=== PATIENT | male | born 1960 | race Caucasian/White ===

== ENCOUNTER 2017-11-28 15:13 | Outpatient (CLI) | payer MEDICARE, SELFPAY ==
--- NOTE | 2017-11-28 15:15 | DI.RAD_ITS ---
SYMPTOMS/DIAGNOSIS: LUMBAR RADICULOPATHY, M54.16, S/P L2-S1 PSIF AND L4 LAMI, RT FOOT AND LEG PAIN LUMBAR SPINE: AP and lateral views. Pedicle screws and rods are seen from L 2 through S 1. The orthopedic hardware appears in good position. There is an intervertebral body cage at the L 4 - 5 disc level. There is straightening of the normal lumbar lordosis. There also appears to be a mild right convex curvature of the lumbar spine. No definite acute fractures or subluxations are seen. Moderate degenerative changes are present throughout the lumbar spine. The patient appears to have had a prior L 4 laminectomy. IMPRESSION: 1. Post surgical changes in the lumbar spine as described. 2. Mild to moderate degenerative changes in the lumbar spine.
== END 2017-11-28 15:33 ==
PROVIDERS: PCP Family Medicine; Visit Provider Nurse Practitioner
DX: M54.16 Radiculopathy, lumbar region (principal); M79.671 Pain in right foot; M79.661 Pain in right lower leg
CPT/HCPCS: 72100

== ENCOUNTER 2018-05-18 14:51 | Outpatient (REF) | payer MEDICARE, SELFPAY ==
--- NOTE | 2018-05-18 10:25 | SKI_PTH ---
PATIENT: Darrell Sweeney LOC: [facility] U#:[id number] AGE/SX: 58/M ROOM: RE05/18/[address]: Ivonne Diop : 1960 BED: DIS: 05/18/2018 SPEC #: [id number] RECD: 05/19/18 11:32 STATUS: ARTEMIO JANE #: [id number] JANELLE: 05/18/18 10:[address]: Ivonne Diop DEPT: Surgical Specimen RECD BY: Shefali Limon Tissues: 1 - SKIN BIOPSY(SHAVE/PUNCH) Procedures: SKIN LEVEL 4 Comments: [id number]
== END 2018-05-18 15:11 ==
LOC: NCHCN 14:51
PROVIDERS: PCP Family Medicine; Visit Provider Family Medicine
DX: C44.729 Squamous cell carcinoma of skin of left lower limb, including hip (principal)
CPT/HCPCS: 88305

== ENCOUNTER 2018-06-12 10:48 | Outpatient (CLI) | payer MEDICARE, SELFPAY ==
[2018-06-12 13:24] LABS: ESR 12 MM/HR (1-20)
[2018-06-15 10:47] LABS: Rheumatoid Factor <8 IU/mL (<12.5)
[2018-06-15 14:21] LABS: ANA Interpretation Positive (NEGAT); ANA Titer Pattern 1:320 Speckled
[2018-06-16 10:45] LABS: dsDNA Ab, IgG <12.3 IU/mL (<30)
== END 2018-06-12 11:08 ==
PROVIDERS: PCP Family Medicine; Visit Provider Family Medicine
DX: D89.89 Other specified disorders involving the immune mechanism, not elsewhere classified (principal)
CPT/HCPCS: 36415; 85652; 84443; 86038; 86225; 86431

== ENCOUNTER 2018-06-18 07:04 | Outpatient (CLI) | payer MEDICARE, SELFPAY ==
--- NOTE | 2018-06-18 14:29 | DI.CT_ITS ---
SYMPTOMS/DIAGNOSIS: SHORTNESS OF BREATH, R06.02, H/O CIGARETTE SMOKER, Z87.[address]: The study was carried out with intravenous injection of 70 cc of Omnipaque 350. There are emphysematous changes in the lungs. Small regions of bilateral lower lobe atelectasis are seen. There is no evidence of a mass or infiltrate. There is no evidence of a pleural effusion. There is no evidence of hilar or mediastinal adenopathy. The heart is not enlarged. There is no pericardial effusion. There is no evidence of an aortic aneurysm. SUMMARY: Findings consistent with COPD. No mass or infiltrate is demonstrated.
[2018-06-18] MEDS: Omnipaque 350 MG/ML 100 ML BTL IJ (14:53)
== END 2018-06-18 07:24 ==
PROVIDERS: PCP Family Medicine; Visit Provider Family Medicine
DX: R06.02 Shortness of breath (principal); Z87.891 Personal history of nicotine dependence; J44.9 Chronic obstructive pulmonary disease, unspecified; J98.11 Atelectasis
CPT/HCPCS: 71260; J3490

== ENCOUNTER 2018-07-01 00:55 | Outpatient (CLI) | payer MEDICARE, SELFPAY ==
[2018-07-01 09:40] LABS: CREATININE 0.81 mg/dL (0.70-1.30)
--- NOTE | 2018-07-01 10:33 | DI.RAD_ITS ---
SYMPTOM/DIAGNOSIS: THORACIC BACK PAIN, M54.6 THORACIC SPINE: AP and lateral views. Comparison chest xray is 04/02/17. There is normal alignment of the thoracic spine. The paraspinal lines appear intact. There are mild degenerative changes present throughout the thoracic spine. No acute fractures or subluxations are seen. The inferior images show findings of spinal fixation surgery. This was not present on examination from 04/02/17. IMPRESSION: Mild degenerative changes in the thoracic spine. No acute abnormality.
--- NOTE | 2018-07-08 15:18 | DI.MRI_ITS ---
SYMPTOM/DIAGNOSIS: CERVICAL STENOSIS OF SPINAL CORD, M45.02, S/P LUMBAR SPINAL FUSION, Z98.1, LOW BACK PAIN LUMBOSACRAL SPINE MRI: MRI examination of the lumbosacral spine was performed according to the usual protocol with additional pre and post contrast axial and sagittal T 1 fat sat imaging. There is posterior spinal fusion with fixation screws extending into the vertebral bodies from L 2 through S 1. There is significant artifact from this apparatus. The conus medullaris appears grossly intact. Spinal canal appears well maintained throughout with mild bony deformity present at the L 4-5 level, the bony deformity appears essentially unchanged in comparison with previous lumbar spine CT of 04/02/17 and these vertebral bodies now appear fused by MR criteria. No gross disc herniation identified. Neural foramina poorly visualized. No enhancing lesion is seen. CONCLUSION: Stable appearance of lumbar fusion as described above. No gross evidence of neural impingement on this limited study. CERVICAL SPINE MRI: MRI examination of the cervical spine was performed according to the usual protocol. The examination is significantly limited by motion artifact. No significant bony signal abnormality is seen. Loss of normal cervical lordosis noted. There is prominence of the disc osteophyte complex at multiple levels from C 3-4 through C 6-7. The bony spinal canal appears fairly well maintained throughout this region. No gross disc herniation identified at C 3-4 or C 4-5. There may be a small to moderate sized superimposed right paracentral disc herniation at C 5-6, also mild right superimposed disc herniation paracentral at C 6-7 may be present. Neural foraminal poorly visualized. Spinal cord is of normal diameter and shows normal signal throughout. CONCLUSION: Very limited study. Multi level prominence of the disc osteophyte complex as described above with possible superimposed mild right paracentral disc herniations at C 5-6 and C 6-7. No cord abnormality is seen.
[2018-07-08] MEDS: Gadoterate meglumine 20 ML VIAL IVP (15:42)
[2018-07-08] MEDS: Normal Saline Flush 10 ML SYR IVP (15:43)
== END 2018-07-01 01:15 ==
PROVIDERS: Neurological Surgery; PCP Family Medicine; Visit Provider Nurse Practitioner
DX: M54.6 Pain in thoracic spine (principal); M47.814 Spondylosis without myelopathy or radiculopathy, thoracic region; Z98.1 Arthrodesis status; Z13.89 Encounter for screening for other disorder
CPT/HCPCS: 72072; 82565

== ENCOUNTER 2018-07-07 00:57 | Outpatient (CLI) | payer MEDICARE, SELFPAY ==
--- NOTE | 2018-07-07 09:31 | DI.RAD_ITS ---
SYMPTOMS/DIAGNOSIS: SWALLOWING PROBLEM, R13.10, DYSPHAGIA MODIFIED BARIUM SWALLOW: The exam was performed in conjunction with Speech Pathology. Multiple consistencies of barium, as well as cracker and apple coated with barium and barium tablet, were administered. There is normal oral transit. No aspiration was seen during the exam. There is no significant pooling in the vallecula or pyriform sinuses. The barium tablet passed into the stomach without delay. Degenerative changes are seen at C5-6 and C6-7. IMPRESSION: Modified barium swallow is within normal limits.
[2018-07-07] MEDS: Barium Sulfate 700 MG TAB PO (09:34)
[2018-07-07] MEDS: Barium Sulfate 60% W/V 355 ML BTL PO (09:34)
== END 2018-07-07 01:17 ==
PROVIDERS: PCP Family Medicine; Visit Provider Family Medicine
DX: R13.10 Dysphagia, unspecified (principal)
CPT/HCPCS: 74220; J3490

== ENCOUNTER 2018-07-07 02:14 | Outpatient (CLI) | payer MEDICARE, SELFPAY | END 2018-07-07 02:34 | PROVIDERS: PCP Family Medicine | DX: R13.12 Dysphagia, oropharyngeal phase (principal); R13.14 Dysphagia, pharyngoesophageal phase | CPT/HCPCS: 92611 ==

== ENCOUNTER 2018-07-08 00:19 | Outpatient (CLI) | payer MEDICARE, SELFPAY | END 2018-07-08 00:39 | PROVIDERS: PCP Family Medicine; Visit Provider Neurological Surgery | DX: M54.5 Low back pain (principal); M48.02 Spinal stenosis, cervical region; M50.222 Other cervical disc displacement at C5-C6 level; M50.223 Other cervical disc displacement at C6-C7 level; M54.2 Cervicalgia | CPT/HCPCS: 72158; 72141 ==

== ENCOUNTER 2018-11-09 18:54 | Emergency (ER) | payer MEDICARE, SELFPAY ==
[2018-11-09 19:49] VITALS: BP 147/85; PULSE 56; RESP 16; TEMP 36.5; O2SAT 99
--- NOTE | 2018-11-09 20:04 | W.ED.GENAD ---
Discharge Plan Disposition Patient Disposition: HOME Discharge Details Chief Complaint: Trauma Clinical Impression: Left ankle sprain, Ingrown nail of great toe of left foot Primary Care Provider: Ivonne Diop ED Provider: Mateo Rebollar Home Meds and New Rx's Prescriptions: New cephalexin [Keflex] 500 mg capsule 500 mg PO QID Qty: 28 RF: 0 Continued olanzapine [Zyprexa] 10 MG tablet 10 mg PO TID RF: 0 lamotrigine 300 MG tablet extended release 24hr 300 mg PO DAILY RF: 0 Narcan 4 MG spray,non-aerosol 4 mg NS ONCE MDD 1 Qty: 1 RF: 0 lisinopril 20 MG tablet 40 mg PO DAILY RF: 0 mirtazapine 45 MG tablet 45 mg PO HS RF: 0 acetaminophen 500 MG tablet 1,000 mg PO QID PRN PRNRF: 0 tamsulosin [Flomax] 0.4 MG capsule 0.8 mg PO DAILY RF: 0 cyanocobalamin (vitamin B-12) [Vitamin B-12] 1,000 MCG tablet 1,000 mcg PO DAILY RF: 0 turmeric root extract 500 MG capsule 500 mg PO DAILY RF: 0 cyclobenzaprine 10 MG tablet 10 mg PO BID PRN PRNRF: 0 Flovent Diskus 50 MCG blister with device 50 mcg Inhalation DAILY RF: 0 polyethylene glycol 3350 17 GM powder in packet 17 gm PO DAILY RF: 0 sennosides-docusate sodium [Senna with Docusate Sodium] 1 EACH tablet 2 ea PO BID RF: 0 chlorthalidone 50 MG tablet 50 mg PO DAILY RF: 0 morphine [MS Contin] 60 MG tablet extended release 60 mg PO BID RF: 0 morphine [MS Contin] 60 MG tablet extended release 120 mg PO HS RF: 0 morphine 30 MG tablet 30 mg PO Q4H PRN PRNRF: 0 lidocaine [Lidoderm] 1 PATCH adhesive patch,medicated 1 ea Topical DAILY RF: 0 gabapentin 300 MG capsule 300 mg PO TID RF: 0 diltiazem HCl 120 MG capsule,extended release 24hr 120 mg PO DAILY RF: 0 Vicks DayQuil Cough 5 MG/5 ML syrup 30 mg PO Q6H PRN PRNRF: 0 Spiriva with HandiHaler 18 MCG capsule, w/inhalation device 18 mcg Inhalation DAILY RF: 0 omega-3 fatty acids-fish oil 1 EACH capsule 1 ea PO DAILY RF: 0 levomefolate calcium [L-Methylfolate] 15 MG tablet 15 mg PO DAILY RF: 0 venlafaxine 75 MG capsule,extended release 24hr 150 mg PO HS RF: 0 Discharge Instructions Instructions: Ankle Sprain (ED) Additional Instructions: Please use walking boot and crutches for the next 1 to 2 weeks. If pain persists, you will need additional diagnostic imaging. Please follow-up with your primary care physician. Call for an appointment. Please follow-up with podiatry regarding her ingrown toenail. Call for an appointment. Take full course antibiotics as prescribed. Return to the ER for any worsening or new concerning symptoms. Referrals: Ivonne Diop [Primary Care Provider] - Diaz Shelton DPM [[facility] STAFF PHYSICIAN] - Discharge Data Discharge Date/Time-TO BE ENTERED AT DEPARTURE: 11/09/18 22:00 Medical Decision Making 58-year-old male here 1 day after fall from 3 foot ladder with complaint of left ankle and foot pain. Patient has tenderness of his left anterior lateral ankle and proximal foot. Considered fracture. X-ray of the ankle reviewed and interpreted by radiology: No evidence for acute bony injury. Soft tissue swelling. If clinical systems persist recommend follow-up film in 7 to 10 days. X-ray of the foot reviewed and interpreted by radiology: No acute bony findings. If clinical symptoms persist recommend follow-up film in 7 to 10 days. Suspect ankle sprain. Will provide walking boot and crutches. Patient also with left great toe ingrown nail with associated mild cellulitis. Plan to treat with Keflex and have him follow-up with podiatry. HPI General Mode of arrival: ambulatory. Date/Time Provider Initiated Documentation: 11/09/18 19:49. Limitations to Documentation: no limitations. Information obtained by: patient. HPI Narrative: 58-year-old male here 1 day after fall from 3 foot ladder with complaint of left ankle and foot pain. Patient notes pain is moderate and worse with ambulation. No associated numbness. No other injury. He also notes ingrown left great toenail and concern for infection over the past few days. Denies fever. Related Data Home Medications Medication Instructions Recorded Confirmed lisinopril 40 mg PO DAILY 05/20/12 11/09/18 mirtazapine 45 mg PO HS 05/20/12 11/09/18 acetaminophen 1,000 mg PO QID PRN PRN 01/05/16 04/02/17 tamsulosin [Flomax] 0.8 mg PO DAILY 01/05/16 11/09/18 cyanocobalamin (vitamin B-12) 1,000 mcg PO DAILY 02/06/16 11/09/18 [Vitamin B-12] turmeric root extract 500 mg PO DAILY 02/06/16 11/09/18 olanzapine [Zyprexa] 10 mg PO TID 06/26/16 11/09/18 Narcan 4 mg NS ONCE #1 spray MDD 1 07/23/16 11/09/18 lamotrigine 300 mg PO DAILY 07/23/16 11/09/18 Flovent Diskus 50 mcg INHALATION DAILY 04/02/17 11/09/18 Spiriva with HandiHaler 18 mcg INHALATION DAILY 04/02/17 11/09/18 Vicks DayQuil Cough 30 mg PO Q6H PRN PRN 04/02/17 04/02/17 chlorthalidone 50 mg PO DAILY 04/02/17 04/02/17 cyclobenzaprine 10 mg PO BID PRN PRN 04/02/17 11/09/18 diltiazem HCl 120 mg PO DAILY 04/02/17 11/09/18 gabapentin 300 mg PO TID 04/02/17 11/09/18 levomefolate calcium 15 mg PO DAILY 04/02/17 11/09/18 [L-Methylfolate] lidocaine [Lidoderm] 1 ea TOPICAL DAILY 04/02/17 11/09/18 morphine 30 mg PO Q4H PRN PRN 04/02/17 11/09/18 morphine [MS Contin] 60 mg PO BID 04/02/17 11/09/18 morphine [MS Contin] 120 mg PO HS 04/02/17 11/09/18 omega-3 fatty acids-fish oil 1 ea PO DAILY 04/02/17 11/09/18 polyethylene glycol 3350 17 gm PO DAILY 04/02/17 11/09/18 sennosides-docusate sodium [Senna 2 ea PO BID 04/02/17 11/09/18 with Docusate Sodium] venlafaxine 150 mg PO HS 04/02/17 11/09/18 cephalexin [Keflex] 500 mg PO QID #28 cap 11/09/18 Previous Rx's Medication Instructions Recorded cephalexin [Keflex] 500 mg PO QID #28 cap 11/09/18 Allergies Allergy/AdvReac Type Severity Reaction Status Date / Time varenicline [From Chantix] AdvReac Intermediate Psychosis Unverified 04/02/17 11:21 ziprasidone mesylate AdvReac Intermediate Memory Unverified 04/02/17 11:21 [From Geodon] deficit duloxetine HCl AdvReac Unknown Unverified 04/02/17 11:21 [From Cymbalta] topiramate [From Topamax] AdvReac Unknown Unverified 04/02/17 11:21 hay fever AdvReac Mild rhinitis Uncoded 04/02/17 11:21 General Stated Complaint: Trauma GARRETT: 3 Review of Systems Constitutional Constitutional: Denies fever(s) Musculoskeletal Musculoskeletal: Reports system reviewed and no additional complaints, except as docu [facility] Medical History Chronic back pain Depression with anxiety Fibromyalgia Hyperlipidemia Hypertension Lactose intolerance Marijuana use Obesity ANGIE (obstructive sleep apnea) Psychogenic polydipsia PTSD (post-traumatic stress disorder) Restless legs Urinary retention Surgical History bunionectomy Colonoscopy - MAC Replacement of total knee joint right Rotator Cuff Repair right Social History Smoking/Tobacco Use Status: Current every day Drug use: Daily Do you feel safe in your relationship?: Yes Exam Const General: cooperative and no acute distress Cardio Rate: regular rate Rhythm: regular rhythm Skin Nails: other (Left great toe ingrown with some localized erythema and swelling) Extrem General: no edema Left lower extremity: lower leg Details: no tenderness (Proximal lower leg), ankle Details: tenderness Location: of the lateral malleolus and swelling Details: diffusely; no warmth and no crepitus and foot Details: no tenderness Other: Distal motor and sensation intact Course Vital Signs Vital signs: Vital Signs Temperature 36.5 C 11/09/18 19:49 Pulse 56 L 11/09/18 19:49 Respiratory Rate 16 11/09/18 19:49 Blood Pressure 147/85 H 11/09/18 19:49 Pulse Oximetry 99 11/09/18 19:49 Temperature 36.5 C 11/09/18 19:49 Temperature Source Temporal Artery Scan 11/09/18 19:49 Pulse 56 L 11/09/18 19:49 Respiratory Rate 16 11/09/18 19:49 Blood Pressure 147/85 H 11/09/18 19:49 Blood Pressure Position Sitting 11/09/18 19:49 Pulse Oximetry 99 11/09/18 19:49 Oxygen Delivery Method Room Air 11/09/18 19:49 Oxygen Flow Rate 0 11/09/18 19:49 Pain Level 8 11/09/18 19:49
[2018-11-09] MEDS: Cephalexin 500 MG CAP PO (20:16)
--- NOTE | 2018-11-09 20:25 | DI.RAD_ITS ---
EXAM: XR FOOT LT COMPLETE CLINICAL HISTORY: FELL, PAIN TECHNIQUE: Three views were obtained. COMPARISON: XR ANKLE LT COMPLETE from 11/09/2018 FINDINGS: There are degenerative changes of the tibiotalar and subtalar articulations. There are also degenera tive changes of the medial midfoot joints. No evidence of acute fracture. IMPRESSION:
--- NOTE | 2018-11-09 20:25 | DI.RAD_ITS ---
EXAM: XR ANKLE LT COMPLETE CLINICAL HISTORY: FELL, PAIN TECHNIQUE: Three views were obtained. COMPARISON: RIGHT ANKLE COMPLETE from 07/21/2009 XR FOOT LT COMPLETE from 11/09/2018 FINDINGS: Mild degenerative changes of the joints of the ankle noted. No evidence of acute fracture IMPRESSION:
--- NOTE | 2018-11-09 20:31 | DI.VRAD_ITS ---
EXAM: XR Left Ankle EXAM DATE/TIME: 11/09/2018 8:04 PM CLINICAL HISTORY: 58 years old, male; Injury or trauma; Fall; Initial encounter; Blunt trauma; Ankle and foot; Left; Injury date: 11/09/18; Injury details: Fell off step ladder TECHNIQUE: Imaging protocol: XR Left ankle. Views: 3 or more views. COMPARISON: No relevant prior studies available. FINDINGS: Bones/joints: Degenerative changes of the talotibial joint. No evidence for acute bony injury. Soft tissues: Soft tissue swelling circumferentially involving the left ankle. IMPRESSION: No evidence for acute bony injury. Soft tissue swelling. If clinical symptoms persist recommend followup film in 7-10 days. Dictated and Authenticated by: Noelle Portillo MD. Ordering:TREMAINE Galindo MD
--- NOTE | 2018-11-09 20:32 | DI.VRAD_ITS ---
EXAM: XR Left Foot Complete EXAM DATE/TIME: 11/09/2018 8:04 PM CLINICAL HISTORY: 58 years old, male; Injury or trauma; Fall; Initial encounter; Blunt trauma; Ankle and foot; Left; Injury date: ; Injury details: Fell off step ladder TECHNIQUE: Imaging protocol: XR Left foot. Views: 3 or more views. COMPARISON: No relevant prior studies available. FINDINGS: Bones/joints: Degenerative changes of the talotibial joint. Degenerative changes of the tarsal bones. No evidence for acute bony injury. Soft tissues: Soft tissue swelling involving the ankle. IMPRESSION: No acute bony findings. If clinical symptoms persist recommend followup film in 7-10 days. Dictated and Authenticated by: Noelle Portillo MD. Ordering:TREMAINE Galindo MD
== END 2018-11-09 22:00 | disposition home or self-care (01) ==
PROVIDERS: Emergency Provider Student in an Organized Health Care Education/Training Program; PCP Family Medicine
DX: S93.402A Sprain of unspecified ligament of left ankle, initial encounter (principal); L60.0 Ingrowing nail; L03.032 Cellulitis of left toe; W11.XXXA Fall on and from ladder, initial encounter; I10 Essential (primary) hypertension
CPT/HCPCS: 29515; 99284; 73610; 73630; L4361

== ENCOUNTER 2018-11-23 10:25 | Outpatient (REF) | payer MEDICARE, SELFPAY ==
[2018-11-23 21:09] LABS: HCT 37.9 % (40.0-50.0); HGB 12.6 g/dL (13.5-17.5); Mean Corp. HGB Concentration 33.2 g/dL (32.0-36.0); Mean Corpuscular Volume 90.2 fL (80-95); Mean Platelet Volume 8.8 fL (8.0-11.0); Platelet Count 278 x1000/uL (130-400); RBC Distribution Width 15.9 % (11.8-14.1); White Blood Cell Count 9.63 k/cumm (4.4-10.8)
[2018-11-23 21:21] LABS: ALT 57 U/L (16-63); AST 31 U/L (15-37); Albumin 3.1 g/dL (3.4-5.0); Alkaline Phosphatase 114 U/L (46-116); Anion Gap 5.2 mmol/L (3-11); BUN 8 mg/dL (7-18); Bilirubin, Total 0.6 mg/dL (0.2-1.0); CO2 29.8 mmol/L (21.0-32.0); CREATININE 0.91 mg/dL (0.70-1.30); Calcium 8.4 mg/dL (8.5-10.1); Chloride 100 mmol/L (98-107); Glucose 93 mg/dL (70-100); Potassium 4.8 mmol/L (3.5-5.1); Sodium 135 mmol/L (136-145); Total Protein 5.7 g/dL (6.4-8.2)
[2018-11-24 08:48] LABS: NT-proBNP 2283 pg/mL
== END 2018-11-23 10:45 ==
LOC: NCHCN 10:25
PROVIDERS: PCP Family Medicine; Visit Provider Internal Medicine
DX: R06.02 Shortness of breath (principal); J44.9 Chronic obstructive pulmonary disease, unspecified
CPT/HCPCS: 80053; 85027; 83880

== ENCOUNTER 2018-11-27 03:44 | Outpatient (CLI) | payer MEDICARE, SELFPAY ==
--- NOTE | 2018-11-27 09:30 | PFT_ITS ---
PULMONARY FUNCTION TEST REPORT DATE OF SERVICE: November 27, 2018 REQUESTING PROVIDER: Dr. Mark Rivas Spirometry shows mild obstructive airways disease with no significant bronchodilator response. Lung volumes show no evidence of restriction. Diffusion capacity normal. Airways resistance normal. IMPRESSION: Mild obstructive airways disease with no significant bronchodilator response. This is associated with mild hyper-inflation. Clinical correlation recommended. When this study was compared to previous one from 05/15/2016, the patient has a total of 840 cc's decline in FVC. FEV1 has declined by 580 cc's. ESAU/prieto D/
[2018-11-27] MEDS: Inhaler, Assist Device 1 EACH MC (15:58)
[2018-11-27] MEDS: Albuterol HFA 18 GM 200 PUFF INH IH (15:58)
== END 2018-11-27 04:04 ==
PROVIDERS: PCP Family Medicine; Visit Provider Internal Medicine
DX: J44.9 Chronic obstructive pulmonary disease, unspecified (principal); R06.09 Other forms of dyspnea; Z87.891 Personal history of nicotine dependence
CPT/HCPCS: 94060; 94150; 94726; 94729

== ENCOUNTER 2018-12-28 10:59 | Emergency (ER) | payer MEDICARE, SELFPAY ==
[2018-12-28] VITALS (49 sets, daily range): BP systolic 90–164; BP diastolic 65–137; PULSE 70–117; RESP 15–28; TEMP 36.7; O2SAT 91–98
--- NOTE | 2018-12-28 11:03 | ED.GENADUL_ITS ---
Discharge Plan Discharge Details Primary Care Provider: Ivonne Diop ED Provider: Mili Rebollar Home Meds and New Rx's Prescriptions: No Action olanzapine [Zyprexa] 10 MG tablet 10 mg PO TID RF: 0 lamotrigine 300 MG tablet extended release 24hr 300 mg PO DAILY RF: 0 Narcan 4 MG spray,non-aerosol 4 mg NS ONCE MDD 1 Qty: 1 RF: 0 lisinopril 20 MG tablet 40 mg PO DAILY RF: 0 mirtazapine 45 MG tablet 45 mg PO HS RF: 0 acetaminophen 500 MG tablet 1,000 mg PO QID PRN PRNRF: 0 tamsulosin [Flomax] 0.4 MG capsule 0.8 mg PO DAILY RF: 0 cephalexin [Keflex] 500 mg capsule 500 mg PO QID Qty: 28 RF: 0 cyanocobalamin (vitamin B-12) [Vitamin B-12] 1,000 MCG tablet 1,000 mcg PO DAILY RF: 0 turmeric root extract 500 MG capsule 500 mg PO DAILY RF: 0 cyclobenzaprine 10 MG tablet 10 mg PO BID PRN PRNRF: 0 Flovent Diskus 50 MCG blister with device 50 mcg Inhalation DAILY RF: 0 polyethylene glycol 3350 17 GM powder in packet 17 gm PO DAILY RF: 0 sennosides-docusate sodium [Senna with Docusate Sodium] 1 EACH tablet 2 ea PO BID RF: 0 chlorthalidone 50 MG tablet 50 mg PO DAILY RF: 0 morphine [MS Contin] 60 MG tablet extended release 60 mg PO BID RF: 0 morphine [MS Contin] 60 MG tablet extended release 120 mg PO HS RF: 0 morphine 30 MG tablet 30 mg PO Q4H PRN PRNRF: 0 lidocaine [Lidoderm] 1 PATCH adhesive patch,medicated 1 ea Topical DAILY RF: 0 gabapentin 300 MG capsule 300 mg PO TID RF: 0 diltiazem HCl 120 MG capsule,extended release 24hr 120 mg PO DAILY RF: 0 Vicks DayQuil Cough 5 MG/5 ML syrup 30 mg PO Q6H PRN PRNRF: 0 Spiriva with HandiHaler 18 MCG capsule, w/inhalation device 18 mcg Inhalation DAILY RF: 0 omega-3 fatty acids-fish oil 1 EACH capsule 1 ea PO DAILY RF: 0 levomefolate calcium [L-Methylfolate] 15 MG tablet 15 mg PO DAILY RF: 0 venlafaxine 75 MG capsule,extended release 24hr 150 mg PO HS RF: 0 HPI General Date/Time Provider Initiated Documentation: 12/28/18 11:03 . Related Data Home Medications Medication Instructions Recorded Confirmed lisinopril 40 mg PO DAILY 05/20/12 11/09/18 mirtazapine 45 mg PO HS 05/20/12 11/09/18 acetaminophen 1,000 mg PO QID PRN PRN 01/05/16 04/02/17 tamsulosin [Flomax] 0.8 mg PO DAILY 01/05/16 11/09/18 cyanocobalamin (vitamin B-12) 1,000 mcg PO DAILY 02/06/16 11/09/18 [Vitamin B-12] turmeric root extract 500 mg PO DAILY 02/06/16 11/09/18 olanzapine [Zyprexa] 10 mg PO TID 06/26/16 11/09/18 Narcan 4 mg NS ONCE #1 spray MDD 1 07/23/16 11/09/18 lamotrigine 300 mg PO DAILY 07/23/16 11/09/18 Flovent Diskus 50 mcg INHALATION DAILY 04/02/17 11/09/18 Spiriva with HandiHaler 18 mcg INHALATION DAILY 04/02/17 11/09/18 Vicks DayQuil Cough 30 mg PO Q6H PRN PRN 04/02/17 04/02/17 chlorthalidone 50 mg PO DAILY 04/02/17 04/02/17 cyclobenzaprine 10 mg PO BID PRN PRN 04/02/17 11/09/18 diltiazem HCl 120 mg PO DAILY 04/02/17 11/09/18 gabapentin 300 mg PO TID 04/02/17 11/09/18 levomefolate calcium 15 mg PO DAILY 04/02/17 11/09/18 [L-Methylfolate] lidocaine [Lidoderm] 1 ea TOPICAL DAILY 04/02/17 11/09/18 morphine 30 mg PO Q4H PRN PRN 04/02/17 11/09/18 morphine [MS Contin] 60 mg PO BID 04/02/17 11/09/18 morphine [MS Contin] 120 mg PO HS 04/02/17 11/09/18 omega-3 fatty acids-fish oil 1 ea PO DAILY 04/02/17 11/09/18 polyethylene glycol 3350 17 gm PO DAILY 04/02/17 11/09/18 sennosides-docusate sodium [Senna 2 ea PO BID 04/02/17 11/09/18 with Docusate Sodium] venlafaxine 150 mg PO HS 04/02/17 11/09/18 cephalexin [Keflex] 500 mg PO QID #28 cap 11/09/18 Previous Rx's Medication Instructions Recorded cephalexin [Keflex] 500 mg PO QID #28 cap 11/09/18 Allergies Allergy/AdvReac Type Severity Reaction Status Date / Time varenicline [From Chantix] AdvReac Intermediate Psychosis Unverified 04/02/17 11:21 ziprasidone mesylate AdvReac Intermediate Memory Unverified 04/02/17 11:21 [From Geodon] deficit duloxetine HCl AdvReac Unknown Unverified 04/02/17 11:21 [From Cymbalta] topiramate [From Topamax] AdvReac Unknown Unverified 04/02/17 11:21 hay fever AdvReac Mild rhinitis Uncoded 04/02/17 11:21 General GARRETT: 3 PFSH Social History Smoking/Tobacco Use Status: Current every day Drug use: Daily Do you feel safe in your relationship?: Yes
--- NOTE | 2018-12-28 11:14 | W.ED.GENAD ---
Discharge Plan Discharge Details Chief Complaint: Nausea/Vomit/Diar Primary Care Provider: Ivonne Diop ED Provider: Mateo Rebollar Home Meds and New Rx's Prescriptions: No Action Narcan 4 MG spray,non-aerosol 4 mg NS ONCE MDD 1 Qty: 1 RF: 0 lisinopril 20 MG tablet 40 mg PO DAILY RF: 0 mirtazapine 45 MG tablet 45 mg PO HS RF: 0 acetaminophen 500 MG tablet 1,000 mg PO TID RF: 0 tamsulosin [Flomax] 0.4 MG capsule 0.8 mg PO DAILY RF: 0 cephalexin [Keflex] 500 mg capsule 500 mg PO QID Qty: 28 RF: 0 triamcinolone acetonide 0.5 % Cream 1 applic TOPICAL BID RF: 0 methadone 10 mg Tablet 30 mg PO BID RF: 0 methadone 10 mg Tablet 20 mg PO DAILY RF: 0 lidocaine HCl 2 % Jelly 1 applic INTRA-URETHRAL 4-6XD PRNRF: 0 hydroxyzine HCl 25 mg Tablet 25 mg PO TID PRNRF: 0 albuterol sulfate [Ventolin HFA] 90 mcg/actuation Hfa Aerosol Inhaler 2 puff INHALATION 6XD PRNRF: 0 propranolol 20 mg Tablet 20 mg PO BID RF: 0 fluticasone propionate 50 mcg/actuation [place],Suspension 2 spray INTRANASAL DAILY RF: 0 lamotrigine [Lamictal] 100 mg Tablet 300 mg PO DAILY RF: 0 oxycodone 20 mg Tablet 20 mg PO Q8H PRNRF: 0 venlafaxine 75 mg Tablet Extended Release 24hr 75 mg PO DAILY RF: 0 cholecalciferol (vitamin D3) 5,000 unit Tablet 5,000 unit PO DAILY RF: 0 Anoro Ellipta 62.5-25 mcg/actuation Blister With Device 1 inh INHALATION DAILY RF: 0 Multi-Day Plus Minerals 18 mg iron-400 mcg-25 mcg Tablet 1 tab PO DAILY RF: 0 cannabidiol (CBD) extract 100 mg/mL Solution 2 - 3 PO DAILY PRNRF: 0 cyanocobalamin (vitamin B-12) [Vitamin B-12] 1,000 MCG tablet 1,000 mcg PO DAILY RF: 0 cyclobenzaprine 10 MG tablet 10 mg PO TID PRNRF: 0 polyethylene glycol 3350 17 GM powder in packet 17 gm PO DAILY RF: 0 sennosides-docusate sodium [Senna with Docusate Sodium] 1 EACH tablet 2 ea PO DAILY RF: 0 chlorthalidone 50 MG tablet 50 mg PO DAILY RF: 0 gabapentin 300 MG capsule 300 mg PO QID RF: 0 venlafaxine 75 MG capsule,extended release 24hr 225 mg PO QAM RF: 0 Discharge Data Discharge Date/Time-TO BE ENTERED AT DEPARTURE: 12/28/18 17:50 Medical Decision Making <NOLAN Prasad - Last Filed: 12/30/18 23:57> Patient is a 58-year-old male presenting today with chief complaint of dark stools x2 yesterday. Endorses nausea and vomiting x1 this morning. Is not currently endorsing nausea. No abdominal pain. Headache. States that he has been generally weak but states is been going on for months and is not in any acute change in this. Denies any fevers or chills. No cough. Denies shortness of breath. No chest tightness or chest pain. On exam, patient is resting comfortably. Vital signs are significant for mild hypoxia with an oxygen of 93%, patient has been like this historically. Lungs are clear. Normal Cardiac exam. No lower extremity edema. Rectal exam is normal, heme-negative stool. Abdomen is benign with no tenderness on exam. plan for labs to evaluate for any anemia or electrolyte abnormality in the acute setting of GI illness. Consulted with pathologist. Sodium is 101, potassium 2.7, chloride 65. However, this does not correlate clinically. Will redraw and retest signs my suspicion is his lab error. Patient is clear mentally. He is receiving IV fluids. Went to discuss this with the patient is requesting discharge. He is very anxious. Offered anxiety lytic options and he is requesting anxiety medications. Patient's repeat potassium is critical at 104. We will contact critical care at [facility]. His potassium was low at 3.0. Chloride 67. Magnesium 1.6. Creatinine is have 0.87. On recent discharge note from [facility], patient's sodium was 131. Still awaiting rest of the laboratory results. Reevaluated the patient, he is now starting to have some mentation changes. He is oriented to person but not to place or time. He is moving his hands that is reaching for something that is not there. Patient is to receive 100 mL hypertonic saline over 10 minutes. I did speak with hospitalist as well regarding dosing and reviewed up-to-date. is now giving more of a history. She reports in fact the patient has been reporting a headache for the past week even though initially denied this to me. She also states that he has been more confused over recent days but is not able to define as well for pain. Sounds like he is not answering her questions completely and can ramble. She reports that his weakness, although has been present for several months, has been increasing greatly over recent days and the patient has been stumbling frequently. No seizures. 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 is unclear if he is been having issues with this recently. She reports that he drinks a large amount of soda daily. Reports he had a poor appetite in recent days. Consulted with critical care in [facility]. They accept the patient in transfer but bed is not available at this time. Patient is received 100 mL of hypertonic saline at this time and is improving. They recommended maintaining the patient on 30 mL of 3% hypertonic saline per hour with repeat BMP every 2. Patient continues to have improved mental status, tolerating the hypertonic well. Patient does need to straight cath himself for urination but he reports that this is typical. He reports that he is getting anxious again and is requesting anxiolytic. Also reporting that he has significant pain. Patient is on methadone twice daily as well as oxycodone every 8 as needed. He reports that he only took his morning dose of methadone. We will give his typical dosing of oxycodone to help with his. At the end of my shift, care transtioned to Dr. Rebollar. Hypertonic still running as advised by critical care. <Mateo Rebollar MD - Last Filed: 01/03/19 15:21> Care signed out by NOLAN Hester with plan to await transfer bed availability. Please see her documentation regarding initial ED presentation and course. Screening ECG was reviewed and interpreted by me: Sinus rhythm 86 bpm, normal axis, right bundle branch block is present, nondiagnostic. Repeat sodium is improving slowly and now 107. 17:30 --bed available and patient stable at this point for transfer. HPI <NOLAN Prasad - Last Filed: 12/30/18 23:57> General Mode of arrival: ambulatory. Date/Time Provider Initiated Documentation: 12/28/18 11:03. Limitations to Documentation: no limitations. Information obtained by: patient and family. HPI Narrative: Patient is a 58-year-old male with history of chronic back pain, depression, anxiety, fibromyalgia, hyperlipidemia, hypertension, ANGIE, psychogenic polydipsia, urinary retention obtained today, brought in by his with chief complaint of 2 bottles yesterday. Patient reports that yesterday he had 2 episodes of dark stool was concern for possible bleeding. Since he had a normal bowel movement today. Reports that these stools yesterday may have been slightly softer than typical but not watery diarrhea like. Denies bleeding elsewhere. No bleeding gums, hematuria. States this morning he was nauseated and vomited x1. Is not currently endorsing nausea. Denies any abdominal pain. Patient was seen by his primary care this morning. Patient was admitted recently at [facility] and was discharged on 12/19/2018. Related Data Home Medications Medication Instructions Recorded Confirmed lisinopril 40 mg PO DAILY 05/20/12 12/28/18 mirtazapine 45 mg PO HS 05/20/12 12/28/18 acetaminophen 1,000 mg PO TID 01/05/16 12/28/18 tamsulosin [Flomax] 0.8 mg PO DAILY 01/05/16 12/28/18 cyanocobalamin (vitamin B-12) 1,000 mcg PO DAILY 02/06/16 12/28/18 [Vitamin B-12] Narcan 4 mg NS ONCE #1 spray MDD 1 07/23/16 12/28/18 chlorthalidone 50 mg PO DAILY 04/02/17 12/28/18 cyclobenzaprine 10 mg PO TID PRN 04/02/17 12/28/18 gabapentin 300 mg PO QID 04/02/17 12/28/18 polyethylene glycol 3350 17 gm PO DAILY 04/02/17 12/28/18 sennosides-docusate sodium [Senna 2 ea PO DAILY 04/02/17 12/28/18 with Docusate Sodium] venlafaxine 225 mg PO QAM 04/02/17 12/28/18 cephalexin [Keflex] 500 mg PO QID #28 cap 11/09/18 albuterol sulfate [Ventolin HFA] 2 puff INHALATION 6XD PRN 12/28/18 12/28/18 cannabidiol (CBD) extract 2 - 3 PO DAILY PRN 12/28/18 cholecalciferol (vitamin D3) 5,000 unit PO DAILY 12/28/18 12/28/18 fluticasone propionate 2 spray INTRANASAL DAILY 12/28/18 12/28/18 hydroxyzine HCl 25 mg PO TID PRN 12/28/18 12/28/18 lamotrigine [Lamictal] 300 mg PO DAILY 12/28/18 12/28/18 lidocaine HCl 1 applic INTRA-URETHRAL 4-6XD PRN 12/28/18 12/28/18 methadone 20 mg PO DAILY 12/28/18 12/28/18 methadone 30 mg PO BID 12/28/18 12/28/18 [id number] K 1 tab PO DAILY 12/28/18 12/28/18 [Multi-Day Plus Minerals] oxycodone 20 mg PO Q8H PRN 12/28/18 12/28/18 propranolol 20 mg PO BID 12/28/18 12/28/18 triamcinolone acetonide 1 applic TOPICAL BID 12/28/18 12/28/18 umeclidinium-vilanterol [Anoro 1 inh INHALATION DAILY 12/28/18 12/28/18 Ellipta] venlafaxine 75 mg PO DAILY 12/28/18 12/28/18 Previous Rx's Medication Instructions Recorded cephalexin [Keflex] 500 mg PO QID #28 cap 11/09/18 Allergies Allergy/AdvReac Type Severity Reaction Status Date / Time varenicline [From Chantix] AdvReac Intermediate Psychosis Unverified 12/28/18 11:13 ziprasidone mesylate AdvReac Intermediate Memory Unverified 12/28/18 11:13 [From Geodon] deficit duloxetine HCl AdvReac Unknown Unverified 12/28/18 11:13 [From Cymbalta] topiramate [From Topamax] AdvReac Unknown Unverified 12/28/18 11:13 hay fever AdvReac Mild rhinitis Uncoded 12/28/18 11:13 General Stated Complaint: Nausea/Vomit/Diar GARRETT: 3 Review of Systems <NOLAN Prasad - Last Filed: 12/30/18 23:57> Constitutional Constitutional: Reports as per HPI, Denies chills, Reports fatigue, Denies fever(s), Denies headache(s), Denies lethargy and Denies poor appetite Eyes Eyes: Denies change in vision ENT Ears, Nose, Mouth, and Throat: Denies dizziness and Denies headache(s) Cardiovascular Cardiovascular: Reports as per HPI, Denies dyspnea and Denies dyspnea on exertion Respiratory Respiratory: Reports as per HPI, Denies chest congestion, Denies cough, Denies pain on inspiration, Denies pain with cough, Denies dyspnea, Denies dyspnea on exertion and Denies wheezing Gastrointestinal Gastrointestinal: Reports as per HPI, Denies abdominal pain, Reports melena (x 2 yesterday, normal BM today), Denies coffee ground emesis, Denies cramping, Denies diarrhea, Reports nausea, Reports vomiting (x 1 this morning) and Denies hematemesis Genitourinary Genitourinary: Denies system reviewed and no additional complaints, except as docu (denies change in urinary habits) Musculoskeletal Musculoskeletal: Reports as per HPI and Denies back pain Integumentary/Breasts Skin/Breast: Reports as per HPI and Denies rash Neurologic Neurologic: Reports as per HPI, Denies dizziness and Denies headache(s) Endocrine Endocrine: Reports fatigue Allergic/Immunologic Allergic/Immunologic: Denies wheezing PFSH <NOLAN Prasad - Last Filed: 12/30/18 23:57> Medical History Chronic back pain Depression with anxiety Fibromyalgia Hyperlipidemia Hypertension Lactose intolerance Marijuana use Obesity ANGIE (obstructive sleep apnea) Psychogenic polydipsia PTSD (post-traumatic stress disorder) Restless legs Urinary retention Surgical History bunionectomy Colonoscopy - MAC Replacement of total knee joint right Rotator Cuff Repair right Social History Smoking/Tobacco Use Status: Current every day Alcohol Intake: never Drug use: Daily Substance use type: marijuana Do you feel safe at home: Yes Do you feel safe in your relationship?: Yes Exam <NOLAN Prasad - Last Filed: 12/30/18 23:57> Const General: cooperative, healthy appearing, comfortable, no acute distress and well developed Nutritional Appearance: average body habitus and well nourished Orientation: alert, awake and oriented x3 HENMT Head: normal to inspection Ears: hearing grossly normal bilaterally Mouth: moist mucous membranes Chest Chest: normal inspection of the chest, normal palpation of entire chest wall and no crepitus Resp Effort & Inspection: normal respiratory effort, able to speak in complete sentences and no respiratory distress Auscultation: clear to auscultation bilaterally, no rales, no rhonchi and no wheezes Cardio Rate: regular rate Rhythm: regular rhythm Heart Sounds: S1 normal and S2 normal GI Inspection: normal to inspection, no edema and non-distended Palpation: soft, no hepatosplenomegaly, not firm, no guarding, not rigid and nontender Auscultation: normal bowel sounds Back/Spine/Pelvis Back: no CVA tenderness Thoracic/Lumbar Spine: thoracic and lumbar spine normal to inspection Skin General skin exam: no rashes or lesions noted Trauma: no lacerations or abrasions Neuro General: alert, awake and oriented x3 Cognition: normal cognition Speech: speech normal Gait: normal gait Extrem General: normal to inspection, normal capillary refill, no pedal edema, no calf tenderness and normal gait Psych Appearance: grossly normal and well kempt Mental Status: mental status grossly normal Speech and Movement: speech and movement normal Course <NOLAN Prasad - Last Filed: 12/30/18 23:57> Vital Signs Vital signs: Vital Signs Temperature 36.7 C 12/28/18 11:08 Pulse 70 12/28/18 11:08 Respiratory Rate 18 12/28/18 11:08 Blood Pressure 133/95 H 12/28/18 11:08 Pulse Oximetry 93 L 12/28/18 11:08 Temperature 36.7 C 12/28/18 11:08 Temperature Source Temporal Artery Scan 12/28/18 11:08 Pulse 70 12/28/18 11:08 Respiratory Rate 18 12/28/18 11:08 Respiratory Effort Non-Labored 12/28/18 11:09 Blood Pressure 133/95 H 12/28/18 11:08 Blood Pressure Position Sitting 12/28/18 11:08 Pulse Oximetry 93 L 12/28/18 11:08 Oxygen Delivery Method Room Air 12/28/18 11:08 Oxygen Flow Rate 0 12/28/18 11:08 Pain Level 0 12/28/18 11:08
[2018-12-28] MEDS: Normal Saline Flush 10 ML SYR IVP (12:06)
[2018-12-28] MEDS: Normal Saline 1,000 ML 1000 ML IV (12:06)
[2018-12-28] MEDS: Acetaminophen 325 MG TAB 650 MG PO (12:08)
[2018-12-28 12:56] LABS: Bilirubin Negative (Negative); Clarity Clear (Clear); Glucose Negative (Negative); Ketones Negative (Negative); Leukocyte Esterase Negative (Negative); Nitrite Negative (Negative); Specific Gravity 1.015 (1.005-1.025); Urobilinogen 0.2 EU/dL (Up TO 0.2)
[2018-12-28 12:57] LABS: Blood Trace-intact (Negative); Epithelial Cells Rare HPF (Negative); WBC 0-2 HPF (0-5)
[2018-12-28 12:58] LABS: Bacteria Negative HPF (Negative); C & S Indicated? No; Casts Negative LPF (Negative); Crystals Negative HPF (Negative); Mucus Negative (Negative); Other Cells Negative (Negative)
[2018-12-28] MEDS: LORazepam 2 MG/ML VIAL 1 MG IVP (13:16)
[2018-12-28 13:24] LABS: INR 1.1 (0.9-1.1); PTT Activated 26.1 sec (21.0-31.4); Prothrombin Time 10.9 sec (9.3-11.0)
[2018-12-28 13:30] LABS: ALT 28 U/L (16-63); AST 36 U/L (15-37); Albumin 3.5 g/dL (3.4-5.0); Alkaline Phosphatase 90 U/L (46-116); Anion Gap 6.8 mmol/L (3-11); BUN 14 mg/dL (7-18); Bilirubin, Total 1.5 mg/dL (0.2-1.0); CO2 30.2 mmol/L (21.0-32.0); CREATININE 0.87 mg/dL (0.70-1.30); Calcium 8.2 mg/dL (8.5-10.1); Chloride 67 mmol/L (98-107); Glucose 95 mg/dL (70-100); Magnesium 1.6 mg/dL (1.8-2.4); Total Protein 6.6 g/dL (6.4-8.2)
[2018-12-28 13:33] LABS: Sodium 104 mmol/L (136-145); Troponin I < 0.05 ng/mL (0.00-0.06)
[2018-12-28] MEDS: Lidocaine 2% Jelly 11 ML SYR (14:07)
[2018-12-28 14:09] LABS: Abs Immature Grans 0.22 k/cumm (0.0-0.09); Absolute Basophil Count 0.02 k/cumm (0.0-0.2); Absolute Eosinophil Count 0.11 k/cumm (0.0-0.7); Absolute Lymphocyte Count 1.49 k/cumm (1.2-3.4); Absolute Monocyte Count 1.37 k/cumm (0.11-0.7); Absolute Neutrophil Count 12.51 k/cumm (1.2-6.7); Basophils % 0.1; Eosinophils % 0.7; HCT 40.9 % (40.0-50.0); HGB 15.8 g/dL (13.5-17.5); Immature Grans % 1.4; Lymphocytes % 9.5; Mean Corp. HGB Concentration 38.6 g/dL (32.0-36.0); Mean Corpuscular Volume 77.8 fL (80-95); Mean Platelet Volume 7.6 fL (8.0-11.0); Monocytes % 8.7; Neutrophils % 79.6; RBC 5.26 m/cumm (4.50-6.00); White Blood Cell Count 15.72 k/cumm (4.4-10.8)
[2018-12-28 14:16] LABS: Diff Comment RBC Morph Reviewed; Platelet Count 308 x1000/uL (130-400)
[2018-12-28 14:18] LABS: RBC Morphology Normal
[2018-12-28 14:24] LABS: Anion Gap 8.5 mmol/L (3-11); BUN 14 mg/dL (7-18); CO2 28.5 mmol/L (21.0-32.0); CREATININE 0.83 mg/dL (0.70-1.30); Calcium 8.1 mg/dL (8.5-10.1); Chloride 69 mmol/L (98-107); Glucose 90 mg/dL (70-100)
[2018-12-28 14:30] LABS: Potassium 2.9 mmol/L (3.5-5.1); Sodium 106 mmol/L (136-145)
[2018-12-28] MEDS: Potassium Chloride 20 MEQ TABCR (14:42)
[2018-12-28] MEDS: SODIUM CHLORIDE 3% 500 ML 30 ML IV (14:48)
[2018-12-28] MEDS: oxyCODONE 10 MG TAB 20 MG PO (15:11)
[2018-12-28] MEDS: Lidocaine 2% Jelly 6 ML SYR (15:12)
[2018-12-28 15:46] LABS: Anion Gap 8.9 mmol/L (3-11); BUN 14 mg/dL (7-18); CO2 28.1 mmol/L (21.0-32.0); CREATININE 0.83 mg/dL (0.70-1.30); Calcium 8.5 mg/dL (8.5-10.1); Chloride 70 mmol/L (98-107); Glucose 97 mg/dL (70-100)
[2018-12-28 15:58] LABS: Sodium 107 mmol/L (136-145)
[2018-12-28 15:59] LABS: Potassium 2.8 mmol/L (3.5-5.1)
[2018-12-28 22:38] LABS: Osmolality, Urine 199 mos/kg (150-1150)
[2018-12-28 23:54] LABS: Osmolality Serum 210 mos/kg (275-295)
== END 2018-12-28 17:50 ==
PROVIDERS: Physician Assistant; Emergency Provider Student in an Organized Health Care Education/Training Program; PCP Family Medicine
DX: K92.1 Melena (principal); R11.2 Nausea with vomiting, unspecified; R53.83 Other fatigue; R51 Headache; F41.8 Other specified anxiety disorders; I10 Essential (primary) hypertension
CPT/HCPCS: 36415; 80048; 80053; 83935; 87449; 93005; 96361; 96365; 96366; 96376; 99285; 81003; 81015; 83735; 83930; 84484; 85025; 85610; 85730; 93010; 99284; J2060

== ENCOUNTER 2019-01-04 17:46 | Outpatient (REF) | payer MEDICARE, SELFPAY ==
[2019-01-04 15:07] LABS: Sodium 129 mmol/L (136-145)
== END 2019-01-04 18:06 ==
LOC: LBN 17:46
PROVIDERS: PCP Family Medicine; Visit Provider Family Medicine
DX: E87.1 Hypo-osmolality and hyponatremia (principal)
CPT/HCPCS: 84295

== ENCOUNTER 2019-01-27 14:22 | Outpatient (CLI) | payer MEDICARE, SELFPAY ==
[2019-01-27 16:08] LABS: Anion Gap 5.8 mmol/L (3-11); BUN 30 mg/dL (7-18); CO2 28.2 mmol/L (21.0-32.0); CREATININE 1.62 mg/dL (0.70-1.30); Calcium 8.5 mg/dL (8.5-10.1); Chloride 96 mmol/L (98-107); Estimated GFR 43.83 (mL/min/1.73m2); Glucose 80 mg/dL (74-106); Potassium 4.7 mmol/L (3.5-5.1); Sodium 130 mmol/L (136-145)
== END 2019-01-27 14:42 ==
PROVIDERS: PCP Family Medicine; Visit Provider Family Medicine
DX: E87.1 Hypo-osmolality and hyponatremia (principal)
CPT/HCPCS: 36415; 80048

== ENCOUNTER 2019-03-18 13:58 | Outpatient (REF) | payer MEDICARE, SELFPAY ==
[2019-03-18 15:01] LABS: Anion Gap 6.3 mmol/L (3-11); BUN 23 mg/dL (7-18); CO2 29.7 mmol/L (21.0-32.0); CREATININE 1.03 mg/dL (0.70-1.30); Calcium 9.4 mg/dL (8.5-10.1); Chloride 96 mmol/L (98-107); Glucose 84 mg/dL (74-106); Potassium 5.2 mmol/L (3.5-5.1); Sodium 132 mmol/L (136-145)
== END 2019-03-18 14:18 ==
LOC: NCHCN 13:58
PROVIDERS: PCP Family Medicine; Visit Provider Family Medicine
DX: E87.1 Hypo-osmolality and hyponatremia (principal); E46 Unspecified protein-calorie malnutrition
CPT/HCPCS: 80048

== ENCOUNTER 2019-04-02 11:59 | Emergency (ER) | payer MEDICARE, SELFPAY ==
[2019-04-02] VITALS (36 sets, daily range): BP systolic 80–129; BP diastolic 54–76; PULSE 50–61; RESP 10–26; O2SAT 87–100
--- NOTE | 2019-04-02 12:11 | ED.GENADUL_ITS ---
Discharge Plan Disposition Patient Disposition: HOME Condition: Improving Discharge Details Chief Complaint: AMS/LOC Clinical Impression: Accidental overdose Primary Care Provider: Ivonne Diop ED Provider: Yesy Gonzalez Home Meds and New Rx's Prescriptions: No Action Narcan 4 MG spray,non-aerosol 4 mg NS ONCE MDD 1 Qty: 1 RF: 0 lisinopril 20 MG tablet 40 mg PO DAILY RF: 0 mirtazapine 45 MG tablet 45 mg PO HS RF: 0 acetaminophen 500 MG tablet 1,000 mg PO TID RF: 0 tamsulosin [Flomax] 0.4 MG capsule 0.8 mg PO DAILY RF: 0 cephalexin [Keflex] 500 mg capsule 500 mg PO QID Qty: 28 RF: 0 triamcinolone acetonide 0.5 % Cream 1 applic TOPICAL BID RF: 0 methadone 10 mg Tablet 30 mg PO BID RF: 0 methadone 10 mg Tablet 10 mg PO QID RF: 0 lidocaine HCl 2 % Jelly 1 applic INTRA-URETHRAL 4-6XD PRNRF: 0 hydroxyzine HCl 25 mg Tablet 50 mg PO TID PRNRF: 0 albuterol sulfate [Ventolin HFA] 90 mcg/actuation Hfa Aerosol Inhaler 2 puff INHALATION 6XD PRNRF: 0 propranolol 20 mg Tablet 20 mg PO BID RF: 0 fluticasone propionate 50 mcg/actuation [place],Suspension 2 spray INTRANASAL DAILY RF: 0 lamotrigine [Lamictal] 100 mg Tablet 300 mg PO DAILY RF: 0 oxycodone 20 mg Tablet 10 mg PO TID RF: 0 venlafaxine 75 mg Tablet Extended Release 24hr 75 mg PO DAILY RF: 0 cholecalciferol (vitamin D3) 5,000 unit Tablet 5,000 unit PO DAILY RF: 0 Anoro Ellipta 62.5-25 mcg/actuation Blister With Device 1 inh INHALATION DAILY RF: 0 Multi-Day Plus Minerals 18 mg iron-400 mcg-25 mcg Tablet 1 tab PO DAILY RF: 0 cannabidiol 100 mg/mL Solution 2 - 3 PO DAILY PRNRF: 0 cyanocobalamin (vitamin B-12) [Vitamin B-12] 1,000 MCG tablet 1,000 mcg PO DAILY RF: 0 cyclobenzaprine 10 MG tablet 10 mg PO TID PRNRF: 0 polyethylene glycol 3350 17 GM powder in packet 17 gm PO DAILY RF: 0 sennosides-docusate sodium [Senna with Docusate Sodium] 1 EACH tablet 2 ea PO DAILY RF: 0 chlorthalidone 50 MG tablet 50 mg PO DAILY RF: 0 gabapentin 300 MG capsule 300 mg PO QID RF: 0 venlafaxine 75 MG capsule,extended release 24hr 225 mg PO QAM RF: 0 clonidine HCl 0.1 mg Tablet 0.1 mg PO DAILY RF: 0 sodium chloride 1 gram Tablet 1,000 mg PO QD-QID RF: 0 olanzapine 10 mg Tablet 20 mg PO QHS RF: 0 amlodipine 5 mg Tablet 5 mg PO DAILY RF: 0 Spiriva with HandiHaler 18 mcg Capsule, W/Inhalation Device 1 cap INHALATION DAILY RF: 0 levomefolate calcium [L-Methylfolate] 15 mg Tablet 15 mg PO DAILY RF: 0 Anoro Ellipta 62.5-25 mcg/actuation Blister With Device 1 inh INHALATION DAILY RF: 0 Discharge Instructions Instructions: Opioid Overdose (ED) Additional Instructions: Follow up with primary care provider in 3-5 days. Return to ED sooner if any worsening or concerns. Take Narcan as directed if increased sedation occurs again. You may want to talk to your primary care doctor about the amount of opioids you are taking. Do not hesitate to return to the ED if any continued vomiting, worsening of any way or concerns. Referrals: Ivonne Diop [Primary Care Provider] - Discharge Data Discharge Date/Time-TO BE ENTERED AT DEPARTURE: 04/02/19 14:33 Medical Decision Making 1222: Patient placed on 2 L nasal cannula O2 due to apneic spells where his sats dropped down to 87%. O2 saturation on room air goes from 95% down to high 80s. EKG obtained and reviewed by Dr. 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 1 L normal saline bolus ordered. I spoke with patient's Jessica who reports that he has a history of hyponatremia and takes salt tablets daily and he has a salt tablet due at noon. She reports that he is acting like he has hyponatremia. He did vomit this morning some dark red emesis. He also takes methadone 3 tablets every 3-4 hours per the . She denies him having any fever or diarrhea. Patient does wake up and complain of neck and back pain does have a history of chronic back pain. WBC count is 14.6 sodium is 131 potassium is 5.3. 1253: 0.4 mg Narcan given IV, patient is somewhat more aroused and looking around and talking. Patient is on second liter of normal saline bolus. Head CT and CT abdomen pelvis ordered due to hematic emesis and altered mental status, Tylenol and salicylate level ordered urine drug screen pending. 80 mg Protonix ordered. 1308: Patient is much more alert at this time after point for Narcan. He is calling his requesting to be discharged home. He is alert and oriented, CT head and CT abdomen counseled at this time. Patient states that he was eating some chocolate before he vomited and his probably thought it was blood. He denies having any abdominal pain. He states I am like this all the time discussed opioid safety with patient and my concerns for possible overdose, he verbalizes understanding. Taking oral fluids without difficulty. EXAM: XR PORTABLE CHEST AP CLINICAL HISTORY: Altered mental status TECHNIQUE: COMPARISON: CHEST 2 VIEWS PA,LAT from 04/02/2017 FINDINGS: Portable AP chest at 1230 hours. There is a poor inspiration. Cardiac size grossly within normal limits. Some crowding of pulmonary vessels noted but no gross infiltrate seen. No gross pleural effusion on this semi upright film. IMPRESSION: No evidence of acute process. Ordered By: Yesy Gonzalez CC: [id number]: Spoke with patient's Jessica, she reports that they do have Narcan at home. She is on her way to get the patient. Patient is much more awake and alert at this time. He appears tearful and is alert and oriented and has the mental capacity to make appropriate decisions. 1426: Patient's here to pick patient up, he has remained awake and alert and hemodynamically stable throughout the rest of his stay. HPI General Mode of arrival: EMS . Date/Time Provider Initiated Documentation: 04/02/19 12:06 . Limitations to Documentation: altered mental status . Information obtained by: family and EMS . HPI Narrative: 58-year-old male presents to the ER via EMS for possible GI bleed. Per EMS he vomited some dark red emesis this morning. He does have a history of hyponatremia and takes methadone. He is on salt tablets he does have a salt tablet due at noon. Unknown fever no diarrhea per . No known trauma. Upon arrival patient is altered mental status, appears very sleepy, has slurred speech and falls asleep frequently. He is also hypotensive at 83/50, heart rate 58. Related Data Home Medications Medication Instructions Recorded Confirmed lisinopril 40 mg PO DAILY 05/20/12 04/02/19 mirtazapine 45 mg PO HS 05/20/12 04/02/19 acetaminophen 1,000 mg PO TID 01/05/16 04/02/19 tamsulosin [Flomax] 0.8 mg PO DAILY 01/05/16 04/02/19 cyanocobalamin (vitamin B-12) 1,000 mcg PO DAILY 02/06/16 04/02/19 [Vitamin B-12] Narcan 4 mg NS ONCE #1 spray MDD 1 07/23/16 04/02/19 chlorthalidone 50 mg PO DAILY 04/02/17 12/28/18 cyclobenzaprine 10 mg PO TID PRN 04/02/17 04/02/19 gabapentin 300 mg PO QID 04/02/17 04/02/19 polyethylene glycol 3350 17 gm PO DAILY 04/02/17 04/02/19 sennosides-docusate sodium [Senna 2 ea PO DAILY 04/02/17 12/28/18 with Docusate Sodium] venlafaxine 225 mg PO QAM 04/02/17 12/28/18 cephalexin [Keflex] 500 mg PO QID #28 cap 11/09/18 04/02/19 albuterol sulfate [Ventolin HFA] 2 puff INHALATION 6XD PRN 12/28/18 12/28/18 cannabidiol 2 - 3 PO DAILY PRN 12/28/18 cholecalciferol (vitamin D3) 5,000 unit PO DAILY 12/28/18 04/02/19 fluticasone propionate 2 spray INTRANASAL DAILY 12/28/18 04/02/19 hydroxyzine HCl 50 mg PO TID PRN 12/28/18 04/02/19 lamotrigine [Lamictal] 300 mg PO DAILY 12/28/18 04/02/19 lidocaine HCl 1 applic INTRA-URETHRAL 4-6XD PRN 12/28/18 12/28/18 methadone 10 mg PO QID 12/28/18 04/02/19 methadone 30 mg PO BID 12/28/18 12/28/18 [id number]-FA-vit K 1 tab PO DAILY 12/28/18 04/02/19 [Multi-Day Plus Minerals] oxycodone 10 mg PO TID 12/28/18 04/02/19 propranolol 20 mg PO BID 12/28/18 12/28/18 triamcinolone acetonide 1 applic TOPICAL BID 12/28/18 04/02/19 umeclidinium-vilanterol [Anoro 1 inh INHALATION DAILY 12/28/18 12/28/18 Ellipta] venlafaxine 75 mg PO DAILY 12/28/18 04/02/19 amlodipine 5 mg PO DAILY 04/02/19 04/02/19 clonidine HCl 0.1 mg PO DAILY 04/02/19 04/02/19 levomefolate calcium 15 mg PO DAILY 04/02/19 04/02/19 [L-Methylfolate] olanzapine 20 mg PO QHS 04/02/19 04/02/19 sodium chloride 1,000 mg PO QD-QID 04/02/19 04/02/19 tiotropium bromide [Spiriva with 1 cap INHALATION DAILY 04/02/19 04/02/19 HandiHaler] umeclidinium-vilanterol [Anoro 1 inh INHALATION DAILY 04/02/19 04/02/19 Ellipta] Previous Rx's Medication Instructions Recorded cephalexin [Keflex] 500 mg PO QID #28 cap 11/09/18 Allergies Allergy/AdvReac Type Severity Reaction Status Date / Time varenicline [From Chantix] AdvReac Intermediate Psychosis Unverified 12/28/18 11:13 ziprasidone mesylate AdvReac Intermediate Memory Unverified 12/28/18 11:13 [From Geodon] deficit duloxetine HCl AdvReac Unknown Unverified 12/28/18 11:13 [From Cymbalta] topiramate [From Topamax] AdvReac Unknown Unverified 12/28/18 11:13 hay fever AdvReac Mild rhinitis Uncoded 12/28/18 11:13 General Stated Complaint: AMS/LOC GARRETT: 2 Review of Systems Unobtainable due to mental status (Patient is very somnolent upon arrival limited review of systems) Constitutional Constitutional: Reports daytime sleepiness and Reports snoring Respiratory Respiratory: Reports snoring [facility] Medical History Chronic back pain Depression with anxiety Fibromyalgia Hyperlipidemia Hypertension Lactose intolerance Marijuana use Obesity ANGIE (obstructive sleep apnea) Psychogenic polydipsia PTSD (post-traumatic stress disorder) Restless legs Urinary retention Surgical History bunionectomy Colonoscopy - MAC Replacement of total knee joint right Rotator Cuff Repair right Social History Smoking/Tobacco Use Status: Current every day Tobacco Type: cigarettes Alcohol Intake: never Drug use: Daily Substance use type: marijuana Do you feel safe at home: Yes Do you feel safe in your relationship?: Yes Exam Narrative Exam Narrative: Altered mental status, somnolent, slurred speech, pupils are 2 mm, round ,equal sluggish bilaterally. He is periodically apneic, falls asleep easily during conversation, upon initial presentation he is hypotensive. Positive nystagmus. Appears intoxicated. Const General: intoxicated appearing ([place] sedated) Nutritional Appearance: average body habitus Orientation: oriented x3 and other (Somnolent) Limitations: altered mental status [facility] Head: normal to inspection, no palpable skull fracture, normocephalic and atraumatic Resp Effort & Inspection: abnormal respiratory pattern apneic pattern (Periodically falls asleep.) Auscultation: diminished lung sounds bilaterally Cardio Rate: bradycardic Heart Sounds: S1 normal and S2 normal GI Inspection: normal to inspection Palpation: soft and no guarding Auscultation: hypoactive bowel sounds Neuro General: confused and other Speech: abnormal speech garbled and slurred Pupils: Pinpoint: bilateral Course Vital Signs Vital signs: Vital Signs Pulse 58 L 04/02/19 11:59 Respiratory Rate 14 04/02/19 11:59 Blood Pressure 83/54 L 04/02/19 11:59 Pulse Oximetry 96 04/02/19 11:59 Pulse 58 L 04/02/19 11:59 Respiratory Rate 14 04/02/19 11:59 Blood Pressure 83/54 L 04/02/19 11:59 Blood Pressure Position Sitting 04/02/19 11:59 Pulse Oximetry 96 04/02/19 11:59 Oxygen Delivery Method Room Air 04/02/19 11:59 Oxygen Flow Rate 0 04/02/19 11:59
[2019-04-02 12:20] LABS: Abs Immature Grans 0.03 k/cumm (0.0-0.09); Absolute Basophil Count 0.03 k/cumm (0.0-0.2); Absolute Eosinophil Count 0.04 k/cumm (0.0-0.7); Absolute Lymphocyte Count 1.42 k/cumm (1.2-3.4); Basophils % 0.2; Eosinophils % 0.3; HCT 33.8 % (40.0-50.0); HGB 11.4 g/dL (13.5-17.5); Immature Grans % 0.2 %; Lymphocytes % 9.7; Mean Corp. HGB Concentration 33.7 g/dL (32.0-36.0); Mean Corpuscular Hemoglobin 30.3 pg (27.0-33.0); Mean Corpuscular Volume 89.9 fL (80-95); Mean Platelet Volume 7.3 fL (8.0-11.0); Monocytes % 6.1; Neutrophils % 83.5; Platelet Count 338 x1000/uL (130-400); RBC 3.76 m/cumm (4.50-6.00); RBC Distribution Width 15.6 % (11.8-14.1); White Blood Cell Count 14.69 k/cumm (4.4-10.8)
--- NOTE | 2019-04-02 12:21 | NUR.NOTE ---
12:21 patient becomes agitated when asked questions, swearing at staff. Rat Farmer informed patient that swearing will not be tolerated. Needs constant stimulation due to sleepiness and apnea.
[2019-04-02] MEDS: Normal Saline 1,000 ML 1000 ML IV ×3 (12:25→12:48)
[2019-04-02 12:26] LABS: Absolute Neutrophil Count 12.27 k/cumm (1.2-6.7)
--- NOTE | 2019-04-02 12:26 | DI.RAD_ITS ---
EXAM: XR PORTABLE CHEST AP CLINICAL HISTORY: Altered mental status TECHNIQUE: COMPARISON: CHEST 2 VIEWS PA,LAT from 04/02/2017 FINDINGS: Portable AP chest at 1230 hours. There is a poor inspiration. Cardiac size grossly within normal li mits. Some crowding of pulmonary vessels noted but no gross infiltrate seen. No gross pleural effus ion on this semi upright film. IMPRESSION: No evidence of acute process.
[2019-04-02 12:34] LABS: ALT 16 U/L (16-63); AST 14 U/L (15-37); Albumin 3.4 g/dL (3.4-5.0); Alkaline Phosphatase 71 U/L (46-116); Anion Gap 8.3 mmol/L (3-11); BUN 20 mg/dL (7-18); Bilirubin, Direct 0.16 mg/dL (0.00-0.20); Bilirubin, Total 0.5 mg/dL (0.2-1.0); CO2 24.7 mmol/L (21.0-32.0); CREATININE 1.27 mg/dL (0.70-1.30); Calcium 8.5 mg/dL (8.5-10.1); Chloride 98 mmol/L (98-107); Estimated GFR 58.05 (mL/min/1.73m2); Glucose 101 mg/dL (74-106); Magnesium 1.5 mg/dL (1.8-2.4); Potassium 5.3 mmol/L (3.5-5.1); Sodium 131 mmol/L (136-145); Total Protein 6.3 g/dL (6.4-8.2); Troponin I < 0.05 ng/Ml (<0.06)
[2019-04-02] MEDS: Pantoprazole 40 MG VIAL 80 MG IVP (12:41)
[2019-04-02] MEDS: Normal Saline Flush 10 ML SYR IVP (12:42)
[2019-04-02] MEDS: Naloxone 0.4 MG/ML VIAL IVP (12:49)
[2019-04-02 13:07] LABS: ETHANOL BLOOD < 3.0 mg/dL (<3)
[2019-04-02 13:22] LABS: Acetaminophen < 2 ug/mL (10-30)
== END 2019-04-02 14:33 | disposition home or self-care (01) ==
PROVIDERS: Emergency Provider Registered Nurse Emergency; PCP Family Medicine
DX: T40.3X1A Poisoning by methadone, accidental (unintentional), initial encounter (principal); I95.2 Hypotension due to drugs; T40.3X5A Adverse effect of methadone, initial encounter; R09.02 Hypoxemia; F11.920 Opioid use, unspecified with intoxication, uncomplicated; I10 Essential (primary) hypertension
CPT/HCPCS: 36415; 80053; 80076; 80307; 96361; 96374; 96375; 99284; 71045; 80320; 80329; 83735; 84484; 85025; J2310

== ENCOUNTER 2019-04-22 09:52 | Inpatient (IN) | payer MEDICARE, SELFPAY ==
[2019-04-22] VITALS (125 sets, daily range): BP systolic 57–151; BP diastolic 38–101; PULSE 73–153; RESP 11–41; TEMP 35.7–37.1; O2SAT 66–100
--- NOTE | 2019-04-22 09:53 | ED.GENADUL_ITS ---
Discharge Plan Discharge Details Primary Care Provider: Ivonne Diop ED Provider: Abraham Waters Home Meds and New Rx's Prescriptions: No Action Narcan 4 MG spray,non-aerosol 4 mg NS ONCE MDD 1 Qty: 1 RF: 0 lisinopril 20 MG tablet 40 mg PO DAILY RF: 0 mirtazapine 45 MG tablet 45 mg PO HS RF: 0 acetaminophen 500 MG tablet 1,000 mg PO TID RF: 0 tamsulosin [Flomax] 0.4 MG capsule 0.8 mg PO DAILY RF: 0 cephalexin [Keflex] 500 mg capsule 500 mg PO QID Qty: 28 RF: 0 triamcinolone acetonide 0.5 % Cream 1 applic TOPICAL BID RF: 0 methadone 10 mg Tablet 30 mg PO BID RF: 0 methadone 10 mg Tablet 10 mg PO QID RF: 0 lidocaine HCl 2 % Jelly 1 applic INTRA-URETHRAL 4-6XD PRNRF: 0 hydroxyzine HCl 25 mg Tablet 50 mg PO TID PRNRF: 0 albuterol sulfate [Ventolin HFA] 90 mcg/actuation Hfa Aerosol Inhaler 2 puff INHALATION 6XD PRNRF: 0 propranolol 20 mg Tablet 20 mg PO BID RF: 0 fluticasone propionate 50 mcg/actuation [place],Suspension 2 spray INTRANASAL DAILY RF: 0 lamotrigine [Lamictal] 100 mg Tablet 300 mg PO DAILY RF: 0 oxycodone 20 mg Tablet 10 mg PO TID RF: 0 venlafaxine 75 mg Tablet Extended Release 24hr 75 mg PO DAILY RF: 0 cholecalciferol (vitamin D3) 5,000 unit Tablet 5,000 unit PO DAILY RF: 0 Anoro Ellipta 62.5-25 mcg/actuation Blister With Device 1 inh INHALATION DAILY RF: 0 Multi-Day Plus Minerals 18 mg iron-400 mcg-25 mcg Tablet 1 tab PO DAILY RF: 0 cannabidiol 100 mg/mL Solution 2 - 3 PO DAILY PRNRF: 0 cyanocobalamin (vitamin B-12) [Vitamin B-12] 1,000 MCG tablet 1,000 mcg PO DAILY RF: 0 cyclobenzaprine 10 MG tablet 10 mg PO TID PRNRF: 0 polyethylene glycol 3350 17 GM powder in packet 17 gm PO DAILY RF: 0 sennosides-docusate sodium [Senna with Docusate Sodium] 1 EACH tablet 2 ea PO DAILY RF: 0 chlorthalidone 50 MG tablet 50 mg PO DAILY RF: 0 gabapentin 300 MG capsule 300 mg PO QID RF: 0 venlafaxine 75 MG capsule,extended release 24hr 225 mg PO QAM RF: 0 clonidine HCl 0.1 mg Tablet 0.1 mg PO DAILY RF: 0 sodium chloride 1 gram Tablet 1,000 mg PO QD-QID RF: 0 olanzapine 10 mg Tablet 20 mg PO QHS RF: 0 amlodipine 5 mg Tablet 5 mg PO DAILY RF: 0 Spiriva with HandiHaler 18 mcg Capsule, W/Inhalation Device 1 cap INHALATION DAILY RF: 0 levomefolate calcium [L-Methylfolate] 15 mg Tablet 15 mg PO DAILY RF: 0 Anoro Ellipta 62.5-25 mcg/actuation Blister With Device 1 inh INHALATION DAILY RF: 0 HPI General Mode of arrival: ambulatory . Date/Time Provider Initiated Documentation: 04/22/19 09:53 . Limitations to Documentation: no limitations . Information obtained by: patient . Related Data Home Medications Medication Instructions Recorded Confirmed lisinopril 40 mg PO DAILY 05/20/12 04/02/19 mirtazapine 45 mg PO HS 05/20/12 04/02/19 acetaminophen 1,000 mg PO TID 01/05/16 04/02/19 tamsulosin [Flomax] 0.8 mg PO DAILY 01/05/16 04/02/19 cyanocobalamin (vitamin B-12) 1,000 mcg PO DAILY 02/06/16 04/02/19 [Vitamin B-12] Narcan 4 mg NS ONCE #1 spray MDD 1 07/23/16 04/02/19 chlorthalidone 50 mg PO DAILY 04/02/17 12/28/18 cyclobenzaprine 10 mg PO TID PRN 04/02/17 04/02/19 gabapentin 300 mg PO QID 04/02/17 04/02/19 polyethylene glycol 3350 17 gm PO DAILY 04/02/17 04/02/19 sennosides-docusate sodium [Senna 2 ea PO DAILY 04/02/17 12/28/18 with Docusate Sodium] venlafaxine 225 mg PO QAM 04/02/17 12/28/18 cephalexin [Keflex] 500 mg PO QID #28 cap 11/09/18 04/02/19 albuterol sulfate [Ventolin HFA] 2 puff INHALATION 6XD PRN 12/28/18 12/28/18 cannabidiol 2 - 3 PO DAILY PRN 12/28/18 cholecalciferol (vitamin D3) 5,000 unit PO DAILY 12/28/18 04/02/19 fluticasone propionate 2 spray INTRANASAL DAILY 12/28/18 04/02/19 hydroxyzine HCl 50 mg PO TID PRN 12/28/18 04/02/19 lamotrigine [Lamictal] 300 mg PO DAILY 12/28/18 04/02/19 lidocaine HCl 1 applic INTRA-URETHRAL 4-6XD PRN 12/28/18 12/28/18 methadone 10 mg PO QID 12/28/18 04/02/19 methadone 30 mg PO BID 12/28/18 12/28/18 [id number]-[id number]-FA-vit K 1 tab PO DAILY 12/28/18 04/02/19 [Multi-Day Plus Minerals] oxycodone 10 mg PO TID 12/28/18 04/02/19 propranolol 20 mg PO BID 12/28/18 12/28/18 triamcinolone acetonide 1 applic TOPICAL BID 12/28/18 04/02/19 umeclidinium-vilanterol [Anoro 1 inh INHALATION DAILY 12/28/18 12/28/18 Ellipta] venlafaxine 75 mg PO DAILY 12/28/18 04/02/19 amlodipine 5 mg PO DAILY 04/02/19 04/02/19 clonidine HCl 0.1 mg PO DAILY 04/02/19 04/02/19 levomefolate calcium 15 mg PO DAILY 04/02/19 04/02/19 [L-Methylfolate] olanzapine 20 mg PO QHS 04/02/19 04/02/19 sodium chloride 1,000 mg PO QD-QID 04/02/19 04/02/19 tiotropium bromide [Spiriva with 1 cap INHALATION DAILY 04/02/19 04/02/19 HandiHaler] umeclidinium-vilanterol [Anoro 1 inh INHALATION DAILY 04/02/19 04/02/19 Ellipta] Previous Rx's Medication Instructions Recorded cephalexin [Keflex] 500 mg PO QID #28 cap 11/09/18 Allergies Allergy/AdvReac Type Severity Reaction Status Date / Time varenicline [From Chantix] AdvReac Intermediate Psychosis Unverified 12/28/18 11:13 ziprasidone mesylate AdvReac Intermediate Memory Unverified 12/28/18 11:13 [From Geodon] deficit duloxetine HCl AdvReac Unknown Unverified 12/28/18 11:13 [From Cymbalta] topiramate [From Topamax] AdvReac Unknown Unverified 12/28/18 11:13 hay fever AdvReac Mild rhinitis Uncoded 12/28/18 11:13 General GARRETT: 2 PFSH Social History Smoking/Tobacco Use Status: Current every day Tobacco Type: cigarettes Alcohol Intake: never Drug use: Daily Substance use type: marijuana Do you feel safe at home: Yes Do you feel safe in your relationship?: Yes
[2019-04-22] MEDS: Normal Saline 1,000 ML 1000 ML IV ×3 (10:10→11:35)
[2019-04-22] MEDS: Naloxone 0.4 MG/ML VIAL (10:18)
[2019-04-22] MEDS: Ondansetron 4 MG/2 ML VIAL (10:26)
[2019-04-22 10:44] LABS: Abs Immature Grans 0.12 k/cumm (0.0-0.09); Basophils % 0.4; Eosinophils % 1.1; HCT 41.9 % (40.0-50.0); HGB 14.9 g/dL (13.5-17.5); Immature Grans % 0.7 %; Lymphocytes % 13.1; Mean Corp. HGB Concentration 35.6 g/dL (32.0-36.0); Mean Corpuscular Volume 84.3 fL (80-95); Mean Platelet Volume 7.6 fL (8.0-11.0); Monocytes % 6.3; Neutrophils % 78.4; Platelet Count 569 x1000/uL (130-400); RBC 4.97 m/cumm (4.50-6.00); RBC Distribution Width 13.8 % (11.8-14.1); White Blood Cell Count 16.91 k/cumm (4.4-10.8)
[2019-04-22 10:45] LABS: Absolute Basophil Count 0.07 k/cumm (0.0-0.2); Absolute Eosinophil Count 0.19 k/cumm (0.0-0.7); Absolute Lymphocyte Count 2.22 k/cumm (1.2-3.4); Absolute Monocyte Count 1.07 k/cumm (0.11-0.7); Absolute Neutrophil Count 13.26 k/cumm (1.2-6.7)
--- NOTE | 2019-04-22 10:46 | ED.GENADUL_ITS ---
Discharge Plan Disposition Patient Disposition: [facility] INPATIENT Condition: Stable Discharge Details Chief Complaint: Dizzy/Sync Clinical Impression: Syncope, Hypotension, Hyponatremia, Dehydration Admit Date/Time: 04/22/19 13:37 Admit Provider: Abraham Miller Attending Provider: Abraham Miller Primary Care Provider: Ivonne Diop ED Provider: Lizzette Lao Discharge Data Discharge Date/Time-TO BE ENTERED AT DEPARTURE: 04/22/19 16:16 Medical Decision Making 1005 -- 58-year-old male with a history of chronic neck and back pain with history of lumbar spine surgery as well as a recent cervical fusion 2 weeks ago at [facility], anxiety, depression, fibromyalgia, PTSD, restless legs and daily methadone and oxycodone use presents with syncope x2 this morning. states that patient has not been eating and drinking much. Patient states he was attempting a bowel movement on the toilet when he felt dizzy and passed out twice. Patient mainly complaining now of neck and back pain. states that he has had some tremors in his hands since morning but does not appear consistent with seizure activity. BP on arrival 58/39. 2 peripheral IVs placed and BP improved with fluids. 100/80. Patient is moving all his extremities at baseline. He appears drowsy but is arousable and able to answer questions. He takes 30 mg of methadone 3 times a day and 5 mg of oxycodone 3 times a day but he has been running low in his methadone and has been taking 10 mg 3 times a day. He had an appointment with his primary care doctor today for refill of his methadone. He took 10 mg of methadone this morning. A small 0.4 mg dose of Narcan given due to drowsiness. Patient was here 2 weeks ago for accidental narcotic overdose. He appears slightly more awake after Narcan but is frequently yawning. He also complains of lower abdominal pain for the past few days. He has a normal heart rate, oxygen saturation and lungs are clear. Suspect most likely orthostatic hypotension/vasovagal syncope in setting of dehydration and multiple sedating medications. We will continue IV fluids, check screening labs, CT chest and abdomen and pelvis. 1230 --labs reviewed. White blood cell count 16. Hemoglobin 14. Sodium 122. Potassium 3.1. Lactate 2.2. Urinalysis negative. BP improving. There were a few dips down into the 80s, but this appeared with position change. BP 102/62. 1255 --CTs reviewed and unremarkable. Case discussed with hospitalist who accepts patient for admission. History and presentation not consistent with meningitis. Cervical site does not appear acutely infected. Right knee wound with healing granulation tissue no evidence of cellulitis. Suspect presentation most likely consistent with dehydration and vasovagal syncope. Will obtain a repeat lactate and procalcitonin. Repeat lactate 1.7. Procalcitonin normal at 1.7. Will hold on antibiotics. Medical Records Medical records reviewed: Yes I reviewed the patient's medical records. Imaging Data Radiologic Study: Radiologist's impression: CT HEAD WO CLINICAL HISTORY: syncope, tremors in hands, r/o acute process. TECHNIQUE: Imaging Protocol: Axial computed tomography images with coronal and sagittal reformatted images were created and reviewed COMPARISON: No exams were available for comparison FINDINGS: Ventricles and Extra axial spaces: Normal in size and morphology for the patient's age. Hemorrhage: None. Cerebral parenchyma: Normal. Midline shift: None. Brainstem/Cerebellum: Normal. Calvarium: Normal. Visualized Paranasal sinuses/Mastoids: Mild mucosal thickening of the right maxillary and ethmoid sinuses. IMPRESSION: Normal CT of the head. CT CHEST PE CTA CLINICAL HISTORY: hypotension, s/p surgery, r/o PE TECHNIQUE: Post IV contrast according to pulmonary embolism protocol. Axial CT angiography was performed with multi-slice acquisition and multi-planar and/or 3D reconstructions. COMPARISON: CT ABDOMEN PELVIS CTA from 04/22/2019 FINDINGS: There are no pulmonary emboli or evidence of aortic dissection. There is respiratory motion. The lungs show dependent changes. Underlying changes of centrilobular emphysema are noted in the upper lobes. No pleural or pericardial effusions or focal areas of consolidation are seen. No adenopathy is present. The heart size appears normal. There is some calcification at the aortic valve. There is mild dilatation of the ascending aorta at 3.7 cm. Degenerative changes are noted in the thoracic spine. IMPRESSION: No evidence of pulmonary emboli or other acute abnormality. CT ABDOMEN PELVIS CTA CLINICAL HISTORY: lower abd pain, r/o ischemia, sbo, colitis TECHNIQUE: Post IV contrast during the arterial phase. Axial CT angiography was performed with multi-slice acquisition and multi-planar and/or 3D reconstructions. COMPARISON: ABD PELVIS WITH CONTRAST from 09/14/2016 XR PORTABLE CHEST AP from 04/02/2019 FINDINGS: The aorta and branch vessels are well opacified with IV contrast. There is some atherosclerotic change along the abdominal aorta. There is no evidence of aneurysm or dissection or significant vascular luminal narrowing. The celiac, SMA, bilateral renal arteries and ANDREWS are patent. There are calcifications in the proximal iliac arteries but no significant narrowing. The femoral arteries are unremarkable. The exam is somewhat limited by streak artifact from the spinal hardware as well as patient body habitus. The liver, gallbladder, spleen, adrenals, pancreas and kidneys are unremarkable. A Gonzalez catheter is noted in the urinary bladder which is mainly decompressed. There is increased stool seen in the descending and rectosigmoid. The appendix appears normal. There is no bowel dilatation, free air or free fluid. IMPRESSION: Atherosclerotic changes without evidence of aneurysm, dissection or significant vascular luminal narrowing. No evidence of obstruction or colitis. Lab Data Lab results reviewed: Yes I reviewed the patient's lab results. Labs: Laboratory Tests Range/Units 04/22/19 04/22/19 04/22/19 10:10 10:10 10:10 WBC (4.4-10.8) k/cumm 16.91 H RBC (4.50-6.00) m/cumm 4.97 Hgb (13.5-17.5) g/dL 14.9 Hct (40.0-50.0) % 41.9 MCV (80-95) fL 84.3 MCH (27.0-33.0) pg 30.0 MCHC (32.0-36.0) g/dL 35.6 RDW (11.8-14.1) % 13.8 Plt Count (130-400) x1000/uL 569 H D MPV (8.0-11.0) fL 7.6 L Immature Gran % % 0.7 Neutrophils % 78.4 Lymphocytes % 13.1 Monocytes % 6.3 Eosinophils % 1.1 Basophils % 0.4 Absolute Neutrophils (1.2-6.7) k/cumm 13.26 H Absolute Lymphocytes (1.2-3.4) k/cumm 2.22 Absolute Monocytes (0.11-0.7) k/cumm 1.07 H Absolute Eosinophils (0.0-0.7) k/cumm 0.19 Absolute Basophils (0.0-0.2) k/cumm 0.07 PT (9.3-11.0) sec INR (0.9-1.1) APTT (21.0-31.4) sec Sodium (136-145) mmol/L 122 L* Potassium (3.5-5.1) mmol/L 3.1 L Chloride (98-107) mmol/L 84 L Carbon Dioxide (21.0-32.0) mmol/L 25.3 Anion Gap (3-11) mmol/L 12.7 H BUN (7-18) mg/dL 12 Creatinine (0.70-1.30) mg/dL 1.38 H Estimated GFR/1.73 m2 (mL/min/1.73m2) 52.74 Glucose (74-106) mg/dL 178 H Lactate (0.6-1.4) mmol/L 2.2 H* Calcium (8.5-10.1) mg/dL 9.3 Magnesium (1.8-2.4) mg/dL 1.8 Total Bilirubin (0.2-1.0) mg/dL 0.4 AST (15-37) U/L 19 ALT (16-63) U/L 19 Alkaline Phosphatase (46-116) U/L 142 H Troponin I (<0.06) ng/Ml < 0.05 NT-Pro-B Natriuret Pep (<300) pg/mL 388 H Total Protein (6.4-8.2) g/dL 7.3 Albumin (3.4-5.0) g/dL 3.7 Lipase (73-393) U/L Procalcitonin ng/mL Urine Color (Yellow) Urine Clarity (Clear) Urine pH (5-8) Ur Specific [place] (1.005-1.025) Urine Protein (Negative) mg/dL Urine Ketones (Negative) mg/dL Urine Blood (Negative) Urine Nitrite (Negative) Urine Bilirubin (Negative) Urine Urobilinogen (Up TO 0.2) EU/dL Ur Leukocyte Esterase (Negative) Urine Glucose (Negative) mg/dL Range/Units 04/22/19 04/22/19 04/22/19 10:10 10:10 10:55 WBC (4.4-10.8) k/cumm RBC (4.50-6.00) m/cumm Hgb (13.5-17.5) g/dL Hct (40.0-50.0) % MCV (80-95) fL MCH (27.0-33.0) pg MCHC (32.0-36.0) g/dL RDW (11.8-14.1) % Plt Count (130-400) x1000/uL MPV (8.0-11.0) fL Immature Gran % % Neutrophils % Lymphocytes % Monocytes % Eosinophils % Basophils % Absolute Neutrophils (1.2-6.7) k/cumm Absolute Lymphocytes (1.2-3.4) k/cumm Absolute Monocytes (0.11-0.7) k/cumm Absolute Eosinophils (0.0-0.7) k/cumm Absolute Basophils (0.0-0.2) k/cumm PT (9.3-11.0) sec 10.8 INR (0.9-1.1) 1.1 APTT (21.0-31.4) sec 24.3 Sodium (136-145) mmol/L Potassium (3.5-5.1) mmol/L Chloride (98-107) mmol/L Carbon Dioxide (21.0-32.0) mmol/L Anion Gap (3-11) mmol/L BUN (7-18) mg/dL Creatinine (0.70-1.30) mg/dL Estimated GFR/1.73 m2 (mL/min/1.73m2) Glucose (74-106) mg/dL Lactate (0.6-1.4) mmol/L Calcium (8.5-10.1) mg/dL Magnesium (1.8-2.4) mg/dL Total Bilirubin (0.2-1.0) mg/dL AST (15-37) U/L ALT (16-63) U/L Alkaline Phosphatase (46-116) U/L Troponin I (<0.06) ng/Ml NT-Pro-B Natriuret Pep (<300) pg/mL Total Protein (6.4-8.2) g/dL Albumin (3.4-5.0) g/dL Lipase (73-393) U/L 90 Procalcitonin ng/mL Urine Color (Yellow) Yellow Urine Clarity (Clear) Clear Urine pH (5-8) 7.0 Ur Specific [place] (1.005-1.025) 1.010 Urine Protein (Negative) mg/dL Negative Urine Ketones (Negative) mg/dL Negative Urine Blood (Negative) Negative Urine Nitrite (Negative) Negative Urine Bilirubin (Negative) Negative Urine Urobilinogen (Up TO 0.2) EU/dL 0.2 Ur Leukocyte Esterase (Negative) Negative Urine Glucose (Negative) mg/dL Negative Range/Units 04/22/19 04/22/19 04/22/19 13:00 13:00 13:00 WBC (4.4-10.8) k/cumm RBC (4.50-6.00) m/cumm Hgb (13.5-17.5) g/dL Hct (40.0-50.0) % MCV (80-95) fL MCH (27.0-33.0) pg MCHC (32.0-36.0) g/dL RDW (11.8-14.1) % Plt Count (130-400) x1000/uL MPV (8.0-11.0) fL Immature Gran % % Neutrophils % Lymphocytes % Monocytes % Eosinophils % Basophils % Absolute Neutrophils (1.2-6.7) k/cumm Absolute Lymphocytes (1.2-3.4) k/cumm Absolute Monocytes (0.11-0.7) k/cumm Absolute Eosinophils (0.0-0.7) k/cumm Absolute Basophils (0.0-0.2) k/cumm PT (9.3-11.0) sec INR (0.9-1.1) APTT (21.0-31.4) sec Sodium (136-145) mmol/L 123 L* Potassium (3.5-5.1) mmol/L Chloride (98-107) mmol/L Carbon Dioxide (21.0-32.0) mmol/L Anion Gap (3-11) mmol/L BUN (7-18) mg/dL Creatinine (0.70-1.30) mg/dL Estimated GFR/1.73 m2 (mL/min/1.73m2) Glucose (74-106) mg/dL Lactate (0.6-1.4) mmol/L 1.7 H Calcium (8.5-10.1) mg/dL Magnesium (1.8-2.4) mg/dL Total Bilirubin (0.2-1.0) mg/dL AST (15-37) U/L ALT (16-63) U/L Alkaline Phosphatase (46-116) U/L Troponin I (<0.06) ng/Ml NT-Pro-B Natriuret Pep (<300) pg/mL Total Protein (6.4-8.2) g/dL Albumin (3.4-5.0) g/dL Lipase (73-393) U/L Procalcitonin ng/mL 0.1 Urine Color (Yellow) Urine Clarity (Clear) Urine pH (5-8) Ur Specific [place] (1.005-1.025) Urine Protein (Negative) mg/dL Urine Ketones (Negative) mg/dL Urine Blood (Negative) Urine Nitrite (Negative) Urine Bilirubin (Negative) Urine Urobilinogen (Up TO 0.2) EU/dL Ur Leukocyte Esterase (Negative) Urine Glucose (Negative) mg/dL ECG Data Attestation: I personally reviewed and interpreted this ECG (s) as follows: Interpretation: Rate of 80, sinus, incomplete right bundle branch block, no acute ST elevation or depression. [place] 202 QTC 441. QRS 124. No significant change from previous EKG. HPI General Mode of arrival: ambulatory . Date/Time Provider Initiated Documentation: 04/22/19 09:53 . Limitations to Documentation: no limitations . Information obtained by: patient . History of Present Illness 58 year old M presents to the emergency department with the chief complaint of syncope x 2 on toilet today; lower abd pain x 2 days, decreased appetite, Patient started experiencing this day(s) (2) and it has been intermittent. Patient notes loss of appetite, malaise, nausea/vomiting (x1 today), syncope and weakness; denies confusion, chest pain, cough, diaphoresis, fever/chills, headaches, rash, seizure and shortness of breath. Patient did receive the following treatments prior to arrival, none Related Data Home Medications Medication Instructions Recorded Confirmed lisinopril 40 mg PO DAILY 05/20/12 04/22/19 mirtazapine 45 mg PO HS 05/20/12 04/22/19 acetaminophen 1,000 mg PO TID 01/05/16 04/22/19 tamsulosin [Flomax] 0.8 mg PO DAILY 01/05/16 04/22/19 cyanocobalamin (vitamin B-12) 1,000 mcg PO DAILY 02/06/16 04/22/19 [Vitamin B-12] Narcan 4 mg NS ONCE #1 spray MDD 1 07/23/16 04/22/19 cyclobenzaprine 10 mg PO TID PRN 04/02/17 04/22/19 gabapentin 300 mg PO QID 04/02/17 04/22/19 sennosides-docusate sodium [Senna 2 ea PO DAILY 04/02/17 04/22/19 with Docusate Sodium] albuterol sulfate [Ventolin HFA] 2 puff INHALATION 6XD PRN 12/28/18 04/22/19 cannabidiol 2 - 3 PO DAILY PRN 12/28/18 cholecalciferol (vitamin D3) 5,000 unit PO DAILY 12/28/18 04/22/19 fluticasone propionate 2 spray INTRANASAL DAILY 12/28/18 04/22/19 hydroxyzine HCl 25 mg PO TID PRN 12/28/18 04/22/19 lamotrigine [Lamictal] 300 mg PO DAILY 12/28/18 04/22/19 lidocaine HCl 1 applic INTRA-URETHRAL 4-6XD PRN 12/28/18 04/22/19 methadone 30 mg PO TID 12/28/18 04/22/19 nqqrmnsyyfcp-bxi-[id number]-FA-vit K 1 tab PO DAILY 12/28/18 04/22/19 [Multi-Day Plus Minerals] oxycodone 10 mg PO TID 12/28/18 04/22/19 triamcinolone acetonide 1 applic TOPICAL BID 12/28/18 04/22/19 umeclidinium-vilanterol [Anoro 1 inh INHALATION DAILY 12/28/18 04/22/19 Ellipta] venlafaxine 75 mg PO TID 12/28/18 04/22/19 amlodipine 5 mg PO DAILY 04/02/19 04/22/19 levomefolate calcium 15 mg PO DAILY 04/02/19 04/22/19 [L-Methylfolate] sodium chloride 1,000 mg PO QD-QID 04/02/19 04/22/19 tiotropium bromide [Spiriva with 1 cap INHALATION DAILY 04/02/19 04/22/19 HandiHaler] umeclidinium-vilanterol [Anoro 1 inh INHALATION DAILY 04/02/19 04/22/19 Ellipta] cephalexin 500 mg PO TID 04/22/19 04/22/19 olanzapine 20 mg PO QHS 04/22/19 04/22/19 Allergies Allergy/AdvReac Type Severity Reaction Status Date / Time varenicline [From Chantix] AdvReac Intermediate Psychosis Unverified 04/22/19 11:10 ziprasidone mesylate AdvReac Intermediate Memory Unverified 04/22/19 11:10 [From Geodon] deficit duloxetine HCl AdvReac Unknown Unverified 04/22/19 11:10 [From Cymbalta] topiramate [From Topamax] AdvReac Unknown Unverified 04/22/19 11:10 hay fever AdvReac Mild rhinitis Uncoded 04/22/19 11:10 General Stated Complaint: Dizzy/Sync GARRETT: 2 Review of Systems All systems reviewed & are unremarkable except as noted in HPI and below Constitutional Constitutional: Reports as per HPI, Denies chills, Denies fever(s) and Reports weakness Eyes Eyes: Denies blurry vision ENT Ears, Nose, Mouth, and Throat: Denies dizziness, Denies sore throat and Denies throat swelling Cardiovascular Cardiovascular: Denies chest pain, Reports syncope and Denies dyspnea Respiratory Respiratory: Denies cough and Denies dyspnea Gastrointestinal Gastrointestinal: Reports abdominal pain, Denies diarrhea and Denies vomiting Genitourinary Genitourinary: Denies hematuria and Denies dysuria Musculoskeletal Musculoskeletal: Denies back pain and Denies numbness Integumentary/Breasts Skin/Breast: Denies lesions and Denies rash Neurologic Neurologic: Denies dizziness, Reports syncope, Denies focal weakness, Denies numbness and Reports weakness Allergic/Immunologic Allergic/Immunologic: Denies throat swelling [facility] Medical History (Updated 04/22/19 @ 19:45 by Abraham Miller) Chronic back pain COPD (chronic obstructive pulmonary disease) (Chronic) Depression with anxiety Fibromyalgia History of septic arthritis (Acute ~02/19/17) s/p incision and drainage right wrist Dr. Mccann Hyperlipidemia Hypertension Lactose intolerance Lumbar discitis (Acute) Marijuana use Obesity ANGIE (obstructive sleep apnea) Psychogenic polydipsia PTSD (post-traumatic stress disorder) Raynauds syndrome (Acute) Restless legs Urinary retention Surgical History (Updated 04/22/19 @ 19:36 by Abraham Miller) bunionectomy Colonoscopy - MAC History of arthroplasty of right knee (Acute) History of fusion of cervical spine (Acute 04/05/19) C5-C7 cervical discectomy and fusion, Dr. Mark Spence; [facility] [place] History of removal of joint prosthesis of right knee due to infection (Acute) 12/08/2016, Dr. Oakes @ [facility] [place]; s/p spacer exchange R. knee 02/18/2017 Dr. Ramírez; History of revision of total replacement of right knee joint (Acute 06/11/17) s/p revision/replant R. TKA, on 06/11/[address] Ramírez Rotator Cuff Repair right S/P lumbar fusion (Acute) Social History Smoking/Tobacco Use Status: Current every day Tobacco Type: cigarettes Smoking packs per day: 1 Smoking cigarettes per day: 20.0 Alcohol Intake: never Drug use: Daily Substance use type: marijuana Do you feel safe at home: Yes Do you feel safe in your relationship?: Yes Course Vital Signs Vital signs: Vital Signs Temperature 96.3 F L 04/22/19 09:58 Pulse 78 04/22/19 09:58 Respiratory Rate 21 04/22/19 09:58 Blood Pressure 58/39 L 04/22/19 09:58 Pulse Oximetry 97 04/22/19 09:58 Temperature 96.3 F L 04/22/19 09:58 Temperature Source Temporal Artery Scan 04/22/19 09:58 Pulse 73 04/22/19 10:40 Pulse 87 04/22/19 10:40 Respiratory Rate 21 04/22/19 10:40 Blood Pressure 100/80 04/22/19 10:40 Blood Pressure Mean 86 04/22/19 10:40 Blood Pressure Position Supine 04/22/19 09:58 Pulse Oximetry 97 04/22/19 10:40 Oxygen Delivery Method Room Air 04/22/19 09:58 Oxygen Flow Rate 0 04/22/19 09:58 Pain Level 5 04/22/19 09:58 Lab/Test Results Lab/Test Results: Laboratory Tests Range/Units 04/22/19 10:10 WBC (4.4-10.8) k/cumm 16.91 H RBC (4.50-6.00) m/cumm 4.97 Hgb (13.5-17.5) g/dL 14.9 Hct (40.0-50.0) % 41.9 MCV (80-95) fL 84.3 MCH (27.0-33.0) pg 30.0 MCHC (32.0-36.0) g/dL 35.6 RDW (11.8-14.1) % 13.8 Plt Count (130-400) x1000/uL 569 H D MPV (8.0-11.0) fL 7.6 L Immature Gran % % 0.7 Neutrophils % 78.4 Lymphocytes % 13.1 Monocytes % 6.3 Eosinophils % 1.1 Basophils % 0.4 Absolute Neutrophils (1.2-6.7) k/cumm 13.26 H Absolute Lymphocytes (1.2-3.4) k/cumm 2.22 Absolute Monocytes (0.11-0.7) k/cumm 1.07 H Absolute Eosinophils (0.0-0.7) k/cumm 0.19 Absolute Basophils (0.0-0.2) k/cumm 0.07
[2019-04-22 10:50] LABS: Lactate 2.2 mmol/L (0.6-1.4)
[2019-04-22] MEDS: Lidocaine 2% Jelly 6 ML SYR (10:50)
[2019-04-22 10:58] LABS: INR 1.1 (0.9-1.1); PTT Activated 24.3 sec (21.0-31.4); Prothrombin Time 10.8 sec (9.3-11.0)
--- NOTE | 2019-04-22 11:00 | DI.CT_ITS ---
EXAM: CT HEAD WO CLINICAL HISTORY: syncope, tremors in hands, r/o acute process. TECHNIQUE: Imaging Protocol: Axial computed tomography images with coronal and sagittal reformatted images were created and reviewed COMPARISON: No exams were available for comparison FINDINGS: Ventricles and Extra axial spaces: Normal in size and morphology for the patient's age. Hemorrhage: None. Cerebral parenchyma: Normal. Midline shift: None. Brainstem/Cerebellum: Normal. Calvarium: Normal. Visualized Paranasal sinuses/Mastoids: Mild mucosal thickening of the right maxillary and ethmoid sin uses. IMPRESSION: Normal CT of the head. RADIATION DOSE DELIVERED: DATA REPOSITORY: All CT scans at this facility are submitted to the National Radiology Data Registry (NRDR) Dose Index Registry (DIR) with the [employer] (ACR). RADIATION OPTIMIZATION: All CT scans at this facility use at least one of these dose optimization te chniques: automated exposure control; mA and/or kV adjustment per patient size (includes targeted exa ms where dose is matched to clinical indication); or iterative reconstruction.
[2019-04-22 11:02] LABS: Lipase 90 U/L (73-393)
[2019-04-22 11:03] LABS: Bilirubin Negative (Negative); Blood Negative (Negative); Clarity Clear (Clear); Glucose Negative (Negative); Ketones Negative (Negative); Leukocyte Esterase Negative (Negative); Nitrite Negative (Negative); Urobilinogen 0.2 EU/dL (Up TO 0.2)
[2019-04-22 11:11] LABS: ALT 19 U/L (16-63); AST 19 U/L (15-37); Albumin 3.7 g/dL (3.4-5.0); Alkaline Phosphatase 142 U/L (46-116); Anion Gap 12.7 mmol/L (3-11); BUN 12 mg/dL (7-18); Bilirubin, Total 0.4 mg/dL (0.2-1.0); CO2 25.3 mmol/L (21.0-32.0); CREATININE 1.38 mg/dL (0.70-1.30); Calcium 9.3 mg/dL (8.5-10.1); Chloride 84 mmol/L (98-107); Estimated GFR 52.74 (mL/min/1.73m2); Glucose 178 mg/dL (74-106); Magnesium 1.8 mg/dL (1.8-2.4); NT-proBNP 388 pg/mL (<300); Potassium 3.1 mmol/L (3.5-5.1); Total Protein 7.3 g/dL (6.4-8.2)
[2019-04-22] MEDS: Normal Saline 1,000 ML 150 ML IV ×2 (11:17→18:42)
[2019-04-22 11:18] LABS: Sodium 122 mmol/L (136-145); Troponin I < 0.05 ng/Ml (<0.06)
--- NOTE | 2019-04-22 12:15 | DI.CT_ITS ---
EXAM: CT CHEST PE CTA CLINICAL HISTORY: hypotension, s/p surgery, r/o PE TECHNIQUE: Post IV contrast according to pulmonary embolism protocol. Axial CT angiography was performed with multi-slice acquisition and multi-planar and/or 3D reconstruc tions. COMPARISON: CT ABDOMEN PELVIS CTA from 04/22/2019 FINDINGS: There are no pulmonary emboli or evidence of aortic dissection. There is respiratory motion. The l ungs show dependent changes. Underlying changes of centrilobular emphysema are noted in the upper lo bes. No pleural or pericardial effusions or focal areas of consolidation are seen. No adenopathy is present. The heart size appears normal. There is some calcification at the aortic valve. There is mild dilatation of the ascending aorta at 3.7 cm. Degenerative changes are noted in the thoracic s pine. IMPRESSION: No evidence of pulmonary emboli or other acute abnormality.
--- NOTE | 2019-04-22 12:15 | DI.CT_ITS ---
EXAM: CT ABDOMEN PELVIS CTA CLINICAL HISTORY: lower abd pain, r/o ischemia, sbo, colitis TECHNIQUE: Post IV contrast during the arterial phase. Axial CT angiography was performed with multi-slice acquisition and multi-planar and/or 3D reconstruc tions. COMPARISON: ABD PELVIS WITH CONTRAST from 09/14/2016 XR PORTABLE CHEST AP from 04/02/2019 FINDINGS: The aorta and branch vessels are well opacified with IV contrast. There is some atherosclerotic cheung e along the abdominal aorta. There is no evidence of aneurysm or dissection or significant vascular l uminal narrowing. The celiac, SMA, bilateral renal arteries and ANDREWS are patent. There are calcificat ions in the proximal iliac arteries but no significant narrowing. The femoral arteries are unremarkab le. The exam is somewhat limited by streak artifact from the spinal hardware as well as patient body habitus. The liver, gallbladder, spleen, adrenals, pancreas and kidneys are unremarkable. A Gonzalez cat heter is noted in the urinary bladder which is mainly decompressed. There is increased stool seen in the descending and rectosigmoid. The appendix appears normal. There is no bowel dilatation, free air or free fluid. IMPRESSION: Atherosclerotic changes without evidence of aneurysm, dissection or significant vascular luminal liyah rowing. No evidence of obstruction or colitis.
[2019-04-22] MEDS: Omnipaque 350 MG/ML 100 ML BTL IJ ×2 (12:43→12:44)
[2019-04-22 13:06] LABS: Lactate 1.7 mmol/L (0.6-1.4)
[2019-04-22 13:34] LABS: Sodium 123 mmol/L (136-145)
[2019-04-22 14:01] LABS: Procalcitonin 0.1 ng/mL
[2019-04-22] MEDS: Methadone 10 MG TAB 30 MG PO ×2 (14:17→19:36)
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
[2019-04-22] MEDS: Potassium Chloride 20 MEQ TABCR 40 MEQ PO (19:34)
[2019-04-22] MEDS: oxyCODONE 10 MG TAB PO (19:35)
[2019-04-22] MEDS: Acetaminophen 500 MG TAB 1000 MG PO (19:35)
[2019-04-22] MEDS: Gabapentin 300 MG CAP PO (19:37)
[2019-04-22] MEDS: POTASSIUM CHLORIDE/0.9% NACL 1,000 ML 150 MEQ IV (20:09)
[2019-04-22] MEDS: Pantoprazole 40 MG VIAL IVP (20:10)
[2019-04-22] MEDS: Normal Saline Flush 10 ML SYR IVP (20:11)
[2019-04-22] MEDS: Enoxaparin 40 MG/0.4 ML SYR SC (20:11)
[2019-04-22 20:29] LABS: C-Reactive Protein 2.04 mg/dL (0.0-0.3)
[2019-04-22] MEDS: Silver sulfaDIAZINE 1% 25 GM TUBE TP (20:33)
[2019-04-22 20:57] LABS: ESR 6 mm/hr (1-20)
[2019-04-22] MEDS: VANCOMYCIN 1,500 MG in Normal Saline 250 ML 167 MG IV (21:37)
[2019-04-22] MEDS: Mirtazapine 15 MG TAB 45 MG PO (23:46)
[2019-04-22] MEDS: OLANZapine 10 MG TAB 20 MG PO (23:46)
[2019-04-22] MEDS: Venlafaxine 75 MG TAB PO (23:55)
[2019-04-23] VITALS (95 sets, daily range): BP systolic 111–161; BP diastolic 69–100; PULSE 60–109; RESP 4–32; TEMP 36.3–37.8; O2SAT 86–100
--- NOTE | 2019-04-23 | DI.MRI_ITS ---
EXAM: MR LUMBAR SPINE WO/W CLINICAL HISTORY: hx disciitis, worsening back pain; WBC. TECHNIQUE: Multiplanar multisequence MRI was performed. Pre and post gadolinium suppressed T1 axial and sagittal sequences were performed in addition to the routine sequences. FINDINGS: Hardware is noted at L2 through S1 which causes artifact. The conus medullaris appears normal. The re is no visible enhancement within the vertebral bodies or disc spaces or in the surrounding soft ti ssues. No epidural abscess is visible. IMPRESSION: Limited exam due to spinal hardware. No evidence of discitis or osteomyelitis. DATA REPOSITORY:
--- NOTE | 2019-04-23 | DI.MRI_ITS ---
EXAM: MR THORACIC SPINE WO/W CLINICAL HISTORY: BACK PAIN; WBC; HX DISCITIS. TECHNIQUE: Multiplanar multisequence MRI was performed. Fat-suppressed T1 sagittal and axial sequen sophie were performed pre and post IV gadolinium in addition to the routine sequences. CT CHEST PE CTA from 04/22/2019 FINDINGS: The vertebral bodies are well maintained in height. The marrow signal is normal. The disc signal is normal. There is no abnormal enhancement within the discs or central canal. Cord signal is normal. No disc herniation is seen. There is no abnormal enhancement in the paraspinal soft tissues. IMPRESSION: Negative MRI of the thoracic spine. No evidence of osteomyelitis, discitis or epidural abscess. DATA REPOSITORY:
--- NOTE | 2019-04-23 | DI.MRI_ITS ---
EXAM: MR CERVICAL SPINE WO/W CLINICAL HISTORY: s/p c-spine fusion and new neck pain, WBC. TECHNIQUE: Multiplanar multisequence MRI was performed. Pre and post gadolinium fat-suppressed T1 a xial and sagittal sequences also performed. COMPARISON: HEAD WITHOUT CONTRAST from 04/02/2017 CT CERVICAL SPINE WO from 04/23/2019 CT CERVICAL SPINE WO from 04/23/2019 MR THORACIC SPINE WO/W from 04/23/2019 FINDINGS: Hardware seen at the C5 through C7 levels creates artifact, particularly on the fat-suppressed images . It is difficult to evaluate for contrast enhancement near the hardware. There is some soft tissue thickening anterior to the level of the hardware. Infection in this location cannot be excluded. Ther e is no evidence of discitis or osteomyelitis. There is no narrowing of the airway. The cord signal a ppears normal. There is no evidence of an epidural abscess. IMPRESSION: Limited exam due to presence of hardware in the cervical spine. There is some anterior soft tissue t hickening at this level which could be postsurgical. Infection in this location cannot be excluded. T here is no airway narrowing or visible drainable collection. There is no evidence of osteomyelitis or discitis. DATA REPOSITORY:
[2019-04-23] MEDS: Cyclobenzaprine 10 MG TAB PO ×3 (00:09→16:12)
[2019-04-23] MEDS: Acetaminophen 325 MG TAB PO (03:54)
[2019-04-23] MEDS: POTASSIUM CHLORIDE/0.9% NACL 1,000 ML 150 MEQ IV (03:56)
[2019-04-23] MEDS: oxyCODONE 10 MG TAB PO ×4 (06:53→21:13)
[2019-04-23 06:57] LABS: Abs Immature Grans 0.07 k/cumm (0.0-0.09); Absolute Basophil Count 0.02 k/cumm (0.0-0.2); Absolute Monocyte Count 1.38 k/cumm (0.11-0.7); Absolute Neutrophil Count 19.26 k/cumm (1.2-6.7); Basophils % 0.1; Eosinophils % 0.1; HCT 36.9 % (40.0-50.0); Immature Grans % 0.3 %; Lymphocytes % 4.1; Mean Corp. HGB Concentration 35.2 g/dL (32.0-36.0); Mean Corpuscular Volume 85.2 fL (80-95); Mean Platelet Volume 7.2 fL (8.0-11.0); Monocytes % 6.4; Platelet Count 327 x1000/uL (130-400); RBC 4.33 m/cumm (4.50-6.00); RBC Distribution Width 13.8 % (11.8-14.1); White Blood Cell Count 21.64 k/cumm (4.4-10.8)
[2019-04-23 07:11] LABS: Absolute Eosinophil Count 0.02 k/cumm (0.0-0.7); Absolute Lymphocyte Count 0.89 k/cumm (1.2-3.4)
[2019-04-23 07:21] LABS: Lactate 0.6 mmol/L (0.6-1.4)
[2019-04-23 07:28] LABS: ALT 13 U/L (16-63); AST 13 U/L (15-37); Albumin 2.8 g/dL (3.4-5.0); Alkaline Phosphatase 119 U/L (46-116); Anion Gap 8.6 mmol/L (3-11); BUN 12 mg/dL (7-18); Bilirubin, Total 0.4 mg/dL (0.2-1.0); CO2 23.4 mmol/L (21.0-32.0); CREATININE 0.82 mg/dL (0.70-1.30); Calcium 7.9 mg/dL (8.5-10.1); Chloride 95 mmol/L (98-107); Glucose 132 mg/dL (74-106); Potassium 3.7 mmol/L (3.5-5.1); Sodium 127 mmol/L (136-145); Total Protein 5.9 g/dL (6.4-8.2)
[2019-04-23] MEDS: Acetaminophen 500 MG TAB 1000 MG PO ×2 (08:12→14:45)
[2019-04-23] MEDS: lamoTRIgine 100 MG TAB 300 MG PO (08:13)
[2019-04-23] MEDS: Multivitamin w/Minerals TAB 1 TAB PO (08:14)
[2019-04-23] MEDS: Methadone 10 MG TAB 30 MG PO ×3 (08:14→19:37)
[2019-04-23] MEDS: Sennosides/Docusate Sodium TAB 2 TAB PO (08:15)
[2019-04-23] MEDS: Cholecalciferol (Vitamin D3) 1,000 UNIT TAB 5000 UNITS PO (08:15)
[2019-04-23] MEDS: Gabapentin 300 MG CAP PO ×4 (08:15→19:38)
[2019-04-23] MEDS: Cyanocobalamin 500 MCG TAB 1000 MCG PO (08:16)
[2019-04-23] MEDS: Venlafaxine 75 MG TAB PO ×3 (08:25→19:37)
[2019-04-23] MEDS: Ondansetron 4 MG/2 ML VIAL (08:25)
[2019-04-23] MEDS: Normal Saline Flush 10 ML SYR IVP ×6 (08:26→21:58)
--- NOTE | 2019-04-23 08:32 | PHA.ADMREV ---
Pharmacy Clinical Review - Admission Clinical Review (Last Updated 04/22/19 @ 19:36 by Abraham Miller) Lactic acidosis (Acute) Leukocytosis, unspecified (Acute) Hypotension (Acute) Hyponatremia (Acute) Dehydration (Acute) varenicline [From Chantix] Adverse Reaction (Intermediate, Unverified 04/22/19 11:10) Psychosis ziprasidone mesylate [From Geodon] Adverse Reaction (Intermediate, Unverified 04/22/19 11:10) Memory deficit duloxetine HCl [From Cymbalta] Adverse Reaction (Unknown, Unverified 04/22/19 11:10) topiramate [From Topamax] Adverse Reaction (Unknown, Unverified 04/22/19 11:10) hay fever Adverse Reaction (Mild, Uncoded 04/22/19 11:10) rhinitis Height 5 ft 7 in Weight 89.5 kg - Renal Dosing Renal Dosing: BUN 12 mg/dL (7-18) 04/23/19 06:44 Creatinine 0.82 mg/dL (0.70-1.30) D 04/23/19 06:44 Medications needing adjustments: Intervened - Anticoagulation Anticoagulation: Hgb 13.0 g/dL (13.5-17.5) L 04/23/19 06:44 Hct 36.9 % (40.0-50.0) L 04/23/19 06:44 Plt Count 327 x1000/uL (130-400) D 04/23/19 06:44 INR 1.1 (0.9-1.1) 04/22/19 10:10 Creatinine 0.82 mg/dL (0.70-1.30) D 04/23/19 06:44 - Relevant Labs ESR 6 mm/hr (1-20) 04/22/19 19:55 Sodium 127 mmol/L (136-145) L 04/23/19 06:44 Potassium 3.7 mmol/L (3.5-5.1) 04/23/19 06:44 Chloride 95 mmol/L (98-107) L 04/23/19 06:44 Magnesium 1.8 mg/dL (1.8-2.4) 04/22/19 10:10 C-Reactive Protein 2.04 mg/dL (0.0-0.3) H 04/22/19 18:32 - DM Control DM Control: Glucose 132 mg/dL (74-106) H 04/23/19 06:44 - Heart Failure/NH Heart Failure/NH: Troponin I < 0.05 ng/Ml (<0.06) 04/22/19 10:10 NT-Pro-B Natriuret Pep 388 pg/mL (<300) H 04/22/19 10:10 - BP Control BP Control: Blood Pressure [Left Arm] 143/80 Blood Pressure 156/90 Blood Pressure 161/93
--- NOTE | 2019-04-23 08:47 | RESPIRATORY ---
Patient was asked about his ANGIE and RT was told he doesn't use a machine for it anymore. Patient stated he used to falls asleep with it on and then would rip it off in the night as it freaked him out.
--- NOTE | 2019-04-23 09:15 | PHACLINREV_ITS ---
Pharmacy Clinical Review - Admission Clinical Review (Last Updated 04/22/19 @ 19:36 by Abraham Miller) Lactic acidosis (Acute) Leukocytosis, unspecified (Acute) Hypotension (Acute) Hyponatremia (Acute) Dehydration (Acute) varenicline [From Chantix] Adverse Reaction (Intermediate, Unverified 04/22/19 11:10) Psychosis ziprasidone mesylate [From Geodon] Adverse Reaction (Intermediate, Unverified 04/22/19 11:10) Memory deficit duloxetine HCl [From Cymbalta] Adverse Reaction (Unknown, Unverified 04/22/19 11:10) topiramate [From Topamax] Adverse Reaction (Unknown, Unverified 04/22/19 11:10) hay fever Adverse Reaction (Mild, Uncoded 04/22/19 11:10) rhinitis Height 5 ft 7 in Weight 89.5 kg - Renal Dosing Renal Dosing: BUN 12 mg/dL (7-18) 04/23/19 06:44 Creatinine 0.82 mg/dL (0.70-1.30) D 04/23/19 06:44 Medications needing adjustments: Reviewed (CrCl~ 90mL/min) - Anticoagulation Anticoagulation: Hgb 13.0 g/dL (13.5-17.5) L 04/23/19 06:44 Hct 36.9 % (40.0-50.0) L 04/23/19 06:44 Plt Count 327 x1000/uL (130-400) D 04/23/19 06:44 INR 1.1 (0.9-1.1) 04/22/19 10:10 Creatinine 0.82 mg/dL (0.70-1.30) D 04/23/19 06:44 - Relevant Labs ESR 6 mm/hr (1-20) 04/22/19 19:55 Sodium 127 mmol/L (136-145) L 04/23/19 06:44 Potassium 3.7 mmol/L (3.5-5.1) 04/23/19 06:44 Chloride 95 mmol/L (98-107) L 04/23/19 06:44 Magnesium 1.8 mg/dL (1.8-2.4) 04/22/19 10:10 C-Reactive Protein 2.04 mg/dL (0.0-0.3) H 04/22/19 18:32 - DM Control DM Control: Glucose 132 mg/dL (74-106) H 04/23/19 06:44 - Heart Failure/WA Heart Failure/WA: Troponin I < 0.05 ng/Ml (<0.06) 04/22/19 10:10 NT-Pro-B Natriuret Pep 388 pg/mL (<300) H 04/22/19 10:10 - BP Control BP Control: Blood Pressure [Left Arm] 143/80 Blood Pressure 135/94 Blood Pressure 156/90 Blood Pressure 161/93 Blood Pressure 136/97 Blood Pressure 149/98 Blood Pressure 155/100 Blood Pressure 148/89 Blood Pressure 143/86 Blood Pressure 143/80 Blood Pressure 125/68 Blood Pressure 133/81 Blood Pressure 125/84 Blood Pressure 124/100
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
[2019-04-23] MEDS: Albuterol 2.5 MG/3 ML INH SOLN VIAL UPD (10:16)
[2019-04-23] MEDS: Tamsulosin 0.4 MG CAPCR 0.8 MG PO (10:26)
[2019-04-23] MEDS: Fluticasone NASAL SPRAY 16 GM BTL NS (10:26)
[2019-04-23] MEDS: Lisinopril 20 MG TAB PO (10:26)
[2019-04-23] MEDS: Salt Supplement (BUFFERED) TAB 1 TAB PO ×4 (10:26→19:37)
[2019-04-23] MEDS: Silver sulfaDIAZINE 1% 25 GM TUBE TP ×2 (10:31→20:07)
--- NOTE | 2019-04-23 11:03 | PDOC.CMIN ---
- If Service Date Differs Date of service: 04/23/19 Time of Service: 11:03 Care Management Initial Assess REASON FOR HOSPITALIZATION:: Syncope, hypotension, hyponatremia, dehydration
[2019-04-23] MEDS: Tiotropium Bromide-Respimat 10 PUFF INH IH (11:17)
--- NOTE | 2019-04-23 11:22 | DI.CT_ITS ---
EXAM: CT LUMBAR SPINE WO CLINICAL HISTORY: Low back pain, leukocytosis prior discitis TECHNIQUE: Noncontrast. The field of view includes T10 through the mid sacrum. COMPARISON: LUMBAR SPINE COMPLETE from 12/19/2016 XR thoracolumb junct 2V from 07/01/2018 FINDINGS: There is hardware seen extending from L2 through S1. There are posterior rods and pedicle screws. There has been fusion between the L4 and L5 discs. There is no evidence of compression fracture. La minectomy defects are seen at L4 and L5. No bony erosions are seen. No abnormality is visible in th e spinal canal. There is no evidence of paraspinal hematoma or soft tissue swelling. IMPRESSION: Spinal hardware creates artifact limiting visualization of portions of the spine. No acute abnormali ty is seen.
--- NOTE | 2019-04-23 11:22 | DI.CT_ITS ---
EXAM: CT CERVICAL SPINE WO CLINICAL HISTORY: Neck pain, recent cervical fusion TECHNIQUE: Noncontrast COMPARISON: HEAD WITHOUT CONTRAST from 04/02/2017 CT CERVICAL SPINE WO from 04/23/2019 FINDINGS: Disc spacers are seen at C5-6 and C6-7 which create mild artifact. There is a lucency in the left lamina L2-C2 which does not appear to cause cortical breakthrough. There is no surrounding soft tis teo abnormality. There are mild degenerative disc changes. There are facet degenerative changes whi ch are more prominent on the left side in the upper cervical region. No abnormalities seen within th e central canal. The airway appears intact. There is no prevertebral soft tissue swelling. No area s of bony irregularity are seen. No adenoid or tonsillar enlargement is seen. IMPRESSION: Post surgical changes with disc spacers seen at the C5-6 and C6-7 levels. There is a nonspecific della ency in the left lamina of C2 which does not have the typical appearance osteomyelitis.
[2019-04-23] MEDS: diazePAM 5 MG TAB 10 MG PO (12:29)
--- NOTE | 2019-04-23 12:39 | NUR.NOTE ---
Nursing Note: I was researching the wound consult on this patient, I found that this was cancelled
[2019-04-23] MEDS: Gadoterate meglumine 20 ML VIAL 17 ML IVP (15:34)
--- NOTE | 2019-04-23 15:42 | PDOC.CMIN ---
- If Service Date Differs Date of service: 04/23/19 Time of Service: 15:42 Care Management Initial Assess REASON FOR HOSPITALIZATION:: Syncope, hypotension, hyponatremia, dehydration PAST MEDICAL HISTORY/PAST SURGICAL HISTORY:: Medical History (Updated 04/22/19 @ 19:45 by Abraham Miller). Chronic back pain. COPD (chronic obstructive pulmonary disease) (Chronic). Depression with anxiety. Fibromyalgia. History of septic arthritis (Acute ~02/19/17). s/p incision and drainage right wrist Dr. Mccann. Hyperlipidemia. Hypertension. Lactose intolerance. Lumbar discitis (Acute). Marijuana use. Obesity. ANGIE (obstructive sleep apnea). Psychogenic polydipsia. PTSD (post-traumatic stress disorder). Raynauds syndrome (Acute). Restless legs. Urinary retention. Surgical History (Updated 04/22/19 @ 19:36 by Abraham Miller). bunionectomy. Colonoscopy - MAC. History of arthroplasty of right knee (Acute). History of fusion of cervical spine (Acute 04/05/19). C5-C7 cervical discectomy and fusion, Dr. Mark Spence; [facility]. History of removal of joint prosthesis of right knee due to infection (Acute). 12/08/2016, Dr. Oakes @ [facility]; s/p spacer exchange R. knee 02/18/2017 Dr. Ramírez;. History of revision of total replacement of right knee joint (Acute 06/11/17). s/p revision/replant R. TKA, on 06/11/[address] Ramírez. Rotator Cuff Repair. right. S/P lumbar fusion (Acute) PREVIOUS FUNCTIONAL STATUS/SOCIAL/FAMILY SUPPORTS:: Darrell lives in [place] with his , Jessica. He was originally from [place], but always wanted to live in [place]. After being at a rehab facility in [place] he moved to [place], 31 years ago. He met his current , Jessica here in [place]. 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 Darrell has three siblings, who all live in [place]. His two adult children live in [place] where his ex also lives. Darrell states that his Jessica is the love of his life, and she is very supportive. He is disabled at baseline. CURRENT FUNCTIONAL STATUS:: Darrell was lying in bed when CM met with him. He reported that he was very sick when he came in and he was scared. He has previously spent a long time at [facility], and he is hoping that he recovers quickly this time. He was pleasant and forthcoming about his life. He reported that he has received very good care at [facility] and he is happy to be here because it is close to his home for his to travel. He stated that per MD, he will stay at ICU level of care overnight and will be reevaluated tomorrow. CM will continue to follow. ADVANCE DIRECTIVES:: None on file. Has patient been provided with information about the portal?: No Did the patient sign up for the portal?: No CODE STATUS:: Full Code INSURANCE COVERAGE / FINANCIAL ISSUES:: [facility]/ [facility]/ Fin Assist 75% CURRENT HOME/COMMUNITY SERVICES/EQUIPMENT:: Darrell currently has HH RN, PT, OT, TRAILER CHIEF. He has a ramp to get into his home, canes, a walker and a motorized wheelchair. PRIMARY CARE PHYSICIAN:: Ivonne Diop POTENTIAL DISCHARGE NEEDS:: Evaluations for further needs, follow up appointments PATIENT/FAMILY EDUCATION NEEDS:: Review discharge instructions regarding activity levels and medications, discussion of self care needs including ask me three ANTICIPATED BARRIERS TO DISCHARGE:: None identified at this time. TRANSPORTATION:: Anticipate Darrell will be driven home via private vehicle by family when ready. PLAN:: Anticipate Darrell will return home when medically cleared with a resumption of services, HH RN, PT, OT, TRAILER CHIEF. Further evaluations will be conducted for additional needs. He will transport home via private vehicle by his , when ready. He will follow up with his PCP, as recommended. CM will continue to follow.
--- NOTE | 2019-04-23 17:33 | DI.VRAD_ITS ---
PROCEDURE INFORMATION: Exam: MR Cervical Spine Without and With Contrast Exam date and time: 04/23/2019 3:52 PM Age: 58 years old Clinical indication: Other: S/P cspine fusion and new neck pain, wbc TECHNIQUE: Imaging protocol: Multiplanar magnetic resonance images of the cervical spine without and with intravenous contrast. COMPARISON: No relevant prior studies available. FINDINGS: Status post the anterior fusion at C5-C6 and C6-C7 with a large amount of artifact associated. No abnormal signal to suggest an acute fracture, metastatic disease or diskitis. There is no significant stenosis in the upper or mid cervical spine. At C7-T1 there is the mild central disc protrusion narrowing the subarachnoid space but not obviously compressing the spinal cord. IMPRESSION: 1. Status post anterior fusion C5-C6 and C6-C7. 2. Minimal central stenosis of the spinal canal at C7-T1 Dictated and Authenticated by: Pako Dutton MD. Ordering:[facility] Angela Rosario MD
--- NOTE | 2019-04-23 17:33 | DI.VRAD_ITS ---
PROCEDURE INFORMATION: Exam: MR Thoracic Spine Without and With Contrast Exam date and time: 04/23/2019 3:52 PM Age: 58 years old Clinical indication: Other: Back pain, wbc, HX discitis TECHNIQUE: Imaging protocol: Multiplanar magnetic resonance images of the thoracic spine without and with intravenous contrast. COMPARISON: No relevant prior studies available. FINDINGS: Spinal cord: Thoracic spinal cord shows no abnormality of signal or configuration. Vertebra: No abnormal signal to suggest an acute fracture metastatic disease discitis within the thoracic spine. Disc spaces are fairly well preserved. There is no significant stenosis of the spinal canal or neural foramina within the thoracic spine. IMPRESSION: No clear etiology of the patient's back pain. In particular there is no evidence of discitis within the thoracic spine. Dictated and Authenticated by: Pako Dutton MD. Ordering:ANTWON Rosario MD
--- NOTE | 2019-04-23 17:55 | DI.VRAD_ITS ---
PROCEDURE INFORMATION: Exam: MR Lumbar Spine Without and With Contrast. Exam date and time: 04/23/2019 3:51 PM Age: 58 years old Clinical indication: Other: HX disciitis, worsening back pain, wbc TECHNIQUE: Imaging protocol: Multiplanar magnetic resonance images of the lumbar spine without and with intravenous contrast. COMPARISON: No relevant prior studies available. FINDINGS: There are posterior rods and pedicle screws from L2 to through S1. These are causing a large amount of artifact. Appears to be nearly complete fusion across the disc space between the L4 and L5 vertebral bodies. There is a prominent amount of artifact at this level. The conus medullaris shows no definite abnormality. There is no abnormal signal to suggest an acute fracture, metastatic disease or diskitis. There is no obvious significant stenosis of the spinal canal or neural foramina at any level of the lumbar spine although evaluation is limited by the metallic artifact IMPRESSION: Postsurgical changes as above with no identifiable significant stenosis of the spinal canal or neural foramina and no evidence of acute discitis Dictated and Authenticated by: Pako Dutton MD. Ordering:ANTWON Rosario MD
[2019-04-23] MEDS: Enoxaparin 40 MG/0.4 ML SYR SC (19:37)
[2019-04-23] MEDS: Pantoprazole 40 MG VIAL IVP (19:38)
[2019-04-23] MEDS: MORPHine 2 MG/ML SYR IVP (21:13)
[2019-04-23] MEDS: Mirtazapine 15 MG TAB 45 MG PO (21:57)
[2019-04-23] MEDS: OLANZapine 10 MG TAB 20 MG PO (21:57)
[2019-04-24] MEDS: Cyclobenzaprine 10 MG TAB PO (00:09)
[2019-04-24 03:10] VITALS: BP 151/94; PULSE 99; RESP 22; TEMP 37.1; O2SAT 88
[2019-04-24] MEDS: oxyCODONE 10 MG TAB PO ×2 (03:16→12:14)
--- NOTE | 2019-04-24 05:11 | NUR.NOTE ---
Nursing Note: 2048- pt was transferred to [facility] via wheelchair by Mony Metcalf RN and Betty Castaneda RN. pt brought all belonging in room and medicines were put in pt med cart. VSS.
[2019-04-24] MEDS: Normal Saline Flush 10 ML SYR IVP ×2 (06:28→15:22)
[2019-04-24] MEDS: MORPHine 2 MG/ML SYR IVP ×2 (06:28→15:21)
[2019-04-24 07:02] LABS: Abs Immature Grans 0.16 k/cumm (0.0-0.09); Absolute Monocyte Count 1.14 k/cumm (0.11-0.7); Basophils % 0.1; Eosinophils % 0.2; HCT 34.9 % (40.0-50.0); Immature Grans % 0.7 %; Lymphocytes % 4.6; Mean Corp. HGB Concentration 34.4 g/dL (32.0-36.0); Mean Corpuscular Hemoglobin 29.6 pg (27.0-33.0); Mean Platelet Volume 7.3 fL (8.0-11.0); Monocytes % 5.2; Neutrophils % 89.2; Platelet Count 264 x1000/uL (130-400); RBC 4.06 m/cumm (4.50-6.00); RBC Distribution Width 13.6 % (11.8-14.1); White Blood Cell Count 21.94 k/cumm (4.4-10.8)
[2019-04-24 07:03] LABS: Absolute Basophil Count 0.02 k/cumm (0.0-0.2); Absolute Eosinophil Count 0.04 k/cumm (0.0-0.7); Absolute Lymphocyte Count 1.01 k/cumm (1.2-3.4); Absolute Neutrophil Count 19.57 k/cumm (1.2-6.7)
[2019-04-24 07:18] LABS: Anion Gap 7.7 mmol/L (3-11); BUN 9 mg/dL (7-18); C-Reactive Protein 13.06 mg/dL (0.0-0.3); CO2 27.3 mmol/L (21.0-32.0); Calcium 8.5 mg/dL (8.5-10.1); Chloride 93 mmol/L (98-107); Glucose 126 mg/dL (74-106); Potassium 3.5 mmol/L (3.5-5.1); Sodium 128 mmol/L (136-145)
[2019-04-24 07:55] VITALS: O2SAT 94
[2019-04-24 08:05] VITALS: BP 159/88; PULSE 50; RESP 19; TEMP 36.9; O2SAT 94
[2019-04-24] MEDS: Tiotropium Bromide-Respimat 10 PUFF INH IH (08:15)
[2019-04-24] MEDS: Fluticasone NASAL SPRAY 16 GM BTL NS (08:40)
[2019-04-24] MEDS: lamoTRIgine 100 MG TAB 300 MG PO (08:40)
[2019-04-24] MEDS: Cholecalciferol (Vitamin D3) 1,000 UNIT TAB 5000 UNITS PO (08:41)
[2019-04-24] MEDS: Lisinopril 20 MG TAB PO (08:41)
[2019-04-24] MEDS: Acetaminophen 500 MG TAB 1000 MG PO ×2 (08:41→14:37)
[2019-04-24] MEDS: Tamsulosin 0.4 MG CAPCR 0.8 MG PO (08:42)
[2019-04-24] MEDS: Venlafaxine 75 MG TAB PO ×2 (08:42→14:37)
[2019-04-24] MEDS: Sennosides/Docusate Sodium TAB 2 TAB PO (08:42)
[2019-04-24] MEDS: Multivitamin w/Minerals TAB 1 TAB PO (08:42)
[2019-04-24] MEDS: Salt Supplement (BUFFERED) TAB 1 TAB PO ×3 (08:42→15:21)
[2019-04-24] MEDS: Cyanocobalamin 500 MCG TAB 1000 MCG PO (08:43)
[2019-04-24] MEDS: Methadone 10 MG TAB 30 MG PO ×2 (08:43→14:37)
[2019-04-24] MEDS: Gabapentin 300 MG CAP PO ×3 (08:43→15:21)
[2019-04-24] MEDS: Silver sulfaDIAZINE 1% 25 GM TUBE TP (08:45)
--- NOTE | 2019-04-24 11:58 | PDOC.CMPRO ---
- If Service Date Differs Date of service: 04/24/19 Time of Service: 11:58 Care Management Progress Note S/O: A: Darrell is a 58 year old male admitted to [facility] on 04/22/19 with Syncope, hypotension, hyponatremia, dehydration. P: Anticipate Darrell will return home with a resumption of RN, PT, OT, FOUNDATION ASSISTANT when medically cleared. He will follow up with his PCP, as recommended. His will drive him home via private vehicle, when ready. CM will continue to follow and support discharge planning considerations.
[2019-04-24] MEDS: cefTRIAXone 2 GM/50 ML BAG IVPB (12:13)
[2019-04-24 13:39] LABS: Bilirubin Negative (Negative); Blood Small (Negative); Clarity Clear (Clear); Glucose Negative (Negative); Ketones Negative (Negative); Leukocyte Esterase Negative (Negative); Nitrite Negative (Negative); Specific Gravity 1.015 (1.005-1.025); Urobilinogen 0.2 EU/dL (Up TO 0.2)
[2019-04-24 13:48] LABS: Bacteria Rare HPF (Negative); C & S Indicated? C&S Done As Ordered; Casts Negative LPF (Negative); Crystals Negative HPF (Negative); Epithelial Cells Rare HPF (Negative); Mucus Negative (Negative); WBC 0-2 HPF (0-5)
[2019-04-24 13:49] LABS: *AMPHETAMINES SCREEN URINE Negative (Negative); *BARBITURATES SCREEN URINE Negative (Negative); *BENZODIAZEPINES SCREEN URINE Negative (Negative); Cannabinoids THC POSITIVE (Negative); Cocaine Screen,Urine Negative (Negative); METHADONE URINE SCREEN POSITIVE (Negative); OPIATES URINE SCREEN POSITIVE (Negative)
[2019-04-24 13:50] LABS: Tricyclic Antidepressants Negative (Negative)
[2019-04-24 15:15] VITALS: BP 121/75; PULSE 91; RESP 20; TEMP 36.6; O2SAT 94
--- NOTE | 2019-04-24 16:33 | NUR.NOTE ---
15:20 Pt started to complain of severe lower back pain and pressure to lower abdomen, IV 2mg morphine was given. Dr Smith was informed and while she was assessing the pt, she requested a bladder scan. Same was obtained and read [phone]. suggested to pt that he tries to void or we can straight cath to relieve the pressure. PT became upset and stated he refused to have any form of catheter ,he went to toilet but was unable to pass urine. Pt started shouting and stating he's going home . He states that he has been voiding well, hence that is not causing his lower back pain .Despite Dr Smith educating the pt about his medical condition and the risks involving leaving against medical advise and suggesting that she talked to the surgeons in [facility] to see if he could be transferred. Pt still insisted leaving AMA. Nursing informed pt risks includes getting septic and dying. PT told nursing to take his JOSE CARLOS now and hes going to a different facility that knows what they are doing. Pt JOSE CARLOS was removed, AMA form signed by pt and his and witnessed. His personal medication from the pharmacy was also returned.
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
--- NOTE | 2019-04-24 17:23 | PDOC.CMDIS ---
- If Service Date Differs Date of service: 04/24/19 Time of Service: 17:23 LACE Index Scoring Tool - Questions: Length of Stay (in days): 3 Acuity (Admit via E.D.?): Yes Comorbidities: Chronic Pulmonary Disease E.D. Visits: 4 - Answers: Total Score: 12 Risk of Readmission: High Risk Care Management Discharge Reason for Hospitalization: Syncope, hypotension, hyponatremia, dehydration Discharge Plan: Per MD, Darrell has been retaining urine, and it was recommended that he be transferred to [facility] for further care. Darrell became agitated at the idea of a transfer to [facility], and chose to leave AMA. He stated that he would have his drive him to [facility], and adamantly refused transporting via ambulance. discussed the options with him in an attempt to de escalate Darrell, which was unsuccessful. Darrell and his were advised of the risk, but he still chose to leave AMA. Patient/Family Education Needs: Darrell and his were advised of the risks involved with leaving AMA, but Darrell still chose this course of action. He stated that he would have his drive him to [facility].
== END 2019-04-24 16:26 | disposition left against medical advice (07) | DRG 872 ==
LOC: ER 13:25 → ICU 16:21 → MS 04-23 20:54
PROVIDERS: Internal Medicine; Admitting Provider Internal Medicine; Emergency Provider Physician Assistant; PCP Family Medicine; Visit Provider Internal Medicine
DX: A41.9 Sepsis, unspecified organism (principal); E87.1 Hypo-osmolality and hyponatremia; E86.0 Dehydration; J43.2 Centrilobular emphysema; M79.7 Fibromyalgia; E73.9 Lactose intolerance, unspecified; E66.9 Obesity, unspecified; G47.33 Obstructive sleep apnea (adult) (pediatric); F43.10 Post-traumatic stress disorder, unspecified; I10 Essential (primary) hypertension; E78.5 Hyperlipidemia, unspecified; M54.9 Dorsalgia, unspecified; I73.00 Raynaud's syndrome without gangrene; G25.81 Restless legs syndrome; F41.8 Other specified anxiety disorders; R33.9 Retention of urine, unspecified; F12.90 Cannabis use, unspecified, uncomplicated; R63.1 Polydipsia; Z96.651 Presence of right artificial knee joint; Z98.1 Arthrodesis status; F17.210 Nicotine dependence, cigarettes, uncomplicated; T24.021A Burn of unspecified degree of right knee, initial encounter; X16.XXXA Contact with hot heating appliances, radiators and pipes, initial encounter; M47.816 Spondylosis without myelopathy or radiculopathy, lumbar region; M53.3 Sacrococcygeal disorders, not elsewhere classified
CPT/HCPCS: 36410; 36415; 51702; 71275; 72158; 80048; 80053; 80307; 83690; 84145; 85652; 87040; 93005; 94640; 96361; 96374; 96375; 99223; 99233; 99239; 99285; J1650; 70450; 72125; 72131; 72156; 72157; 74174; 81003; 81015; 83605; 83735; 83880; 84295; 84484; 85025; 85610; 85730; 86140; 87086; 93010; J2270; J2310; J2405; J3490; J7613

== ENCOUNTER 2019-04-29 21:48 | Outpatient (REF) | payer MEDICARE, SELFPAY ==
[2019-04-29 21:06] LABS: Absolute Basophil Count 0.06 k/cumm (0.0-0.2); Absolute Eosinophil Count 0.47 k/cumm (0.0-0.7); Absolute Monocyte Count 0.88 k/cumm (0.11-0.7); Absolute Neutrophil Count 5.38 k/cumm (1.2-6.7); Basophils % 0.7; Eosinophils % 5.1; HCT 33.1 % (40.0-50.0); HGB 11.1 g/dL (13.5-17.5); Immature Grans % 1.1 %; Mean Corp. HGB Concentration 33.5 g/dL (32.0-36.0); Mean Corpuscular Hemoglobin 29.5 pg (27.0-33.0); Mean Platelet Volume 7.5 fL (8.0-11.0); Monocytes % 9.6; Neutrophils % 58.5; Platelet Count 465 x1000/uL (130-400); RBC 3.76 m/cumm (4.50-6.00); White Blood Cell Count 9.19 k/cumm (4.4-10.8)
[2019-04-29 21:15] LABS: ALT 13 U/L (16-63); AST 11 U/L (15-37); Albumin 3.2 g/dL (3.4-5.0); Alkaline Phosphatase 88 U/L (46-116); BUN 14 mg/dL (7-18); Bilirubin, Total 0.3 mg/dL (0.2-1.0); C-Reactive Protein 3.81 mg/dL (0.0-0.3); CREATININE 0.95 mg/dL (0.70-1.30); Calcium 8.4 mg/dL (8.5-10.1); Chloride 93 mmol/L (98-107); Glucose 71 mg/dL (74-106); Lipase 37 U/L (73-393); Magnesium 1.7 mg/dL (1.8-2.4); Potassium 4.4 mmol/L (3.5-5.1); Sodium 128 mmol/L (136-145); Total Protein 6.1 g/dL (6.4-8.2)
[2019-05-03 11:20] LABS: PSA, Screening 0.1 ng/mL (0.0-3.5)
== END 2019-04-29 22:08 ==
LOC: NCHCN 21:48
PROVIDERS: PCP Family Medicine; Visit Provider Internal Medicine
DX: R10.30 Lower abdominal pain, unspecified (principal); E87.1 Hypo-osmolality and hyponatremia; R19.4 Change in bowel habit; D72.829 Elevated white blood cell count, unspecified; F41.8 Other specified anxiety disorders; G89.29 Other chronic pain; M25.519 Pain in unspecified shoulder; Z12.5 Encounter for screening for malignant neoplasm of prostate
CPT/HCPCS: 80053; 83690; 84153; 83735; 85025; 86140

== ENCOUNTER → 2019-05-07 10:51 | Outpatient (BNVA) | payer MEDICARE, SELFPAY | PROVIDERS: PCP Family Medicine; Referring Provider Internal Medicine; Visit Provider Surgery | DX: R19.4 Change in bowel habit (principal); I10 Essential (primary) hypertension; J44.9 Chronic obstructive pulmonary disease, unspecified; F17.210 Nicotine dependence, cigarettes, uncomplicated | CPT/HCPCS: 99213 ==

== ENCOUNTER → 2019-05-19 09:00 | Outpatient (BNVA) | payer MEDICARE, SELFPAY | PROVIDERS: PCP Family Medicine; Referring Provider Internal Medicine; Visit Provider Student in an Organized Health Care Education/Training Program | DX: Z53.29 Procedure and treatment not carried out because of patient's decision for other reasons (principal) ==

== ENCOUNTER 2019-06-09 08:40 | Outpatient (CLI) | payer MEDICARE, SELFPAY ==
--- NOTE | 2019-06-09 | DI.RAD_ITS ---
EXAM: XR CERVICAL SP MAK TRAUMA 2-3V CLINICAL HISTORY: CERVICAL STENOSIS SPINAL CANAL, M48.02, F/U C5-7DISCECTOMY AND FUSION. TECHNIQUE: 2D digital imaging was performed. COMPARISON: MR CERVICAL SPINE WO/W from 04/23/2019 CT CERVICAL SPINE WO from 04/23/2019 FINDINGS: BONES: No fracture or destructive lesion. There are endplate osteophytes at C5-6 and C6-C7. Hypertro phic changes of the facets are seen at multiple levels of the cervical spine. DISKS: There are again seen postsurgical changes of C5-6 and C6-C7 disc fusion. ALIGNMENT: There is stable 2 mm anterolisthesis of C3 on C4. The odontoid and atlantoaxial articulati ons are normal. SOFT TISSUE: Normal. The lung apices are clear. IMPRESSION: 1. Stable postsurgical changes at C5-6 and C6-C7. 2. Stable anterolisthesis of C3 on C4. 3. Stable degenerative changes in the cervical spine. DATA REPOSITORY: RADIATION DOSE DELIVERED:
--- NOTE | 2019-06-09 | DI.RAD_ITS ---
EXAM: XR LUMBAR SPINE AP, LAT CLINICAL HISTORY: LOW BACK PAIN, M54.5MIDLINE. TECHNIQUE: 2D digital imaging was performed. COMPARISON: XR lumbar spine AP, LAT from 11/28/2017 CT LUMBAR SPINE WO from 04/23/2019 MR LUMBAR SPINE WO/W from 04/23/2019 FINDINGS: BONES: No fracture or destructive lesion. There is unchanged disc fusion of the L4 and L5 vertebral b odies. The patient is status post laminectomy and posterior spinal fusion extending from L2 through S1. DISKS: There is disc space narrowing at L2-L3 and disc fusion at L4-L5. Degenerative endplate changes are seen throughout the lumbar spine. ALIGNMENT: There is unchanged straightening of the normal lumbar lordosis. SOFT TISSUE: Normal. IMPRESSION: Stable postsurgical and degenerative changes in the lumbar spine. DATA REPOSITORY: RADIATION DOSE DELIVERED:
== END 2019-06-09 09:00 ==
PROVIDERS: PCP Family Medicine; Visit Provider Nurse Practitioner
DX: M48.02 Spinal stenosis, cervical region (principal); M47.812 Spondylosis without myelopathy or radiculopathy, cervical region; Z98.1 Arthrodesis status; M51.37 Other intervertebral disc degeneration, lumbosacral region; M54.5 Low back pain
CPT/HCPCS: 72040; 72100

== ENCOUNTER 2020-01-17 14:20 | Outpatient (CLI) | payer MEDICARE, SELFPAY ==
[2020-01-17 12:03] LABS: Anion Gap 5.5 mmol/L (3-11); BUN 24 mg/dL (7-18); CO2 31.5 mmol/L (21.0-32.0); CREATININE 1.41 mg/dL (0.70-1.30); Calcium 8.7 mg/dL (8.5-10.1); Chloride 97 mmol/L (98-107); Estimated GFR 51.27 (mL/min/1.73m2); Glucose 78 mg/dL (74-106); Potassium 4.9 mmol/L (3.5-5.1); Sodium 134 mmol/L (136-145)
== END 2020-01-17 14:40 ==
PROVIDERS: PCP Family Medicine; Visit Provider Family Medicine
DX: E87.1 Hypo-osmolality and hyponatremia (principal)
CPT/HCPCS: 36415; 80048

== ENCOUNTER 2020-04-12 15:56 | Outpatient (REF) | payer MEDICARE, SELFPAY ==
[2020-04-12 13:54] LABS: HCT 41.6 % (40.0-50.0); HGB 13.2 g/dL (13.5-17.5); MCH 29.5 pg (27.0-33.0); MCHC 31.7 % (32.0-36.0); MCV 92.9 fL (80-95); MPV 8.4 fL (8.0-11.0); Platelet Count 276 10^3/uL (130-400); RBC 4.48 10^6/uL (4.36-5.78); RDW 16.6 % (11.8-14.1); RDW-SD 56.5 fL; WBC 21.08 10^3/uL (4.4-10.8)
[2020-04-12 14:39] LABS: ALT 33 U/L (16-63); AST 21 U/L (15-37); Albumin 3.4 g/dL (3.4-5.0); Alkaline Phosphatase 87 U/L (46-116); Anion Gap 5.8 mmol/L (3-11); BUN 8 mg/dL (7-18); Bilirubin, Total 0.3 mg/dL (0.2-1.0); CO2 31.2 mmol/L (21.0-32.0); Calcium 8.8 mg/dL (8.5-10.1); Chloride 95 mmol/L (98-107); Glucose 90 mg/dL (74-106); Potassium 4.3 mmol/L (3.5-5.1); Sodium 132 mmol/L (136-145); Total Protein 6.8 g/dL (6.4-8.2)
== END 2020-04-12 15:57 | disposition home or self-care (01) ==
LOC: NCHCN 15:56
PROVIDERS: PCP Family Medicine; Visit Provider Family Medicine
DX: M25.511 Pain in right shoulder (principal); M25.512 Pain in left shoulder
CPT/HCPCS: 80053; 85027

== ENCOUNTER 2020-04-24 04:46 | Emergency (ER) | payer MEDICARE, SELFPAY ==
[2020-04-24] VITALS (104 sets, daily range): BP systolic 65–173; BP diastolic 27–138; PULSE 44–180; RESP 2–33; TEMP 33–36.2; O2SAT 86–100
--- NOTE | 2020-04-24 04:45 | RT.EKG_ITS ---
APPROVED REPORT Exam: Resting ECG Patient Location: E HR:57 bpm ECG Measurements Heart Rate 57 AXIS AK [id number] P [id number] QRSd 154 QRS 64 QT 462 T 35 QTc 451 Conclusion A-flutter/fibrillation w/ complete AV block...A-rate>220, V-rate< 60, AV dissoc Right bundle branch block...QRSd>120, terminal axis(90,270) ST elevation secondary to IVCD...Multiple VCG criteria Physician: Sinus w/ RBBB, no STEMI, unchanged from prior
--- NOTE | 2020-04-24 04:45 | DI.RAD_ITS ---
EXAM: XR PORTABLE CHEST AP CLINICAL HISTORY: sob, hypoxic TECHNIQUE: 2D digital imaging was performed. COMPARISON: CR XR PORTABLE CHEST AP from 04/02/2019 FINDINGS: MEDIASTINUM: Normal. HEART: Normal. PULMONARY VASCULATURE: Normal. LUNGS: Interstitial infiltrates are seen predominantly in the right perihilar region and the lower lorna ng field. No focal consolidating infiltrate is seen. PLEURAL SPACE: No pleural effusion or pneumothorax. BONE:Within normal limits for the patient's age. OTHER FINDINGS:Poor inspiration. IMPRESSION: Bilateral interstitial infiltrates which may represent an interstitial edema or pneumonia. DATA REPOSITORY: RADIATION DOSE DELIVERED:
[2020-04-24] MEDS: Naloxone 0.4 MG/ML VIAL (04:54)
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
--- NOTE | 2020-04-24 05:00 | DI.CT_ITS ---
EXAM: CT CHEST/ABD/PEL WO CLINICAL HISTORY: Hematemesis/hemoptysis, hypoxic, altered TECHNIQUE: Imaging Protocol: Axial computed tomography images with coronal and sagittal reformatted images were created and reviewed CONTRAST MATERIAL: Imaging Protocol: Axial computed tomography images with coronal and sagittal refo rmatted images were created and reviewed. COMPARISON: CT CT ABDOMEN PELVIS CTA from 04/22/[address] CHEST PE CTA from 04/22/2019 FINDINGS: The examination is limited due to patient motion artifact. CHEST: Tracheobronchial tree: Patent where visualized. Mediastinum and Susan: No dominant adenopathy or fluid collection. Small hiatal hernia. Stable mildly enlarged lymph nodes in the mediastinum. Pulmonary parenchyma: Right upper and right lower lobe infiltrates. Question of a left basilar infil trate. The lungs appear hyperlucent suggesting underlying COPD. Examination is significantly limite d due to patient motion. Pleura: No effusion or pneumothorax. Heart: The heart is not dilated. Mild coronary artery calcification. No pericardial effusion. Aorta: Thoracic aorta non-dilated. Mild atherosclerosis. Lymph nodes: Please see the above discussion. Bones:Degenerative changes. Disc surgery at C5-6 and C6-C7. Soft tissues: Unremarkable. ABDOMEN: Liver: Normal density. No measurable mass. Gallbladder and Biliary Tract: No radiodense calculus or dilation. Gallbladder is contracted. Pancreas: Normal density, no abnormal calcifications or inflammatory process. Spleen: Normal. Adrenals: No masses seen. Kidneys: Normal size, contour and axis. No radiodense stones or obstructive uropathy. No masses seen. Abdominal Aorta: Abdominal portion non-dilated. Moderate atherosclerosis. Bowel: No obstruction or bowel wall thickening. No evidence of appendicitis. Small hiatal hernia. Peritoneal Cavity: No ascites, collection or mesenteric inflammatory response. No free air. Lymph Nodes: Stable mildly prominent iliac chain lymph nodes. Bones: Stable spinal surgery from L2 through S1. Soft Tissues: Small bilateral fat containing inguinal hernia. PELVIS: Bladder: Symmetric distention, no gross wall thickening. Reproductive Organs: Unremarkable as visualized. Lymph Nodes: Please see above. Bones: Please see above. IMPRESSION: 1. No acute abdominal or pelvic process. 2. Right-sided pneumonia. Question of left basilar infiltrate. RADIATION DOSE DELIVERED: 2,128.8mGy.cm Total DLP 2,128.8mGy.cm Total DLP DATA REPOSITORY: All CT scans at this facility are submitted to the National Radiology Data Registry (NRDR) Dose Index Registry (DIR) with the [employer] (ACR). RADIATION OPTIMIZATION: All CT scans at this facility use at least one of these dose optimization te chniques: automated exposure control; mA and/or kV adjustment per patient size (includes targeted exa ms where dose is matched to clinical indication); or iterative reconstruction.
--- NOTE | 2020-04-24 05:13 | NUR.NOTE ---
Nursing Note: pt placed on bipap AT THIS TIME BY RT
--- NOTE | 2020-04-24 05:16 | NUR.NOTE ---
Nursing Note: Pt calls and states she woke up to pt gurgling on blood, =states no trauma known. Pt tolerating bipap at this time, noted there to be dried blood from nostrils to chin
--- NOTE | 2020-04-24 05:19 | DI.VRAD_ITS ---
PROCEDURE INFORMATION: Exam: XR Chest Exam date and time: 04/24/2020 4:58 AM Age: 59 years old Clinical indication: Shortness of breath; Patient HX: SOB, hypoxic TECHNIQUE: Imaging protocol: XR of the chest Views: 1 view. COMPARISON: CR XR PORTABLE CHEST AP 04/02/2019 12:33 PM FINDINGS: Mildly limited due to rotation Lungs: Mild interstitial opacities and peribronchial thickening Pleural spaces: No pleural effusion. No pneumothorax. Heart/Mediastinum: Grossly stable. Bones/joints: Grossly stable IMPRESSION: Mild interstitial pneumonitis/edema Dictated and Authenticated by: Nikos Bullock MD. Ordering:JAYLA Nation MD
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
--- NOTE | 2020-04-24 05:25 | NUR.NOTE ---
Nursing Note: 0526-unable to obtain labs from 3 IVs pt currently has. Lab currently working on obtaining these at bedside. 0527 -RT, lab, RN x 2, Dr Ortiz present in room. 0530- 100% fiO2 bipap.Pt able to assist with repositioning self. Pt follows commands give by Dr Ortiz. O2 sat 97. Pt remains on full cardiac monitoring, sinus diana HR 53. -0532- Unable to obtain bloodwork 0533- bipap removed 0534- pt speaking with Dr Ortiz, reports I don't know what happenedwhen asked why dried blood on face. Speech difficult to understand.Pt oriented to person, place. Per Dr Ortiz,hold off on RSI, to go to CT.
[2020-04-24 05:47] LABS: Abs Immature Grans 0.32 10^3/uL (0.0-0.06); Absolute Lymphocyte Count 0.62 10^3/uL (1.2-3.4); HCT 42.8 % (40.0-50.0); HGB 13.5 g/dL (13.5-17.5); MCH 29.7 pg (27.0-33.0); MCHC 31.5 % (32.0-36.0); MCV 94.1 fL (80-95); MPV 8.1 fL (8.0-11.0); Nucleated RBC 0 %; Platelet Count 314 10^3/uL (130-400); RBC 4.55 10^6/uL (4.36-5.78); RDW 17.1 % (11.8-14.1); RDW-SD 58.5 fL
[2020-04-24 05:50] LABS: BE (Venous) -6 mmol/L (-2-3); HCO3 (Venous) 20 mmol/L (23-28); O2 Sat (Venous) 99 %; TCO2 (Venous) 18 mmol/L (24-29); pCO2 (Venous) 41 mmHg (41-51); pH (Venous) 7.31 (7.31-7.41); pO2 (Venous) 138 mmHg
[2020-04-24 05:54] LABS: Lactate 3.7 mmol/L (0.6-1.4)
[2020-04-24 06:07] LABS: Acetaminophen < 2 ug/mL (10-30); Salicylate 2.9 mg/dL (<2.8)
--- NOTE | 2020-04-24 06:09 | NUR.NOTE ---
Nursing Note: Return to ED from CT with RT and this RN . Pt sitting upright , states I feel better, oh yeah a lot. Pt on [address], O2 sats no lower than 89% while laying flat.
[2020-04-24 06:12] LABS: Ammonia 38 umol/L (11-32)
[2020-04-24 06:15] LABS: Bands % 5
[2020-04-24] MEDS: Normal Saline 1,000 ML 1000 ML IV ×2 (06:15→07:50)
[2020-04-24 06:16] LABS: Absolute Basophil Count 0.31 10^3/uL (0.0-0.2); Absolute Eosinophil Count 0.62 10^3/uL (0.0-0.7); Absolute Monocyte Count 0.93 10^3/uL (0.1-0.8); Absolute Neutrophil Count 28.43 10^3/uL (1.2-6.7); Diff Comment Manual Differential; RBC Morphology Normal
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
[2020-04-24] MEDS: Albuterol/Ipratropium 3 ML UPD VIAL UPD ×2 (06:21→11:48)
--- NOTE | 2020-04-24 06:28 | DI.VRAD_ITS ---
PROCEDURE INFORMATION: Exam: CT Chest Without Contrast; Diagnostic Exam date and time: 04/24/2020 6:04 AM Age: 59 years old Clinical indication: Other: Hematemesis/hemoptysis, hypoxic, altered; Prior surgery; Surgery date: 6+ months; Surgery type: Back surgery; Additional info: Unable to give history TECHNIQUE: Imaging protocol: Diagnostic computed tomography of the chest without contrast. Radiation optimization: All CT scans at this facility use at least one of these dose optimization techniques: automated exposure control; mA and/or kV adjustment per patient size (includes targeted exams where dose is matched to clinical indication); or iterative reconstruction. COMPARISON: CT CHEST PE CTA 04/22/2019 12:35 PM FINDINGS: Mildly limited due to motion artifact Lungs: Mild interstitial/reticulonodular opacities on the right and minimally in the left lower lobe. Minimal subsegmental atelectasis Pleural spaces: No pneumothorax. No pleural effusion. Heart: No cardiomegaly. No pericardial effusion. Aorta: . No aortic aneurysm. Lymph nodes: Unremarkable. No enlarged lymph nodes. Bones/joints: Unremarkable. No acute fracture. Soft tissues: Unremarkable. IMPRESSION: Mild right-sided pneumonia/pneumonitis. Aspiration not excluded Minimal opacities in the left lower lobe PROCEDURE INFORMATION: Exam: CT Abdomen And Pelvis Without Contrast Exam date and time: 04/24/2020 6:04 AM Age: 59 years old Clinical indication: Other: Hematemesis/hemoptysis, hypoxic, altered; Prior surgery; Surgery date: 6+ months; Surgery type: Back surgery; Additional info: Unable to give history TECHNIQUE: Imaging protocol: Computed tomography of the abdomen and pelvis without contrast. Radiation optimization: All CT scans at this facility use at least one of these dose optimization techniques: automated exposure control; mA and/or kV adjustment per patient size (includes targeted exams where dose is matched to clinical indication); or iterative reconstruction. COMPARISON: CT CHEST PE CTA 04/22/2019 12:35 PM FINDINGS: Mildly limited due to motion artifact Liver: Unremarkable Gallbladder and bile ducts: No calcified stones. No ductal dilation. Pancreas: No ductal dilation. Spleen: No splenomegaly. Adrenal glands: No mass. Kidneys and ureters: No hydronephrosis. Stomach and bowel: No obstruction. No mucosal thickening. Appendix: No evidence of appendicitis. Intraperitoneal space: Unremarkable. No free air. No significant fluid collection. Vasculature: Unremarkable. No abdominal aortic aneurysm. Lymph nodes: Unremarkable. No enlarged lymph nodes. Urinary bladder: Unremarkable as visualized. Reproductive: Unremarkable as visualized. Bones/joints: Postsurgical changes in the lumbar spine No acute fracture. Soft tissues: Unremarkable. IMPRESSION: No acute findings. No solid organ injury detected Dictated and Authenticated by: Nikos Bullock MD. Ordering:JAYLA Nation MD
[2020-04-24 06:43] LABS: COVID-19 PCR Negative (Negative); Influenza A PCR Negative (Negative); Influenza B PCR Negative (Negative); RSV PCR Negative (Negative)
[2020-04-24 06:48] LABS: ALT 33 U/L (16-63); AST 45 U/L (15-37); Albumin 3.3 g/dL (3.4-5.0); Alkaline Phosphatase 81 U/L (46-116); BUN 54 mg/dL (7-18); Bilirubin, Total 0.4 mg/dL (0.2-1.0); CO2 21.3 mmol/L (21.0-32.0); Calcium 8.9 mg/dL (8.5-10.1); Glucose 164 mg/dL (74-106); TSH (W/Ref FT4) 1.62 uIU/mL (0.36-3.74); Total Protein 6.9 g/dL (6.4-8.2)
[2020-04-24 06:50] LABS: Sodium 127 mmol/L (136-145); Troponin I < 0.05 ng/mL (<0.06)
--- NOTE | 2020-04-24 06:50 | NUR.NOTE ---
Nursing Note: [id number] lab called to assist with obtaining blood cultures. Unable to pull blood from line for other labs. Noelle QUINTANA in with US to attempt 4th IV line. 0708 4th IV line started and 1st set blood cultures obtained.
[2020-04-24 06:51] LABS: Anion Gap 11.7 mmol/L (3-11); Chloride 94 mmol/L (98-107)
[2020-04-24] MEDS: Dextrose 50%-Water 25 GM/50 ML SYR IVP (07:10)
--- NOTE | 2020-04-24 07:14 | NUR.NOTE ---
Nursing Note: Handoff to Noelle QUINTANA given.
[2020-04-24 07:15] LABS: CREATININE 3.5 mg/dL (0.70-1.30); Estimated GFR 17.96 (mL/min/1.73m2); NT-proBNP 1330 pg/mL (<300)
[2020-04-24] MEDS: levoFLOXacin 750 MG/150 ML BAG 100 MG IVPB (07:15)
[2020-04-24 07:26] LABS: ETHANOL BLOOD < 3.0 mg/dL (<3)
[2020-04-24] MEDS: Hydrocortisone SOD SUC. 100 MG VIAL IVP (07:30)
[2020-04-24] MEDS: methylPREDNISolone SUCC 125 MG VIAL 80 MG IVP (07:30)
[2020-04-24 07:42] LABS: INR 1.5 (0.9-1.1); PTT Activated 41.4 sec (21.0-27.5); Prothrombin Time 14.6 sec (9.3-11.0)
[2020-04-24 07:45] LABS: Troponin I < 0.05 ng/mL (<0.06)
[2020-04-24] MEDS: Albuterol 2.5 MG/3 ML INH SOLN VIAL 7.5 MG UPD (07:50)
[2020-04-24] MEDS: PIPERACILLIN/TAZO 3.375 GM in Normal Saline 50 ML IVPB (07:50)
[2020-04-24] MEDS: Etomidate 20 MG/10 ML VIAL 30 MG IVP (08:48)
[2020-04-24] MEDS: Succinylcholine 200 MG/10 ML VIAL 150 MG IVP (08:51)
[2020-04-24] MEDS: Rocuronium 50 MG/5 ML SYR 100 MG IVP (08:55)
[2020-04-24] MEDS: Rocuronium 50 MG/5 ML SYR IVP (08:57)
[2020-04-24] MEDS: Succinylcholine 200 MG/10 ML VIAL 50 MG IVP (08:58)
--- NOTE | 2020-04-24 09:10 | PGE_ITS ---
Date of Service Date of service: 04/24/20 Time of Service: 08:50 Subjective Subjective Interval history since last seen: I was asked to admit Mr Sweeney, a 59 year old male who was taken to the ED today after being found obtunded with evidence of epistaxis and hypoxia to the 50s upon evaluation by EMS. Responded to narcan followed by BiPAP, at which point I was asked to admit him. Shortly after, the patient became uncooperative, not making sound decisions, attempting to leave AMA and taking off respiratory support devices. ED team made decision to intubate. He does have evidence of aspiration pneumonia. Blood was aspirated fro m respiratory tract on intubation (likely from epistaxis rather than pulmonary origin). I was present for a part of intubation. The patient is likely going to be a difficult extubation given underlying aspiration pneumonitis/pneumonia, Likely OHS, COPD, and behavioral issues. It is my strong strong opinion that he would benefit from an admission to a tertiary care facility with a pulm/critical care provider on site. Objective Last Vital Signs Temp 36.2 C L 04/24/20 04:49 Pulse 50 L 04/24/20 08:13 Resp 18 04/24/20 08:13 BP 91/61 L 04/24/20 08:13 Pulse Ox 93 04/24/20 08:13 Laboratory Results - last 24 hr 04/24/20 04/24/20 04/24/20 05:41 05:45 05:45 WBC RBC Hgb Hct MCV MCH MCHC RDW Plt Count MPV Immature Gran % Neutrophils % Band Neutrophils % Lymphocytes % Monocytes % Eosinophils % Basophils % Nucleated RBC % Absolute Neutrophils Absolute Lymphocytes Absolute Monocytes Absolute Eosinophils Absolute Basophils RBC Morphology PT INR APTT VBG pH VBG pCO2 VBG pO2 VBG HCO3 VBG Total CO2 VBG O2 Saturation VBG Base Excess VBG Lactate Sodium 127 L Potassium 6.0 H Chloride 94 L Carbon Dioxide 21.3 Anion Gap 11.7 H BUN 54 H Creatinine 3.5 H Estimated GFR/1.73 m2 17.96 Glucose 164 H Calcium 8.9 Total Bilirubin 0.4 AST 45 H ALT 33 Alkaline Phosphatase 81 Ammonia 38 H Troponin I < 0.05 NT-Pro-B Natriuret Pep 1330 H Total Protein 6.9 Albumin 3.3 L TSH 1.62 Salicylates Acetaminophen Ethyl Alcohol < 3.0 COVID-19 Source Nasopharyx SARS-CoV-2 (PCR) Negative Influenza Type A (PCR) Negative Influenza Type B (PCR) Negative RSV (PCR) Negative 04/24/20 04/24/20 04/24/20 05:45 05:45 05:45 WBC 30.90 H* RBC 4.55 Hgb 13.5 Hct 42.8 MCV 94.1 MCH 29.7 MCHC 31.5 L RDW 17.1 H Plt Count 314 MPV 8.1 Immature Gran % 0.0 Neutrophils % 87.0 Band Neutrophils % 5 Lymphocytes % 2.0 Monocytes % 3.0 Eosinophils % 2.0 Basophils % 1.0 Nucleated RBC % 0 Absolute Neutrophils 28.43 H Absolute Lymphocytes 0.62 L Absolute Monocytes 0.93 H Absolute Eosinophils 0.62 Absolute Basophils 0.31 H RBC Morphology Normal PT INR APTT VBG pH 7.31 VBG pCO2 41 VBG pO2 138 VBG HCO3 20 L VBG Total CO2 18 L VBG O2 Saturation 99 VBG Base Excess -6 L VBG Lactate 3.7 H* Sodium Potassium Chloride Carbon Dioxide Anion Gap BUN Creatinine Estimated GFR/1.73 m2 Glucose Calcium Total Bilirubin AST ALT Alkaline Phosphatase Ammonia Troponin I NT-Pro-B Natriuret Pep Total Protein Albumin TSH Salicylates Acetaminophen Ethyl Alcohol COVID-19 Source SARS-CoV-2 (PCR) Influenza Type A (PCR) Influenza Type B (PCR) RSV (PCR) 04/24/20 04/24/20 04/24/20 05:45 07:10 07:10 WBC RBC Hgb Hct MCV MCH MCHC RDW Plt Count MPV Immature Gran % Neutrophils % Band Neutrophils % Lymphocytes % Monocytes % Eosinophils % Basophils % Nucleated RBC % Absolute Neutrophils Absolute Lymphocytes Absolute Monocytes Absolute Eosinophils Absolute Basophils RBC Morphology PT 14.6 H INR 1.5 H APTT 41.4 H VBG pH VBG pCO2 VBG pO2 VBG HCO3 VBG Total CO2 VBG O2 Saturation VBG Base Excess VBG Lactate Sodium Potassium Chloride Carbon Dioxide Anion Gap BUN Creatinine Estimated GFR/1.73 m2 Glucose Calcium Total Bilirubin AST ALT Alkaline Phosphatase Ammonia Troponin I < 0.05 NT-Pro-B Natriuret Pep Total Protein Albumin TSH Salicylates 2.9 Acetaminophen < 2 Ethyl Alcohol COVID-19 Source SARS-CoV-2 (PCR) Influenza Type A (PCR) Influenza Type B (PCR) RSV (PCR)
--- NOTE | 2020-04-24 09:15 | DI.RAD_ITS ---
EXAM: XR PORTABLE CHEST AP POST LINE CLINICAL HISTORY: s/p intubation, tube placement TECHNIQUE: 2D digital imaging was performed. COMPARISON: CR,XR XR PORTABLE CHEST AP from 04/24/2020 FINDINGS: MEDIASTINUM: Normal. HEART: Normal. PULMONARY VASCULATURE: Normal. LUNGS: Worsened bilateral pulmonary infiltrates. This may represent worsening pneumonia or pulmonary edema. PLEURAL SPACE: No pleural effusion or pneumothorax. BONE:Within normal limits for the patient's age. OTHER FINDINGS:There is poor inspiration. An endotracheal tube has been placed. The tip is in good position 5.6 cm above the ramon. There is an orogastric tube in place. The tip is seen below the h emidiaphragm and in the stomach. IMPRESSION: 1. Worsened bilateral pulmonary infiltrates. This may represent worsening pneumonia or pulmonary uriel ma. Please correlate clinically. 2. The tip of the endotracheal tube is in good position 5.6 cm above the ramon. 3. The tip of the orogastric tube is not seen but is below the hemidiaphragm and in the stomach. DATA REPOSITORY: RADIATION DOSE DELIVERED:
[2020-04-24] MEDS: PROPOFOL 1,000 MG/100 ML BTL 3.474 MG IVPB (09:30)
[2020-04-24 09:34] LABS: Bilirubin Negative (Negative); Blood Trace-intact (Negative); Clarity Clear (Clear); Glucose Negative (Negative); Ketones Negative (Negative); Leukocyte Esterase Negative (Negative); Nitrite Negative (Negative); Urobilinogen 0.2 EU/dL (Up TO 0.2); pH 5.5 (5-8)
[2020-04-24 09:41] LABS: BE -6 mmol/L (-2-3); HCO3 24 mmol/L (22-26); pO2 69 mmHg (80-105); sO2 90 % (95-98); tCO2 23 mmol/L (23-27)
[2020-04-24 09:47] LABS: Site Right Radial; pCO2 74 mmHg (35-45); pH 7.11 (7.35-7.45)
[2020-04-24] MEDS: VANCOMYCIN/WATER (PEG) 2 GM/400 ML BAG IVPB (09:47)
[2020-04-24 09:48] LABS: FIO2 100 %
[2020-04-24 09:54] LABS: Bacteria Few HPF (Negative); Epithelial Cells Rare HPF (Negative); Mucus Trace (Negative); WBC 0-2 HPF (0-5)
[2020-04-24 09:55] LABS: C & S Indicated? C&S Done As Ordered; Casts 0-2 Coarse Granular LPF (Negative)
[2020-04-24 09:58] LABS: *AMPHETAMINES SCREEN URINE Negative (Negative); *BARBITURATES SCREEN URINE Negative (Negative); *BENZODIAZEPINES SCREEN URINE Negative (Negative); Cannabinoids THC POSITIVE (Negative); Cocaine Screen,Urine POSITIVE (Negative); METHADONE URINE SCREEN POSITIVE (Negative); OPIATES URINE SCREEN Negative (Negative)
[2020-04-24 09:59] LABS: Tricyclic Antidepressants Negative (Negative)
[2020-04-24] MEDS: Normal Saline 1,000 ML 150 ML IV (10:03)
[2020-04-24] MEDS: Midazolam 10 MG/10 ML 5 MG IVP (10:15)
[2020-04-24] MEDS: MIDAZOLAM 50 MG in Normal Saline 90 ML 11.5 MG IV (10:25)
[2020-04-24] MEDS: fentaNYL 1,000 MCG in Normal Saline 80 ML 11.5 MCG IV (10:35)
[2020-04-24 13:21] LABS: Crystals Negative HPF (Negative)
--- NOTE | 2020-04-24 14:28 | NUR.NOTE ---
Nursing NoteIV's infiltrated when he became confrontational and wanted to leave-was trying to pull them out.. new 20g to R forearm and 20 gauge into L forearm.
== END 2020-04-24 11:27 | disposition short-term general hospital (02) ==
PROVIDERS: Internal Medicine; Emergency Provider Student in an Organized Health Care Education/Training Program; PCP Family Medicine
DX: A41.9 Sepsis, unspecified organism (principal); N17.8 Other acute kidney failure; J96.00 Acute respiratory failure, unspecified whether with hypoxia or hypercapnia; E87.5 Hyperkalemia; E87.1 Hypo-osmolality and hyponatremia; E27.2 Addisonian crisis; R00.1 Bradycardia, unspecified; R04.0 Epistaxis
CPT/HCPCS: 31500; 36415; 36416; 51702; 71045; 71250; 80048; 80053; 80307; 82805; 82962; 84145; 87040; 87637; 93005; 94640; 96361; 96365; 96366; 96367; 96368; 96375; 96376; 99291; 99292; NC; 36600; 70450; 70486; 72125; 74176; 80320; 80329; 81003; 81015; 82140; 83605; 83880; 84443; 84484; 85025; 85610; 85730; 87086; 93010; J0610; J1720; J1956; J2310; J2543; J2930; J3010; J3490; J7613; J7620

== ENCOUNTER 2020-05-29 21:20 | Outpatient (REF) | payer MEDICARE, SELFPAY ==
[2020-05-31 18:30] LABS: COVID-19 RT-PCR UVMMC Result Negative (Negative)
== END 2020-05-29 21:21 | disposition home or self-care (01) ==
LOC: NCHCN 21:20
PROVIDERS: PCP Family Medicine; Visit Provider Family Medicine
DX: Z20.822 Contact with and (suspected) exposure to COVID-19 (principal); R05 Cough
CPT/HCPCS: U0003

== ENCOUNTER 2020-10-03 04:12 | Outpatient (CLI) | payer MEDICARE, SELFPAY, MEDICAID ==
--- NOTE | 2020-10-03 08:30 | RT.EKG_ITS ---
APPROVED REPORT Exam: Resting ECG Reason for Exam: HIGH RISK MED Patient Location: O HR:64 bpm ECG Measurements Heart Rate 64 AXIS VA 185 P 3 QRSd 144 QRS 65 QT 419 T 36 QTc 434 Conclusion Sinus rhythm...normal P axis, V-rate 60- 99 Right bundle branch block...QRSd>120, terminal axis(90,270)
== END 2020-10-03 04:13 | disposition home or self-care (01) ==
PROVIDERS: PCP Family Medicine; Visit Provider Nurse Practitioner Family
DX: Z79.899 Other long term (current) drug therapy (principal); I45.19 Other right bundle-branch block
CPT/HCPCS: 93005; 93010

== ENCOUNTER 2020-11-28 07:38 | Emergency (ER) | payer MEDICARE, MEDICAID, SELFPAY ==
[2020-11-28] VITALS (12 sets, daily range): BP systolic 113–117; BP diastolic 59–77; PULSE 45–62; RESP 11–21; TEMP 36.5; O2SAT 88–95
--- NOTE | 2020-11-28 08:40 | ED.GENADUL_ITS ---
Discharge Plan Disposition Patient Disposition: AGAINST MEDICAL ADVICE Discharge Details Clinical Impression: Opioid overdose, Bradycardia Primary Care Provider: Ivonne Diop ED Provider: Mateo Rebollar Home Meds and New Rx's Prescriptions: No Action polyethylene glycol 3350(bulk) [Base B,Polyethylene [id number]] Granules MC DAILY PRN RF: 0 cyanocobalamin (vitamin B-12) 1,000 mcg capsule 1,000 mcg PO DAILY RF: 0 multivitamin with minerals Capsule 1 cap PO DAILY RF: 0 cholecalciferol (vitamin D3) 125 mcg (5,000 unit) capsule 125 mcg PO DAILY RF: 0 oxycodone 20 mg tablet 5 mg PO DAILY RF: 0 Narcan 4 MG spray,non-aerosol 4 mg NS ONCE MDD 1 Qty: 1 RF: 0 lisinopril 20 MG tablet 40 mg PO DAILY RF: 0 mirtazapine 45 MG tablet 45 mg PO HS RF: 0 acetaminophen 500 MG tablet 1,000 mg PO TID RF: 0 tamsulosin [Flomax] 0.4 MG capsule 0.8 mg PO DAILY RF: 0 triamcinolone acetonide 0.5 % Cream 1 applic TOPICAL BID RF: 0 methadone 10 mg Tablet 140 mg PO DAILY RF: 0 lidocaine HCl 2 % Jelly 1 applic INTRA-URETHRAL 4-6XD PRNRF: 0 hydroxyzine HCl 25 mg Tablet 50 mg PO BID RF: 0 fluticasone propionate 50 mcg/actuation [place],Suspension 2 spray INTRANASAL DAILY RF: 0 lamotrigine [Lamictal] 100 mg Tablet 300 mg PO DAILY RF: 0 venlafaxine 75 mg Tablet Extended Release 24hr 75 mg PO TID RF: 0 cannabidiol 100 mg/mL Solution 2 - 3 PO DAILY PRNRF: 0 sennosides-docusate sodium [Senna with Docusate Sodium] 1 EACH tablet 2 ea PO DAILY RF: 0 gabapentin 300 MG capsule 300 mg PO TID RF: 0 sodium chloride 1 gram Tablet 1,000 mg PO QD-QID RF: 0 amlodipine 5 mg Tablet 5 mg PO DAILY RF: 0 Spiriva with HandiHaler 18 mcg Capsule, W/Inhalation Device 1 cap INHALATION DAILY RF: 0 levomefolate calcium [L-Methylfolate] 15 mg Tablet 15 mg PO DAILY RF: 0 olanzapine 10 mg Tablet 30 mg PO QHS RF: 0 clonidine HCl 0.1 mg tablet 1 mg PO QID RF: 0 olanzapine 10 mg tablet 10 mg PO DAILY RF: 0 Anoro Ellipta 62.5-25 mcg/actuation blister with device 1 inh INHALATION DAILY RF: 0 Discharge Instructions Instructions: Against Medical Advice (ED) Additional Instructions: You are leaving AGAINST MEDICAL ADVICE. You may have life-threatening or lifestyle modifying disease that would go undiagnosed and untreated. I am strongly recommending that you stay in the emergency department for further work-up and treatment. Please return at any time to be treated as recommended. Please follow-up with your doctor. Be sure to discuss your overdose today. Please discuss your medications with your doctor as soon as possible. It is recommended that you be vaccinated against Covid. Please seek vaccination as soon as possible. Referrals: [facility] [Outside] Ivonne Diop [Primary Care Provider] - Medical Decision Making 50-year-old male arrives with altered mental status having just received methadone at [facility]. Patient received naloxone and now mentating well. I called and spoke with nurse practitioner Omi at [facility] -she did note that he is currently on 140 mg of methadone daily and received this dose this morning. They are considering splitting his dose, he was noted recently to be using his 's Vicodin. He is on multiple psychiatric medications as prescribed by Dr. Casiano. I went to assess the patient and do physical exam. Patient refusing exam. He is refusing further diagnostics or work-up or treatment. Patient requesting to leave AGAINST MEDICAL ADVICE. I had a discussion with the Mr. Sweeney about my diagnostic/treatment plan. Patient declines plan and wishes to leave against medical advise. I reiterated my concerns to the patient and explained the risks of leaving prior to completion of workup and treatment. I specifically emphasized the possibility of life-threatening or lifestyle modifying disease that would not be appropriately treated if they leave. Patient verbalized understanding of my concerns and the potential for life threatening or lifestyle modifying disease. Patient has capacity to make informed decision. He understands that opioids that he is currently on his long-acting and that he may have loss of consciousness again he could . I again explained my concerns and urged the patient to stay for treatment as outlined. Patient continued to refuse. I then discussed potential less ideal alternatives to diagnostic/treatment plan as outlined and patient refused. I recommended that the patient follow-up with primary care physician MATHEUS or return to the Emergency Department at any time for further treatment. HPI General Date/Time Provider Initiated Documentation: 11/28/20 08:01 . Information obtained by: patient . HPI Narrative: 60-year-old male arrives by private vehicle having just been at the methadone clinic with altered mental status. Patient was unresponsive in car and was administered naloxone 2 mg intranasal by nursing. He is now fully responsive. Patient refusing further ED treatment and evaluation. Overdose with severe, persistent until naloxone administered, no other modifiers, history limited secondary to patient refusing to participate in medical screening exam. Related Data Home Medications Medication Instructions Recorded Confirmed lisinopril 40 mg PO DAILY 05/20/12 04/24/20 mirtazapine 45 mg PO HS 05/20/12 04/24/20 acetaminophen 1,000 mg PO TID 01/05/16 04/22/19 tamsulosin [Flomax] 0.8 mg PO DAILY 01/05/16 04/24/20 Narcan 4 mg NS ONCE #1 spray MDD 1 07/23/16 04/22/19 gabapentin 300 mg PO QID 04/02/17 04/24/20 sennosides-docusate sodium [Senna 2 ea PO DAILY 04/02/17 04/22/19 with Docusate Sodium] cannabidiol 2 - 3 PO DAILY PRN 12/28/18 fluticasone propionate 2 spray INTRANASAL DAILY 12/28/18 04/22/19 hydroxyzine HCl 50 mg PO TID PRN 12/28/18 04/24/20 lamotrigine [Lamictal] 300 mg PO DAILY 12/28/18 04/24/20 lidocaine HCl 1 applic INTRA-URETHRAL 4-6XD PRN 12/28/18 04/22/19 methadone 30 mg PO TID 12/28/18 04/24/20 triamcinolone acetonide 1 applic TOPICAL BID 12/28/18 04/22/19 venlafaxine 75 mg PO TID 12/28/18 04/24/20 amlodipine 5 mg PO DAILY 04/02/19 04/22/19 levomefolate calcium 15 mg PO DAILY 04/02/19 04/24/20 [L-Methylfolate] sodium chloride 1,000 mg PO QD-QID 04/02/19 04/24/20 tiotropium bromide [Spiriva with 1 cap INHALATION DAILY 04/02/19 04/22/19 HandiHaler] olanzapine 30 mg PO QHS 04/22/19 04/24/20 polyethylene glycol 3350(bulk) granules MC DAILY PRN gm 05/04/19 cholecalciferol (vitamin D3) 125 125 mcg PO DAILY 05/18/19 05/18/19 mcg (5,000 unit) capsule cyanocobalamin (vitamin B-12) 1,000 mcg PO DAILY 05/18/19 05/18/19 1,000 mcg capsule multivitamin with minerals 1 cap PO DAILY 05/18/19 05/18/19 oxycodone 20 mg tablet 5 mg PO DAILY tab 05/18/19 05/18/19 clonidine HCl 1 mg PO QID 04/24/20 04/24/20 olanzapine 10 mg PO DAILY 04/24/20 04/24/20 umeclidinium-vilanterol [Anoro 1 inh INHALATION DAILY 11/28/20 11/28/20 Ellipta] Allergies Allergy/AdvReac Type Severity Reaction Status Date / Time varenicline [From Chantix] AdvReac Intermediate Psychosis Unverified 11/28/20 07:51 ziprasidone mesylate AdvReac Intermediate Memory Unverified 11/28/20 07:51 [From Geodon] deficit duloxetine HCl AdvReac Unknown Unverified 11/28/20 07:51 [From Cymbalta] topiramate [From Topamax] AdvReac Unknown Unverified 11/28/20 07:51 hay fever AdvReac Mild rhinitis Uncoded 11/28/20 07:51 General Stated Complaint: OD/Poison GARRETT: 2 Review of Systems Narrative: Patient denies pain. ROS limited secondary to patient refusing to participate in history. Denies depression and suicidality. 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 Mccann Hyperlipidemia Hypertension Hyponatremia Hypotension Knee pain, right Lactose intolerance Leukoaraiosis Leukocytosis, unspecified Lumbar discitis Marijuana use Marijuana use Obesity Obesity (BMI 35.0-39.9 without comorbidity) Orthostasis ANGIE (obstructive sleep apnea) Palliative care patient Peripheral edema Psychogenic polydipsia PTSD (post-traumatic stress disorder) Raynauds syndrome Restless legs Rotator cuff syndrome of right shoulder Sacroiliac joint dysfunction of right side Screening for prostate cancer Sepsis Severe muscle deconditioning Shortness of breath Shoulder pain, bilateral Spondylosis of lumbar region without myelopathy or radiculopathy Swallowing problem Syncope Urinary retention Surgical History bunionectomy Colonoscopy - [facility] 2011- nl. Unable to get into the cecum History of arthroplasty of right knee History of fusion of cervical spine (04/05/19) C5-C7 cervical discectomy and fusion, Dr. Mark Spence; [facility] [place] History of removal of joint prosthesis of right knee due to infection 12/08/2016, Dr. Oakes @ [facility] [place]; s/p spacer exchange R. knee 02/18/2017 Dr. Ramírez; History of revision of total replacement of right knee joint (06/11/17) s/p revision/replant R. TKA, on 06/11/[address] Ramírez Rotator Cuff Repair right S/P lumbar fusion Social History Smoking/Tobacco Use Status: Current every day Tobacco Type: cigarettes Smoking packs per day: 1 Smoking cigarettes per day: 20.0 Smoking risk assessment performed?: Yes Alcohol Intake: never Drug use: Daily Substance use type: marijuana Details: on methadone from [facility] Do you feel safe at home: Yes Do you feel safe in your relationship?: Yes Exam Const General: cooperative and no acute distress [facility] Head: normocephalic Mouth: moist mucous membranes Resp Auscultation: clear to auscultation bilaterally Cardio Rate: bradycardic Rhythm: regular rhythm Neuro General: patient alert, patient awake, patient oriented x3 and tone normal Cognition: normal cognition Speech: speech normal Psych Appearance: grossly normal Mental Status: mental status grossly normal Speech and Movement: speech and movement normal Affect: irritable affect Other: No depression or suicidality Course Vital Signs Vital signs: Vital Signs Temperature 36.5 C 11/28/20 07:46 Pulse 61 11/28/20 07:46 Respiratory Rate 16 11/28/20 07:46 Blood Pressure 113/77 11/28/20 07:46 Pulse Oximetry 92 11/28/20 07:46 Temperature 36.5 C 11/28/20 07:46 Pulse 61 11/28/20 07:46 Respiratory Rate 16 11/28/20 07:53 Respiratory Effort Non-Labored 11/28/20 07:53 Respiratory Depth Normal 11/28/20 07:53 Respiratory Pattern Normal 11/28/20 07:53 Blood Pressure 113/77 11/28/20 07:46 Blood Pressure Position Sitting 11/28/20 07:46 Pulse Oximetry 92 11/28/20 07:46 Oxygen Delivery Method Room Air 11/28/20 07:46 Oxygen Flow Rate 0 11/28/20 07:46
== END 2020-11-28 11:35 | disposition left against medical advice (07) ==
LOC: ER 09:14
PROVIDERS: Emergency Provider Student in an Organized Health Care Education/Training Program; PCP Family Medicine
DX: T40.2X1A Poisoning by other opioids, accidental (unintentional), initial encounter (principal); R00.1 Bradycardia, unspecified; R40.20 Unspecified coma; Z53.29 Procedure and treatment not carried out because of patient's decision for other reasons
CPT/HCPCS: 99282; 99283

== ENCOUNTER 2021-05-17 10:36 | Emergency (ER) | payer MEDICARE, MEDICAID, SELFPAY ==
[2021-05-17] VITALS (17 sets, daily range): BP systolic 117–125; BP diastolic 71–83; PULSE 50–58; RESP 13–19; TEMP 36.5–36.8; O2SAT 89–94
--- NOTE | 2021-05-17 10:45 | DI.US_ITS ---
Exam(s) US LOWER EXTREMITY VENOUS RT EXAM: US LOWER EXTREMITY VENOUS RT CLINICAL HISTORY: pain, swelling TECHNIQUE: Right lower extremity venous ultrasound performed using grayscale, color-flow, and spectr al Doppler analysis. COMPARISON: No exams were available for comparison FINDINGS: The right common femoral, femoral and popliteal veins demonstrate normal compressibility, augmentatio n, and color Doppler. The posterior tibial veins are patent. The saphenofemoral junction is unremark able. There is no evidence of a Lund cyst. There is edema in the lower extremity. IMPRESSION: 1. No DVT. 2. Results of this exam have been verbally communicated with provider. DATA REPOSITORY:
[2021-05-17 11:39] LABS: Abs Immature Grans 0.05 10^3/uL (0.0-0.06); Absolute Basophil Count 0.04 10^3/uL (0.0-0.2); Absolute Lymphocyte Count 1.54 10^3/uL (1.2-3.4); Absolute Monocyte Count 0.75 10^3/uL (0.1-0.8); Absolute Neutrophil Count 7.42 10^3/uL (1.2-6.7); Basophils % 0.4; Eosinophils % 4.9; HGB 13.4 g/dL (13.5-17.5); Immature Grans % 0.5; MCH 29.7 pg (27.0-33.0); MCHC 31.9 % (32.0-36.0); MCV 93.1 fL (80-95); MPV 8.2 fL (8.0-11.0); Monocytes % 7.3; Neutrophils % 71.9; Nucleated RBC 0 %; Platelet Count 186 10^3/uL (130-400); RBC 4.51 10^6/uL (4.36-5.78); RDW-SD 51.5 fL
[2021-05-17 11:57] LABS: ALT 29 U/L (16-63); AST 15 U/L (15-37); Albumin 3.2 g/dL (3.4-5.0); Alkaline Phosphatase 89 U/L (46-116); Anion Gap 4.3 mmol/L (3-11); BUN 13 mg/dL (7-18); Bilirubin, Total 0.2 mg/dL (0.2-1.0); CO2 30.7 mmol/L (21.0-32.0); CREATININE 1.1 mg/dL (0.70-1.30); Calcium 8.4 mg/dL (8.5-10.1); Chloride 100 mmol/L (98-107); Glucose 139 mg/dL (74-106); Potassium 3.6 mmol/L (3.5-5.1); Sodium 135 mmol/L (136-145); Total Protein 6.6 g/dL (6.4-8.2)
--- NOTE | 2021-05-17 12:09 | W.ED.GENAD ---
Discharge Plan Disposition Patient Disposition: HOME Condition: Stable Discharge Details Clinical Impression: Cellulitis of right lower leg Primary Care Provider: Ivonne Diop ED Provider: Mateo Rebollar Home Meds and New Rx's Prescriptions: New clindamycin HCl 150 mg capsule 450 mg PO TID Qty: 60 0RF Continued polyethylene glycol 3350(bulk) [Base B,Polyethylene [id number]] Granules 17 grnl miscellaneous DAILY PRN 0RF Rx Instructions: take 1 scoop daily as needed. cyanocobalamin (vitamin B-12) 1,000 mcg capsule 1,000 mcg PO DAILY 0RF multivitamin with minerals Capsule 1 cap PO DAILY 0RF cholecalciferol (vitamin D3) 125 mcg (5,000 unit) capsule 125 mcg PO DAILY 0RF oxycodone 20 mg tablet 5 mg PO DAILY 0RF Rx Instructions: per PCP medlist, [facility] medlist differs-mkb 05/18/19 naloxone [Narcan] 4 MG spray,non-aerosol 4 mg NS ONCE MDD 1 PRNQty: 1 0RF lisinopril 20 MG tablet 40 mg PO DAILY 0RF mirtazapine 45 MG tablet 45 mg PO HS 0RF acetaminophen 500 MG tablet 1,000 mg PO TID 0RF tamsulosin [Flomax] 0.4 MG capsule 0.8 mg PO DAILY 0RF triamcinolone acetonide 0.5 % Cream 1 applic TOPICAL BID 0RF methadone 10 mg Tablet 140 mg PO DIRECTED 0RF Rx Instructions: pt states he takes 110 mg in the am and 50mg in the evening lidocaine HCl 2 % Jelly 1 applic INTRA-URETHRAL 4-6XD PRN0RF hydroxyzine HCl 25 mg Tablet 25 mg PO BID 0RF fluticasone propionate 50 mcg/actuation [place],Suspension 2 spray INTRANASAL DAILY 0RF lamotrigine [Lamictal] 100 mg Tablet 300 mg PO DAILY 0RF venlafaxine 75 mg Tablet Extended Release 24hr 75 mg PO TID 0RF cannabidiol 100 mg/mL Solution 2 - 3 mg PO DAILY PRN0RF diclofenac potassium 50 mg tablet 50 mg PO TID 0RF Label Comments: TAKE ONE TABLET BY MOUTH THREE TIMES A DAY albuterol sulfate [Ventolin HFA] 90 mcg/actuation HFA aerosol inhaler 2 puff INHALATION Q6H PRN0RF Label Comments: INHALE TWO PUFFS BY MOUTH EVERY 6 HOURS NEEDED cephalexin 500 mg capsule 500 mg PO TID 0RF Label Comments: TAKE ONE CAPSULE BY MOUTH THREE TIMES A DAY nicotine 21 mg/24 hr patch 24 hour 21 mg transdermal DAILY 0RF Label Comments: APPLY 1 PATCH TO THE SKIN ONCE DAILY DIRECTED. REMOVE OLD PATCH AFTER 24 HOURS AND APPLY NEW ONE. sennosides-docusate sodium [Senna with Docusate Sodium] 1 EACH tablet 8.6 tab PO DAILY 0RF gabapentin 300 MG capsule 300 mg PO QID 0RF sodium chloride 1 gram Tablet 1,000 mg PO QD-QID 0RF amlodipine 5 mg Tablet 5 mg PO DAILY 0RF Spiriva with HandiHaler 18 mcg Capsule, W/Inhalation Device 1 cap INHALATION DAILY 0RF levomefolate calcium [L-Methylfolate] 15 mg Tablet 15 mg PO DAILY 0RF clonidine HCl 0.1 mg tablet 1 mg PO QID PRN0RF Label Comments: TAKE ONE TABLET BY MOUTH FOUR TIMES A DAY FOR ANXIETY olanzapine 10 mg tablet 10 mg PO DAILY 0RF Label Comments: TAKE ONE TABLET BY MOUTH TWICE A DAY TAKE WITH 20MG TABLET Anoro Ellipta 62.5-25 mcg/actuation blister with device 1 inh INHALATION DAILY 0RF Label Comments: INHALE ONE PUFF BY MOUTH EVERY DAY Discharge Instructions Instructions: Cellulitis (ED) Additional Instructions: Please take antibiotic Keflex and clindamycin as prescribed. Please contact your primary care physician to arrange follow-up. Call today to ensure timely follow-up within the next 1 week. Return to the ER immediately for any worsening or new concerning symptoms. Referrals: Ivonne Diop [Primary Care Provider] - Discharge Data Discharge Date/Time-TO BE ENTERED AT DEPARTURE: 05/17/21 12:35 Medical Decision Making 61-year-old male with multiple medical problems including prior history of right knee periprosthetic infection and bacteremia, on chronic suppressive Keflex, here with right lower extremity inflammation, concern for DVT versus cellulitis. Patient is hemodynamically stable. Labs reviewed: No leukocytosis, nondiagnostic. Ultrasound was interpreted by radiology: No DVT. Plan to continue Keflex and will add MRSA coverage with clindamycin. I called and spoke with Dr. Rivas who is covering for the PCP, he agrees with treatment and will ensure timely follow-up. Plan discussed with patient and family. They understand should return for any worsening or new concerning symptoms. HPI General Mode of arrival: ambulatory. Date/Time Provider Initiated Documentation: 05/17/21 10:44. Limitations to Documentation: no limitations. Information obtained by: patient. HPI Narrative: 61-year-old male with multiple medical problems including prior history of right knee periprosthetic infection and bacteremia, on chronic suppressive Keflex, here with right lower extremity inflammation. He has swelling, redness, warmth and associated pain that started yesterday and has persisted. Symptoms are constant. Worse today. Patient denies any injury. No associated fever. Related Data Home Medications Medication Instructions Recorded Confirmed lisinopril 20 mg tablet 40 mg PO DAILY 05/20/12 05/17/21 mirtazapine 45 mg tablet 45 mg PO HS 05/20/12 05/17/21 acetaminophen 500 mg tablet 1,000 mg PO TID 01/05/16 05/17/21 tamsulosin 0.4 mg capsule (Flomax) 0.8 mg PO DAILY 01/05/16 05/17/21 naloxone 4 mg/actuation nasal 4 mg NS ONCE PRN #1 spray MDD 1 07/23/16 05/17/21 spray (Narcan) gabapentin 300 mg capsule 300 mg PO QID 04/02/17 05/17/21 sennosides 8.6 mg-docusate sodium 8.6 tab PO DAILY 04/02/17 05/17/21 50 mg tablet (Senna with Docusate Sodium) cannabidiol 100 mg/mL oral solution 2 - 3 mg PO DAILY PRN 12/28/18 05/17/21 fluticasone propionate 50 2 spray INTRANASAL DAILY 12/28/18 05/17/21 mcg/actuation nasal spray,suspension hydroxyzine HCl 25 mg tablet 25 mg PO BID 12/28/18 05/17/21 lamotrigine 100 mg tablet 300 mg PO DAILY 12/28/18 05/17/21 (Lamictal) lidocaine HCl 2 % mucosal jelly 1 applic INTRA-URETHRAL 4-6XD PRN 12/28/18 05/17/21 methadone 10 mg tablet 140 mg PO DIRECTED 12/28/18 05/17/21 triamcinolone acetonide 0.5 % 1 applic TOPICAL BID 12/28/18 05/17/21 topical cream venlafaxine 75 mg tablet,extended 75 mg PO TID 12/28/18 05/17/21 release 24 hr amlodipine 5 mg tablet 5 mg PO DAILY 04/02/19 05/17/21 levomefolate calcium 15 mg tablet 15 mg PO DAILY 04/02/19 05/17/21 (L-Methylfolate) sodium chloride 1 gram tablet 1,000 mg PO QD-QID 04/02/19 05/17/21 tiotropium bromide 18 mcg capsule 1 cap INHALATION DAILY 04/02/19 05/17/21 with inhalation device (Spiriva with HandiHaler) polyethylene glycol 3350(bulk) 17 grnl MISCELLANEOUS DAILY PRN gm 05/04/19 05/17/21 (Base B,Polyethylene [id number]) cholecalciferol (vitamin D3) 125 125 mcg PO DAILY 05/18/19 05/17/21 mcg (5,000 unit) capsule cyanocobalamin (vitamin B-12) 1,000 mcg PO DAILY 05/18/19 05/17/21 1,000 mcg capsule multivitamin with minerals 1 cap PO DAILY 05/18/19 05/17/21 oxycodone 20 mg tablet 5 mg PO DAILY tab 05/18/19 05/18/19 clonidine HCl 0.1 mg tablet 1 mg PO QID PRN 04/24/20 05/17/21 olanzapine 10 mg tablet 10 mg PO DAILY 04/24/20 04/24/20 umeclidinium 62.5 mcg-vilanterol 1 inh INHALATION DAILY 11/28/20 05/17/21 25 mcg/actuation powdr for inhalation (Anoro Ellipta) albuterol sulfate 90 mcg/actuation 2 puff INHALATION Q6H PRN 05/17/21 05/17/21 aerosol inhaler (Ventolin HFA) cephalexin 500 mg capsule 500 mg PO TID 05/17/21 05/17/21 clindamycin HCl 150 mg capsule 450 mg PO TID #60 cap 05/17/21 diclofenac potassium 50 mg tablet 50 mg PO TID 05/17/21 05/17/21 nicotine 21 mg/24 hr daily 21 mg TRANSDERMAL DAILY 05/17/21 05/17/21 transdermal patch Previous Rx's Medication Instructions Recorded clindamycin HCl 150 mg capsule 450 mg PO TID #60 cap 05/17/21 Allergies Allergy/AdvReac Type Severity Reaction Status Date / Time varenicline [From Chantix] AdvReac Intermediate Psychosis Unverified 05/17/21 10:56 ziprasidone mesylate AdvReac Intermediate Memory Unverified 05/17/21 10:56 [From Geodon] deficit duloxetine HCl AdvReac Unknown Unverified 05/17/21 10:56 [From Cymbalta] topiramate [From Topamax] AdvReac Unknown Unverified 05/17/21 10:56 hay fever AdvReac Mild rhinitis Uncoded 05/17/21 10:56 General Stated Complaint: Vascular GARRETT: 3 Review of Systems All systems reviewed & are unremarkable except as noted in HPI and below Constitutional Constitutional: Reports fatigue and Denies fever(s) Integumentary/Breasts Skin/Breast: Reports rash (as per hpi) Endocrine Endocrine: Reports fatigue PFSH All Active Problems (Updated 05/17/21 @ 12:16 by Mateo Rebollar MD) Opioid overdose (Acute) Bradycardia (Acute) Cellulitis of right lower leg (Acute) Falls (Acute) Weakness (Acute) Aspiration pneumonia (Acute) Epistaxis (Acute) Acute adrenal crisis (Acute) Acute hyperkalemia (Acute) Acute hyponatremia (Acute) Acute renal failure (Acute) Acute respiratory distress (Acute) Bradycardia (Acute) Sepsis (Acute) Burn injury (Acute) Chronic pain (Acute) No-show for appointment (Acute) Palliative care patient (Acute) COPD (chronic obstructive pulmonary disease) (Acute) Chronic low back pain (Acute) BPH with obstruction/lower urinary tract symptoms (Acute) Drug-induced constipation (Acute) Abdominal pain, lower (Acute) Change in stool habits (Acute) Medical History Actinic keratosis Allergic rhinitis Anemia 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 Mccann Hyperlipidemia Hypertension Hyponatremia Hypotension Knee pain, right Lactose intolerance Leukoaraiosis Leukocytosis, unspecified Lumbar discitis Marijuana use Marijuana use Obesity Obesity (BMI 35.0-39.9 without comorbidity) Orthostasis ANGIE (obstructive sleep apnea) Palliative care patient Peripheral edema Psychogenic polydipsia PTSD (post-traumatic stress disorder) Raynauds syndrome Restless legs Rotator cuff syndrome of right shoulder Sacroiliac joint dysfunction of right side Screening for prostate cancer Sepsis Severe muscle deconditioning Shortness of breath Shoulder pain, bilateral Spondylosis of lumbar region without myelopathy or radiculopathy Swallowing problem Syncope Urinary retention Surgical History bunionectomy Colonoscopy - MAC 2011- nl. Unable to get into the cecum History of arthroplasty of right knee History of fusion of cervical spine (04/05/19) C5-C7 cervical discectomy and fusion, Dr. Mark Spence; [facility] History of removal of joint prosthesis of right knee due to infection 12/08/2016, Dr. Oakes @ [facility]; s/p spacer exchange R. knee 02/18/2017 Dr. Ramírez; History of revision of total replacement of right knee joint (06/11/17) s/p revision/replant R. TKA, on 06/11/[address] Ramírez Rotator Cuff Repair right S/P lumbar fusion Social History Smoking/Tobacco Use Status: Former Tobacco Use Quit Date: 05/03/21 Smoking risk assessment performed?: Yes Alcohol Intake: former Drug use: Daily Substance use type: marijuana Details: on methadone from [facility] Do you feel safe at home: Yes Do you feel safe in your relationship?: Yes Exam Const General: cooperative and no acute distress HENMT Mouth: moist mucous membranes Eyes Sclera: normal sclerae Resp Auscultation: clear to auscultation bilaterally, no rales, no rhonchi and no wheezes Cardio Rate: regular rate and not tachycardic Rhythm: regular rhythm GI Palpation: soft, not firm, no guarding, no masses, not rigid and nontender Skin General skin exam: no rashes or lesions noted Neuro General: patient alert, patient awake and tone normal Extrem General: edema Laterality: bilateral (R>L) Right lower extremity: knee (well healed scar, no signs of infection) Details: Negative for no tenderness, no swelling and no unusual warmth, lower leg Details: erythema Location: of the mid lower leg Location: posteriorly and of the distal lower leg Location: posteriorly, tenderness Location: of the posterior calf and warmth and foot Details: toes with normal ROM, vascular exam Details: dorsalis pedis pulse present and motor-sensory exam Details: light-touch normal Psych Appearance: grossly normal Mental Status: mental status grossly normal Course Vital Signs Vital signs: Vital Signs Temperature 36.8 C 05/17/21 10:41 Pulse 57 L 05/17/21 10:41 Respiratory Rate 18 05/17/21 10:41 Blood Pressure 122/72 05/17/21 10:41 Pulse Oximetry 94 05/17/21 10:41 Temperature 36.8 C 05/17/21 10:41 Temperature Source Skin 05/17/21 10:41 Pulse 50 L 05/17/21 11:38 Pulse 52 L 05/17/21 11:38 Respiratory Rate 17 05/17/21 11:38 Respiratory Effort 05/17/21 10:59 Respiratory Depth Normal 05/17/21 10:59 Respiratory Pattern Normal 05/17/21 10:59 Blood Pressure 117/71 05/17/21 11:38 Blood Pressure Mean 82 05/17/21 11:38 Blood Pressure Position Sitting 05/17/21 10:41 Pulse Oximetry 90 L 05/17/21 11:38 Oxygen Delivery Method Room Air 05/17/21 10:41 Oxygen Flow Rate 0 05/17/21 10:41 Pain Level 9 05/17/21 10:59 Lab/Test Results Lab/Test Results: Laboratory Tests Range/Units 05/17/21 05/17/21 11:34 11:34 WBC (4.4-10.8) 10^3/uL 10.30 RBC (4.36-5.78) 10^6/uL 4.51 Hgb (13.5-17.5) g/dL 13.4 L Hct (40.0-50.0) % 42.0 MCV (80-95) fL 93.1 MCH (27.0-33.0) pg 29.7 MCHC (32.0-36.0) % 31.9 L RDW (11.8-14.1) % 15.0 H Plt Count (130-400) 10^3/uL 186 MPV (8.0-11.0) fL 8.2 Immature Gran % 0.5 Neutrophils % 71.9 Lymphocytes % 15.0 Monocytes % 7.3 Eosinophils % 4.9 Basophils % 0.4 Nucleated RBC % % 0 Absolute Neutrophils (1.2-6.7) 10^3/uL 7.42 H Absolute Lymphocytes (1.2-3.4) 10^3/uL 1.54 Absolute Monocytes (0.1-0.8) 10^3/uL 0.75 Absolute Eosinophils (0.0-0.7) 10^3/uL 0.50 Absolute Basophils (0.0-0.2) 10^3/uL 0.04 Sodium (136-145) mmol/L 135 L Potassium (3.5-5.1) mmol/L 3.6 Chloride (98-107) mmol/L 100 Carbon Dioxide (21.0-32.0) mmol/L 30.7 Anion Gap (3-11) mmol/L 4.3 BUN (7-18) mg/dL 13 Creatinine (0.70-1.30) mg/dL 1.1 Estimated GFR/1.73 m2 (mL/min/1.73m2) >= 60.00 Glucose (74-106) mg/dL 139 H Calcium (8.5-10.1) mg/dL 8.4 L Total Bilirubin (0.2-1.0) mg/dL 0.2 AST (15-37) U/L 15 ALT (16-63) U/L 29 Alkaline Phosphatase (46-116) U/L 89 Total Protein (6.4-8.2) g/dL 6.6 Albumin (3.4-5.0) g/dL 3.2 L
[2021-05-17] MEDS: Clindamycin 150 MG CAP PO (12:37)
== END 2021-05-17 12:35 | disposition home or self-care (01) ==
PROVIDERS: Emergency Provider Student in an Organized Health Care Education/Training Program; PCP Family Medicine
DX: L03.115 Cellulitis of right lower limb (principal); R22.41 Localized swelling, mass and lump, right lower limb
CPT/HCPCS: 36415; 80053; 99284; 85025; 93971; 99283

== ENCOUNTER 2021-07-02 11:12 | Emergency (ER) | payer MEDICARE, MEDICAID, SELFPAY ==
[2021-07-02] VITALS (58 sets, daily range): BP systolic 146–202; BP diastolic 86–119; PULSE 63–106; RESP 8–32; TEMP 36.7; O2SAT 90–99
--- NOTE | 2021-07-02 12:15 | RT.EKG_ITS ---
APPROVED REPORT Exam: Resting ECG Reason for Exam: SOB Patient Location: E HR:70 bpm ECG Measurements Heart Rate 70 AXIS AL 135 P 2 QRSd 156 QRS 72 QT 480 T 31 QTc 518 Conclusion Sinus rhythm...normal P axis, V-rate 60- 99 Right bundle branch block...QRSd>120, terminal axis(90,270) sinus rhythm at 70 RBBB, normal axis, no STEMI, non-diagnostic EKG
[2021-07-02 13:23] LABS: Lactate 1.2 mmol/L (0.6-1.4)
[2021-07-02 13:24] LABS: Abs Immature Grans 0.15 10^3/uL (0.0-0.06); Absolute Basophil Count 0.04 10^3/uL (0.0-0.2); Absolute Lymphocyte Count 0.81 10^3/uL (1.2-3.4); Absolute Monocyte Count 0.77 10^3/uL (0.1-0.8); Basophils % 0.2; HCT 41.1 % (40.0-50.0); HGB 14.2 g/dL (13.5-17.5); Immature Grans % 0.9; Lymphocytes % 4.6; MCH 30.9 pg (27.0-33.0); MCHC 34.5 % (32.0-36.0); MCV 89 fL (80-95); MPV 8.2 fL (8.0-11.0); Monocytes % 4.4; Neutrophils % 89.9; Platelet Count 225 10^3/uL (130-400); RDW 16.2 % (11.8-14.1); RDW-SD 52.9 fL; WBC 17.57 10^3/uL (4.4-10.8)
[2021-07-02] MEDS: Albuterol/Ipratropium 3 ML UPD VIAL UPD ×2 (13:27→17:58)
[2021-07-02 13:45] LABS: ALT 46 U/L (16-63); AST 30 U/L (15-37); Alkaline Phosphatase 84 U/L (46-116); Anion Gap 6.6 mmol/L (3-11); BUN 9 mg/dL (7-18); Bilirubin, Total 0.9 mg/dL (0.2-1.0); CO2 29.4 mmol/L (21.0-32.0); CREATININE 0.7 mg/dL (0.70-1.30); Calcium 8.6 mg/dL (8.5-10.1); Chloride 93 mmol/L (98-107); Glucose 105 mg/dL (74-106); Magnesium 1.8 mg/dL (1.8-2.4); Potassium 3.3 mmol/L (3.5-5.1); Sodium 129 mmol/L (136-145); Total Protein 6.7 g/dL (6.4-8.2)
[2021-07-02 13:47] LABS: Troponin I 69 ng/L (<or=60)
[2021-07-02 14:01] LABS: COVID-19 PCR Negative (Negative); Influenza A PCR Negative (Negative); Influenza B PCR Negative (Negative); RSV PCR Negative (Negative)
[2021-07-02 14:04] LABS: D-Dimer 889 ng/mlFEU (<500)
[2021-07-02 14:26] LABS: NT-proBNP 6571 pg/mL (<300)
--- NOTE | 2021-07-02 14:30 | DI.CT_ITS ---
Exam(s) CT CHEST PE CTA EXAM: CT CHEST PE CTA CLINICAL HISTORY: SOB. TECHNIQUE: Imaging Protocol: Axial CT angiography was performed with multi-slice acquisition and mu lti-planar reconstructions as well as axial, coronal and sagittal MIP reconstructions. CONTRAST MATERIAL: Intravenous: Omnipaque 350 Contrast volume:100 ml COMPARISON: CT CT CHEST/ABD/PEL WO from 04/24/2020 CR XR PORTABLE CHEST AP POST LINE from 04/24/2020 FINDINGS: Pulmonary Arteries: No evidence of filling defect to suggest pulmonary emboli. Tracheobronchial tree: Patent where visualized. Mediastinum and Susan: No dominant adenopathy or fluid collection. Pulmonary parenchyma: Multi focal patchy infiltrates in the right upper, right middle and right lower lobes as well as left lower lobe. Mild underlying emphysematous changes. Pleura: No effusion or pneumothorax. Heart: The heart is not dilated. Mild coronary artery calcifications are seen. Aorta: Ascending aorta measures 4.9 cm.. . No dissection. Upper abdomen: Unremarkable. Bones: Unremarkable for age. IMPRESSION: No evidence of pulmonary embolism. Bilateral infiltrates, right greater than left. Results of this exam have been verbally communicated with emergency department provider. RADIATION DOSE DELIVERED: 459.92mGy.cm Total DLP DATA REPOSITORY: All CT scans at this facility are submitted to the National Radiology Data Registry (NRDR) Dose Index Registry (DIR) with the [employer] (A[employer]). RADIATION OPTIMIZATION: All CT scans at this facility use at least one of these dose optimization te chniques: automated exposure control; mA and/or kV adjustment per patient size (includes targeted exa ms where dose is matched to clinical indication); or iterative reconstruction.
[2021-07-02] MEDS: Omnipaque 350 MG/ML 50 ML BTL 100 ML IV (15:28)
[2021-07-02] MEDS: cefTRIAXone 1 GM/50 ML BAG IVPB (16:30)
[2021-07-02] MEDS: Ketorolac 15 MG/ML VIAL IVP (16:31)
[2021-07-02] MEDS: DOXYCYCLINE 100 MG in Normal Saline 100 ML IVPB (16:43)
[2021-07-02 17:47] LABS: Troponin I 67 ng/L (<or=60)
[2021-07-02] MEDS: Methadone Liquid 10 MG/ML 50 MG PO (17:48)
[2021-07-02 17:49] LABS: BE (Venous) 5 mmol/L (-2-3); HCO3 (Venous) 29 mmol/L (23-28); O2 Sat (Venous) 83 %; TCO2 (Venous) 26 mmol/L (24-29); pCO2 (Venous) 42 mmHg (41-51); pH (Venous) 7.44 (7.31-7.41); pO2 (Venous) 47 mmHg
--- NOTE | 2021-07-02 17:53 | ED.GENADUL_ITS ---
Discharge Plan Disposition Patient Disposition: AGAINST MEDICAL ADVICE Condition: Improving Discharge Details Clinical Impression: Pneumonia Primary Care Provider: Ivonne Diop ED Provider: Mili Rebollar Home Meds and New Rx's Prescriptions: New amoxicillin-pot clavulanate 875-125 mg tablet 1 tab PO BID Qty: 10 0RF doxycycline hyclate 100 mg capsule 100 mg PO BID Qty: 10 0RF No Action polyethylene glycol 3350(bulk) [Base B,Polyethylene [id number]] Granules 17 grnl miscellaneous DAILY PRN Rx Instructions: take 1 scoop daily as needed. cyanocobalamin (vitamin B-12) 1,000 mcg capsule 1,000 mcg PO DAILY multivitamin with minerals Capsule 1 cap PO DAILY cholecalciferol (vitamin D3) 125 mcg (5,000 unit) capsule 125 mcg PO DAILY oxycodone 20 mg tablet 5 mg PO DAILY Rx Instructions: per PCP medlist, [facility] medlist differs-mkb 05/18/19 naloxone [Narcan] 4 MG spray,non-aerosol 4 mg NS ONCE MDD 1 PRNQty: 1 lisinopril 20 MG tablet 40 mg PO DAILY mirtazapine 45 MG tablet 45 mg PO HS acetaminophen 500 MG tablet 1,000 mg PO TID tamsulosin [Flomax] 0.4 MG capsule 0.8 mg PO DAILY triamcinolone acetonide 0.5 % Cream 1 applic TOPICAL BID methadone 10 mg Tablet 110 mg PO DAILY AM Rx Instructions: pt states he takes 110 mg in the am and 50mg in the evening lidocaine HCl 2 % Jelly 1 applic INTRA-URETHRAL 4-6XD PRN hydroxyzine HCl 25 mg Tablet 25 mg PO BID fluticasone propionate 50 mcg/actuation [place],Suspension 2 spray INTRANASAL DAILY lamotrigine [Lamictal] 100 mg Tablet 300 mg PO DAILY venlafaxine 75 mg Tablet Extended Release 24hr 75 mg PO TID cannabidiol 100 mg/mL Solution 2 - 3 mg PO DAILY PRN diclofenac potassium 50 mg tablet 50 mg PO TID Label Comments: TAKE ONE TABLET BY MOUTH THREE TIMES A DAY albuterol sulfate [Ventolin HFA] 90 mcg/actuation HFA aerosol inhaler 2 puff INHALATION Q6H PRN Label Comments: INHALE TWO PUFFS BY MOUTH EVERY 6 HOURS NEEDED cephalexin 500 mg capsule 500 mg PO TID Label Comments: TAKE ONE CAPSULE BY MOUTH THREE TIMES A DAY nicotine 21 mg/24 hr patch 24 hour 21 mg transdermal DAILY Label Comments: APPLY 1 PATCH TO THE SKIN ONCE DAILY DIRECTED. REMOVE OLD PATCH AFTER 24 HOURS AND APPLY NEW ONE. clindamycin HCl 150 mg capsule 450 mg PO TID Qty: 60 0RF sennosides-docusate sodium [Senna with Docusate Sodium] 1 EACH tablet 8.6 tab PO DAILY gabapentin 300 MG capsule 300 mg PO QID sodium chloride 1 gram Tablet 1,000 mg PO QD-QID amlodipine 5 mg Tablet 5 mg PO DAILY Spiriva with HandiHaler 18 mcg Capsule, W/Inhalation Device 1 cap INHALATION DAILY levomefolate calcium [L-Methylfolate] 15 mg Tablet 15 mg PO DAILY clonidine HCl 0.1 mg tablet 1 mg PO QID PRN Label Comments: TAKE ONE TABLET BY MOUTH FOUR TIMES A DAY FOR ANXIETY olanzapine 10 mg tablet 10 mg PO DAILY Label Comments: TAKE ONE TABLET BY MOUTH TWICE A DAY TAKE WITH 20MG TABLET Anoro Ellipta 62.5-25 mcg/actuation blister with device 1 inh INHALATION DAILY Label Comments: INHALE ONE PUFF BY MOUTH EVERY DAY methadone 10 mg tablet 50 mg PO QPM Discharge Instructions Instructions: Pneumonia (ED) Additional Instructions: You have elected to leave the emergency department against medical advice. The risks of doing so are and permanent disability. You return to the emergency department at any time if you change your mind. Please return immediately to the emergency department if you develop any new or worsening symptoms, if your condition does not improve as expected, or if you become otherwise concerned. It is extremely important that you call soon as possible to make an appointment to be seen in follow-up for this visit by your primary care doctor. Referrals: Ivonne Diop [Primary Care Provider] - Discharge Data Discharge Date/Time-TO BE ENTERED AT DEPARTURE: 07/02/21 19:10 Medical Decision Making Darrell Sweeney is a 61 y/o man with h/o COPD, HTN, HLD, raynaud's, on methadone, chronic upper back pain unchanged presenting to the emergency department with SOB. Pt reports that he has had SOB, cough, and subjective fever since yesterday. States that he overall feels like crap. Denies any pain other than chronic unchanged upper back and neck pain. Denies vomiting, diarrhea, numbness, weakness, orthopnea, rash, lower extremity edema. States he feels like his hands are swollen since yesterday. Pt states that he gets methadone in the morning and in the afternoon, and did have his morning dose today. States that he has been eating and drinking as usual. States that he has been well and in his [facility] state of health prior to yesterday. On exam Pt is somnolent but easily arousable, consistent with methadone use. Exp wheeze throughout, normal WOB. Concern for PNA, Covid, COPD exacerbation, other. Doubt CHF, ACS, PE. Exam/hx at this time not c/w sepsis, acute aortic pathology, meningitis. Plan for EKG, IV placement, screening labs, CXR, duoneb, telemetry. Will monitor and reassess. WBC elevated, D-dimer elevated, bnp elevated, lactate normal, troponin slightly elevated. Plan for CT chest. Wheeze resolved after duoneb, Pt reports feeling improved. CT chest shows no PE, multifocal pneumonia. Given Pt with multiple co- morbidities, elevated BNP of unknown significance, slight trop elevation of unknown significance (doubt NSTEMI at this time, will hold heparin), plan for admission for further eval. Pt requested I contact MONIQUE for methadone dosing for inpt. Discussed methadone dosing with MONIQUE, Pt on split daily dose. I was notified by nursing after Pt evaluated at bedside by hospitalist for admission that Pt requesting to go home. Pt states to me that he doesn't feel that bad and states I just don't want to be in the hospital. I had a lengthy discussion with Pt re: risks of leaving against medical advice including , permanent disability. Pt verbalizes understanding of the risks and continues to refuse admission. Pt has decision making capacity. Plan for discharge AMA. I had a discussion with Patient regarding return to emergency department precautions, home care, that he may RTED at any time if he changes his mind, and importance of outpatient follow-up. Pt verbalizes understanding of the plan and is amenable. Patient discharged to home with clear plan for outpatient follow- up. All questions were answered. Pt discharged to home with abx. Disposition decision was made weighing the risks and benefits of hospitalization versus outpatient treatment, the risk for further decompensation, and the patient's wishes. Medical Records Medical records reviewed: Yes I reviewed the patient's medical records. Imaging Data Radiologic Study: Attestation: I personally reviewed and interpreted this imaging study as follows: Radiologist's impression: CT CHEST PE CTA EXAM: ? CT CHEST PE CTA CLINICAL HISTORY: ? SOB. TECHNIQUE:? Imaging Protocol:? Axial CT angiography was performed with multi- slice acquisition and multi-planar reconstructions as well as axial, coronal and sagittal MIP reconstructions. CONTRAST MATERIAL:? Intravenous: Omnipaque 350 Contrast volume:100 ml COMPARISON:? CT CT CHEST/ABD/PEL WO from 04/24/2020 CR XR PORTABLE CHEST AP POST LINE from 04/24/2020 FINDINGS: Pulmonary Arteries: No evidence of filling defect to suggest pulmonary emboli. Tracheobronchial tree: Patent where visualized. Mediastinum and Susan: No dominant adenopathy or fluid collection. Pulmonary parenchyma: Multi focal patchy infiltrates in the right upper, right middle and right lower lobes as well as left lower lobe.? Mild underlying emphysematous changes. Pleura: No effusion or pneumothorax. Heart: The heart is not dilated. Mild coronary artery calcifications are seen. Aorta: Ascending aorta measures 4.9 cm..? .? No dissection.? Upper abdomen:? Unremarkable. Bones: Unremarkable for age. IMPRESSION: No evidence of pulmonary embolism. Bilateral infiltrates, right greater than left. Lab Data Lab results reviewed: Yes I reviewed the patient's lab results. Labs: Laboratory Tests Range/Units 07/02/21 07/02/21 07/02/21 13:05 13:15 13:15 WBC (4.4-10.8) 10^3/uL RBC (4.36-5.78) 10^6/uL Hgb (13.5-17.5) g/dL Hct (40.0-50.0) % MCV (80-95) fL MCH (27.0-33.0) pg MCHC (32.0-36.0) % RDW (11.8-14.1) % Plt Count (130-400) 10^3/uL MPV (8.0-11.0) fL Immature Gran % Neutrophils % Lymphocytes % Monocytes % Eosinophils % Basophils % Nucleated RBC % (0.0-0.3) % Absolute Neutrophils (1.2-6.7) 10^3/uL Absolute Lymphocytes (1.2-3.4) 10^3/uL Absolute Monocytes (0.1-0.8) 10^3/uL Absolute Eosinophils (0.0-0.7) 10^3/uL Absolute Basophils (0.0-0.2) 10^3/uL D-Dimer (<500) ng/mlFEU VBG pH (7.31-7.41) VBG pCO2 (41-51) mmHg VBG pO2 mmHg VBG HCO3 (23-28) mmol/L VBG Total CO2 (24-29) mmol/L VBG O2 Saturation % VBG Base Excess (-2-3) mmol/L VBG Lactate (0.6-1.4) mmol/L 1.2 Sodium (136-145) mmol/L 129 L Potassium (3.5-5.1) mmol/L 3.3 L Chloride (98-107) mmol/L 93 L Carbon Dioxide (21.0-32.0) mmol/L 29.4 Anion Gap (3-11) mmol/L 6.6 BUN (7-18) mg/dL 9 Creatinine (0.70-1.30) mg/dL 0.7 Estimated GFR/1.73 m2 (mL/min/1.73m2) >= 60.00 Glucose (74-106) mg/dL 105 Calcium (8.5-10.1) mg/dL 8.6 Magnesium (1.8-2.4) mg/dL 1.8 Total Bilirubin (0.2-1.0) mg/dL 0.9 AST (15-37) U/L 30 ALT (16-63) U/L 46 Alkaline Phosphatase (46-116) U/L 84 Troponin I (<or=60) ng/L 69 H* NT-Pro-B Natriuret Pep (<300) pg/mL Total Protein (6.4-8.2) g/dL 6.7 Albumin (3.4-5.0) g/dL 3.0 L COVID-19 Source Not Applicable SARS-CoV-2 (PCR) (Negative) Negative Influenza Type A (PCR) (Negative) Negative Influenza Type B (PCR) (Negative) Negative RSV (PCR) (Negative) Negative Range/Units 07/02/21 07/02/21 07/02/21 13:15 13:15 13:15 WBC (4.4-10.8) 10^3/uL 17.57 H RBC (4.36-5.78) 10^6/uL 4.60 Hgb (13.5-17.5) g/dL 14.2 Hct (40.0-50.0) % 41.1 MCV (80-95) fL 89 MCH (27.0-33.0) pg 30.9 MCHC (32.0-36.0) % 34.5 RDW (11.8-14.1) % 16.2 H Plt Count (130-400) 10^3/uL 225 MPV (8.0-11.0) fL 8.2 Immature Gran % 0.9 Neutrophils % 89.9 Lymphocytes % 4.6 Monocytes % 4.4 Eosinophils % 0.0 Basophils % 0.2 Nucleated RBC % (0.0-0.3) % 0.0 Absolute Neutrophils (1.2-6.7) 10^3/uL 15.80 H Absolute Lymphocytes (1.2-3.4) 10^3/uL 0.81 L Absolute Monocytes (0.1-0.8) 10^3/uL 0.77 Absolute Eosinophils (0.0-0.7) 10^3/uL 0.00 Absolute Basophils (0.0-0.2) 10^3/uL 0.04 D-Dimer (<500) ng/mlFEU 889 H VBG pH (7.31-7.41) VBG pCO2 (41-51) mmHg VBG pO2 mmHg VBG HCO3 (23-28) mmol/L VBG Total CO2 (24-29) mmol/L VBG O2 Saturation % VBG Base Excess (-2-3) mmol/L VBG Lactate (0.6-1.4) mmol/L Sodium (136-145) mmol/L Potassium (3.5-5.1) mmol/L Chloride (98-107) mmol/L Carbon Dioxide (21.0-32.0) mmol/L Anion Gap (3-11) mmol/L BUN (7-18) mg/dL Creatinine (0.70-1.30) mg/dL Estimated GFR/1.73 m2 (mL/min/1.73m2) Glucose (74-106) mg/dL Calcium (8.5-10.1) mg/dL Magnesium (1.8-2.4) mg/dL Total Bilirubin (0.2-1.0) mg/dL AST (15-37) U/L ALT (16-63) U/L Alkaline Phosphatase (46-116) U/L Troponin I (<or=60) ng/L NT-Pro-B Natriuret Pep (<300) pg/mL 6571 H Total Protein (6.4-8.2) g/dL Albumin (3.4-5.0) g/dL COVID-19 Source SARS-CoV-2 (PCR) (Negative) Influenza Type A (PCR) (Negative) Influenza Type B (PCR) (Negative) RSV (PCR) (Negative) Range/Units 07/02/21 07/02/21 17:11 17:34 WBC (4.4-10.8) 10^3/uL RBC (4.36-5.78) 10^6/uL Hgb (13.5-17.5) g/dL Hct (40.0-50.0) % MCV (80-95) fL MCH (27.0-33.0) pg MCHC (32.0-36.0) % RDW (11.8-14.1) % Plt Count (130-400) 10^3/uL MPV (8.0-11.0) fL Immature Gran % Neutrophils % Lymphocytes % Monocytes % Eosinophils % Basophils % Nucleated RBC % (0.0-0.3) % Absolute Neutrophils (1.2-6.7) 10^3/uL Absolute Lymphocytes (1.2-3.4) 10^3/uL Absolute Monocytes (0.1-0.8) 10^3/uL Absolute Eosinophils (0.0-0.7) 10^3/uL Absolute Basophils (0.0-0.2) 10^3/uL D-Dimer (<500) ng/mlFEU VBG pH (7.31-7.41) 7.44 H VBG pCO2 (41-51) mmHg 42 VBG pO2 mmHg 47 VBG HCO3 (23-28) mmol/L 29 H VBG Total CO2 (24-29) mmol/L 26 VBG O2 Saturation % 83 VBG Base Excess (-2-3) mmol/L 5 H VBG Lactate (0.6-1.4) mmol/L Sodium (136-145) mmol/L Potassium (3.5-5.1) mmol/L Chloride (98-107) mmol/L Carbon Dioxide (21.0-32.0) mmol/L Anion Gap (3-11) mmol/L BUN (7-18) mg/dL Creatinine (0.70-1.30) mg/dL Estimated GFR/1.73 m2 (mL/min/1.73m2) Glucose (74-106) mg/dL Calcium (8.5-10.1) mg/dL Magnesium (1.8-2.4) mg/dL Total Bilirubin (0.2-1.0) mg/dL AST (15-37) U/L ALT (16-63) U/L Alkaline Phosphatase (46-116) U/L Troponin I (<or=60) ng/L 67 H* NT-Pro-B Natriuret Pep (<300) pg/mL Total Protein (6.4-8.2) g/dL Albumin (3.4-5.0) g/dL COVID-19 Source SARS-CoV-2 (PCR) (Negative) Influenza Type A (PCR) (Negative) Influenza Type B (PCR) (Negative) RSV (PCR) (Negative) ECG Data Interpretation: EKG shows sinus rhythm at 70 RBBB, normal axis, no STEMI, non-diagnostic EKG HPI General Date/Time Provider Initiated Documentation: 07/02/21 12:16 . Limitations to Documentation: no limitations . Information obtained by: patient, RN notes reviewed and old records reviewed . HPI Narrative: Darrell Sweeney is a 61 y/o man with h/o COPD, HTN, HLD, raynaud's, on methadone, chronic upper back pain unchanged presenting to the emergency department with SOB. Pt reports that he has had SOB, cough, and subjective fever since yesterday. SOB not currently occurring, worse with exertion. States that he overall feels like crap. Denies any pain other than chronic unchanged upper back and neck pain. Denies vomiting, diarrhea, numbness, weakness, orthopnea, rash, lower extremity edema. States he feels like his hands are swollen since yesterday. Pt states that he gets methadone in the morning and in the afternoon, and did have his morning dose today. States that he has been eating and drinking as usual. States that he has been well and in his [facility] prior to yesterday. Related Data Home Medications Medication Instructions Recorded Confirmed lisinopril 20 mg tablet 40 mg PO DAILY 05/20/12 07/02/21 mirtazapine 45 mg tablet 45 mg PO HS 05/20/12 07/02/21 acetaminophen 500 mg tablet 1,000 mg PO TID 01/05/16 05/17/21 tamsulosin 0.4 mg capsule (Flomax) 0.8 mg PO DAILY 01/05/16 07/02/21 naloxone 4 mg/actuation nasal 4 mg NS ONCE PRN #1 spray 07/23/16 07/02/21 spray (Narcan) gabapentin 300 mg capsule 300 mg PO QID 04/02/17 05/17/21 sennosides 8.6 mg-docusate sodium 8.6 tab PO DAILY 04/02/17 07/02/21 50 mg tablet (Senna with Docusate Sodium) cannabidiol 100 mg/mL oral solution 2 - 3 mg PO DAILY PRN 12/28/18 05/17/21 fluticasone propionate 50 2 spray intranasal DAILY 12/28/18 05/17/21 mcg/actuation nasal spray,suspension hydroxyzine HCl 25 mg tablet 25 mg PO BID 12/28/18 05/17/21 lamotrigine 100 mg tablet 300 mg PO DAILY 12/28/18 05/17/21 (Lamictal) lidocaine HCl 2 % mucosal jelly 1 applic intra-urethral 4-6XD PRN 12/28/18 05/17/21 methadone 10 mg tablet 110 mg PO DAILY AM 12/28/18 07/02/21 triamcinolone acetonide 0.5 % 1 applic topical BID 12/28/18 07/02/21 topical cream venlafaxine 75 mg tablet,extended 75 mg PO TID 12/28/18 07/02/21 release 24 hr amlodipine 5 mg tablet 5 mg PO DAILY 04/02/19 05/17/21 levomefolate calcium 15 mg tablet 15 mg PO DAILY 04/02/19 05/17/21 (L-Methylfolate) sodium chloride 1 gram tablet 1,000 mg PO QD-QID 04/02/19 07/02/21 tiotropium bromide 18 mcg capsule 1 cap inhalation DAILY 04/02/19 05/17/21 with inhalation device (Spiriva with HandiHaler) polyethylene glycol 3350(bulk) 17 grnl miscellaneous DAILY PRN 05/04/19 07/02/21 (Base B, Polyethylene Glycol 3350 granules) cholecalciferol (vitamin D3) 125 125 mcg PO DAILY 05/18/19 05/17/21 mcg (5,000 unit) capsule cyanocobalamin (vitamin B-12) 1,000 mcg PO DAILY 05/18/19 05/17/21 1,000 mcg capsule multivitamin with minerals 1 cap PO DAILY 05/18/19 07/02/21 oxycodone 20 mg tablet 5 mg PO DAILY 05/18/19 07/02/21 clonidine HCl 0.1 mg tablet 1 mg PO QID PRN 04/24/20 05/17/21 olanzapine 10 mg tablet 10 mg PO DAILY 04/24/20 07/02/21 umeclidinium 62.5 mcg-vilanterol 1 inh inhalation DAILY 11/28/20 05/17/21 25 mcg/actuation powdr for inhalation (Anoro Ellipta) albuterol sulfate 90 mcg/actuation 2 puff inhalation Q6H PRN 05/17/21 05/17/21 aerosol inhaler (Ventolin HFA) cephalexin 500 mg capsule 500 mg PO TID 05/17/21 05/17/21 clindamycin HCl 150 mg capsule 450 mg PO TID #60 caps 05/17/21 diclofenac potassium 50 mg tablet 50 mg PO TID 05/17/21 05/17/21 nicotine 21 mg/24 hr daily 21 mg transdermal DAILY 05/17/21 07/02/21 transdermal patch amoxicillin 875 mg-potassium 1 tab PO BID #10 tabs 07/02/21 clavulanate 125 mg tablet doxycycline hyclate 100 mg capsule 100 mg PO BID #10 caps 07/02/21 methadone 10 mg tablet 50 mg PO QPM 07/02/21 07/02/21 Previous Rx's Medication Instructions Recorded clindamycin HCl 150 mg capsule 450 mg PO TID #60 caps 05/17/21 amoxicillin 875 mg-potassium 1 tab PO BID #10 tabs 07/02/21 clavulanate 125 mg tablet doxycycline hyclate 100 mg capsule 100 mg PO BID #10 caps 07/02/21 Allergies Allergy/AdvReac Type Severity Reaction Status Date / Time varenicline [From Chantix] AdvReac Intermediate Psychosis Unverified 07/02/21 11:46 ziprasidone mesylate AdvReac Intermediate Memory Unverified 07/02/21 11:46 [From Geodon] deficit duloxetine HCl AdvReac Unknown Unverified 07/02/21 11:46 [From Cymbalta] topiramate [From Topamax] AdvReac Unknown Unverified 07/02/21 11:46 hay fever AdvReac Mild rhinitis Uncoded 07/02/21 11:46 General Stated Complaint: SOB GARRETT: 2 Review of Systems Narrative: Constitutional: reports fevers Eyes: denies eye pain ENT: denies ear pain, dental pain, sore throat Cardiovascular: denies chest pain, lower extremity edema Respiratory: reports SOB, cough GI: denies abdominal pain, vomiting, diarrhea : denies flank pain MSK: reports chronic unchanged back pain, neck pain, denies arthralgias, myalgias Skin: denies rash Neuro: denies headaches, numbness, weakness PFSH All Active Problems Pneumonia (Acute) Opioid overdose (Acute) Bradycardia (Acute) Falls (Acute) Weakness (Acute) Aspiration pneumonia (Acute) Epistaxis (Acute) Acute adrenal crisis (Acute) Acute hyperkalemia (Acute) Acute hyponatremia (Acute) Acute renal failure (Acute) Acute respiratory distress (Acute) Bradycardia (Acute) Sepsis (Acute) Burn injury (Acute) Chronic pain (Acute) No-show for appointment (Acute) COPD (chronic obstructive pulmonary disease) (Acute) Chronic low back pain (Acute) BPH with obstruction/lower urinary tract symptoms (Acute) Drug-induced constipation (Acute) Abdominal pain, lower (Acute) Change in stool habits (Acute) Medical History Actinic keratosis Allergic rhinitis Anemia Autoimmune disease Dehydration Dermatofibroma of left lower leg Diplopia Fatigue History of cigarette smoking History of septic arthritis (~02/19/17) s/p incision and drainage right wrist Dr. Mccann Hyperlipidemia Hypertension Hyponatremia Hypotension Knee pain, right Lactose intolerance Leukoaraiosis Leukocytosis, unspecified Lumbar discitis Marijuana use Marijuana use Obesity Obesity (BMI 35.0-39.9 without comorbidity) Orthostasis ANGIE (obstructive sleep apnea) Palliative care patient Peripheral edema Psychogenic polydipsia PTSD (post-traumatic stress disorder) Raynauds syndrome Restless legs Rotator cuff syndrome of right shoulder Sacroiliac joint dysfunction of right side Screening for prostate cancer Sepsis Severe muscle deconditioning Shortness of breath Shoulder pain, bilateral Spondylosis of lumbar region without myelopathy or radiculopathy Swallowing problem Syncope Urinary retention Surgical History bunionectomy Colonoscopy - [facility] 2011- nl. Unable to get into the cecum History of arthroplasty of right knee History of fusion of cervical spine (04/05/19) C5-C7 cervical discectomy and fusion, Dr. Mark Spence; [facility] History of removal of joint prosthesis of right knee due to infection 12/08/2016, Dr. Oakes @ [facility]; s/p spacer exchange R. knee 02/18/2017 Dr. Ashley nunez; History of revision of total replacement of right knee joint (06/11/17) s/p revision/replant R. TKA, on 06/11/[address] Ramírez Rotator Cuff Repair right S/P lumbar fusion Social History Smoking/Tobacco Use Status: Former Tobacco Use Quit Date: 05/03/21 Smoking risk assessment performed?: Yes Alcohol Intake: former Drug use: Daily Substance use type: marijuana Details: on methadone from [facility] Do you feel safe at home: Yes Do you feel safe in your relationship?: Yes Exam Narrative Exam Narrative: Constitutional: somnolent, arouses easily to voice, [id number], pleasant, conversing normally HENT: head atraumatic/normocephalic/normal inspection, mucous membranes moist Eyes: conjunctiva normal, sclera normal, pupils 2mm b/l, EOMI Neck: no stridor, normal ROM, trachea midline Chest: normal inspection Resp: normal work of breathing, diffuse exp wheeze throughout Cardio: normal rate, normal rhythm, no murmur appreciated GI: abdomen soft, non-tender, non-distended Back: normal inspection, no rash Skin: warm, dry, normal color, no rash Neuro: somnolent, arouses easily to voice, oriented x3, purchasing department clerk 2-12 intact, motor 5/5 throughout, normal tone Ext: no edema noted of hands or lower extremities, no posterior calf TTP Psych: normal mood, normal affect, normal behavior Course Vital Signs Vital signs: Vital Signs Temperature 36.7 C 07/02/21 11:40 Pulse 74 07/02/21 11:40 Respiratory Rate 32 H 07/02/21 11:40 Blood Pressure 190/107 H 07/02/21 11:40 Pulse Oximetry 94 07/02/21 11:40 Temperature 36.7 C 07/02/21 11:40 Temperature Source Oral 07/02/21 11:40 Pulse 63 07/02/21 17:16 Pulse 65 07/02/21 17:16 Respiratory Rate 13 07/02/21 17:16 Respiratory Effort 07/02/21 13:20 Respiratory Depth Normal 07/02/21 13:20 Respiratory Pattern Normal 07/02/21 13:20 Blood Pressure 197/99 H 07/02/21 17:16 Blood Pressure Mean 122 07/02/21 17:16 Blood Pressure Position Sitting 07/02/21 11:40 Pulse Oximetry 90 L 07/02/21 13:20 Oxygen Delivery Method Room Air 07/02/21 11:40 Oxygen Flow Rate 0 07/02/21 11:40 Pain Level 10 07/02/21 11:40 Lab/Test Results Lab/Test Results: Laboratory Tests Range/Units 07/02/21 07/02/21 07/02/21 13:05 13:15 13:15 WBC (4.4-10.8) 10^3/uL RBC (4.36-5.78) 10^6/uL Hgb (13.5-17.5) g/dL Hct (40.0-50.0) % MCV (80-95) fL MCH (27.0-33.0) pg MCHC (32.0-36.0) % RDW (11.8-14.1) % Plt Count (130-400) 10^3/uL MPV (8.0-11.0) fL Immature Gran % Neutrophils % Lymphocytes % Monocytes % Eosinophils % Basophils % Nucleated RBC % (0.0-0.3) % Absolute Neutrophils (1.2-6.7) 10^3/uL Absolute Lymphocytes (1.2-3.4) 10^3/uL Absolute Monocytes (0.1-0.8) 10^3/uL Absolute Eosinophils (0.0-0.7) 10^3/uL Absolute Basophils (0.0-0.2) 10^3/uL D-Dimer (<500) ng/mlFEU VBG pH (7.31-7.41) VBG pCO2 (41-51) mmHg VBG pO2 mmHg VBG HCO3 (23-28) mmol/L VBG Total CO2 (24-29) mmol/L VBG O2 Saturation % VBG Base Excess (-2-3) mmol/L VBG Lactate (0.6-1.4) mmol/L 1.2 Sodium (136-145) mmol/L 129 L Potassium (3.5-5.1) mmol/L 3.3 L Chloride (98-107) mmol/L 93 L Carbon Dioxide (21.0-32.0) mmol/L 29.4 Anion Gap (3-11) mmol/L 6.6 BUN (7-18) mg/dL 9 Creatinine (0.70-1.30) mg/dL 0.7 Estimated GFR/1.73 m2 (mL/min/1.73m2) >= 60.00 Glucose (74-106) mg/dL 105 Calcium (8.5-10.1) mg/dL 8.6 Magnesium (1.8-2.4) mg/dL 1.8 Total Bilirubin (0.2-1.0) mg/dL 0.9 AST (15-37) U/L 30 ALT (16-63) U/L 46 Alkaline Phosphatase (46-116) U/L 84 Troponin I (<or=60) ng/L 69 H* NT-Pro-B Natriuret Pep (<300) pg/mL Total Protein (6.4-8.2) g/dL 6.7 Albumin (3.4-5.0) g/dL 3.0 L COVID-19 Source Not Applicable SARS-CoV-2 (PCR) (Negative) Negative Influenza Type A (PCR) (Negative) Negative Influenza Type B (PCR) (Negative) Negative RSV (PCR) (Negative) Negative Range/Units 07/02/21 07/02/21 07/02/21 13:15 13:15 13:15 WBC (4.4-10.8) 10^3/uL 17.57 H RBC (4.36-5.78) 10^6/uL 4.60 Hgb (13.5-17.5) g/dL 14.2 Hct (40.0-50.0) % 41.1 MCV (80-95) fL 89 MCH (27.0-33.0) pg 30.9 MCHC (32.0-36.0) % 34.5 RDW (11.8-14.1) % 16.2 H Plt Count (130-400) 10^3/uL 225 MPV (8.0-11.0) fL 8.2 Immature Gran % 0.9 Neutrophils % 89.9 Lymphocytes % 4.6 Monocytes % 4.4 Eosinophils % 0.0 Basophils % 0.2 Nucleated RBC % (0.0-0.3) % 0.0 Absolute Neutrophils (1.2-6.7) 10^3/uL 15.80 H Absolute Lymphocytes (1.2-3.4) 10^3/uL 0.81 L Absolute Monocytes (0.1-0.8) 10^3/uL 0.77 Absolute Eosinophils (0.0-0.7) 10^3/uL 0.00 Absolute Basophils (0.0-0.2) 10^3/uL 0.04 D-Dimer (<500) ng/mlFEU 889 H VBG pH (7.31-7.41) VBG pCO2 (41-51) mmHg VBG pO2 mmHg VBG HCO3 (23-28) mmol/L VBG Total CO2 (24-29) mmol/L VBG O2 Saturation % VBG Base Excess (-2-3) mmol/L VBG Lactate (0.6-1.4) mmol/L Sodium (136-145) mmol/L Potassium (3.5-5.1) mmol/L Chloride (98-107) mmol/L Carbon Dioxide (21.0-32.0) mmol/L Anion Gap (3-11) mmol/L BUN (7-18) mg/dL Creatinine (0.70-1.30) mg/dL Estimated GFR/1.73 m2 (mL/min/1.73m2) Glucose (74-106) mg/dL Calcium (8.5-10.1) mg/dL Magnesium (1.8-2.4) mg/dL Total Bilirubin (0.2-1.0) mg/dL AST (15-37) U/L ALT (16-63) U/L Alkaline Phosphatase (46-116) U/L Troponin I (<or=60) ng/L NT-Pro-B Natriuret Pep (<300) pg/mL 6571 H Total Protein (6.4-8.2) g/dL Albumin (3.4-5.0) g/dL COVID-19 Source SARS-CoV-2 (PCR) (Negative) Influenza Type A (PCR) (Negative) Influenza Type B (PCR) (Negative) RSV (PCR) (Negative) Range/Units 07/02/21 07/02/21 17:11 17:34 WBC (4.4-10.8) 10^3/uL RBC (4.36-5.78) 10^6/uL Hgb (13.5-17.5) g/dL Hct (40.0-50.0) % MCV (80-95) fL MCH (27.0-33.0) pg MCHC (32.0-36.0) % RDW (11.8-14.1) % Plt Count (130-400) 10^3/uL MPV (8.0-11.0) fL Immature Gran % Neutrophils % Lymphocytes % Monocytes % Eosinophils % Basophils % Nucleated RBC % (0.0-0.3) % Absolute Neutrophils (1.2-6.7) 10^3/uL Absolute Lymphocytes (1.2-3.4) 10^3/uL Absolute Monocytes (0.1-0.8) 10^3/uL Absolute Eosinophils (0.0-0.7) 10^3/uL Absolute Basophils (0.0-0.2) 10^3/uL D-Dimer (<500) ng/mlFEU VBG pH (7.31-7.41) 7.44 H VBG pCO2 (41-51) mmHg 42 VBG pO2 mmHg 47 VBG HCO3 (23-28) mmol/L 29 H VBG Total CO2 (24-29) mmol/L 26 VBG O2 Saturation % 83 VBG Base Excess (-2-3) mmol/L 5 H VBG Lactate (0.6-1.4) mmol/L Sodium (136-145) mmol/L Potassium (3.5-5.1) mmol/L Chloride (98-107) mmol/L Carbon Dioxide (21.0-32.0) mmol/L Anion Gap (3-11) mmol/L BUN (7-18) mg/dL Creatinine (0.70-1.30) mg/dL Estimated GFR/1.73 m2 (mL/min/1.73m2) Glucose (74-106) mg/dL Calcium (8.5-10.1) mg/dL Magnesium (1.8-2.4) mg/dL Total Bilirubin (0.2-1.0) mg/dL AST (15-37) U/L ALT (16-63) U/L Alkaline Phosphatase (46-116) U/L Troponin I (<or=60) ng/L 67 H* NT-Pro-B Natriuret Pep (<300) pg/mL Total Protein (6.4-8.2) g/dL Albumin (3.4-5.0) g/dL COVID-19 Source SARS-CoV-2 (PCR) (Negative) Influenza Type A (PCR) (Negative) Influenza Type B (PCR) (Negative) RSV (PCR) (Negative)
--- NOTE | 2021-07-02 19:01 | NUR.NOTE ---
Nursing Note: Referral faxed to PCP [facility] for pneumonia 1 week Daisha Maldonado
--- NOTE | 2021-07-05 15:26 | PDOC.ERCMPRO ---
- If Service Date Differs Date of service: 07/05/21 Time of Service: 15:26 Care Management Progress Note Darrell was seen in the ED for pneumonia. At the request of ED provider, ALIN telephones Darrell to see how he is doing. Darrell reports he is feeling much better and says the antibiotics are helping a lot. He has a follow up appointment with his PCP at [facility] scheduled for Friday, July 11, 2021 at 1:15 pm.
== END 2021-07-02 19:10 | disposition left against medical advice (07) ==
PROVIDERS: Emergency Provider Student in an Organized Health Care Education/Training Program; PCP Family Medicine
DX: J18.9 Pneumonia, unspecified organism (principal); R06.02 Shortness of breath; F17.210 Nicotine dependence, cigarettes, uncomplicated; R05.9 Cough, unspecified; F11.20 Opioid dependence, uncomplicated; R79.89 Other specified abnormal findings of blood chemistry; Z53.29 Procedure and treatment not carried out because of patient's decision for other reasons
CPT/HCPCS: 36415; 71275; 80053; 82805; 87637; 93005; 96365; 96367; 96375; 99284; 83605; 83735; 83880; 84484; 85025; 85379; 93010; J0696; J1885; J7620; Q9967

== ENCOUNTER 2021-09-10 10:04 | Emergency (ER) | payer MEDICARE, MEDICAID, SELFPAY ==
[2021-09-10 10:14] VITALS: BP 157/100; PULSE 50; RESP 16; O2SAT 95
--- NOTE | 2021-09-10 10:45 | DI.RAD_ITS ---
Exam(s) XR HUMERUS LT EXAM: XR HUMERUS LT CLINICAL HISTORY: ora deformity. TECHNIQUE: 2D digital imaging was performed. COMPARISON: No exams were available for comparison FINDINGS: BONES: No acute fracture is present. No bony destructive lesion is seen. Visualized portion of elbow and shoulder joints are unremarkable. SOFT TISSUE: Normal. IMPRESSION: Unremarkable radiographs of the left humerus. DATA REPOSITORY: RADIATION DOSE DELIVERED:
--- NOTE | 2021-09-10 10:48 | ED.GENADUL_ITS ---
Discharge Plan Disposition Patient Disposition: HOME Condition: Stable Discharge Details Clinical Impression: Biceps tendinitis, Biceps tendon tear Primary Care Provider: Ivonne Diop ED Provider: Samira Hester Home Meds and New Rx's Prescriptions: Continued polyethylene glycol 3350(bulk) [Base B,Polyethylene [id number]] Granules 17 grnl miscellaneous DAILY PRN Rx Instructions: take 1 scoop daily as needed. cyanocobalamin (vitamin B-12) 1,000 mcg capsule 1,000 mcg PO DAILY multivitamin with minerals Capsule 1 cap PO DAILY cholecalciferol (vitamin D3) 125 mcg (5,000 unit) capsule 125 mcg PO DAILY naloxone [Narcan] 4 MG spray,non-aerosol 4 mg NS ONCE MDD 1 PRNQty: 1 lisinopril 20 MG tablet 40 mg PO DAILY mirtazapine 45 MG tablet 45 mg PO HS acetaminophen 500 MG tablet 1,000 mg PO TID tamsulosin [Flomax] 0.4 MG capsule 0.8 mg PO DAILY triamcinolone acetonide 0.5 % Cream 1 applic TOPICAL BID methadone 10 mg Tablet 110 mg PO DAILY AM Rx Instructions: pt states he takes 110 mg in the am and 50mg in the evening lidocaine HCl 2 % Jelly 1 applic INTRA-URETHRAL 4-6XD PRN hydroxyzine HCl 25 mg Tablet 25 mg PO BID fluticasone propionate 50 mcg/actuation [place],Suspension 2 spray INTRANASAL DAILY lamotrigine [Lamictal] 100 mg Tablet 300 mg PO DAILY venlafaxine 75 mg Tablet Extended Release 24hr 75 mg PO TID cannabidiol 100 mg/mL Solution 2 - 3 mg PO DAILY PRN diclofenac potassium 50 mg tablet 50 mg PO TID Label Comments: TAKE ONE TABLET BY MOUTH THREE TIMES A DAY albuterol sulfate [Ventolin HFA] 90 mcg/actuation HFA aerosol inhaler 2 puff INHALATION Q6H PRN Label Comments: INHALE TWO PUFFS BY MOUTH EVERY 6 HOURS NEEDED cephalexin 500 mg capsule 500 mg PO TID Label Comments: TAKE ONE CAPSULE BY MOUTH THREE TIMES A DAY sennosides-docusate sodium [Senna with Docusate Sodium] 1 EACH tablet 8.6 tab PO DAILY gabapentin 300 MG capsule 300 mg PO QID sodium chloride 1 gram Tablet 1,000 mg PO QD-QID amlodipine 5 mg Tablet 5 mg PO DAILY Spiriva with HandiHaler 18 mcg Capsule, W/Inhalation Device 1 cap INHALATION DAILY levomefolate calcium [L-Methylfolate] 15 mg Tablet 15 mg PO DAILY clonidine HCl 0.1 mg tablet 1 mg PO QID PRN Label Comments: TAKE ONE TABLET BY MOUTH FOUR TIMES A DAY FOR ANXIETY olanzapine 10 mg tablet 10 mg PO DAILY Label Comments: TAKE ONE TABLET BY MOUTH TWICE A DAY TAKE WITH 20MG TABLET Anoro Ellipta 62.5-25 mcg/actuation blister with device 1 inh INHALATION DAILY Label Comments: INHALE ONE PUFF BY MOUTH EVERY DAY methadone 10 mg tablet 50 mg PO QPM Discharge Instructions Additional Instructions: Your x-rays are reassuring here today. No evidence of fracture. Your exam is most concerning for partial tear of your biceps tendon. Please encourage rest, ice, elevation. Tylenol and/or ibuprofen as needed for discomfort. Please continue with ice to help with discomfort. You may use the sling to also help with discomfort. Please keep your upcoming appointment with orthopedics for further evaluation. If you develop any new or worsening symptoms please seek care urgently once again. Referrals: Juan Diego Avendano [ NON-[facility] STAFF PHYSICIAN] - Discharge Data Discharge Date/Time-TO BE ENTERED AT DEPARTURE: 09/10/21 13:14 Medical Decision Making Patient is a pleasant 61-year-old [id number] male presenting today with chief complaint of left humerus pain. He reports that he has been having some chronic discomfort in the anterior aspect of the shoulder. However, things became abruptly worse yesterday when he was lifting something and felt a pop. Since then, he has developing ecchymosis along the anterior aspect of the arm as well as continued discomfort. He does endorse some discomfort along the medial side of the elbow as well. He denies any numbness or tingling. No fall or injury. Patient reports that he is scheduled to have a upcoming surgery on the right shoulder with Dr. Avendano at [facility]. He does have an appointment with him on Friday. On exam, patient appears nontoxic. He does appear to be under the influence and reports that he did just take his methadone, likely contributing to his this appearance. He is hemodynamically stable. He does have tenderness over the anterior aspect of the shoulder. Patient does have notable ecchymosis along the inferior half of the left bicep. He does not feel to have a partial Ora primarily on the lateral aspect. Inferiorly patient seems to have no tendon disruption, normal subcu testing. He has full range of motion of his elbow, wrist, hand. Neurovascularly intact with 2+ distal pulses, axillary nerve testing is intact. Patient's history and exam is most consistent with tendon disruption of the left biceps. Initially, patient had been questioning if this could be associated with a blood clot but this history and exam at this time is not consistent with this. As he is having pain inferiorly will obtain an x-ray, particularly given the patient's age, I have very low suspicion for fracture. We will give Tylenol, ibuprofen and an ice pack to help with this, FINDINGS: BONES: No acute fracture is present. No bony destructive lesion is seen. Visualized portion of elbow and shoulder joints are unremarkable. SOFT TISSUE: Normal. IMPRESSION: Unremarkable radiographs of the left humerus. Discussed finding with the patient. Advised partial rupture of biceps rupture. Encouraged RICE. Advised on OTC medications to help with discomfort. Encouraged f/u with orthopedics. He typically f/u with Dr. Avendano and has appointment next week. We discussed return precautions. Again, hx and exam is most consistent with orthopeidc injury rather than vascular issue which was pts largest concern promptimg him to come in. All of his quesitons and concerns were addressed, he si in agreement with this plan. HPI General Date/Time Provider Initiated Documentation: 09/10/21 10:47 . Limitations to Documentation: no limitations . Information obtained by: patient and RN notes reviewed . History of Present Illness 61 year old M presents to the emergency department with the chief complaint of LUQ pain, ecchymosis, described as severe, with intensity rated at 10. Quality is described as aching, and is localized to the left and upper extremity. Patient reports no radiation. Patient started experiencing this day(s) and it has been constant. Immobilization improves symptom(s), Movement worsens symptoms . Patient notes no other symptoms.. Patient did receive the following treatments prior to arrival, none Related Data Home Medications Medication Instructions Recorded Confirmed lisinopril 20 mg tablet 40 mg PO DAILY 05/20/12 09/10/21 mirtazapine 45 mg tablet 45 mg PO HS 05/20/12 07/18/21 acetaminophen 500 mg tablet 1,000 mg PO TID 01/05/16 09/10/21 tamsulosin 0.4 mg capsule (Flomax) 0.8 mg PO DAILY 01/05/16 09/10/21 naloxone 4 mg/actuation nasal 4 mg NS ONCE PRN #1 spray 07/23/16 07/18/21 spray (Narcan) gabapentin 300 mg capsule 300 mg PO QID 04/02/17 09/10/21 sennosides 8.6 mg-docusate sodium 8.6 tab PO DAILY 04/02/17 09/10/21 50 mg tablet (Senna with Docusate Sodium) cannabidiol 100 mg/mL oral solution 2 - 3 mg PO DAILY PRN 12/28/18 07/18/21 fluticasone propionate 50 2 spray intranasal DAILY 12/28/18 09/10/21 mcg/actuation nasal spray,suspension hydroxyzine HCl 25 mg tablet 25 mg PO BID 12/28/18 09/10/21 lamotrigine 100 mg tablet 300 mg PO DAILY 12/28/18 09/10/21 (Lamictal) lidocaine HCl 2 % mucosal jelly 1 applic intra-urethral 4-6XD PRN 12/28/18 09/10/21 methadone 10 mg tablet 110 mg PO DAILY AM 12/28/18 09/10/21 triamcinolone acetonide 0.5 % 1 applic topical BID 12/28/18 09/10/21 topical cream venlafaxine 75 mg tablet,extended 75 mg PO TID 12/28/18 09/10/21 release 24 hr amlodipine 5 mg tablet 5 mg PO DAILY 04/02/19 09/10/21 levomefolate calcium 15 mg tablet 15 mg PO DAILY 04/02/19 09/10/21 (L-Methylfolate) sodium chloride 1 gram tablet 1,000 mg PO QD-QID 04/02/19 09/10/21 tiotropium bromide 18 mcg capsule 1 cap inhalation DAILY 04/02/19 09/10/21 with inhalation device (Spiriva with HandiHaler) polyethylene glycol 3350(bulk) 17 grnl miscellaneous DAILY PRN 05/04/19 09/10/21 (Base B, Polyethylene Glycol 3350 granules) cholecalciferol (vitamin D3) 125 125 mcg PO DAILY 05/18/19 07/18/21 mcg (5,000 unit) capsule cyanocobalamin (vitamin B-12) 1,000 mcg PO DAILY 05/18/19 09/10/21 1,000 mcg capsule multivitamin with minerals 1 cap PO DAILY 05/18/19 09/10/21 clonidine HCl 0.1 mg tablet 1 mg PO QID PRN 04/24/20 09/10/21 olanzapine 10 mg tablet 10 mg PO DAILY 04/24/20 09/10/21 umeclidinium 62.5 mcg-vilanterol 1 inh inhalation DAILY 11/28/20 09/10/21 25 mcg/actuation powdr for inhalation (Anoro Ellipta) albuterol sulfate 90 mcg/actuation 2 puff inhalation Q6H PRN 05/17/21 09/10/21 aerosol inhaler (Ventolin HFA) cephalexin 500 mg capsule 500 mg PO TID 05/17/21 09/10/21 diclofenac potassium 50 mg tablet 50 mg PO TID 05/17/21 09/10/21 methadone 10 mg tablet 50 mg PO QPM 07/02/21 09/10/21 Allergies Allergy/AdvReac Type Severity Reaction Status Date / Time varenicline [From Chantix] AdvReac Intermediate Psychosis Unverified 09/10/21 10:19 ziprasidone mesylate AdvReac Intermediate Memory Unverified 09/10/21 10:19 [From Geodon] deficit duloxetine HCl AdvReac Unknown Unverified 09/10/21 10:19 [From Cymbalta] topiramate [From Topamax] AdvReac Unknown Unverified 09/10/21 10:19 hay fever AdvReac Mild rhinitis Uncoded 09/10/21 10:19 General Stated Complaint: Vascular GARRETT: 4 Review of Systems Constitutional Constitutional: Reports as per HPI, Denies chills, Denies fever(s) and Denies weakness Cardiovascular Cardiovascular: Reports as per HPI, Denies chest pain, Denies chest pain with activity, Denies dyspnea and Denies dyspnea on exertion Respiratory Respiratory: Reports as per HPI, Denies cough, Denies dyspnea and Denies dyspnea on exertion Musculoskeletal Musculoskeletal: Reports as per HPI and Denies tingling Integumentary/Breasts Skin/Breast: Reports as per HPI, Denies rash and Denies wounds Neurologic Neurologic: Reports as per HPI, Denies tingling, Denies paresthesias and Denies weakness PFSH All Active Problems (Updated 09/10/21 @ 12:50 by NOLAN Prasad) Biceps tendinitis (Acute) Biceps tendon tear (Acute) Impacted cerumen (Acute) Asymmetrical sensorineural hearing loss (Acute) Opioid overdose (Acute) Bradycardia (Acute) Falls (Acute) Weakness (Acute) Aspiration pneumonia (Acute) Epistaxis (Acute) Acute adrenal crisis (Acute) Acute hyperkalemia (Acute) Acute hyponatremia (Acute) Acute renal failure (Acute) Acute respiratory distress (Acute) Bradycardia (Acute) Sepsis (Acute) Burn injury (Acute) Chronic pain (Acute) No-show for appointment (Acute) COPD (chronic obstructive pulmonary disease) (Acute) Chronic low back pain (Acute) BPH with obstruction/lower urinary tract symptoms (Acute) Drug-induced constipation (Acute) Abdominal pain, lower (Acute) Change in stool habits (Acute) Medical History Actinic keratosis Allergic rhinitis Anemia Autoimmune disease Dehydration Dermatofibroma of left lower leg Diplopia Fatigue History of cigarette smoking History of septic arthritis (~02/19/17) s/p incision and drainage right wrist Dr. Mccann Hyperlipidemia Hypertension Hyponatremia Hypotension Knee pain, right Lactose intolerance Leukoaraiosis Leukocytosis, unspecified Lumbar discitis Marijuana use Marijuana use Obesity Obesity (BMI 35.0-39.9 without comorbidity) Orthostasis ANGIE (obstructive sleep apnea) Palliative care patient Peripheral edema Psychogenic polydipsia PTSD (post-traumatic stress disorder) Raynauds syndrome Restless legs Rotator cuff syndrome of right shoulder Sacroiliac joint dysfunction of right side Screening for prostate cancer Sepsis Severe muscle deconditioning Shortness of breath Shoulder pain, bilateral Spondylosis of lumbar region without myelopathy or radiculopathy Swallowing problem Syncope Urinary retention Surgical History bunionectomy Colonoscopy - MAC 2011- nl. Unable to get into the cecum History of arthroplasty of right knee History of fusion of cervical spine (04/05/19) C5-C7 cervical disce[place] [facility] [place] of right knee due to infection 12/08[place]2016, [place] [facility] [place]/p spacer exchange R. knee 02/18/2017 Dr. Ramírez; History of revision of total replacement of right knee joint (06/11/17) s/p revision/replant R. TKA, on 06/11/[address] Ramírez Rotator Cuff Repair right S/P lumbar fusion Social History Smoking/Tobacco Use Status: Former Tobacco Use Quit Date: 05/03/21 Smoking risk assessment performed?: Yes Alcohol Intake: former Drug use: Daily Substance use type: marijuana Details: on methadone from [facility] Do you feel safe at home: Yes Do you feel safe in your relationship?: Yes Exam Const General: cooperative, healthy appearing, comfortable, no acute distress, well developed and well groomed Nutritional Appearance: average body habitus and well nourished Orientation: alert and awake Chest Chest: normal inspection of the chest and no tenderness Resp Effort & Inspection: normal respiratory effort, able to speak in complete sentences and no respiratory distress Auscultation: clear to auscultation bilaterally Cardio Rate: regular rate Rhythm: regular rhythm Heart Sounds: S1 normal and S2 normal Skin General skin exam: ecchymosis (anterior left upperr extrmeity over the biceps, no erythema, warmth, fluctu) Neuro General: patient alert and patient awake Cognition: normal cognition Speech: speech normal Gait: normal gait Motor: muscle tone normal throughout Sensory Exam: no sensory deficits noted Extrem Shoulder/upper arm images: 1. Area of ecchymosis. 2+ distal pulses, sensation intact, nerve testing/motor testing intact, axillary nerve intact. No pain with palpation over elbow. Negativ ehook test at the elbow. Pain maximal over the bicep and bicep insertion proximally. He has no ashtyn ora but partial deformity noted compared to contralateral side. No medial bruising, no palpable cord. Full ROM of should, elbow, wrist. Pain maximal with flexion of elbow. Positive speed. Psych Appearance: grossly normal and well kempt Mental Status: mental status grossly normal Speech and Movement: speech and movement normal Course Vital Signs Vital signs: Vital Signs Pulse 50 L 09/10/21 10:14 Respiratory Rate 16 09/10/21 10:14 Blood Pressure 157/100 H 09/10/21 10:14 Pulse Oximetry 95 09/10/21 10:14 Pulse 50 L 09/10/21 10:14 Respiratory Rate 16 09/10/21 10:14 Blood Pressure 157/100 H 09/10/21 10:14 Blood Pressure Position Sitting 09/10/21 10:14 Pulse Oximetry 95 09/10/21 10:14 Oxygen Delivery Method Room Air 09/10/21 10:14 Oxygen Flow Rate 0 09/10/21 10:14 Pain Level 10 09/10/21 10:14
[2021-09-10] MEDS: Acetaminophen 325 MG TAB 650 MG PO (11:05)
[2021-09-10] MEDS: Ibuprofen 600 MG TAB PO (11:05)
[2021-09-10 12:47] VITALS: RESP 18
== END 2021-09-10 13:14 | disposition home or self-care (01) ==
PROVIDERS: Emergency Provider Physician Assistant; PCP Family Medicine
DX: M75.22 Bicipital tendinitis, left shoulder (principal); S46.212A Strain of muscle, fascia and tendon of other parts of biceps, left arm, initial encounter; X50.0XXA Overexertion from strenuous movement or load, initial encounter
CPT/HCPCS: 99283; 73060

== ENCOUNTER → 2021-10-05 00:37 | Outpatient (CLI) | payer MEDICARE, MEDICAID, SELFPAY ==
--- NOTE | 2021-10-05 08:30 | DI.MRI_ITS ---
Exam(s) MR UPPER JOINT LT WO EXAM: MR UPPER JOINT LT WO CLINICAL HISTORY: TRAUMATIC RUPTURE OF LT BICEPS TENDON, S46.212A. TECHNIQUE: Multiplanar multisequence MRI was performed. COMPARISON: Left humerus 10 September 2021 FINDINGS: The exam is limited by patient motion. Bones: There is no fracture or contusion pattern. There is minimal spurring at the tip of the acromi on. There is some spurring at lesser tubercle. The acromioclavicular joint is normal. Glenohumeral joint: Rotator Cuff: The supraspinatus tendon is intact. Infraspinatus tendon is intact. The subscapularis and teres minor are normal. Labrum and biceps anchor: The biceps tendon is located. The anchor is not well seen. The labrum is g rossly within normal limits. IMPRESSION: Limited exam due to patient motion. The biceps tendon appears located. No rotator cuff tendon tear is visible. DATA REPOSITORY:
== END ==
PROVIDERS: PCP Family Medicine; Visit Provider Orthopaedic Surgery
DX: S46.212A Strain of muscle, fascia and tendon of other parts of biceps, left arm, initial encounter (principal); X58.XXXA Exposure to other specified factors, initial encounter
CPT/HCPCS: 73221

== ENCOUNTER 2022-03-03 08:54 | Emergency (ER) | payer MEDICARE, MEDICAID, SELFPAY ==
[2022-03-03 09:02] VITALS: BP 170/91; PULSE 84; RESP 18; TEMP 37.7; O2SAT 89
--- NOTE | 2022-03-03 09:15 | DI.RAD_ITS ---
Exam(s) XR KNEE RT 3V AP,LAT,JAGDEEP XR FEMUR RT EXAM: XR FEMUR RT CLINICAL HISTORY: pain s/p fall. TECHNIQUE: 2D digital imaging was performed. COMPARISON: CR RIGHT KNEE 3 VIEWS from 02/11/2017 CR,XR XR KNEE RT 3V AP,LAT,JAGDEEP from 03/03/2022 FINDINGS: No evidence of acute fracture. There is hardware in the lower lumbar spine. Hip joint space is main tained. There is a long-stem knee prosthesis. There is some lucency beneath the tibial tray which c ould indicate loosening. The tip of the tibial component is not included in the field of view. A dominga int effusion is seen. There is some anterior soft tissue swelling. Vascular clips noted in the uppe r leg. IMPRESSION: No evidence of fracture. Joint effusion and anterior soft tissue swelling. Question of loosening of the tibial component of the prosthesis. DATA REPOSITORY: RADIATION DOSE DELIVERED:
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
--- NOTE | 2022-03-03 10:01 | DI.VRAD_ITS ---
PROCEDURE INFORMATION: Exam: XR Right Femur Exam date and time: 03/03/2022 9:36 AM Age: 61 years old Clinical indication: Other: Pain S/P fall TECHNIQUE: Imaging protocol: Radiologic exam of the Right femur. Views: 2 views. COMPARISON: CR XR KNEE RT 3V AP,LAT,JAGDEEP 03/03/2022 9:34 AM FINDINGS: Bones/joints: Partially included long-stem total knee arthroplasty and lumbosacral fixation hardware appear intact. There is mild lucency about the sacral screws suggestive of loosening. No acute fracture or dislocation. Soft tissues: Unremarkable. IMPRESSION: No acute fracture or dislocation. Dictated and Authenticated by: Mason Mahmood MD. Ordering:ENZO Min MD
--- NOTE | 2022-03-03 10:05 | DI.VRAD_ITS ---
PROCEDURE INFORMATION: Exam: XR Right Knee Exam date and time: 03/03/2022 9:34 AM Age: 61 years old Clinical indication: Other: Pain, S/P fall TECHNIQUE: Imaging protocol: Radiologic exam of the Right knee. Views: 3 views. COMPARISON: CR RIGHT KNEE 3 VIEWS 04/02/2017 11:29 AM FINDINGS: Bones/joints: Long-stem total knee arthroplasty. No hardware fracture. There is lucency about the tibial plateau portion of the prosthesis which may reflect loosening. No periprosthetic fracture or dislocation. Cortical irregularity of the patella with adjacent well corticated osseous fragments is favored to reflect sequelae of remote trauma and or degeneration. Questionable small joint effusion. Soft tissues: Heterotopic ossification. Mild swelling. Surgical clips noted adjacent to the proximal tibia/fibula. IMPRESSION: No periprosthetic fracture or dislocation. Dictated and Authenticated by: Mason Mahmood MD. Ordering:ENZO Min MD
--- NOTE | 2022-03-03 10:09 | NUR.NOTE ---
Report received from Nataliia QUINTANA. Nursing Note:
--- NOTE | 2022-03-03 10:44 | NUR.NOTE ---
Knee immobilizer placed to pt R knee. Nursing Note:
== END 2022-03-03 10:48 | disposition home or self-care (01) ==
PROVIDERS: Emergency Provider Emergency Medicine; PCP Family Medicine
DX: S83.91XA Sprain of unspecified site of right knee, initial encounter (principal); J44.9 Chronic obstructive pulmonary disease, unspecified; M54.9 Dorsalgia, unspecified; G89.29 Other chronic pain; I10 Essential (primary) hypertension; Z79.899 Other long term (current) drug therapy; W18.40XA Slipping, tripping and stumbling without falling, unspecified, initial encounter; X50.1XXA Overexertion from prolonged static or awkward postures, initial encounter
CPT/HCPCS: 73552; 73562; 99283; 99282

== ENCOUNTER 2022-04-16 14:02 | Emergency (ER) | payer MEDICARE, MEDICAID, SELFPAY ==
[2022-04-16 14:11] VITALS: PULSE 56; RESP 22; TEMP 36.5; O2SAT 96
--- NOTE | 2022-04-16 15:44 | NUR.NOTE ---
Nursing Note: Provider verified that pt was at [facility] [place] and was d/c 04/15/2022, also verified dosing from [facility] as 160 in 2 divided doses daily for methadone. Pt did leave without being seen before he was able to get his dose.
== END 2022-04-16 15:44 | disposition left against medical advice (07) ==
PROVIDERS: PCP Family Medicine
DX: Z53.21 Procedure and treatment not carried out due to patient leaving prior to being seen by health care provider (principal)

== ENCOUNTER 2022-04-22 18:08 | Outpatient (REF) | payer MEDICARE, MEDICAID, SELFPAY ==
[2022-04-22 19:00] LABS: Abs Immature Grans 0.04 10^3/uL (0.0-0.06); Absolute Basophil Count 0.06 10^3/uL (0.0-0.2); Absolute Eosinophil Count 0.44 10^3/uL (0.0-0.7); Absolute Lymphocyte Count 1.22 10^3/uL (1.2-3.4); Absolute Monocyte Count 0.58 10^3/uL (0.1-0.8); Absolute Neutrophil Count 6.07 10^3/uL (1.2-6.7); Basophils % 0.7; Eosinophils % 5.2; HCT 30.7 % (40.0-50.0); HGB 9.6 g/dL (13.5-17.5); Immature Grans % 0.5; Lymphocytes % 14.5; MCH 28.3 pg (27.0-33.0); MCHC 31.3 % (32.0-36.0); MCV 91 fL (80-95); MPV 8.3 fL (8.0-11.0); Monocytes % 6.9; Neutrophils % 72.2; Platelet Count 304 10^3/uL (130-400); RBC 3.39 10^6/uL (4.36-5.78); RDW 18.5 % (11.8-14.1); RDW-SD 60.4 fL; WBC 8.41 10^3/uL (4.4-10.8)
[2022-04-22 19:08] LABS: ALT 23 U/L (16-63); AST 22 U/L (15-37); Albumin 2.4 g/dL (3.4-5.0); Alkaline Phosphatase 123 U/L (46-116); Anion Gap 4.2 mmol/L (3-11); BUN 8 mg/dL (7-18); Bilirubin, Total 0.4 mg/dL (0.2-1.0); C-Reactive Protein 2.08 mg/dL (0.0-0.3); CO2 31.8 mmol/L (21.0-32.0); CREATININE 0.8 mg/dL (0.70-1.30); Calcium 8.2 mg/dL (8.5-10.1); Chloride 102 mmol/L (98-107); Creatine Kinase 53 U/L (39-308); Estimated GFR 100.06 (mL/min/1.73m2); Glucose 118 mg/dL (74-106); Potassium 4.3 mmol/L (3.5-5.1); Sodium 138 mmol/L (136-145); Total Protein 6.2 g/dL (6.4-8.2)
== END 2022-04-22 18:09 | disposition home or self-care (01) ==
LOC: LBN 18:08
PROVIDERS: PCP Family Medicine; Visit Provider Family Medicine
DX: M00.072 Staphylococcal arthritis, left ankle and foot (principal); T84.53XA Infection and inflammatory reaction due to internal right knee prosthesis, initial encounter
CPT/HCPCS: 80053; 82550; 85025; 86140

== ENCOUNTER 2022-04-29 19:14 | Outpatient (REF) | payer MEDICARE, MEDICAID, SELFPAY ==
[2022-04-29 14:53] LABS: HCT 29.8 % (40.0-50.0); HGB 9.4 g/dL (13.5-17.5); MCH 28.8 pg (27.0-33.0); MCHC 31.5 % (32.0-36.0); MCV 91 fL (80-95); MPV 8.8 fL (8.0-11.0); Platelet Count 256 10^3/uL (130-400); RBC 3.26 10^6/uL (4.36-5.78); RDW 18.7 % (11.8-14.1); RDW-SD 60.5 fL; WBC 12.68 10^3/uL (4.4-10.8)
[2022-04-29 15:12] LABS: ALT 164 U/L (16-63); AST 91 U/L (15-37); Albumin 2.7 g/dL (3.4-5.0); Alkaline Phosphatase 140 U/L (46-116); Anion Gap 5.9 mmol/L (3-11); BUN 17 mg/dL (7-18); Bilirubin, Total 0.5 mg/dL (0.2-1.0); C-Reactive Protein 4.68 mg/dL (0.0-0.3); CO2 29.1 mmol/L (21.0-32.0); Calcium 8.5 mg/dL (8.5-10.1); Chloride 103 mmol/L (98-107); Glucose 97 mg/dL (74-106); Potassium 4.7 mmol/L (3.5-5.1); Sodium 138 mmol/L (136-145); Total Protein 6.7 g/dL (6.4-8.2)
[2022-05-01 16:06] LABS: Creatine Kinase 104 U/L (39-308)
== END 2022-04-29 19:15 | disposition home or self-care (01) ==
LOC: NCHCN 19:14
PROVIDERS: PCP Family Medicine; Visit Provider Family Medicine
DX: T84.53XD Infection and inflammatory reaction due to internal right knee prosthesis, subsequent encounter (principal); Z96.651 Presence of right artificial knee joint; M00.872 Arthritis due to other bacteria, left ankle and foot; B95.62 Methicillin resistant Staphylococcus aureus infection as the cause of diseases classified elsewhere; Z79.2 Long term (current) use of antibiotics
CPT/HCPCS: 80053; 82550; 85027; 86140

== ENCOUNTER 2022-05-06 18:44 | Outpatient (REF) | payer MEDICARE, MEDICAID, SELFPAY ==
[2022-05-06 19:13] LABS: Abs Immature Grans 0.03 10^3/uL (0.0-0.06); Absolute Basophil Count 0.06 10^3/uL (0.0-0.2); Absolute Eosinophil Count 0.51 10^3/uL (0.0-0.7); Absolute Lymphocyte Count 1.72 10^3/uL (1.2-3.4); Absolute Monocyte Count 0.61 10^3/uL (0.1-0.8); Absolute Neutrophil Count 4.98 10^3/uL (1.2-6.7); Basophils % 0.8; Eosinophils % 6.4; HCT 31.7 % (40.0-50.0); HGB 9.5 g/dL (13.5-17.5); Immature Grans % 0.4; Lymphocytes % 21.7; MCH 26.8 pg (27.0-33.0); MCV 90 fL (80-95); MPV 8.5 fL (8.0-11.0); Monocytes % 7.7; Platelet Count 276 10^3/uL (130-400); RBC 3.54 10^6/uL (4.36-5.78); RDW 18.1 % (11.8-14.1); RDW-SD 59.1 fL; WBC 7.91 10^3/uL (4.4-10.8)
[2022-05-06 19:39] LABS: ALT 75 U/L (16-63); AST 18 U/L (15-37); Albumin 2.6 g/dL (3.4-5.0); Alkaline Phosphatase 141 U/L (46-116); Anion Gap 5.5 mmol/L (3-11); BUN 14 mg/dL (7-18); Bilirubin, Total 0.4 mg/dL (0.2-1.0); CO2 28.5 mmol/L (21.0-32.0); CREATININE 0.8 mg/dL (0.70-1.30); Calcium 8.5 mg/dL (8.5-10.1); Chloride 104 mmol/L (98-107); Estimated GFR 99.44 (mL/min/1.73m2); Glucose 81 mg/dL (74-106); Potassium 4.1 mmol/L (3.5-5.1); Sodium 138 mmol/L (136-145); Total Protein 6.8 g/dL (6.4-8.2)
[2022-05-06 19:52] LABS: C-Reactive Protein 2.49 mg/dL (0.0-0.3); Creatine Kinase 40 U/L (39-308)
== END 2022-05-06 18:45 | disposition home or self-care (01) ==
LOC: LBN 18:44
PROVIDERS: PCP Family Medicine
DX: T84.53XA Infection and inflammatory reaction due to internal right knee prosthesis, initial encounter (principal); Z96.651 Presence of right artificial knee joint; M00.072 Staphylococcal arthritis, left ankle and foot
CPT/HCPCS: 80053; 82550; 85025; 86140

== ENCOUNTER 2022-05-20 17:12 | Outpatient (REF) | payer MEDICARE, MEDICAID, SELFPAY ==
[2022-05-20 17:23] LABS: Abs Immature Grans 0.04 10^3/uL (0.0-0.06); Absolute Basophil Count 0.06 10^3/uL (0.0-0.2); Absolute Lymphocyte Count 1.29 10^3/uL (1.2-3.4); Absolute Monocyte Count 0.66 10^3/uL (0.1-0.8); Basophils % 0.8; Eosinophils % 2.6; HGB 8.4 g/dL (13.5-17.5); Immature Grans % 0.5; Lymphocytes % 16.6; MCH 26.3 pg (27.0-33.0); MCHC 31.1 % (32.0-36.0); MCV 85 fL (80-95); MPV 8.6 fL (8.0-11.0); Monocytes % 8.5; Platelet Count 303 10^3/uL (130-400); RBC 3.19 10^6/uL (4.36-5.78); RDW 17.4 % (11.8-14.1); RDW-SD 53.9 fL; WBC 7.75 10^3/uL (4.4-10.8)
[2022-05-20 17:42] LABS: ALT 33 U/L (16-63); AST 25 U/L (15-37); Albumin 2.4 g/dL (3.4-5.0); Alkaline Phosphatase 122 U/L (46-116); Anion Gap 4.6 mmol/L (3-11); BUN 12 mg/dL (7-18); Bilirubin, Total 0.4 mg/dL (0.2-1.0); C-Reactive Protein 2.61 mg/dL (0.0-0.3); CO2 30.4 mmol/L (21.0-32.0); CREATININE 0.8 mg/dL (0.70-1.30); Calcium 8.3 mg/dL (8.5-10.1); Chloride 103 mmol/L (98-107); Creatine Kinase 46 U/L (39-308); Estimated GFR 99.44 (mL/min/1.73m2); Glucose 125 mg/dL (74-106); Potassium 4.5 mmol/L (3.5-5.1); Sodium 138 mmol/L (136-145); Total Protein 6.6 g/dL (6.4-8.2)
== END 2022-05-20 17:13 | disposition home or self-care (01) ==
LOC: LBN 17:12
PROVIDERS: PCP Family Medicine; Visit Provider Student in an Organized Health Care Education/Training Program
DX: T84.53XA Infection and inflammatory reaction due to internal right knee prosthesis, initial encounter (principal); M00.072 Staphylococcal arthritis, left ankle and foot; Z96.651 Presence of right artificial knee joint
CPT/HCPCS: 80053; 82550; 85025; 86140

== ENCOUNTER 2022-05-27 16:34 | Outpatient (REF) | payer MEDICARE, MEDICAID, SELFPAY ==
[2022-05-27 17:10] LABS: Abs Immature Grans 0.03 10^3/uL (0.0-0.06); Absolute Basophil Count 0.06 10^3/uL (0.0-0.2); Absolute Eosinophil Count 0.26 10^3/uL (0.0-0.7); Absolute Lymphocyte Count 1.41 10^3/uL (1.2-3.4); Absolute Neutrophil Count 5.58 10^3/uL (1.2-6.7); Basophils % 0.8; Eosinophils % 3.3; HCT 28.5 % (40.0-50.0); HGB 8.6 g/dL (13.5-17.5); Immature Grans % 0.4; Lymphocytes % 17.8; MCH 25.2 pg (27.0-33.0); MCHC 30.2 % (32.0-36.0); MCV 84 fL (80-95); MPV 8.7 fL (8.0-11.0); Monocytes % 7.6; Neutrophils % 70.1; Platelet Count 269 10^3/uL (130-400); RBC 3.41 10^6/uL (4.36-5.78); RDW 17.3 % (11.8-14.1); RDW-SD 53.3 fL; WBC 7.94 10^3/uL (4.4-10.8)
[2022-05-27 17:25] LABS: ALT 23 U/L (16-63); AST 16 U/L (15-37); Albumin 2.6 g/dL (3.4-5.0); Alkaline Phosphatase 122 U/L (46-116); Anion Gap 5.2 mmol/L (3-11); BUN 15 mg/dL (7-18); Bilirubin, Total 0.5 mg/dL (0.2-1.0); C-Reactive Protein 2.64 mg/dL (0.0-0.3); CO2 28.8 mmol/L (21.0-32.0); CREATININE 0.9 mg/dL (0.70-1.30); Calcium 8.6 mg/dL (8.5-10.1); Chloride 103 mmol/L (98-107); Creatine Kinase 51 U/L (39-308); Estimated GFR 95.97 (mL/min/1.73m2); Glucose 92 mg/dL (74-106); Potassium 4.5 mmol/L (3.5-5.1); Sodium 137 mmol/L (136-145); Total Protein 6.6 g/dL (6.4-8.2)
== END 2022-05-27 16:35 | disposition home or self-care (01) ==
LOC: LBN 16:34
PROVIDERS: PCP Family Medicine; Visit Provider Student in an Organized Health Care Education/Training Program
DX: M86.172 Other acute osteomyelitis, left ankle and foot; T84.53XD Infection and inflammatory reaction due to internal right knee prosthesis, subsequent encounter; Z96.651 Presence of right artificial knee joint; A49.02 Methicillin resistant Staphylococcus aureus infection, unspecified site; A49.8 Other bacterial infections of unspecified site
CPT/HCPCS: 80053; 82550; 85025; 86140

== ENCOUNTER 2022-06-03 16:12 | Outpatient (REF) | payer MEDICARE, MEDICAID, SELFPAY ==
[2022-06-03 16:48] LABS: Abs Immature Grans 0.03 10^3/uL (0.0-0.06); Absolute Basophil Count 0.05 10^3/uL (0.0-0.2); Absolute Eosinophil Count 0.22 10^3/uL (0.0-0.7); Absolute Lymphocyte Count 1.25 10^3/uL (1.2-3.4); Absolute Neutrophil Count 5.34 10^3/uL (1.2-6.7); Basophils % 0.7; Eosinophils % 2.9; HCT 30.6 % (40.0-50.0); HGB 9.2 g/dL (13.5-17.5); Immature Grans % 0.4; Lymphocytes % 16.5; MCH 24.8 pg (27.0-33.0); MCHC 30.1 % (32.0-36.0); MCV 83 fL (80-95); MPV 8.7 fL (8.0-11.0); Monocytes % 9.2; Neutrophils % 70.3; Platelet Count 239 10^3/uL (130-400); RBC 3.71 10^6/uL (4.36-5.78); RDW 17.3 % (11.8-14.1); RDW-SD 52.1 fL; WBC 7.59 10^3/uL (4.4-10.8)
[2022-06-03 17:17] LABS: ALT 25 U/L (16-63); AST 22 U/L (15-37); Albumin 2.8 g/dL (3.4-5.0); Alkaline Phosphatase 130 U/L (46-116); Anion Gap 3.8 mmol/L (3-11); BUN 19 mg/dL (7-18); Bilirubin, Total 0.5 mg/dL (0.2-1.0); C-Reactive Protein 2.63 mg/dL (0.0-0.3); CO2 30.2 mmol/L (21.0-32.0); CREATININE 1.1 mg/dL (0.70-1.30); Chloride 101 mmol/L (98-107); Creatine Kinase 70 U/L (39-308); Estimated GFR 75.43 (mL/min/1.73m2); Glucose 93 mg/dL (74-106); Potassium 4.9 mmol/L (3.5-5.1); Sodium 135 mmol/L (136-145); Total Protein 7.1 g/dL (6.4-8.2)
== END 2022-06-03 16:13 | disposition home or self-care (01) ==
LOC: LBN 16:12
PROVIDERS: PCP Family Medicine; Visit Provider Student in an Organized Health Care Education/Training Program
DX: A49.02 Methicillin resistant Staphylococcus aureus infection, unspecified site (principal); M86.9 Osteomyelitis, unspecified; T84.53XD Infection and inflammatory reaction due to internal right knee prosthesis, subsequent encounter; A49.8 Other bacterial infections of unspecified site
CPT/HCPCS: 80053; 82550; 85025; 86140

== ENCOUNTER 2022-06-10 13:11 | Outpatient (REF) | payer MEDICARE, MEDICAID, SELFPAY ==
[2022-06-10 14:03] LABS: Abs Immature Grans 0.02 10^3/uL (0.0-0.06); Absolute Basophil Count 0.05 10^3/uL (0.0-0.2); Absolute Eosinophil Count 0.15 10^3/uL (0.0-0.7); Absolute Lymphocyte Count 1.11 10^3/uL (1.2-3.4); Absolute Monocyte Count 0.65 10^3/uL (0.1-0.8); Absolute Neutrophil Count 4.51 10^3/uL (1.2-6.7); Basophils % 0.8; Eosinophils % 2.3; HCT 28.8 % (40.0-50.0); HGB 8.7 g/dL (13.5-17.5); Immature Grans % 0.3; Lymphocytes % 17.1; MCH 24.6 pg (27.0-33.0); MCHC 30.2 % (32.0-36.0); MCV 81 fL (80-95); MPV 8.7 fL (8.0-11.0); Neutrophils % 69.5; Platelet Count 244 10^3/uL (130-400); RBC 3.54 10^6/uL (4.36-5.78); RDW 17.3 % (11.8-14.1); RDW-SD 51.3 fL; WBC 6.49 10^3/uL (4.4-10.8)
[2022-06-10 14:13] LABS: ALT 27 U/L (16-63); AST 33 U/L (15-37); Albumin 2.9 g/dL (3.4-5.0); Alkaline Phosphatase 147 U/L (46-116); Anion Gap 7.8 mmol/L (3-11); BUN 31 mg/dL (7-18); Bilirubin, Total 0.4 mg/dL (0.2-1.0); C-Reactive Protein 3.23 mg/dL (0.0-0.3); CO2 26.2 mmol/L (21.0-32.0); CREATININE 1.2 mg/dL (0.70-1.30); Calcium 8.4 mg/dL (8.5-10.1); Chloride 106 mmol/L (98-107); Creatine Kinase 272 U/L (39-308); Estimated GFR 67.95 (mL/min/1.73m2); Glucose 119 mg/dL (74-106); Potassium 4.2 mmol/L (3.5-5.1); Sodium 140 mmol/L (136-145); Total Protein 7.1 g/dL (6.4-8.2)
== END 2022-06-10 13:12 | disposition home or self-care (01) ==
LOC: LBN 13:11
PROVIDERS: PCP Family Medicine; Visit Provider Student in an Organized Health Care Education/Training Program
DX: M86.172 Other acute osteomyelitis, left ankle and foot (principal); T84.53XD Infection and inflammatory reaction due to internal right knee prosthesis, subsequent encounter; A49.8 Other bacterial infections of unspecified site; A49.02 Methicillin resistant Staphylococcus aureus infection, unspecified site
CPT/HCPCS: 80053; 82550; 85025; 86140

== ENCOUNTER 2022-06-17 15:24 | Outpatient (REF) | payer MEDICARE, MEDICAID, SELFPAY ==
[2022-06-17 14:43] LABS: Abs Immature Grans 0.02 10^3/uL (0.0-0.06); Absolute Basophil Count 0.04 10^3/uL (0.0-0.2); Absolute Eosinophil Count 0.29 10^3/uL (0.0-0.7); Absolute Lymphocyte Count 1.23 10^3/uL (1.2-3.4); Absolute Monocyte Count 0.53 10^3/uL (0.1-0.8); Absolute Neutrophil Count 4.82 10^3/uL (1.2-6.7); Basophils % 0.6; Eosinophils % 4.2; HCT 31.2 % (40.0-50.0); HGB 9.3 g/dL (13.5-17.5); Immature Grans % 0.3; Lymphocytes % 17.7; MCH 23.7 pg (27.0-33.0); MCHC 29.8 % (32.0-36.0); MCV 80 fL (80-95); MPV 8.4 fL (8.0-11.0); Monocytes % 7.6; Neutrophils % 69.6; Platelet Count 247 10^3/uL (130-400); RBC 3.92 10^6/uL (4.36-5.78); RDW 17.6 % (11.8-14.1); WBC 6.93 10^3/uL (4.4-10.8)
[2022-06-17 15:19] LABS: ALT 23 U/L (16-63); AST 21 U/L (15-37); Albumin 2.8 g/dL (3.4-5.0); Alkaline Phosphatase 111 U/L (46-116); Anion Gap 3.8 mmol/L (3-11); BUN 14 mg/dL (7-18); Bilirubin, Total 0.4 mg/dL (0.2-1.0); C-Reactive Protein 0.87 mg/dL (0.0-0.3); CO2 31.2 mmol/L (21.0-32.0); CREATININE 0.9 mg/dL (0.70-1.30); Calcium 8.7 mg/dL (8.5-10.1); Chloride 101 mmol/L (98-107); Creatine Kinase 68 U/L (39-308); Estimated GFR 95.97 (mL/min/1.73m2); Glucose 89 mg/dL (74-106); Potassium 4.7 mmol/L (3.5-5.1); Sodium 136 mmol/L (136-145); Total Protein 7.2 g/dL (6.4-8.2)
== END 2022-06-17 15:25 | disposition home or self-care (01) ==
LOC: LBN 15:24
PROVIDERS: PCP Family Medicine; Visit Provider Student in an Organized Health Care Education/Training Program
DX: M86.172 Other acute osteomyelitis, left ankle and foot (principal); A49.8 Other bacterial infections of unspecified site; A49.02 Methicillin resistant Staphylococcus aureus infection, unspecified site; T84.53XD Infection and inflammatory reaction due to internal right knee prosthesis, subsequent encounter; Z96.651 Presence of right artificial knee joint
CPT/HCPCS: 80053; 82550; 85025; 86140

== ENCOUNTER 2022-06-24 18:18 | Outpatient (REF) | payer MEDICARE, MEDICAID, SELFPAY ==
[2022-06-24 12:21] LABS: Abs Immature Grans 0.02 10^3/uL (0.0-0.06); Absolute Basophil Count 0.05 10^3/uL (0.0-0.2); Absolute Eosinophil Count 0.42 10^3/uL (0.0-0.7); Absolute Lymphocyte Count 1.14 10^3/uL (1.2-3.4); Absolute Monocyte Count 0.61 10^3/uL (0.1-0.8); Absolute Neutrophil Count 5.59 10^3/uL (1.2-6.7); Basophils % 0.6; Eosinophils % 5.4; HGB 9.4 g/dL (13.5-17.5); Immature Grans % 0.3; Lymphocytes % 14.6; MCH 23.9 pg (27.0-33.0); MCHC 30.3 % (32.0-36.0); MCV 79 fL (80-95); MPV 8.8 fL (8.0-11.0); Monocytes % 7.8; Neutrophils % 71.3; Platelet Count 260 10^3/uL (130-400); RBC 3.94 10^6/uL (4.36-5.78); RDW 17.6 % (11.8-14.1); RDW-SD 50.4 fL; WBC 7.83 10^3/uL (4.4-10.8)
[2022-06-24 12:23] LABS: ALT 22 U/L (16-63); AST 21 U/L (15-37); Albumin 2.8 g/dL (3.4-5.0); Alkaline Phosphatase 134 U/L (46-116); Anion Gap 3.3 mmol/L (3-11); BUN 17 mg/dL (7-18); Bilirubin, Total 0.5 mg/dL (0.2-1.0); C-Reactive Protein 1.55 mg/dL (0.0-0.3); CO2 29.7 mmol/L (21.0-32.0); CREATININE 1.1 mg/dL (0.70-1.30); Calcium 8.7 mg/dL (8.5-10.1); Chloride 105 mmol/L (98-107); Creatine Kinase 58 U/L (39-308); Estimated GFR 75.43 (mL/min/1.73m2); Glucose 95 mg/dL (74-106); Potassium 5.4 mmol/L (3.5-5.1); Sodium 138 mmol/L (136-145); Total Protein 7.2 g/dL (6.4-8.2)
== END 2022-06-24 18:19 | disposition home or self-care (01) ==
LOC: LBN 18:18
PROVIDERS: PCP Family Medicine; Visit Provider Internal Medicine Infectious Disease
DX: M86.172 Other acute osteomyelitis, left ankle and foot (principal); A49.02 Methicillin resistant Staphylococcus aureus infection, unspecified site; A49.8 Other bacterial infections of unspecified site; T84.53XD Infection and inflammatory reaction due to internal right knee prosthesis, subsequent encounter; Z96.651 Presence of right artificial knee joint
CPT/HCPCS: 80053; 82550; 85025; 86140

== ENCOUNTER 2022-07-03 13:20 | Outpatient (REF) | payer MEDICARE, MEDICAID, SELFPAY ==
[2022-07-03 14:05] LABS: Abs Immature Grans 0.02 10^3/uL (0.0-0.06); Absolute Basophil Count 0.06 10^3/uL (0.0-0.2); Absolute Eosinophil Count 0.46 10^3/uL (0.0-0.7); Absolute Lymphocyte Count 1.22 10^3/uL (1.2-3.4); Absolute Monocyte Count 0.89 10^3/uL (0.1-0.8); Absolute Neutrophil Count 5.66 10^3/uL (1.2-6.7); Basophils % 0.7; Eosinophils % 5.5; HGB 9.3 g/dL (13.5-17.5); Immature Grans % 0.2; Lymphocytes % 14.7; MCH 23.3 pg (27.0-33.0); MCV 78 fL (80-95); MPV 8.7 fL (8.0-11.0); Monocytes % 10.7; Neutrophils % 68.2; Platelet Count 244 10^3/uL (130-400); RDW 17.7 % (11.8-14.1); RDW-SD 49.9 fL; WBC 8.31 10^3/uL (4.4-10.8)
[2022-07-03 14:45] LABS: ALT 20 U/L (16-63); AST 17 U/L (15-37); Albumin 2.8 g/dL (3.4-5.0); Alkaline Phosphatase 124 U/L (46-116); Anion Gap 9.3 mmol/L (3-11); BUN 18 mg/dL (7-18); Bilirubin, Total 0.3 mg/dL (0.2-1.0); CO2 27.7 mmol/L (21.0-32.0); Calcium 8.6 mg/dL (8.5-10.1); Chloride 100 mmol/L (98-107); Estimated GFR 84.57 (mL/min/1.73m2); Glucose 97 mg/dL (74-106); Potassium 5.2 mmol/L (3.5-5.1); Sodium 137 mmol/L (136-145); Total Protein 7.1 g/dL (6.4-8.2)
[2022-07-04 12:38] LABS: C-Reactive Protein 5.47 mg/dL (0.0-0.3)
== END 2022-07-03 13:21 | disposition home or self-care (01) ==
LOC: LBN 13:20
PROVIDERS: PCP Family Medicine; Visit Provider Student in an Organized Health Care Education/Training Program
DX: M86.172 Other acute osteomyelitis, left ankle and foot (principal); A49.02 Methicillin resistant Staphylococcus aureus infection, unspecified site; A49.8 Other bacterial infections of unspecified site
CPT/HCPCS: 80053; 85025; 86140

== ENCOUNTER 2022-07-29 15:29 | Outpatient (REF) | payer MEDICARE, MEDICAID, SELFPAY ==
[2022-07-29 12:28] LABS: Abs Immature Grans 0.03 10^3/uL (0.0-0.06); Absolute Basophil Count 0.06 10^3/uL (0.0-0.2); Absolute Lymphocyte Count 1.12 10^3/uL (1.2-3.4); Absolute Monocyte Count 0.83 10^3/uL (0.1-0.8); Basophils % 0.6; Eosinophils % 4.3; HCT 24.5 % (40.0-50.0); HGB 7.4 g/dL (13.5-17.5); Immature Grans % 0.3; Lymphocytes % 12.1; MCH 22.8 pg (27.0-33.0); MCHC 30.2 % (32.0-36.0); MCV 76 fL (80-95); MPV 8.5 fL (8.0-11.0); Neutrophils % 73.7; Platelet Count 391 10^3/uL (130-400); RBC 3.24 10^6/uL (4.36-5.78); RDW 19.5 % (11.8-14.1); RDW-SD 52.1 fL; WBC 9.24 10^3/uL (4.4-10.8)
[2022-07-29 12:40] LABS: ALT 18 U/L (16-63); AST 19 U/L (15-37); Albumin 2.8 g/dL (3.4-5.0); Alkaline Phosphatase 136 U/L (46-116); Anion Gap 6.9 mmol/L (3-11); BUN 28 mg/dL (7-18); Bilirubin, Total 0.3 mg/dL (0.2-1.0); C-Reactive Protein 4.44 mg/dL (0.0-0.3); CO2 25.1 mmol/L (21.0-32.0); CREATININE 1.3 mg/dL (0.70-1.30); Calcium 8.6 mg/dL (8.5-10.1); Chloride 96 mmol/L (98-107); Creatine Kinase 104 U/L (39-308); Estimated GFR 61.73 (mL/min/1.73m2); Glucose 137 mg/dL (74-106); Potassium 4.3 mmol/L (3.5-5.1); Sodium 128 mmol/L (136-145); Total Protein 7.2 g/dL (6.4-8.2)
== END 2022-07-29 15:30 | disposition home or self-care (01) ==
LOC: LBN 15:29
PROVIDERS: PCP Family Medicine; Visit Provider Orthopaedic Surgery Adult Reconstructive Orthopaedic Surgery
DX: T84.53XD Infection and inflammatory reaction due to internal right knee prosthesis, subsequent encounter; Z96.651 Presence of right artificial knee joint; A49.02 Methicillin resistant Staphylococcus aureus infection, unspecified site; M86.172 Other acute osteomyelitis, left ankle and foot; M00.872 Arthritis due to other bacteria, left ankle and foot; Z79.2 Long term (current) use of antibiotics; M25.561 Pain in right knee
CPT/HCPCS: 80053; 82550; 85025; 86140

== ENCOUNTER 2022-08-06 11:26 | Outpatient (REF) | payer MEDICARE, MEDICAID, SELFPAY ==
[2022-08-06 12:53] LABS: ALT 16 U/L (16-63); AST 18 U/L (15-37); Albumin 2.5 g/dL (3.4-5.0); Alkaline Phosphatase 173 U/L (46-116); Anion Gap 4.6 mmol/L (3-11); BUN 22 mg/dL (7-18); Bilirubin, Total 0.3 mg/dL (0.2-1.0); C-Reactive Protein 4.95 mg/dL (0.0-0.3); CO2 27.4 mmol/L (21.0-32.0); CREATININE 1.3 mg/dL (0.70-1.30); Calcium 8.3 mg/dL (8.5-10.1); Chloride 98 mmol/L (98-107); Creatine Kinase 38 U/L (39-308); Estimated GFR 61.73 (mL/min/1.73m2); Glucose 190 mg/dL (74-106); Potassium 4.6 mmol/L (3.5-5.1); Sodium 130 mmol/L (136-145); Total Protein 7.3 g/dL (6.4-8.2)
[2022-08-06 13:03] LABS: Abs Immature Grans 0.02 10^3/uL (0.0-0.06); Absolute Basophil Count 0.04 10^3/uL (0.0-0.2); Absolute Lymphocyte Count 0.98 10^3/uL (1.2-3.4); Absolute Monocyte Count 0.52 10^3/uL (0.1-0.8); Absolute Neutrophil Count 5.48 10^3/uL (1.2-6.7); Basophils % 0.5; Eosinophils % 5.4; HCT 24.5 % (40.0-50.0); HGB 7.3 g/dL (13.5-17.5); Immature Grans % 0.3; Lymphocytes % 13.2; MCH 22.2 pg (27.0-33.0); MCHC 29.8 % (32.0-36.0); MCV 75 fL (80-95); MPV 8.2 fL (8.0-11.0); Neutrophils % 73.6; Platelet Count 306 10^3/uL (130-400); RBC 3.29 10^6/uL (4.36-5.78); RDW 19.4 % (11.8-14.1); RDW-SD 52.1 fL; WBC 7.44 10^3/uL (4.4-10.8)
== END 2022-08-06 11:27 | disposition home or self-care (01) ==
LOC: LBN 11:26
PROVIDERS: PCP Family Medicine; Visit Provider Student in an Organized Health Care Education/Training Program
DX: B95.62 Methicillin resistant Staphylococcus aureus infection as the cause of diseases classified elsewhere (principal); T84.53XD Infection and inflammatory reaction due to internal right knee prosthesis, subsequent encounter; Z96.651 Presence of right artificial knee joint; M86.172 Other acute osteomyelitis, left ankle and foot
CPT/HCPCS: 80053; 82550; 85025; 86140

== ENCOUNTER 2022-08-12 13:24 | Outpatient (REF) | payer MEDICARE, MEDICAID, SELFPAY ==
[2022-08-12 13:52] LABS: Abs Immature Grans 0.03 10^3/uL (0.0-0.06); Absolute Basophil Count 0.04 10^3/uL (0.0-0.2); Absolute Eosinophil Count 0.13 10^3/uL (0.0-0.7); Absolute Lymphocyte Count 0.97 10^3/uL (1.2-3.4); Absolute Monocyte Count 0.71 10^3/uL (0.1-0.8); Basophils % 0.5; Eosinophils % 1.5; HCT 23.5 % (40.0-50.0); Immature Grans % 0.4; Lymphocytes % 11.4; MCH 21.9 pg (27.0-33.0); MCHC 29.8 % (32.0-36.0); MCV 74 fL (80-95); MPV 8.6 fL (8.0-11.0); Monocytes % 8.4; Neutrophils % 77.8; Platelet Count 275 10^3/uL (130-400); RBC 3.19 10^6/uL (4.36-5.78); RDW 19.5 % (11.8-14.1); WBC 8.48 10^3/uL (4.4-10.8)
[2022-08-12 14:00] LABS: ALT 23 U/L (16-63); AST 26 U/L (15-37); Albumin 2.7 g/dL (3.4-5.0); Alkaline Phosphatase 225 U/L (46-116); Anion Gap 6.9 mmol/L (3-11); BUN 53 mg/dL (7-18); Bilirubin, Total 0.3 mg/dL (0.2-1.0); CO2 24.1 mmol/L (21.0-32.0); CREATININE 1.7 mg/dL (0.70-1.30); Calcium 8.5 mg/dL (8.5-10.1); Chloride 100 mmol/L (98-107); Estimated GFR 44.74 (mL/min/1.73m2); Glucose 113 mg/dL (74-106); Sodium 131 mmol/L (136-145)
[2022-08-12 14:12] LABS: Potassium 6.4 mmol/L (3.5-5.1)
[2022-08-12 14:22] LABS: Diff Comment RBC Morph Reviewed; Hypochromasia 2+; Microcytosis 2+
[2022-08-12 14:24] LABS: C-Reactive Protein 8.87 mg/dL (0.0-0.3); Creatine Kinase 135 U/L (39-308)
== END 2022-08-12 13:25 | disposition home or self-care (01) ==
LOC: LBN 13:24
PROVIDERS: PCP Family Medicine; Visit Provider Student in an Organized Health Care Education/Training Program
DX: T84.53XD Infection and inflammatory reaction due to internal right knee prosthesis, subsequent encounter (principal)
CPT/HCPCS: 80053; 82550; 85025; 86140

== ENCOUNTER 2022-08-12 15:42 | Emergency (ER) | payer MEDICARE, MEDICAID, SELFPAY ==
[2022-08-12] VITALS (74 sets, daily range): BP systolic 125–158; BP diastolic 57–96; PULSE 41–62; RESP 9–23; TEMP 36.7–36.9; O2SAT 84–100
--- NOTE | 2022-08-12 15:15 | RT.EKG_ITS ---
APPROVED REPORT Exam: Resting ECG Reason for Exam: high potassium Patient Location: E HR:47 bpm ECG Measurements Heart Rate 47 AXIS WA [id number] P [id number] QRSd 160 QRS 82 QT 463 T 49 QTc 411 Conclusion Atrial fibrillation...? atrial activity Nonspecific intraventricular conduction delay...QRSd >115mS, not LBBB/RBBB Borderline ST depression, anterior leads...ST <-0.07mV, V2-V4 wide regular bradycardia, RBBB old, no discernable p waves, consider low voltage P waves v junctional
--- NOTE | 2022-08-12 15:48 | ED.GENADUL_ITS ---
Discharge Plan Disposition Patient Disposition: Home Condition: Improving Discharge Details Chief Complaint: GenMedical Clinical Impression: GI bleed, Acute hyperkalemia, Anemia, DESI (acute kidney injury), Acute dehydration Primary Care Provider: Ivonne Diop ED Provider: Ty Saeed Home Meds and New Rx's Prescriptions: No Action polyethylene glycol 3350(bulk) [Base B,Polyethylene [id number]] Granules 17 grnl miscellaneous BID Rx Instructions: take 1 scoop daily as needed. cyanocobalamin (vitamin B-12) 1,000 mcg capsule 1,000 mcg PO DAILY multivitamin with minerals Capsule 1 cap PO DAILY cholecalciferol (vitamin D3) 125 mcg (5,000 unit) capsule 125 mcg PO DAILY naloxone [Narcan] 4 MG spray,non-aerosol 4 mg NS ONCE MDD 1 PRNQty: 1 lisinopril 20 MG tablet 40 mg PO DAILY mirtazapine 45 MG tablet 30 mg PO HS acetaminophen 500 MG tablet 1,000 mg PO TID tamsulosin [Flomax] 0.4 MG capsule 0.8 mg PO DAILY triamcinolone acetonide 0.5 % Cream 1 applic TOPICAL BID methadone 10 mg Tablet 110 mg PO DAILY AM Rx Instructions: pt states he takes 110 mg in the am and 50mg in the evening hydroxyzine HCl 25 mg Tablet 25 mg PO BID fluticasone propionate 50 mcg/actuation [place],Suspension 2 spray INTRANASAL DAILY lamotrigine [Lamictal] 100 mg Tablet 300 mg PO DAILY venlafaxine 75 mg Tablet Extended Release 24hr 150 mg PO QDAY cannabidiol 100 mg/mL Solution 2 - 3 mg PO DAILY PRN diclofenac potassium 50 mg tablet 50 mg PO TID Patient Comments: TAKE ONE TABLET BY MOUTH THREE TIMES A DAY albuterol sulfate [Ventolin HFA] 90 mcg/actuation HFA aerosol inhaler 2 puff INHALATION Q6H PRN Patient Comments: INHALE TWO PUFFS BY MOUTH EVERY 6 HOURS NEEDED cephalexin 500 mg capsule 500 mg PO TID Patient Comments: TAKE ONE CAPSULE BY MOUTH THREE TIMES A DAY sennosides-docusate sodium [Senna with Docusate Sodium] 1 EACH tablet 8.6 tab PO QHS PRN gabapentin 300 MG capsule 300 mg PO QID sodium chloride 1 gram Tablet 1,000 mg PO QID amlodipine 5 mg Tablet 5 mg PO DAILY Spiriva with HandiHaler 18 mcg Capsule, W/Inhalation Device 1 cap INHALATION DAILY levomefolate calcium [L-Methylfolate] 15 mg Tablet 15 mg PO DAILY clonidine HCl 0.1 mg tablet 0.2 mg PO BID Patient Comments: TAKE ONE TABLET BY MOUTH FOUR TIMES A DAY FOR ANXIETY olanzapine 10 mg tablet 20 mg PO QHS Patient Comments: TAKE ONE TABLET BY MOUTH TWICE A DAY TAKE WITH 20MG TABLET Anoro Ellipta 62.5-25 mcg/actuation blister with device 1 inh INHALATION DAILY Patient Comments: INHALE ONE PUFF BY MOUTH EVERY DAY methadone 10 mg tablet 50 mg PO QPM Rx Instructions: 110 mg am, 50 mg pm ibuprofen 800 mg Tablet 800 mg PO TID clonidine HCl 0.2 mg tablet 0.2 mg PO QHS clonazepam 2 mg tablet 0.5 mg PO BID methylphenidate HCl 10 mg tablet 10 mg PO BID Patient Comments: TAKE 1 TABLET BY MOUTH TWICE A DAY EFFECTIVE 01/09/22 methylphenidate HCl 20 mg tablet 20 mg PO TID Patient Comments: TAKE 1 TABLET BY MOUTH THREE TIMES A DAY EFFECTIVE 01/09/22 albuterol sulfate [Ventolin HFA] 90 mcg/actuation HFA aerosol inhaler 2 inh INHALATION PRN PRN omeprazole 20 mg Tablet,Delayed Release (Dr/Ec) 20 mg PO DAILY fluconazole 200 mg tablet 400 mg PO DAILY daptomycin 500 mg recon soln 500 mg IV DAILY Discharge Instructions Instructions: Dehydration (ED), Anemia (ED) Additional Instructions: Please follow-up with [facility] GI specialist. Please return to the emergency department for any worsening symptoms. Medical Decision Making 62-year-old male history of substance abuse, methadone use, infection of right lower extremity currently undergoing antibiotic therapy, presents reported by home health aide for evaluation of hyperkalemia and anemia. Patient was comfortably no acute distress noted to be bradycardic no definitive P waves noted consider junctional versus less likely A-fib with bradycardia, normotensive normal mentation, slightly dry appearing does endorse thirst. Consider prerenal DESI with hyperkalemia. No signs of active bleeding. No chest pain or shortness of breath. Will obtain basic labs, fluid, EKG, H&H close reassessment of symptoms 16: 32 evidence of worsening anemia slowly downtrending over the past several months for baseline around 14, rectal exam with guaiac positive stool, nonmelanotic; has started pantoprazole, will consent for blood transfusion given hemoglobin below 7. Likely component of slow GI bleed must also consider anemia of chronic disease. Patient currently undergoing active antibiotics for joint replacement infection in right knee, performed at [facility], has PICC line in place received IV antibiotics earlier this morning. DESI likely resulting in hyperkalemia will administer calcium, continue with fluids, consider prerenal in nature. Will recheck electrolytes after fluids and transfusion. 21: 57 patient feeling much better wants to go home. Patient's energy interacti on clinical appearance greatly improved. Will recheck H&H as well as potassium and creatinine. Likely component of prerenal DESI given dehydration and anemia. If patient still wants to go home will provide urgent referral for to GI for endoscopy and/or colonoscopy. 22: 37 patient resting comfortably continues to have improvement of energy and interaction. Now sinus rhythm 56 to 60 bpm. Potassium downtrending to more normal range, DESI improving, as well as improvement of hemoglobin after transfusion. Patient would like to go home, will be given urgent referral for GI evaluation for endoscopy/colonoscopy for suspected upper GI bleed. Home care instructions and strict return precautions given. Patient is already on omeprazole, to continue HPI General Date/Time Provider Initiated Documentation: 08/12/22 15:42 . HPI Narrative: 62-year-old male currently undergoing parenteral antibiotic treatment for right lower extremity infections presents referred in by home health for evaluation of hypokalemia and anemia. Patient has no current complaints/chest pain shortness of breath nausea vomiting or fatigue. Does feel thirsty. Patient lives at home with his no current issues at home. Related Data Home Medications Medication Instructions Recorded Confirmed lisinopril 20 mg tablet 40 mg PO DAILY 05/20/12 08/12/22 mirtazapine 45 mg tablet 30 mg PO HS 05/20/12 08/12/22 acetaminophen 500 mg tablet 1,000 mg PO TID 01/05/16 08/12/22 tamsulosin 0.4 mg capsule (Flomax) 0.8 mg PO DAILY 01/05/16 08/12/22 naloxone 4 mg/actuation nasal 4 mg NS ONCE PRN #1 spray 07/23/16 08/12/22 spray (Narcan) gabapentin 300 mg capsule 300 mg PO QID 04/02/17 08/12/22 sennosides 8.6 mg-docusate sodium 8.6 tab PO QHS PRN 04/02/17 08/12/22 50 mg tablet (Senna with Docusate Sodium) cannabidiol 100 mg/mL oral solution 2 - 3 mg PO DAILY PRN 12/28/18 08/12/22 fluticasone propionate 50 2 spray intranasal DAILY 12/28/18 08/12/22 mcg/actuation nasal spray,suspension hydroxyzine HCl 25 mg tablet 25 mg PO BID 12/28/18 08/12/22 lamotrigine 100 mg tablet 300 mg PO DAILY 12/28/18 08/12/22 (Lamictal) methadone 10 mg tablet 110 mg PO DAILY AM 12/28/18 08/12/22 triamcinolone acetonide 0.5 % 1 applic topical BID 12/28/18 08/12/22 topical cream venlafaxine 75 mg tablet,extended 150 mg PO QDAY 12/28/18 08/12/22 release 24 hr amlodipine 5 mg tablet 5 mg PO DAILY 04/02/19 08/12/22 levomefolate calcium 15 mg tablet 15 mg PO DAILY 04/02/19 08/12/22 (L-Methylfolate) sodium chloride 1 gram tablet 1,000 mg PO QID 04/02/19 08/12/22 tiotropium bromide 18 mcg capsule 1 cap inhalation DAILY 04/02/19 08/12/22 with inhalation device (Spiriva with HandiHaler) polyethylene glycol 3350(bulk) 17 grnl miscellaneous BID 05/04/19 08/12/22 (Base B, Polyethylene Glycol 3350 granules) cholecalciferol (vitamin D3) 125 125 mcg PO DAILY 05/18/19 08/12/22 mcg (5,000 unit) capsule cyanocobalamin (vitamin B-12) 1,000 mcg PO DAILY 05/18/19 08/12/22 1,000 mcg capsule multivitamin with minerals 1 cap PO DAILY 05/18/19 08/12/22 clonidine HCl 0.1 mg tablet 0.2 mg PO BID 04/24/20 08/12/22 olanzapine 10 mg tablet 20 mg PO QHS 04/24/20 08/12/22 umeclidinium 62.5 mcg-vilanterol 1 inh inhalation DAILY 11/28/20 08/12/22 25 mcg/actuation powdr for inhalation (Anoro Ellipta) albuterol sulfate 90 mcg/actuation 2 puff inhalation Q6H PRN 05/17/21 08/12/22 aerosol inhaler (Ventolin HFA) cephalexin 500 mg capsule 500 mg PO TID 05/17/21 08/12/22 diclofenac potassium 50 mg tablet 50 mg PO TID 05/17/21 08/12/22 methadone 10 mg tablet 50 mg PO QPM 07/02/21 08/12/22 clonazepam 2 mg tablet 0.5 mg PO BID 03/03/22 08/12/22 clonidine HCl 0.2 mg tablet 0.2 mg PO QHS 03/03/22 08/12/22 ibuprofen 800 mg tablet 800 mg PO TID 03/03/22 08/12/22 methylphenidate HCl 10 mg tablet 10 mg PO BID 03/03/22 08/12/22 methylphenidate HCl 20 mg tablet 20 mg PO TID 03/03/22 08/12/22 albuterol sulfate 90 mcg/actuation 2 inh inhalation PRN PRN 08/12/22 08/12/22 aerosol inhaler (Ventolin HFA) daptomycin 500 mg intravenous 500 mg IV DAILY 08/12/22 08/12/22 solution fluconazole 200 mg tablet 400 mg PO DAILY 08/12/22 08/12/22 omeprazole 20 mg tablet,delayed 20 mg PO DAILY 08/12/22 08/12/22 release Allergies Allergy/AdvReac Type Severity Reaction Status Date / Time varenicline [From Chantix] AdvReac Intermediate Psychosis Unverified 08/12/22 15:25 ziprasidone mesylate AdvReac Intermediate Memory Unverified 08/12/22 15:25 [From Geodon] deficit duloxetine HCl AdvReac Unknown Unverified 08/12/22 15:25 [From Cymbalta] topiramate [From Topamax] AdvReac Unknown Unverified 08/12/22 15:25 hay fever AdvReac Mild rhinitis Uncoded 08/12/22 15:25 General Stated Complaint: GenMedical GARRETT: 2 Review of Systems Narrative: Review of Systems Constitutional: negative Eyes: negative ENT: negative Cardiovascular: negative Respiratory: negative Gastrointestinal: negative : negative Musculoskeletal: negative Skin: negative Neurologic: negative Psych: negative PFSH All Active Problems (Updated 08/12/22 @ 22:40 by Ty Saeed MD) GI bleed (Chronic) Acute hyperkalemia (Acute) Anemia (Chronic) DESI (acute kidney injury) (Acute) Acute dehydration (Acute) Impacted cerumen (Acute) Asymmetrical sensorineural hearing loss (Acute) Opioid overdose (Acute) Bradycardia (Acute) Falls (Acute) Weakness (Acute) Aspiration pneumonia (Acute) Epistaxis (Acute) Acute adrenal crisis (Acute) Acute hyperkalemia (Acute) Acute hyponatremia (Acute) Acute renal failure (Acute) Acute respiratory distress (Acute) Bradycardia (Acute) Sepsis (Acute) Burn injury (Acute) Chronic pain (Acute) No-show for appointment (Acute) COPD (chronic obstructive pulmonary disease) (Acute) Chronic low back pain (Acute) BPH with obstruction/lower urinary tract symptoms (Acute) Drug-induced constipation (Acute) Abdominal pain, lower (Acute) Change in stool habits (Acute) Medical History Actinic keratosis Allergic rhinitis Anemia Autoimmune disease Dehydration Dermatofibroma of left lower leg Diplopia Fatigue History of cigarette smoking History of septic arthritis (~02/19/17) s/p incision and drainage right wrist Dr. Mccann Hyperlipidemia Hypertension Hyponatremia Hypotension Knee pain, right Lactose intolerance Leukoaraiosis Leukocytosis, unspecified Lumbar discitis Marijuana use Marijuana use Obesity Obesity (BMI 35.0-39.9 without comorbidity) Orthostasis ANGIE (obstructive sleep apnea) Palliative care patient Peripheral edema Psychogenic polydipsia PTSD (post-traumatic stress disorder) Raynauds syndrome Restless legs Rotator cuff syndrome of right shoulder Sacroiliac joint dysfunction of right side Screening for prostate cancer Sepsis Severe muscle deconditioning Shortness of breath Shoulder pain, bilateral Spondylosis of lumbar region without myelopathy or radiculopathy Swallowing problem Syncope Urinary retention Surgical History bunionectomy Colonoscopy - [facility] 2010- nl. Unable to get into the cecum History of arthroplasty of right knee History of fusion of cervical spine (04/05/19) C5-C7 cervical discectomy and fusion, Dr. Mark Spence; [facility] [place] History of removal of joint prosthesis of right knee due to infection 12/08/2016, Dr. Oakes @ [facility] [place]; s/p spacer exchange R. knee 02/18/2017 Dr. Ramírez; History of revision of total replacement of right knee joint (06/11/17) s/p revision/replant R. TKA, on 06/11/[address] Ramírez Rotator Cuff Repair right S/P lumbar fusion Social History Smoking/Tobacco Use Status: Current every day Tobacco Type: cigarettes Smoking packs per day: 1 Smoking cigarettes per day: 20.0 Smoking risk assessment performed?: Yes Alcohol Intake: former Drug use: Daily Substance use type: marijuana Details: on methadone from [facility] Do you feel safe at home: Yes Do you feel safe in your relationship?: Yes Exam Narrative Exam Narrative: Physical Examination General: alert, awake, cooperative, resting comfortably, no acute distress HEENT: normocephalic, atraumatic; PERRL, EOM intact, conjunctiva normal; no nasal discharge; moist mucous membranes, oral and pharyngeal mucosa normal, tolerating secretions Neck: supple, trachea midline; full ROM Chest: normal to inspection Respiratory: normal respiratory effort, speaking in full sentences, clear to auscultation, no wheezing, rales or rhonchi Cardiac: Bradycardia, regular rhythm, S1S2 intact, no murmurs rubs or gallops GI: abdomen soft, non-tender, non-distended; no palpable mass or hepatosplenomegaly Neuro: AAOx3, normal speech, moving all extremities Psych: Appropriate mood and affect Course Vital Signs Vital signs: Vital Signs Temperature 36.7 C 08/12/22 15:23 Pulse 48 L 08/12/22 15:23 Respiratory Rate 15 08/12/22 15:23 Blood Pressure 135/76 08/12/22 15:23 Pulse Oximetry 96 08/12/22 15:23 Temperature 36.7 C 08/12/22 15:23 Temperature Source Oral 08/12/22 15:23 Pulse 48 L 08/12/22 15:23 Respiratory Rate 15 08/12/22 15:23 Respiratory Effort Normal 08/12/22 15:31 Blood Pressure 135/76 08/12/22 15:23 Pulse Oximetry 96 08/12/22 15:23 Pain Level 9 08/12/22 15:23
[2022-08-12 15:57] LABS: Abs Immature Grans 0.03 10^3/uL (0.0-0.06); Absolute Basophil Count 0.04 10^3/uL (0.0-0.2); Absolute Eosinophil Count 0.16 10^3/uL (0.0-0.7); Absolute Monocyte Count 0.75 10^3/uL (0.1-0.8); Absolute Neutrophil Count 6.03 10^3/uL (1.2-6.7); Basophils % 0.5; HCT 22.7 % (40.0-50.0); Immature Grans % 0.4; Lymphocytes % 13.6; MCV 74 fL (80-95); MPV 8.1 fL (8.0-11.0); Monocytes % 9.2; Neutrophils % 74.3; Platelet Count 242 10^3/uL (130-400); RBC 3.09 10^6/uL (4.36-5.78); RDW 19.5 % (11.8-14.1); RDW-SD 51.7 fL; WBC 8.11 10^3/uL (4.4-10.8)
[2022-08-12] MEDS: Normal Saline 1,000 ML 1000 ML IV (16:05)
[2022-08-12 16:06] LABS: HGB 6.8 g/dL (13.5-17.5)
[2022-08-12 16:09] LABS: INR 1.5 (0.9-1.1); PTT Activated 32.4 sec (21.5-31.9); Prothrombin Time 14.8 sec (9.3-11.0)
[2022-08-12 16:12] LABS: Diff Comment RBC Morph Reviewed; Hypochromasia 2+; Microcytosis 2+
[2022-08-12 16:20] LABS: ALT 21 U/L (16-63); AST 26 U/L (15-37); Albumin 2.7 g/dL (3.4-5.0); Alkaline Phosphatase 210 U/L (46-116); Anion Gap 9.3 mmol/L (3-11); BUN 53 mg/dL (7-18); Bilirubin, Total 0.4 mg/dL (0.2-1.0); CO2 23.7 mmol/L (21.0-32.0); CREATININE 1.7 mg/dL (0.70-1.30); Calcium 8.7 mg/dL (8.5-10.1); Chloride 101 mmol/L (98-107); Estimated GFR 44.74 (mL/min/1.73m2); Glucose 83 mg/dL (74-106); Potassium 5.8 mmol/L (3.5-5.1); Sodium 134 mmol/L (136-145); TSH (W/Ref FT4) 7.14 uIU/mL (0.36-3.74); Total Protein 8.4 g/dL (6.4-8.2)
[2022-08-12 16:37] LABS: FREE T4 0.57 ng/dL (0.76-1.46)
[2022-08-12] MEDS: CALCIUM GLUCONATE in NaCl 1 GM/50 ML BAG IVPB (16:42)
[2022-08-12] MEDS: Pantoprazole 40 MG VIAL IVP (16:42)
[2022-08-12 22:18] LABS: HCT 25.8 % (40.0-50.0); HGB 7.7 g/dL (13.5-17.5)
[2022-08-12 22:26] LABS: Anion Gap 6.9 mmol/L (3-11); BUN 47 mg/dL (7-18); CO2 25.1 mmol/L (21.0-32.0); CREATININE 1.5 mg/dL (0.70-1.30); Calcium 8.6 mg/dL (8.5-10.1); Chloride 103 mmol/L (98-107); Estimated GFR 51.99 (mL/min/1.73m2); Glucose 107 mg/dL (74-106); Potassium 5.5 mmol/L (3.5-5.1); Sodium 135 mmol/L (136-145)
--- NOTE | 2022-08-12 22:34 | NUR.NOTE ---
Referral placed for [place] [facility] [place] bleed and Anemia MATHEUS.
--- NOTE | 2022-08-13 12:18 | CMACTNOTE_ITS ---
Date of service: 08/13/22 Time of Service: 12:18 Care Management Activity Note Activity Note Text Activity Note Text: Darrell is seen in the ED for a GI bleed and anemia. At the request of ED provider, ALIN coordinates a referral to [facility] to assist Darrell in obtaining an appointment for further evaluation and treatment. He has Medicare and Medicaid for insurance.
== END 2022-08-12 22:47 | disposition home or self-care (01) ==
PROVIDERS: Emergency Provider Emergency Medicine; PCP Family Medicine
DX: K92.2 Gastrointestinal hemorrhage, unspecified (principal); E87.5 Hyperkalemia; D64.9 Anemia, unspecified; N17.9 Acute kidney failure, unspecified; E86.0 Dehydration; F11.20 Opioid dependence, uncomplicated
CPT/HCPCS: 36430; 80048; 80053; 86850; 86900; 86901; 86920; 93005; 96365; 96375; 99285; 83735; 84439; 84443; 85014; 85018; 85025; 85610; 85730; 93010; 99284; P9016

== ENCOUNTER 2022-08-19 17:10 | Outpatient (REF) | payer MEDICARE, MEDICAID, SELFPAY ==
[2022-08-19 18:14] LABS: Abs Immature Grans 0.04 10^3/uL (0.0-0.06); Absolute Basophil Count 0.06 10^3/uL (0.0-0.2); Absolute Eosinophil Count 0.25 10^3/uL (0.0-0.7); Absolute Lymphocyte Count 1.21 10^3/uL (1.2-3.4); Absolute Monocyte Count 0.59 10^3/uL (0.1-0.8); Absolute Neutrophil Count 7.25 10^3/uL (1.2-6.7); Basophils % 0.6; Eosinophils % 2.7; Immature Grans % 0.4; Lymphocytes % 12.9; MCH 22.3 pg (27.0-33.0); MCHC 29.6 % (32.0-36.0); MCV 75 fL (80-95); MPV 8.1 fL (8.0-11.0); Monocytes % 6.3; Neutrophils % 77.1; Platelet Count 317 10^3/uL (130-400); RBC 3.59 10^6/uL (4.36-5.78); RDW 21.1 % (11.8-14.1)
[2022-08-19 18:49] LABS: Anisocytosis 2+; Diff Comment RBC Morph Reviewed
[2022-08-19 19:19] LABS: ALT 24 U/L (16-63); AST 24 U/L (15-37); Albumin 2.5 g/dL (3.4-5.0); Alkaline Phosphatase 224 U/L (46-116); Anion Gap 5.2 mmol/L (3-11); BUN 23 mg/dL (7-18); Bilirubin, Total 0.4 mg/dL (0.2-1.0); C-Reactive Protein 3.61 mg/dL (0.0-0.3); CO2 30.8 mmol/L (21.0-32.0); CREATININE 1.3 mg/dL (0.70-1.30); Calcium 8.4 mg/dL (8.5-10.1); Chloride 98 mmol/L (98-107); Creatine Kinase 101 U/L (39-308); Estimated GFR 61.73 (mL/min/1.73m2); Glucose 74 mg/dL (74-106); Potassium 5.2 mmol/L (3.5-5.1); Sodium 134 mmol/L (136-145); Total Protein 7.8 g/dL (6.4-8.2)
== END 2022-08-19 17:11 | disposition home or self-care (01) ==
LOC: LBN 17:10
PROVIDERS: PCP Family Medicine; Visit Provider Student in an Organized Health Care Education/Training Program
DX: Z47.33 Aftercare following explantation of knee joint prosthesis (principal); B95.62 Methicillin resistant Staphylococcus aureus infection as the cause of diseases classified elsewhere
CPT/HCPCS: 80053; 82550; 85025; 86140

== ENCOUNTER 2022-10-23 13:06 | Outpatient (REF) | payer MEDICARE, MEDICAID, SELFPAY ==
[2022-10-23 17:13] LABS: Abs Immature Grans 0.01 10^3/uL (0.0-0.06); Absolute Basophil Count 0.03 10^3/uL (0.0-0.2); Absolute Eosinophil Count 0.63 10^3/uL (0.0-0.7); Absolute Lymphocyte Count 0.84 10^3/uL (1.2-3.4); Absolute Monocyte Count 0.58 10^3/uL (0.1-0.8); Absolute Neutrophil Count 4.24 10^3/uL (1.2-6.7); Basophils % 0.5; HCT 26.9 % (40.0-50.0); HGB 7.9 g/dL (13.5-17.5); Immature Grans % 0.2; Lymphocytes % 13.3; MCH 25.6 pg (27.0-33.0); MCHC 29.4 % (32.0-36.0); MCV 87 fL (80-95); MPV 8.5 fL (8.0-11.0); Monocytes % 9.2; Neutrophils % 66.8; Platelet Count 317 10^3/uL (130-400); RBC 3.08 10^6/uL (4.36-5.78); RDW 19.9 % (11.8-14.1); RDW-SD 61.8 fL; WBC 6.33 10^3/uL (4.4-10.8)
[2022-10-23 18:06] LABS: ALT 25 U/L (16-63); AST 24 U/L (15-37); Albumin 2.6 g/dL (3.4-5.0); Alkaline Phosphatase 207 U/L (46-116); Anion Gap 8.3 mmol/L (3-11); BUN 26 mg/dL (7-18); Bilirubin, Total 0.2 mg/dL (0.2-1.0); C-Reactive Protein 1.53 mg/dL (0.0-0.3); CO2 24.7 mmol/L (21.0-32.0); CREATININE 1.1 mg/dL (0.70-1.30); Calcium 9.1 mg/dL (8.5-10.1); Chloride 102 mmol/L (98-107); Estimated GFR 75.43 (mL/min/1.73m2); Glucose 128 mg/dL (74-106); Potassium 5.2 mmol/L (3.5-5.1); Sodium 135 mmol/L (136-145)
[2022-10-23 18:37] LABS: Diff Comment Agrees w/ Instrument
[2022-10-23 18:38] LABS: Anisocytosis 2+; Polychromasia Present
[2022-10-23 18:39] LABS: Poikilocytes 2+
== END 2022-10-23 13:07 | disposition home or self-care (01) ==
LOC: LBN 13:06
PROVIDERS: PCP Family Medicine; Visit Provider Internal Medicine Addiction Medicine
DX: I50.9 Heart failure, unspecified (principal); E87.1 Hypo-osmolality and hyponatremia; I95.9 Hypotension, unspecified; B95.62 Methicillin resistant Staphylococcus aureus infection as the cause of diseases classified elsewhere; R79.82 Elevated C-reactive protein (CRP); R79.89 Other specified abnormal findings of blood chemistry
CPT/HCPCS: 80053; 85025; 86140

== ENCOUNTER 2022-10-29 12:17 | Outpatient (REF) | payer MEDICARE, MEDICAID, SELFPAY ==
[2022-10-29 14:00] LABS: Abs Immature Grans 0.01 10^3/uL (0.0-0.06); Absolute Basophil Count 0.04 10^3/uL (0.0-0.2); Absolute Eosinophil Count 0.27 10^3/uL (0.0-0.7); Absolute Lymphocyte Count 0.87 10^3/uL (1.2-3.4); Absolute Monocyte Count 0.51 10^3/uL (0.1-0.8); Absolute Neutrophil Count 3.15 10^3/uL (1.2-6.7); Basophils % 0.8; Eosinophils % 5.6; HCT 25.4 % (40.0-50.0); HGB 7.6 g/dL (13.5-17.5); Immature Grans % 0.2; Lymphocytes % 17.9; MCH 25.4 pg (27.0-33.0); MCHC 29.9 % (32.0-36.0); MCV 85 fL (80-95); MPV 8.8 fL (8.0-11.0); Monocytes % 10.5; Platelet Count 222 10^3/uL (130-400); RBC 2.99 10^6/uL (4.36-5.78); RDW 18.6 % (11.8-14.1); RDW-SD 57.2 fL; WBC 4.85 10^3/uL (4.4-10.8)
[2022-10-29 14:10] LABS: ALT 16 U/L (16-63); AST 26 U/L (15-37); Albumin 2.8 g/dL (3.4-5.0); Alkaline Phosphatase 180 U/L (46-116); Anion Gap 5.8 mmol/L (3-11); BUN 25 mg/dL (7-18); Bilirubin, Total 0.2 mg/dL (0.2-1.0); C-Reactive Protein 0.34 mg/dL (0.0-0.3); CO2 30.2 mmol/L (21.0-32.0); CREATININE 0.9 mg/dL (0.70-1.30); Calcium 8.9 mg/dL (8.5-10.1); Chloride 98 mmol/L (98-107); Estimated GFR 95.97 (mL/min/1.73m2); Glucose 93 mg/dL (74-106); Potassium 5.1 mmol/L (3.5-5.1); Sodium 134 mmol/L (136-145); Total Protein 7.4 g/dL (6.4-8.2)
== END 2022-10-29 12:18 | disposition home or self-care (01) ==
LOC: LBN 12:17
PROVIDERS: PCP Family Medicine; Visit Provider Orthopaedic Surgery Adult Reconstructive Orthopaedic Surgery
DX: T81.31XA Disruption of external operation (surgical) wound, not elsewhere classified, initial encounter (principal); T87.43 Infection of amputation stump, right lower extremity; R79.89 Other specified abnormal findings of blood chemistry; R79.82 Elevated C-reactive protein (CRP)
CPT/HCPCS: 80053; 85025; 86140

== ENCOUNTER 2022-11-04 16:24 | Outpatient (REF) | payer MEDICARE, MEDICAID, SELFPAY ==
[2022-11-04 17:48] LABS: Abs Immature Grans 0.02 10^3/uL (0.0-0.06); Absolute Basophil Count 0.03 10^3/uL (0.0-0.2); Absolute Eosinophil Count 0.35 10^3/uL (0.0-0.7); Absolute Lymphocyte Count 1.06 10^3/uL (1.2-3.4); Absolute Monocyte Count 0.48 10^3/uL (0.1-0.8); Absolute Neutrophil Count 3.19 10^3/uL (1.2-6.7); Basophils % 0.6; Eosinophils % 6.8; HCT 26.5 % (40.0-50.0); HGB 7.8 g/dL (13.5-17.5); Immature Grans % 0.4; Lymphocytes % 20.7; MCH 24.4 pg (27.0-33.0); MCHC 29.4 % (32.0-36.0); MCV 83 fL (80-95); Monocytes % 9.4; Neutrophils % 62.1; Platelet Count 209 10^3/uL (130-400); RDW-SD 54.4 fL; WBC 5.13 10^3/uL (4.4-10.8)
[2022-11-04 18:03] LABS: ALT 12 U/L (16-63); AST 16 U/L (15-37); Albumin 2.7 g/dL (3.4-5.0); Alkaline Phosphatase 142 U/L (46-116); Anion Gap 6.9 mmol/L (3-11); BUN 31 mg/dL (7-18); Bilirubin, Total 0.2 mg/dL (0.2-1.0); CO2 29.1 mmol/L (21.0-32.0); CREATININE 0.9 mg/dL (0.70-1.30); Calcium 8.3 mg/dL (8.5-10.1); Chloride 99 mmol/L (98-107); Estimated GFR 95.97 (mL/min/1.73m2); Glucose 162 mg/dL (74-106); Potassium 3.9 mmol/L (3.5-5.1); Sodium 135 mmol/L (136-145); Total Protein 7.2 g/dL (6.4-8.2)
[2022-11-05 12:17] LABS: C-Reactive Protein 0.42 mg/dL (0.0-0.3)
== END 2022-11-04 16:25 | disposition home or self-care (01) ==
LOC: NCHCN 16:24
PROVIDERS: PCP Family Medicine; Visit Provider Family Medicine
DX: T87.43 Infection of amputation stump, right lower extremity (principal); T81.31XA Disruption of external operation (surgical) wound, not elsewhere classified, initial encounter; B95.62 Methicillin resistant Staphylococcus aureus infection as the cause of diseases classified elsewhere; R79.89 Other specified abnormal findings of blood chemistry; R79.82 Elevated C-reactive protein (CRP)
CPT/HCPCS: 80053; 85025; 86140

== ENCOUNTER 2022-11-11 18:27 | Outpatient (REF) | payer MEDICARE, MEDICAID, SELFPAY ==
[2022-11-11 17:31] LABS: Abs Immature Grans 0.01 10^3/uL (0.0-0.06); Absolute Basophil Count 0.05 10^3/uL (0.0-0.2); Absolute Eosinophil Count 0.61 10^3/uL (0.0-0.7); Absolute Lymphocyte Count 0.87 10^3/uL (1.2-3.4); Absolute Monocyte Count 0.49 10^3/uL (0.1-0.8); Absolute Neutrophil Count 3.65 10^3/uL (1.2-6.7); Basophils % 0.9; Eosinophils % 10.7; HCT 25.3 % (40.0-50.0); HGB 7.6 g/dL (13.5-17.5); Immature Grans % 0.2; Lymphocytes % 15.3; MCH 24.5 pg (27.0-33.0); MCV 82 fL (80-95); MPV 9.3 fL (8.0-11.0); Monocytes % 8.6; Neutrophils % 64.3; Platelet Count 218 10^3/uL (130-400); RDW 17.8 % (11.8-14.1); RDW-SD 52.6 fL; WBC 5.68 10^3/uL (4.4-10.8)
[2022-11-11 17:45] LABS: ALT 17 U/L (16-63); AST 18 U/L (15-37); Albumin 3.2 g/dL (3.4-5.0); Alkaline Phosphatase 119 U/L (46-116); Anion Gap 9.1 mmol/L (3-11); BUN 21 mg/dL (7-18); Bilirubin, Total 0.4 mg/dL (0.2-1.0); C-Reactive Protein 1.08 mg/dL (0.0-0.3); CO2 26.9 mmol/L (21.0-32.0); CREATININE 1.1 mg/dL (0.70-1.30); Chloride 95 mmol/L (98-107); Estimated GFR 75.43 (mL/min/1.73m2); Glucose 91 mg/dL (74-106); Potassium 3.7 mmol/L (3.5-5.1); Sodium 131 mmol/L (136-145); Total Protein 7.1 g/dL (6.4-8.2)
== END 2022-11-11 18:28 | disposition home or self-care (01) ==
LOC: LBN 18:27
PROVIDERS: PCP Family Medicine; Visit Provider Family Medicine
DX: T81.31XD Disruption of external operation (surgical) wound, not elsewhere classified, subsequent encounter (principal); T81.40XD Infection following a procedure, unspecified, subsequent encounter; B95.62 Methicillin resistant Staphylococcus aureus infection as the cause of diseases classified elsewhere; D64.9 Anemia, unspecified; R79.82 Elevated C-reactive protein (CRP); R79.89 Other specified abnormal findings of blood chemistry
CPT/HCPCS: 80053; 85025; 86140

== ENCOUNTER 2022-11-18 13:27 | Outpatient (REF) | payer MEDICARE, MEDICAID, SELFPAY ==
[2022-11-18 17:01] LABS: Abs Immature Grans 0.02 10^3/uL (0.0-0.06); Absolute Basophil Count 0.07 10^3/uL (0.0-0.2); Absolute Eosinophil Count 0.68 10^3/uL (0.0-0.7); Absolute Lymphocyte Count 1.33 10^3/uL (1.2-3.4); Absolute Monocyte Count 0.78 10^3/uL (0.1-0.8); Absolute Neutrophil Count 4.38 10^3/uL (1.2-6.7); Eosinophils % 9.4; HGB 9.3 g/dL (13.5-17.5); Immature Grans % 0.3; Lymphocytes % 18.3; MCH 23.6 pg (27.0-33.0); MCV 79 fL (80-95); MPV 8.8 fL (8.0-11.0); Monocytes % 10.7; Neutrophils % 60.3; Platelet Count 298 10^3/uL (130-400); RBC 3.94 10^6/uL (4.36-5.78); RDW 17.6 % (11.8-14.1); RDW-SD 49.4 fL; WBC 7.26 10^3/uL (4.4-10.8)
[2022-11-18 18:06] LABS: ALT 22 U/L (16-63); AST 20 U/L (15-37); Albumin 3.1 g/dL (3.4-5.0); Alkaline Phosphatase 160 U/L (46-116); Anion Gap 7.6 mmol/L (3-11); BUN 40 mg/dL (7-18); Bilirubin, Total 0.2 mg/dL (0.2-1.0); C-Reactive Protein 1.05 mg/dL (0.0-0.3); CO2 30.4 mmol/L (21.0-32.0); CREATININE 1.4 mg/dL (0.70-1.30); Calcium 9.4 mg/dL (8.5-10.1); Chloride 98 mmol/L (98-107); Estimated GFR 56.48 (mL/min/1.73m2); Glucose 109 mg/dL (74-106); Potassium 4.6 mmol/L (3.5-5.1); Sodium 136 mmol/L (136-145); Total Protein 7.9 g/dL (6.4-8.2)
[2022-11-18 19:53] LABS: Iron 20 ug/dL (65-175)
== END 2022-11-18 13:28 | disposition home or self-care (01) ==
LOC: LBN 13:27
PROVIDERS: PCP Family Medicine; Visit Provider Family Medicine
DX: T87.43 Infection of amputation stump, right lower extremity (principal); B95.62 Methicillin resistant Staphylococcus aureus infection as the cause of diseases classified elsewhere; D64.9 Anemia, unspecified; R79.82 Elevated C-reactive protein (CRP)
CPT/HCPCS: 80053; 83540; 85025; 86140

== ENCOUNTER 2022-12-30 10:01 | Emergency (ER) | payer MEDICARE, MEDICAID, SELFPAY ==
[2022-12-30 10:08] VITALS: BP 139/119; PULSE 60; RESP 18; TEMP 36.9; O2SAT 91
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
--- NOTE | 2022-12-30 11:00 | DI.RAD_ITS ---
Exam(s) XR FINGER LT RING POST REDUC EXAM: XR FINGER LT RING POST REDUC EXAM DATE/TIME: CLINICAL HISTORY: post-reudction. TECHNIQUE: 2D digital imaging was performed of the left finger. Three views were obtained. PA/AP, oblique, and lateral views were obtained. COMPARISON: None. FINDINGS: BONES: No acute fracture is present. No bony destructive lesion is seen. JOINTS: No dislocation is present. There has been successful reduction of the PIP joint of the 4th f hero. SOFT TISSUE: Soft tissue swelling of the 4th finger. IMPRESSION: No evidence of acute fracture or dislocation. DATA REPOSITORY: RADIATION DOSE DELIVERED:
== END 2022-12-30 11:45 | disposition home or self-care (01) ==
PROVIDERS: Emergency Provider Physician Assistant; PCP Family Medicine
DX: S63.285A Dislocation of proximal interphalangeal joint of left ring finger, initial encounter (principal); F17.210 Nicotine dependence, cigarettes, uncomplicated; Z98.1 Arthrodesis status; Z89.611 Acquired absence of right leg above knee
CPT/HCPCS: 26770; 73140; 99283

== ENCOUNTER 2023-01-08 09:36 | Emergency (ER) | payer MEDICARE, MEDICAID, SELFPAY ==
--- NOTE | 2023-01-08 09:30 | RT.EKG_ITS ---
APPROVED REPORT Exam: Resting ECG Reason for Exam: falls Patient Location: E HR:59 bpm ECG Measurements Heart Rate 59 AXIS CO 194 P -72 QRSd 145 QRS 102 QT 455 T 65 QTc 427 Conclusion Ectopic atrial bradycardia...abnormal P axis, V-rate< 60 Ventricular premature complex...V complex w/ short R-R interval RBBB and LPFB...QRSd >120mS, axis(90,210) Physician: RBBB
[2023-01-08 09:39] VITALS: BP 187/88; PULSE 64; RESP 18; TEMP 37.2; O2SAT 94
--- NOTE | 2023-01-08 09:42 | DI.CT_ITS ---
Exam(s) CT CHEST/ABD/PEL W EXAM: CT CHEST/ABD/PEL W CLINICAL HISTORY: fall, hit back, pain in upper thoracic verteb. TECHNIQUE: Imaging Protocol: Axial computed tomography images with coronal and sagittal reformatted images were created and reviewed CONTRAST MATERIAL: Intravenous: Omnipaque 350 Contrast volume:100 ml Oral: None COMPARISON: CT CT CHEST PE CTA from 07/02/2021 FINDINGS: CHEST: LUNGS: There are no significant infiltrates nor lung contusion nor pleural effusion. No pneumothorax . No incidental lung nodules.. Mild increased dependent markings noted in the left lower lobe. MEDIASTINUM: No evidence of sternal fracture nor mediastinal hematoma. No hilar nor mediastinal norma opathy. No axillary adenopathy. Visualized thyroid unremarkable. CARDIAC: Heart size is normal. There is no pericardial effusion.Caliber of the thoracic aorta is wit hin normal limits. OSSEOUS: No acute fractures evident. No osseous lesions.. ABDOMEN: There is no ascites. LIVER: No evidence of obvious liver laceration. No significant hepatic lesions. No dilated intrahep atic ducts.. GALLBLADDER/BILIARY: Gallbladder is contracted. The may contain small densities. CBD is not dilated . PANCREAS: No evidence of pancreatic mass nor dilatation of the pancreatic duct. SPLEEN: Spleen is not enlarged. There are no intrasplenic lesions. Splenic and portal veins are davis nt. ADRENALS: There are no significant adrenal masses. KIDNEYS: No renal lacerations evident. No focal renal findings. Also no calculi nor hydronephrosis. No perinephric fluid.. ABDOMINAL AORTA: Calcified but not enlarged. Iliac arteries are also calcified but not enlarged. LYMPH NODES: There appears to be few small lymph nodes in the retroperitoneum, difficult to different iate from bowel loops given the paucity of intraperitoneal fat here. ABDOMINAL WALL: No evidence of significant anterior abdominal wall nor inguinal hernia. GI: There is no evidence of bowel obstruction. PELVIS: LYMPH NODES: There is no intrapelvic nor inguinal adenopathy. GI: No evidence of appendicitis.No evidence of sigmoid diverticulitis. URINARY BLADDER: Mild uniform thickening of the bladder wall. No calculi. No masses seen in the jean marie dder lumen. REPRODUCTIVE: Prostate size upper normal. OSSEOUS: Multilevel fusion hardware from L2-S1, inclusive. Multilevel fusion hardware in the lumbar spine noted. No fractures. No hardware loosening. No evid ence of osteomyelitis. IMPRESSION: 1. No significant trauma sequelae in the chest, abdomen, and pelvis. 2. Paucity of retroperitoneal fat makes evaluation of lymph nodes versus unopacified bowel loop somew hat difficult. The spleen is not enlarged. 3. Multilevel fusion hardware in the lumbar spine L2-S1. No fractures evident. By myself to ER. RADIATION DOSE DELIVERED: Total DLP DATA REPOSITORY: All CT scans at this facility are submitted to the National Radiology Data Registry (NRDR) Dose Index Registry (DIR) with the [employer] ([employer]). RADIATION OPTIMIZATION: All CT scans at this facility use at least one of these dose optimization te chniques: automated exposure control; mA and/or kV adjustment per patient size (includes targeted exa ms where dose is matched to clinical indication); or iterative reconstruction.
--- NOTE | 2023-01-08 09:42 | DI.CT_ITS ---
Exam(s) CT HEAD CERVICAL SPINE WO EXAM: CT HEAD CERVICAL SPINE WO CLINICAL HISTORY: fall, hit head at occiput, midline C1 and C7 pain. TECHNIQUE: Imaging Protocol: Axial computed tomography images with coronal and sagittal reformatted images were created and reviewed COMPARISON: CT CT HEAD CERV SPINE FACIAL WO from 04/24/2020 FINDINGS: BRAIN: There are no skull fractures nor fluid in the visualized paranasal sinuses. There is no evidence of intracranial hemorrhage, mass effect, or shift of midline structures. There are no extra-axial fluid collections. The ventricles are not enlarged or shifted and there is no blo od within the ventricular system nor within the basal cisterns. CERVICAL SPINE: There are intervertebral disc space devices at C5-6 and C6-7 levels which appear to be in satisfactor y position. Chronic disc space narrowing at these levels noted. No listhesis. Other disc spaces ex hibit normal height. No significant prevertebral soft tissue swelling. There are mild degenerative changes in the facet joints. There is no significant facet joint malalignment. No significant osseous lesions evident. IMPRESSION: No acute intracranial findings on this noninfused CT scan of the brain. No evidence of cervical spine fracture, malalignment, nor acute compromise of the cervical spinal can al. C5-6 and C6-7 level hardware. Called by myself to ER. RADIATION DOSE DELIVERED: Total DLP DATA REPOSITORY: All CT scans at this facility are submitted to the National Radiology Data Registry (NRDR) Dose Index Registry (DIR) with the [employer] ([employer]). RADIATION OPTIMIZATION: All CT scans at this facility use at least one of these dose optimization te chniques: automated exposure control; mA and/or kV adjustment per patient size (includes targeted exa ms where dose is matched to clinical indication); or iterative reconstruction.
[2023-01-08 09:46] VITALS: RESP 18
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
[2023-01-08] MEDS: ACETAMINOPHEN 1,000 MG/100 ML BTL 400 MG IVPB (09:50)
[2023-01-08 10:04] LABS: Abs Immature Grans 0.03 10^3/uL (0.0-0.06); Absolute Basophil Count 0.04 10^3/uL (0.0-0.2); Absolute Eosinophil Count 0.17 10^3/uL (0.0-0.7); Absolute Lymphocyte Count 1.05 10^3/uL (1.2-3.4); Absolute Monocyte Count 0.47 10^3/uL (0.1-0.8); Absolute Neutrophil Count 5.84 10^3/uL (1.2-6.7); Basophils % 0.5; Eosinophils % 2.2; HCT 33.1 % (40.0-50.0); HGB 10.3 g/dL (13.5-17.5); Immature Grans % 0.4; Lymphocytes % 13.8; MCH 22.9 pg (27.0-33.0); MCHC 31.1 % (32.0-36.0); MCV 74 fL (80-95); MPV 8.4 fL (8.0-11.0); Monocytes % 6.2; Neutrophils % 76.9; Platelet Count 290 10^3/uL (130-400); RBC 4.49 10^6/uL (4.36-5.78); RDW 22.5 % (11.8-14.1); RDW-SD 59.3 fL
[2023-01-08 10:17] LABS: INR 1.1 (0.9-1.1); PTT Activated 23.7 sec (23.6-32.8); Prothrombin Time 10.6 sec (9.1-11.1)
[2023-01-08 10:17] LABS: Bilirubin Negative (Negative); Blood Negative (Negative); Clarity Clear (Clear); Glucose Negative (Negative); Ketones Negative (Negative); Leukocyte Esterase Negative (Negative); Nitrite Negative (Negative); Specific Gravity 1.015 (1.005-1.025); Urobilinogen 0.2 mg/dL (Up to 0.2); pH 7.5 (5-8)
[2023-01-08 10:25] LABS: Anisocytosis 2+; Diff Comment RBC Morph Reviewed
[2023-01-08 10:26] LABS: Hypochromasia 1+; Microcytosis 1+; Poikilocytes 1+
[2023-01-08 10:34] LABS: ALT 24 U/L (16-63); AST 24 U/L (15-37); Albumin 3.2 g/dL (3.4-5.0); Alkaline Phosphatase 97 U/L (46-116); Anion Gap 5.8 mmol/L (3-11); BUN 23 mg/dL (7-18); Bilirubin, Total 0.4 mg/dL (0.2-1.0); CO2 27.2 mmol/L (21.0-32.0); CREATININE 0.8 mg/dL (0.70-1.30); Calcium 9.5 mg/dL (8.5-10.1); Chloride 100 mmol/L (98-107); Creatine Kinase 253 U/L (39-308); ETHANOL BLOOD < 3.0 mg/dL (<10); Estimated GFR 99.44 (mL/min/1.73m2); Glucose 104 mg/dL (74-106); Potassium 4.1 mmol/L (3.5-5.1); Sodium 133 mmol/L (136-145); TSH (W/Ref FT4) 0.96 uIU/mL (0.36-3.74); Total Protein 7.2 g/dL (6.4-8.2); Troponin I < 50 ng/L (<or=60)
--- NOTE | 2023-01-08 11:20 | DI.CT_ITS ---
Exam(s) CT THORACIC LUMBAR SPINE REC EXAM: CT THORACIC LUMBAR SPINE REC CLINICAL HISTORY: fall TECHNIQUE: COMPARISON: CT CT CHEST/ABD/PEL WO from 04/24/[address] CHEST PE CTA from 07/02/[address] CHEST/ABD/PEL W from 01/08/2023 FINDINGS: THORACIC SPINAL COLUMN: No fractures nor listhesis. No disc space narrowing. Facet joints appear un remarkable. No malalignment of the facets. No acute compromise of the spinal canal. LUMBOSACRAL SPINAL COLUMN: Multilevel intact fusion hardware supported by multilevel intrapedicular s crews from L2 through S1. Fusion at L4-5 vertebral bodies again noted and appears at this level is u nchanged. No acute compromise of the canal. No evidence of acute fracture or listhesis. IMPRESSION: No evidence of acute fracture in the thoracic and lumbar spines. Multilevel fusion hardware L2 through S1 appears stable.
[2023-01-08] MEDS: Omnipaque 350 MG/ML 100 ML BTL IJ (11:43)
[2023-01-08] MEDS: Normal Saline - Diluent 50 ML VIAL IJ (11:45)
--- NOTE | 2023-01-08 11:59 | W.EDPROG ---
Date of service: 01/08/23 Time of Service: 13:51 Medical Decision Making received pt in sign out pending test results, examined, having some upper back tenderness, will add CT recon images of spine. Labs are all reassuring. CTs without any acute issues, retail performance coach contacted and came, gave pt referral info, but he was not receptive, but he is ready to go. Rakesh dc home, f/u with pcp. Return for any worsening/concerning sx's. Sign Out Sign Out Data: Sign Out Comment: Patient fell last night hit his head back and neck. Pain in these areas. Pending CT scan of head neck chest abdomen pelvis. Last updated by Rios Ortiz DO at 01/08/23 10:17 Discharge Plan Disposition Patient Disposition: Home Condition: Stable Discharge Details Clinical Impression: Fall Primary Care Provider: Ivonne Diop ED Provider: Jose Littlejohn Home Meds and New Rx's Prescriptions: No Action polyethylene glycol 3350(bulk) [Base B,Polyethylene [id number]] Granules 17 grnl miscellaneous BID Rx Instructions: take 1 scoop daily as needed. cyanocobalamin (vitamin B-12) 1,000 mcg capsule 1,000 mcg PO DAILY multivitamin with minerals Capsule 1 cap PO DAILY naloxone [Narcan] 4 MG spray,non-aerosol 4 mg NS ONCE MDD 1 PRNQty: 1 lisinopril 20 MG tablet 40 mg PO DAILY mirtazapine 45 MG tablet 30 mg PO HS acetaminophen 500 MG tablet 1,000 mg PO TID tamsulosin [Flomax] 0.4 MG capsule 0.8 mg PO DAILY triamcinolone acetonide 0.5 % Cream 1 applic TOPICAL BID methadone 10 mg Tablet 110 mg PO DAILY AM Rx Instructions: pt states he takes 110 mg in the am and 50mg in the evening hydroxyzine HCl 25 mg Tablet 25 mg PO BID fluticasone propionate 50 mcg/actuation [place],Suspension 2 spray INTRANASAL DAILY lamotrigine [Lamictal] 100 mg Tablet 300 mg PO DAILY venlafaxine 75 mg Tablet Extended Release 24hr 150 mg PO QDAY cannabidiol 100 mg/mL Solution 2 - 3 mg PO DAILY PRN diclofenac potassium 50 mg tablet 50 mg PO TID Patient Comments: TAKE ONE TABLET BY MOUTH THREE TIMES A DAY albuterol sulfate [Ventolin HFA] 90 mcg/actuation HFA aerosol inhaler 2 puff INHALATION Q6H PRN Patient Comments: INHALE TWO PUFFS BY MOUTH EVERY 6 HOURS NEEDED aspirin 81 mg tablet,delayed release (DR/EC) 81 mg PO DAILY Patient Comments: TAKE 1 TABLET BY MOUTH DAILY cyclobenzaprine 10 mg tablet 10 mg PO TID nortriptyline 25 mg capsule 25 mg PO HS cyanocobalamin (vitamin B-12) 1,000 mcg tablet 1,000 mcg PO ONCE Patient Comments: TAKE 1 TABLET BY MOUTH DAILY furosemide 20 mg tablet 20 mg PO DAILY betamethasone valerate 0.1 % cream 1 applic TOPICAL BID PRN Patient Comments: Apply 1 a small amount to affected area twice a day as directed polyethylene glycol 3350 [Gavilax] 17 gram/dose powder 17 g PO BID PRN Patient Comments: 1 SCOOP BY MOUTH TWICE A DAY DIRECTED sennosides-docusate sodium [Senna with Docusate Sodium] 1 EACH tablet 8.6 tab PO QHS PRN gabapentin 300 MG capsule 300 mg PO QID sodium chloride 1 gram Tablet 1,000 mg PO QID tiotropium bromide [Spiriva with HandiHaler] 18 mcg Capsule, W/Inhalation Device 1 cap INHALATION DAILY levomefolate calcium [L-Methylfolate] 15 mg Tablet 15 mg PO DAILY olanzapine 10 mg tablet 20 mg PO QHS Patient Comments: TAKE ONE TABLET BY MOUTH TWICE A DAY TAKE WITH 20MG TABLET Anoro Ellipta 62.5-25 mcg/actuation blister with device 1 inh INHALATION DAILY Patient Comments: INHALE ONE PUFF BY MOUTH EVERY DAY methadone 10 mg tablet 50 mg PO QPM Rx Instructions: 110 mg am, 50 mg pm ibuprofen 800 mg Tablet 800 mg PO TID clonidine HCl 0.2 mg tablet 0.2 mg PO QHS clonazepam 2 mg tablet 0.5 mg PO BID methylphenidate HCl 20 mg tablet 20 mg PO TID Patient Comments: TAKE 1 TABLET BY MOUTH THREE TIMES A DAY EFFECTIVE 01/09/22 albuterol sulfate [Ventolin HFA] 90 mcg/actuation HFA aerosol inhaler 2 inh INHALATION PRN PRN omeprazole 20 mg Tablet,Delayed Release (Dr/Ec) 20 mg PO DAILY fluconazole 200 mg tablet 400 mg PO DAILY daptomycin 500 mg recon soln 500 mg IV DAILY Discharge Instructions Instructions: Fall Prevention (ED)
[2023-01-08 13:18] LABS: Troponin I < 50 ng/L (<or=60)
[2023-01-08 14:13] VITALS: BP 171/95; PULSE 59; RESP 20; TEMP 37.6; O2SAT 99
== END 2023-01-08 14:10 | disposition home or self-care (01) ==
PROVIDERS: Student in an Organized Health Care Education/Training Program; Emergency Provider Emergency Medicine; PCP Family Medicine
DX: R41.82 Altered mental status, unspecified (principal); R47.81 Slurred speech; M54.2 Cervicalgia; I10 Essential (primary) hypertension; J44.9 Chronic obstructive pulmonary disease, unspecified; F17.210 Nicotine dependence, cigarettes, uncomplicated; Z89.611 Acquired absence of right leg above knee; Z98.1 Arthrodesis status; Z79.82 Long term (current) use of aspirin; W18.39XA Other fall on same level, initial encounter; Y93.89 Activity, other specified; Y92.012 Bathroom of single-family (private) house as the place of occurrence of the external cause
CPT/HCPCS: 00123; 36415; 74177; 80053; 82550; 93005; 96374; 99284; 70450; 71260; 72125; 80320; 81003; 84443; 84484; 85025; 85610; 85730; 93010; J0131; J3490

== ENCOUNTER 2023-01-21 11:52 | Inpatient (IN) | payer MEDICARE, MEDICAID, SELFPAY ==
[2023-01-21] VITALS (102 sets, daily range): BP systolic 68–177; BP diastolic 35–117; PULSE 55–93; RESP 6–34; TEMP 35–37.2; O2SAT 72–100
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
--- NOTE | 2023-01-21 12:30 | DI.CT_ITS ---
Exam(s) CT HEAD WO EXAM: CT HEAD WO CLINICAL HISTORY: altered confused. TECHNIQUE: Imaging Protocol: Axial computed tomography images with coronal and sagittal reformatted images were created and reviewed COMPARISON: CT CT HEAD CERVICAL SPINE WO from 01/08/2023 FINDINGS: Motion artifact and on all images. There are no obvious skull fractures. There is no fluid in the visualized paranasal sinuses. There is no evidence of intracranial hemorrhage, mass effect, or shift of midline structures. There are no extra-axial fluid collections. The ventricles are not enlarged or shifted and there is no blo od within the ventricular system nor within the basal cisterns. IMPRESSION: No acute intracranial findings on this noninfused CT scan of the brain. Called by myself to ER physician. RADIATION DOSE DELIVERED: Total DLP DATA REPOSITORY: All CT scans at this facility are submitted to the National Radiology Data Registry (NRDR) Dose Index Registry (DIR) with the [employer] (ACR). RADIATION OPTIMIZATION: All CT scans at this facility use at least one of these dose optimization te chniques: automated exposure control; mA and/or kV adjustment per patient size (includes targeted exa ms where dose is matched to clinical indication); or iterative reconstruction.
[2023-01-21 12:31] LABS: BE (Venous) 0 mmol/L (-2-3); HCO3 (Venous) 25 mmol/L (23-28); O2 Sat (Venous) 54 %; TCO2 (Venous) 24 mmol/L (24-29); pCO2 (Venous) 41 mmHg (41-51); pO2 (Venous) 32 mmHg
[2023-01-21 12:32] LABS: Source Nasopharynx
[2023-01-21 12:32] LABS: HCT 26.5 % (40.0-50.0); HGB 8.6 g/dL (13.5-17.5); MCHC 32.5 % (32.0-36.0); MCV 74 fL (80-95); MPV 7.7 fL (8.0-11.0); Platelet Count 361 10^3/uL (130-400); RBC 3.58 10^6/uL (4.36-5.78); RDW 23.7 % (11.8-14.1); RDW-SD 62.8 fL; WBC 22.63 10^3/uL (4.4-10.8)
[2023-01-21 12:43] LABS: Prothrombin Time 10.3 sec (9.1-11.1)
[2023-01-21 12:50] LABS: Ammonia 21 umol/L (11-32)
[2023-01-21 12:51] LABS: ALT 36 U/L (16-63); AST 41 U/L (15-37); Absolute Lymphocyte Count 0.23 10^3/uL (1.2-3.4); Absolute Monocyte Count 0.45 10^3/uL (0.1-0.8); Absolute Neutrophil Count 21.95 10^3/uL (1.2-6.7); Albumin 3.3 g/dL (3.4-5.0); Alkaline Phosphatase 101 U/L (46-116); Anion Gap 6.1 mmol/L (3-11); Anisocytosis 2+; BUN 41 mg/dL (7-18); Bands % 5; Bilirubin, Total 0.6 mg/dL (0.2-1.0); CO2 25.9 mmol/L (21.0-32.0); CREATININE 1.1 mg/dL (0.70-1.30); Calcium 8.8 mg/dL (8.5-10.1); Chloride 89 mmol/L (98-107); Diff Comment Manual Differential; Estimated GFR 75.43 (mL/min/1.73m2); Glucose 111 mg/dL (74-106); Potassium 5.5 mmol/L (3.5-5.1); Total Protein 6.9 g/dL (6.4-8.2); Troponin I < 50 ng/L (<or=60)
[2023-01-21 12:52] LABS: Microcytosis 1+; Poikilocytes 1+; Polychromasia Present
[2023-01-21 12:53] LABS: Sodium 121 mmol/L (136-145)
[2023-01-21 13:05] LABS: COVID-19 PCR Negative (Negative)
[2023-01-21 13:07] LABS: BE -2 mmol/L (-2-3); HCO3 22 mmol/L (22-26); pCO2 33 mmHg (35-45); pH 7.44 (7.35-7.45); pO2 88 mmHg (80-105); sO2 98 % (95-98); tCO2 21 mmol/L (23-27)
[2023-01-21 13:08] LABS: FIO2L 2 L; Site Left Radial
[2023-01-21] MEDS: Normal Saline 1,000 ML 2350 ML IV (13:15)
[2023-01-21] MEDS: PIPERACILLIN/TAZO 4.5 GM in Normal Saline 100 ML IVPB ×2 (13:15→19:34)
--- NOTE | 2023-01-21 13:45 | DI.RAD_ITS ---
Exam(s) XR PORTABLE CHEST AP EXAM: XR PORTABLE CHEST AP CLINICAL HISTORY: cough, sob. TECHNIQUE: 2D digital imaging was performed. COMPARISON: CR XR PORTABLE CHEST AP POST LINE from 04/24/2020 FINDINGS: Single AP portable view. Heart size is upper normal. The mediastinum is not widened. No confluent infiltrates nor pleural effusions evident on this somewhat lordotic portable view. No p ulmonary edema. No pneumothorax. No fractures evident. IMPRESSION: No acute pulmonary findings on this single AP portable view of the chest. DATA REPOSITORY: RADIATION DOSE DELIVERED:
[2023-01-21] MEDS: VANCOMYCIN/WATER (PEG) 2 GM/400 ML BAG IVPB (13:46)
--- NOTE | 2023-01-21 14:00 | RT.EKG_ITS ---
APPROVED REPORT Exam: Resting ECG Reason for Exam: dyspnea Patient Location: E HR:67 bpm ECG Measurements Heart Rate 67 AXIS MN 152 P 93 QRSd 141 QRS 77 QT 415 T 46 QTc 438 Conclusion Sinus rhythm...normal P axis, V-rate 60- 99 Right bundle branch block...QRSd>120, terminal axis(90,270)
--- NOTE | 2023-01-21 14:30 | DI.CT_ITS ---
Exam(s) CT CHEST/ABD/PEL WO EXAM: CT CHEST/ABD/PEL WO CLINICAL HISTORY: chest and abdominal pain. TECHNIQUE: Imaging Protocol: Axial computed tomography images with coronal and sagittal reformatted images were created and reviewed CONTRAST MATERIAL: Intravenous: none Oral: None COMPARISON: CT CT THORACIC LUMBAR SPINE REC from 01/08/2023 CR XR PORTABLE CHEST AP from 01/21/2023 FINDINGS: Quality of the scan is limited by motion artifact, patient not being able to be cooperative with resp ect to holding still, and lack of body fat as well as absence of oral 9 V contrast. CHEST: LUNGS: There are mild increased markings in both lung dalton which are probably related to motion art ifact but cannot exclude very subtle infiltrates. There are no pleural effusions. No obvious lung m asses.. MEDIASTINUM: No obvious hilar nor mediastinal adenopathy. CARDIAC: Heart size is normal. There is no pericardial effusion.Caliber of the thoracic aorta is wit hin normal limits. OSSEOUS: Limited evaluation due to motion. However, no obvious acute fractures nor osseous lesions.. ABDOMEN: There is no obvious ascites. LIVER: There are no obvious focal hepatic lesions evident of this noninfused study. GALLBLADDER/BILIARY: Too much motion to evaluate. Much motion to evaluate. PANCREAS: Too much motion to evaluate accurately. No large mass nor peripancreatic fluid collection. SPLEEN: Spleen is not enlarged. No obvious intrasplenic lesions. ADRENALS: Not visualized due to motion artifact. KIDNEYS: No obvious abnormalities. Motion artifact. ABDOMINAL AORTA: Peripherally calcified but not enlarged. LYMPH NODES: Too much motion for evaluation. ABDOMINAL WALL/GI: No obvious small bowel obstruction. PELVIS: LYMPH NODES: There is no intrapelvic nor inguinal adenopathy. GI: Appendix not able to be identified.: Difficult to evaluate. URINARY BLADDER: There is a Gonzalez catheter in a nondistended urinary bladder. REPRODUCTIVE: Prostate size not enlarged. OSSEOUS: Multilevel fusion hardware from L2-S1, inclusive. No obvious fractures. No evidence of ost eomyelitis. IMPRESSION: 1. Severely limited study due to combination of factors listed above. 2. Given the limitations of this study there are no obvious acute findings in the abdomen and pelvis. 3. Increased markings in both lung dalton are probably exaggerated by motion artifact. However, jessica ot exclude subtle infiltrates. Portable chest x-ray performed earlier today did not reveal confluent infiltrates. There are no pleural effusions. Called by myself to ER provider RADIATION DOSE DELIVERED: Total DLP DATA REPOSITORY: All CT scans at this facility are submitted to the National Radiology Data Registry (NRDR) Dose Index Registry (DIR) with the [employer] (ACR). RADIATION OPTIMIZATION: All CT scans at this facility use at least one of these dose optimization te chniques: automated exposure control; mA and/or kV adjustment per patient size (includes targeted exa ms where dose is matched to clinical indication); or iterative reconstruction.
[2023-01-21 14:43] LABS: Bilirubin Negative (Negative); Blood Negative (Negative); Clarity Clear (Clear); Glucose Negative (Negative); Ketones Negative (Negative); Leukocyte Esterase Negative (Negative); Nitrite Negative (Negative); Urobilinogen 0.2 mg/dL (Up to 0.2); pH 5.5 (5-8)
[2023-01-21 15:14] LABS: Lactate 0.7 mmol/L (0.6-1.4)
[2023-01-21] MEDS: LORazepam 2 MG/ML VIAL 1 MG IVP (15:27)
[2023-01-21 15:34] LABS: Troponin I < 50 ng/L (<or=60)
[2023-01-21] MEDS: LORazepam 2 MG/ML VIAL IVP (15:56)
--- NOTE | 2023-01-21 16:00 | DI.CT_ITS ---
Exam(s) CT ABDOMEN PELVIS WO EXAM: CT ABDOMEN PELVIS WO CLINICAL HISTORY: abdominal pain. TECHNIQUE: Imaging Protocol: Axial computed tomography images with coronal and sagittal reformatted images were created and reviewed. COMPARISON: CT CT CHEST/ABD/PEL WO from 01/21/2023 FINDINGS: The examination is limited due to patient motion artifact. ABDOMEN: Lung Bases: Coronary artery calcifications. Mild cardiomegaly. Liver: Normal density. No measurable mass. Gallbladder and biliary tract: No radiodense calculus or biliary ductal dilation. Pancreas: Not adequately visualized due to significant patient motion artifact and lack of IV contras t. Spleen: Normal. Kidneys: There is limited visualization secondary to artifact from the patient's spinal surgery and l ack of contrast. No obvious stones or hydronephrosis. Adrenal glands: Poorly visualized. Lymph nodes: The retroperitoneum is poorly visualized due to lack of IV contrast, patient motion and lumbar spine surgical artifact. Abdominal Aorta: Abdominal portion non-dilated. Atherosclerosis. PELVIS: Bladder:The urinary bladder is incompletely distended. There is a Gonzalez catheter in place. Bowel: There is a large amount of stool in the rectum. There is stool throughout the colon suggestin g constipation. No definite evidence of appendicitis. Peritoneal cavity: No large amount of ascites is identified. No free air. Reproductive organs: Unremarkable as visualized. Bones: Within normal limits for the patient's age. Posterior spinal surgery is seen in the lumbosacr al spine. Soft Tissues: Mild subcutaneous edema is seen in the abdominal wall. No focal fluid collection is se en to suggest an abscess. IMPRESSION: 1. Examination is severely limited due to patient motion. 2. Large amount of stool throughout the colon and rectum. 3. Gonzalez catheter in the urinary bladder. There is air seen in the dependent portion of the urinary bladder. 4. Findings were discussed with Dr. Rodney at 4:40 p.m. on 01/21/2023. RADIATION DOSE DELIVERED: Total DLP DATA REPOSITORY: All CT scans at this facility are submitted to the National Radiology Data Registry (NRDR) Dose Index Registry (DIR) with the [employer] (ACR). RADIATION OPTIMIZATION: All CT scans at this facility use at least one of these dose optimization te chniques: automated exposure control; mA and/or kV adjustment per patient size (includes targeted exa ms where dose is matched to clinical indication); or iterative reconstruction.
[2023-01-21] MEDS: MORPHine 4 MG/ML SYR (16:08)
--- NOTE | 2023-01-21 16:59 | W.PM.HP.N ---
Date of service: 01/21/23 Time of Service: 17:49 Assessment and Plan Assessment and plan (1) Severe sepsis: Status: Acute Assessment and plan: - Patient meets criteria for severe sepsis on admission with a respiratory rate in the mid 20s, white blood cell count of 22, infectious/metabolic encephalopathy, and presumed infection being aspiration pneumonia, potential infected stage II decubitus ulcer -Was given 30 cc/kg fluid bolus in the emergency department -Given Vanco and Zosyn in the emergency department, will continue -Follow-up a.m. CBC (2) Aspiration pneumonia: Status: Acute Assessment and plan: - As seen on chest CT -Continue Vanco and Zosyn -Possibly occurred during period of opiate overdose/withdrawal -Follow-up blood cultures Qualifiers: Aspiration pneumonia type: unspecified Laterality: bilateral Lung location: lower lobe of lung Qualified Code(s): J69.0 - Pneumonitis due to inhalation of food and vomit (3) Decubitus ulcer: Status: Acute Assessment and plan: - As seen at ED on admission -Could be potential source of infection/cellulitis -Appreciate wound care assistance Qualifiers: Pressure injury location: sacral region Pressure injury stage: stage 2 Qualified Code(s): L89.152 - Pressure ulcer of sacral region, stage 2 (4) Hyponatremia: Status: Acute Assessment and plan: -Sodium was 121 in the emergency department -On 01/08/2023 sodium was 133 -However, cannot say if this is acute or subacute hyponatremia -Urine studies ordered, follow-up -However, given patient's presentation, this is likely hypovolemic hyponatremia -Patient is status post total of 2.3 L of normal saline in the emergency department -Will defer definitive hyponatremia treatment based on the repeat sodium levels; patient may need DDAVP if he appears to be correcting too quickly (5) Opioid dependence with withdrawal: Status: Acute Assessment and plan: - Given that the patient was tachypneic, had significant stool burden on CT, it appears that patient may have been heavily using his methadone and may have run out resulting in opiate withdrawal and resulting altered mental status and agitation -This theory is further bolstered by the fact that patient was given some IV morphine in the emergency department so that he could tolerate CT imaging and patient's agitation significantly improved -Will continue to of low-dose IV morphine for agitation and presumed opiate withdrawal (6) Hyperkalemia: Status: Acute Assessment and plan: Potassium 5.5 on admission in the ED -Was status post-30 cc/kg fluid resuscitation normal saline in the emergency department -Will treat based on repeat BMP (7) Acute respiratory failure with hypoxia: Status: Acute Assessment and plan: - Likely secondary to aspiration ammonia as noted above -However, patient becomes tachycardic or oxygen requirement significantly increased, would recommend empiric treatment for PE as CTA PE protocol is unavailable at this facility at this time (8) Cellulitis: Status: Acute Assessment and plan: - Secondary source of infection given patient's multiple open excoriations, decubitus ulcer, and the fact that the patient was found laying in his own excrement -Treat as noted above (9) Encephalopathy: Status: Acute Assessment and plan: -Likely a combination of infectious due to sepsis aspiration pneumonia/cellulitis as noted above, potentially hyponatremia, as well as opiate withdrawal -See above- History of Present Illness History of Present Illness Chief Complaint: Found unresponsive Narrative: 62-year-old male with a known past medical history of opiate use disorder on methadone, hypertension, depression, COPD who presents emergency department after being brought in by ambulance after request of welfare visit. Information obtained in this H&P is obtained primarily from emergency room physician and noted as the patient has significant altered mental status. Reportedly the patient's friends stated that he has not been caring for himself and requested a home welfare visit. Upon arrival EMS found the patient somnolent and tachypneic, short of breath with initial oxygen saturations down to 72% on room air he was placed on 2 L nasal cannula and brought to the emergency department for further evaluation. In the emergency department the patient was noted as being tachypneic with a respiratory rate in the high 20s, heart rate in the 70s, blood pressure initially 130 systolic, afebrile, and O2 saturation in the low 90s on 2 L nasal cannula. CBC showed a white blood cell count of 22.6, hemoglobin of 8.6, BMP showed a sodium of 121, potassium of 5.5, with a creatinine of 1.1, and AST of 41, ALT of 36, alk phos of 101, ammonia of 21. ABG was performed which showed a pH of 7.44, pCO2 of 33, PaO2 of 88 and initial lactic of 1. UA was negative, head CT was without acute findings, chest x-ray and chest CT were without acute findings, initial CT abdomen pelvis showed significant motion artifact which was repeated due to concerns for potential free air and bowel perforation however it ultimately showed some small infiltrates in bilateral lower lobes of the lungs, as well as significant stool burden. Additionally, patient also had significant abrasions over his body and was brought into the emergency department covered in his own stool likely from prolonged period of immobilization. Patient was given 30 cc/kg IV fluids for sepsis, as well as IV vancomycin and Zosyn. Additionally, patient was also given some IV morphine and did have some improvement of his mental status and agitation. At which time emergency room physician paged hospitalist for admission for patient with severe sepsis secondary to presumed aspiration pneumonia and a potential cellulitis, acute hypoxic respiratory failure, metabolic/infectious encephalopathy, hyponatremia, and hyperkalemia. Review of Systems All systems reviewed & are unremarkable except as noted in HPI and below PFSH All Active Problems (Updated 01/21/23 @ 18:19 by Demetrio Metcalf MD) Encephalopathy (Acute) Cellulitis (Acute) Acute respiratory failure with hypoxia (Acute) Hyponatremia (Acute) Hyperkalemia (Acute) Aspiration pneumonia (Acute) Severe sepsis (Acute) Acute dehydration (Acute) Decubitus ulcer (Acute) Opioid dependence with withdrawal (Acute) Acute hyponatremia (Acute) Aspiration pneumonia (Acute) Sepsis (Acute) Fall (Acute) Dislocation of finger PIP joint (Acute) Impacted cerumen (Acute) Asymmetrical sensorineural hearing loss (Acute) Opioid overdose (Acute) Bradycardia (Acute) Falls (Acute) Weakness (Acute) Aspiration pneumonia (Acute) Epistaxis (Acute) Acute adrenal crisis (Acute) Acute hyperkalemia (Acute) Acute hyponatremia (Acute) Acute renal failure (Acute) Acute respiratory distress (Acute) Bradycardia (Acute) Sepsis (Acute) Burn injury (Acute) Chronic pain (Acute) No-show for appointment (Acute) COPD (chronic obstructive pulmonary disease) (Acute) Chronic low back pain (Acute) BPH with obstruction/lower urinary tract symptoms (Acute) Drug-induced constipation (Acute) Abdominal pain, lower (Acute) Change in stool habits (Acute) Medical History Palliative care patient Marijuana use Dermatofibroma of left lower leg History of cigarette smoking Knee pain, right Fatigue Rotator cuff syndrome of right shoulder Actinic keratosis Obesity (BMI 35.0-39.9 without comorbidity) Allergic rhinitis Anemia Autoimmune disease Shortness of breath Swallowing problem Peripheral edema Orthostasis Diplopia Severe muscle deconditioning Leukoaraiosis Shoulder pain, bilateral Screening for prostate cancer Urinary retention Sepsis Leukocytosis, unspecified Raynauds syndrome History of septic arthritis (~02/19/17) s/p incision and drainage right wrist Dr. Mccann Lumbar discitis Dehydration Hyponatremia Hypotension Syncope Obesity Hypertension Restless legs Psychogenic polydipsia Lactose intolerance Hyperlipidemia Marijuana use PTSD (post-traumatic stress disorder) ANGIE (obstructive sleep apnea) Sacroiliac joint dysfunction of right side Spondylosis of lumbar region without myelopathy or radiculopathy Surgical History History of arthroplasty of right knee History of revision of total replacement of right knee joint (06/11/17) s/p revision/replant R. TKA, on 06/11/[address] Ramírez History of removal of joint prosthesis of right knee due to infection 12/08/2016, Dr. Oakes @ [facility]; s/p spacer exchange R. knee 02/18/2017 Dr. Ramírez; S/P lumbar fusion History of fusion of cervical spine (04/05/19) C5-C7 cervical discectomy and fusion, Dr. Mark Spence; [facility] bunionectomy Rotator Cuff Repair right Colonoscopy - [facility] 2010- nl. Unable to get into the cecum Social History Smoking/Tobacco Use Status: Current every day Tobacco Type: cigarettes Smoking packs per day: 1 Smoking cigarettes per day: 20.0 Smoking risk assessment performed?: Yes Alcohol Intake: former Drug use: Daily Substance use type: marijuana Details: on methadone from [facility] Housing: house Do you feel safe at home: Yes Do you feel safe in your relationship?: Yes Meds Allergies and Home Medications Allergies Allergy/AdvReac Type Severity Reaction Status Date / Time varenicline [From Chantix] AdvReac Intermediate Psychosis Unverified 01/08/23 11:27 ziprasidone mesylate AdvReac Intermediate Memory Unverified 01/08/23 11:27 [From Geodon] deficit duloxetine HCl AdvReac Unknown Unverified 01/08/23 11:27 [From Cymbalta] topiramate [From Topamax] AdvReac Unknown Unverified 01/08/23 11:27 hay fever AdvReac Mild rhinitis Uncoded 01/08/23 11:27 Home Medications Medication Instructions Recorded Confirmed Type lisinopril 20 mg tablet 40 mg PO DAILY 05/20/12 01/21/23 History mirtazapine 45 mg tablet 30 mg PO HS 05/20/12 01/21/23 History acetaminophen 500 mg tablet 1,000 mg PO TID 01/05/16 01/21/23 History tamsulosin 0.4 mg capsule (Flomax) 0.8 mg PO DAILY 01/05/16 01/21/23 History naloxone 4 mg/actuation nasal 4 mg NS ONCE PRN #1 spray 07/23/16 01/21/23 History spray (Narcan) sennosides 8.6 mg-docusate sodium 8.6 tab PO QHS PRN 04/02/17 01/21/23 History 50 mg tablet (Senna with Docusate Sodium) cannabidiol 100 mg/mL oral solution 2 - 3 mg PO DAILY PRN 12/28/18 01/21/23 History fluticasone propionate 50 2 spray intranasal DAILY 12/28/18 01/21/23 History mcg/actuation nasal spray,suspension hydroxyzine HCl 25 mg tablet 25 mg PO BID 12/28/18 01/21/23 History methadone 10 mg tablet 110 mg PO DAILY AM 12/28/18 01/21/23 History triamcinolone acetonide 0.5 % 1 applic topical BID 12/28/18 01/21/23 History topical cream venlafaxine 75 mg tablet,extended 150 mg PO QDAY 12/28/18 01/21/23 History release 24 hr levomefolate calcium 15 mg tablet 15 mg PO DAILY 04/02/19 01/21/23 History (L-Methylfolate) tiotropium bromide 18 mcg capsule 1 cap inhalation DAILY 04/02/19 01/21/23 History with inhalation device (Spiriva with HandiHaler) cyanocobalamin (vitamin B-12) 1,000 mcg PO DAILY 05/18/19 01/21/23 History 1,000 mcg capsule multivitamin with minerals 1 cap PO DAILY 05/18/19 01/21/23 History olanzapine 10 mg tablet 20 mg PO QHS 04/24/20 01/08/23 History albuterol sulfate 90 mcg/actuation 2 puff inhalation Q6H PRN 05/17/21 01/21/23 History aerosol inhaler (Ventolin HFA) diclofenac potassium 50 mg tablet 50 mg PO TID 05/17/21 01/21/23 History methadone 10 mg tablet 50 mg PO QPM 07/02/21 01/21/23 History clonidine HCl 0.2 mg tablet 0.2 mg PO QHS 03/03/22 01/21/23 History ibuprofen 800 mg tablet 800 mg PO TID 03/03/22 01/21/23 History methylphenidate HCl 20 mg tablet 20 mg PO TID 03/03/22 01/21/23 History fluconazole 200 mg tablet 400 mg PO DAILY 08/12/22 01/21/23 History omeprazole 20 mg tablet,delayed 20 mg PO DAILY 08/12/22 01/08/23 History release aspirin 81 mg tablet,delayed 81 mg PO DAILY 01/08/23 01/21/23 History release cyclobenzaprine 10 mg tablet 10 mg PO TID 01/08/23 01/21/23 History furosemide 20 mg tablet 20 mg PO DAILY 01/08/23 01/21/23 History nortriptyline 25 mg capsule 25 mg PO HS 01/08/23 01/21/23 History Exam Narrative Exam Narrative: Disheveled appearing gentleman laying in bed, appears mildly agitated, awake, not responding to commands, heart regular rate rhythm, lungs clear to auscultation bilaterally, abdomen soft, nontender, mildly distended, normal strength in bilateral upper and lower extremities though patient is not following commands at this time, multiple open excoriations over bilateral upper and lower extremities Results Labs 01/21/23 12:20 01/21/23 18:15 Labs: Laboratory Results - last 24 hr 01/21/23 01/21/23 01/21/23 12:20 12:23 13:00 WBC 22.63 H RBC 3.58 L Hgb 8.6 L Hct 26.5 L MCV 74 L MCH 24.0 L MCHC 32.5 RDW 23.7 H Plt Count 361 MPV 7.7 L Immature Gran % See Differential Neutrophils % 92.0 Band Neutrophils % 5 Lymphocytes % 1.0 Monocytes % 2.0 Eosinophils % 0.0 Basophils % 0.0 Nucleated RBC % 0.0 Absolute Neutrophils 21.95 H Absolute Lymphocytes 0.23 L Absolute Monocytes 0.45 Absolute Eosinophils 0.00 Absolute Basophils 0.00 RBC Morphology See Below Polychromasia Present Poikilocytosis 1+ Anisocytosis 2+ Microcytosis 1+ PT 10.3 INR 1.0 ABG Sample Site Left Radial ABG pH 7.44 ABG pCO2 33 L ABG pO2 88 ABG HCO3 22 ABG Total CO2 21 L ABG O2 Saturation 98 ABG Base Excess -2 VBG pH 7.40 VBG pCO2 41 VBG pO2 32 VBG HCO3 25 VBG Total CO2 24 VBG O2 Saturation 54 VBG Base Excess 0 VBG Lactate 1.0 Oxygen Liter Flow 2 Sodium 121 L* Potassium 5.5 H Chloride 89 L Carbon Dioxide 25.9 Anion Gap 6.1 BUN 41 H Creatinine 1.1 Est GFR (CKD-EPI 2020) 75.43 Glucose 111 H Calcium 8.8 Total Bilirubin 0.6 AST 41 H ALT 36 Alkaline Phosphatase 101 Ammonia 21 Troponin I < 50 Total Protein 6.9 Albumin 3.3 L Urine Color Urine Clarity Urine pH Ur Specific [place] Urine Protein Urine Ketones Urine Blood Urine Nitrite Urine Bilirubin Urine Urobilinogen Ur Leukocyte Esterase Urine Glucose COVID-19 Source Nasopharynx SARS-CoV-2 (PCR) Negative 01/21/23 01/21/23 14:35 15:07 WBC RBC Hgb Hct MCV MCH MCHC RDW Plt Count MPV Immature Gran % Neutrophils % Band Neutrophils % Lymphocytes % Monocytes % Eosinophils % Basophils % Nucleated RBC % Absolute Neutrophils Absolute Lymphocytes Absolute Monocytes Absolute Eosinophils Absolute Basophils RBC Morphology Polychromasia Poikilocytosis Anisocytosis Microcytosis PT INR ABG Sample Site ABG pH ABG pCO2 ABG pO2 ABG HCO3 ABG Total CO2 ABG O2 Saturation ABG Base Excess VBG pH VBG pCO2 VBG pO2 VBG HCO3 VBG Total CO2 VBG O2 Saturation VBG Base Excess VBG Lactate 0.7 Oxygen Liter Flow Sodium Potassium Chloride Carbon Dioxide Anion Gap BUN Creatinine Est GFR (CKD-EPI 2020) Glucose Calcium Total Bilirubin AST ALT Alkaline Phosphatase Ammonia Troponin I < 50 Total Protein Albumin Urine Color Yellow Urine Clarity Clear Urine pH 5.5 Ur Specific [place] 1.020 Urine Protein Negative Urine Ketones Negative Urine Blood Negative Urine Nitrite Negative Urine Bilirubin Negative Urine Urobilinogen 0.2 Ur Leukocyte Esterase Negative Urine Glucose Negative COVID-19 Source SARS-CoV-2 (PCR) Last Vital Signs Temp 99.0 F 01/21/23 12:38 Pulse 67 01/21/23 14:31 Resp 26 H 01/21/23 14:31 BP 138/104 H 01/21/23 14:31 Pulse Ox 97 01/21/23 14:31 Time Spent Time spent with Patient: >75 minutes Time was spent: preparing to see the patient(eg.review tests), obtaining and/or reviewing separately otained hiistory, referring, communicating with other health healthcare economics manager, indepentently interpreting results, counseling the patient and care coordination
[2023-01-21] MEDS: Lidocaine 2% Jelly 6 ML SYR (17:22)
[2023-01-21 18:19] LABS: Lactate 0.5 mmol/L (0.6-1.4)
[2023-01-21 18:33] LABS: Anion Gap 8.1 mmol/L (3-11); BUN 32 mg/dL (7-18); CO2 22.9 mmol/L (21.0-32.0); CREATININE 0.9 mg/dL (0.70-1.30); Calcium 8.3 mg/dL (8.5-10.1); Chloride 94 mmol/L (98-107); Estimated GFR 95.97 (mL/min/1.73m2); Glucose 127 mg/dL (74-106); Potassium 4.6 mmol/L (3.5-5.1); Sodium 125 mmol/L (136-145)
--- NOTE | 2023-01-21 19:06 | W.PC.ACHO ---
Registration Status: ADM IN Primary Language: Preferred Language: Italian ED Information & Data Chief Complaint GenMedical 01/21/23 12:38 Chief Complaint GenMedical 01/21/23 11:55 Triage Note Fall on blood thinners, AMS 01/21/23 11:55 ? current substance use, stump pain Subjective AMS 01/21/23 12:38 Medical / Surgical History (Last Reviewed 01/21/23 @ 17:55 by Demetrio Metcalf MD) Palliative care patient Marijuana use Dermatofibroma of left lower leg History of cigarette smoking Knee pain, right Fatigue Rotator cuff syndrome of right shoulder Actinic keratosis Obesity (BMI 35.0-39.9 without comorbidity) Allergic rhinitis Anemia Autoimmune disease Shortness of breath Swallowing problem Peripheral edema Orthostasis Diplopia Severe muscle deconditioning Leukoaraiosis Shoulder pain, bilateral Screening for prostate cancer Urinary retention Sepsis Leukocytosis, unspecified Raynauds syndrome History of septic arthritis (~02/19/17) Lumbar discitis Dehydration Hypotension Syncope Obesity Hypertension Restless legs Psychogenic polydipsia Lactose intolerance Hyperlipidemia Marijuana use PTSD (post-traumatic stress disorder) ANGIE (obstructive sleep apnea) Sacroiliac joint dysfunction of right side Spondylosis of lumbar region without myelopathy or radiculopathy (Last Reviewed 01/21/23 @ 17:55 by Demetrio Metcalf MD) History of arthroplasty of right knee History of revision of total replacement of right knee joint (06/11/17) History of removal of joint prosthesis of right knee due to infection S/P lumbar fusion History of fusion of cervical spine (04/05/19) bunionectomy Rotator Cuff Repair Colonoscopy - MAC Most Recent Vital Signs Temperature 37.2 C 01/21/23 12:38 Temperature Source Oral 01/21/23 12:38 Pulse 70 01/21/23 17:17 Pulse 78 01/21/23 17:17 Respiratory Rate 25 H 01/21/23 17:17 Respiratory Effort Incrsd Work of Breathing 01/21/23 12:38 Respiratory Depth Normal 01/21/23 12:38 Respiratory Pattern Tachypnea 01/21/23 12:38 Blood Pressure 140/73 01/21/23 17:17 Blood Pressure Mean 94 01/21/23 17:17 Blood Pressure Position Sitting 01/21/23 12:38 Pulse Oximetry 84 L 01/21/23 17:17 Respiratory End-tidal CO2 15 01/21/23 16:31 Oxygen Delivery Method Nasal Cannula 01/21/23 12:38 Oxygen Flow Rate 2 01/21/23 12:38 Pain Level 10 01/21/23 11:55 Allergies varenicline [From Chantix] Adverse Reaction (Intermediate, Unverified 01/08/23 11:27) Psychosis ziprasidone mesylate [From Geodon] Adverse Reaction (Intermediate, Unverified 01/08/23 11:27) Memory deficit duloxetine HCl [From Cymbalta] Adverse Reaction (Unknown, Unverified 01/08/23 11:27) topiramate [From Topamax] Adverse Reaction (Unknown, Unverified 01/08/23 11:27) hay fever Adverse Reaction (Mild, Uncoded 01/08/23 11:27) rhinitis IV IV Catheter Type [Right Peripheral IV Forearm] IV Catheter Type [Right Peripheral IV Antecubital] IV Catheter Gauge [Right 20 Forearm] IV Catheter Gauge [Right 18 Antecubital] Diet Orders Category Date Time Status Nothing Per Oral [DIET] Nutrition 01/21/23 Dinner Active Diagnostics 01/21/23 01/21/23 01/21/23 Range/Units 18:15 15:07 14:35 WBC (4.4-10.8) 10^3/uL RBC (4.36-5.78) 10^6/uL Hgb (13.5-17.5) g/dL Hct (40.0-50.0) % MCV (80-95) fL MCH (27.0-33.0) pg MCHC (32.0-36.0) % RDW (11.8-14.1) % Plt Count (130-400) 10^3/uL MPV (8.0-11.0) fL Immature Gran % Neutrophils % Band Neutrophils % Lymphocytes % Monocytes % Eosinophils % Basophils % Nucleated RBC % (0.0-0.3) % Absolute Neutrophils (1.2-6.7) 10^3/uL Absolute Lymphocytes (1.2-3.4) 10^3/uL Absolute Monocytes (0.1-0.8) 10^3/uL Absolute Eosinophils (0.0-0.7) 10^3/uL Absolute Basophils (0.0-0.2) 10^3/uL RBC Morphology Polychromasia Poikilocytosis Anisocytosis Microcytosis PT (9.1-11.1) sec INR (0.9-1.1) ABG Sample Site ABG pH (7.35-7.45) ABG pCO2 (35-45) mmHg ABG pO2 (80-105) mmHg ABG HCO3 (22-26) mmol/L ABG Total CO2 (23-27) mmol/L ABG O2 Saturation (95-98) % ABG Base Excess (-2-3) mmol/L VBG pH (7.31-7.41) VBG pCO2 (41-51) mmHg VBG pO2 mmHg VBG HCO3 (23-28) mmol/L VBG Total CO2 (24-29) mmol/L VBG O2 Saturation % VBG Base Excess (-2-3) mmol/L VBG Lactate 0.5 L 0.7 (0.6-1.4) mmol/L Oxygen Liter Flow L Sodium 125 L (136-145) mmol/L Potassium 4.6 (3.5-5.1) mmol/L Chloride 94 L (98-107) mmol/L Carbon Dioxide 22.9 (21.0-32.0) mmol/L Anion Gap 8.1 (3-11) mmol/L BUN 32 H (7-18) mg/dL Creatinine 0.9 (0.70-1.30) mg/dL Est GFR (CKD-EPI 2020) 95.97 (mL/min/1.73m2) Glucose 127 H (74-106) mg/dL Calcium 8.3 L (8.5-10.1) mg/dL Total Bilirubin (0.2-1.0) mg/dL AST (15-37) U/L ALT (16-63) U/L Alkaline Phosphatase (46-116) U/L Ammonia (11-32) umol/L Troponin I < 50 (<or=60) ng/L Total Protein (6.4-8.2) g/dL Albumin (3.4-5.0) g/dL Urine Color Yellow (Yellow) Urine Clarity Clear (Clear) Urine pH 5.5 (5-8) Ur Specific [place] 1.020 (1.005-1.025) Urine Protein Negative (Negative) mg/dL Urine Ketones Negative (Negative) mg/dL Urine Blood Negative (Negative) Urine Nitrite Negative (Negative) Urine Bilirubin Negative (Negative) Urine Urobilinogen 0.2 (Up to 0.2) mg/dL Ur Leukocyte Esterase Negative (Negative) Urine Glucose Negative (Negative) mg/dL COVID-19 Source SARS-CoV-2 (PCR) (Negative) 01/21/23 01/21/23 01/21/23 Range/Units 13:00 12:23 12:20 WBC 22.63 H (4.4-10.8) 10^3/uL RBC 3.58 L (4.36-5.78) 10^6/uL Hgb 8.6 L (13.5-17.5) g/dL Hct 26.5 L (40.0-50.0) % MCV 74 L (80-95) fL MCH 24.0 L (27.0-33.0) pg MCHC 32.5 (32.0-36.0) % RDW 23.7 H (11.8-14.1) % Plt Count 361 (130-400) 10^3/uL MPV 7.7 L (8.0-11.0) fL Immature Gran % See Differential Neutrophils % 92.0 Band Neutrophils % 5 Lymphocytes % 1.0 Monocytes % 2.0 Eosinophils % 0.0 Basophils % 0.0 Nucleated RBC % 0.0 (0.0-0.3) % Absolute Neutrophils 21.95 H (1.2-6.7) 10^3/uL Absolute Lymphocytes 0.23 L (1.2-3.4) 10^3/uL Absolute Monocytes 0.45 (0.1-0.8) 10^3/uL Absolute Eosinophils 0.00 (0.0-0.7) 10^3/uL Absolute Basophils 0.00 (0.0-0.2) 10^3/uL RBC Morphology See Below Polychromasia Present Poikilocytosis 1+ Anisocytosis 2+ Microcytosis 1+ PT 10.3 (9.1-11.1) sec INR 1.0 (0.9-1.1) ABG Sample Site Left Radial ABG pH 7.44 (7.35-7.45) ABG pCO2 33 L (35-45) mmHg ABG pO2 88 (80-105) mmHg ABG HCO3 22 (22-26) mmol/L ABG Total CO2 21 L (23-27) mmol/L ABG O2 Saturation 98 (95-98) % ABG Base Excess -2 (-2-3) mmol/L VBG pH 7.40 (7.31-7.41) VBG pCO2 41 (41-51) mmHg VBG pO2 32 mmHg VBG HCO3 25 (23-28) mmol/L VBG Total CO2 24 (24-29) mmol/L VBG O2 Saturation 54 % VBG Base Excess 0 (-2-3) mmol/L VBG Lactate 1.0 (0.6-1.4) mmol/L Oxygen Liter Flow 2 L Sodium 121 L* (136-145) mmol/L Potassium 5.5 H (3.5-5.1) mmol/L Chloride 89 L (98-107) mmol/L Carbon Dioxide 25.9 (21.0-32.0) mmol/L Anion Gap 6.1 (3-11) mmol/L BUN 41 H (7-18) mg/dL Creatinine 1.1 (0.70-1.30) mg/dL Est GFR (CKD-EPI 2020) 75.43 (mL/min/1.73m2) Glucose 111 H (74-106) mg/dL Calcium 8.8 (8.5-10.1) mg/dL Total Bilirubin 0.6 (0.2-1.0) mg/dL AST 41 H (15-37) U/L ALT 36 (16-63) U/L Alkaline Phosphatase 101 (46-116) U/L Ammonia 21 (11-32) umol/L Troponin I < 50 (<or=60) ng/L Total Protein 6.9 (6.4-8.2) g/dL Albumin 3.3 L (3.4-5.0) g/dL Urine Color (Yellow) Urine Clarity (Clear) Urine pH (5-8) Ur Specific [place] (1.005-1.025) Urine Protein (Negative) mg/dL Urine Ketones (Negative) mg/dL Urine Blood (Negative) Urine Nitrite (Negative) Urine Bilirubin (Negative) Urine Urobilinogen (Up to 0.2) mg/dL Ur Leukocyte Esterase (Negative) Urine Glucose (Negative) mg/dL COVID-19 Source Nasopharynx SARS-CoV-2 (PCR) Negative (Negative) 01/21/23 12:20 Blood Culture - Pending Blood 01/21/23 12:28 Blood Culture - Pending Blood Intake and Output - 24 Hour Total 01/21/23 11:49 thru 01/21/23 14:35 Intake Total 1120 Balance 1120 Weight 76.3 kg Intake: IV 1120 Other: Urine Color Pale Yellow Urine Appearance Clear Urinary Catheter Urinary Catheter Date of 01/21/23 Insertion [Uretheral (Gonzalez)] Time of insertion [Uretheral ( 14:33 Gonzalez)] Falls Risk Assessment History of Falls Admit Due to Fall 01/21/23 12:10 Contributing Factors Confusion 01/21/23 12:10 Ambulatory Aids Uses ambulatory device + 01/21/23 12:10 Tubes/Lines With any additional score 01/21/23 12:10 Cognition Cognitive impairment 01/21/23 12:10 Fall Total Score 93 01/21/23 12:10 Level of Risk Maximum Risk 01/21/23 12:10 Problems (Last Reviewed 01/21/23 @ 17:55 by Demetrio Metcalf MD) Encephalopathy (Acute) Cellulitis (Acute) Acute respiratory failure with hypoxia (Acute) Hyponatremia (Acute) Hyperkalemia (Acute) Aspiration pneumonia (Acute) Severe sepsis (Acute) Acute dehydration (Acute) Decubitus ulcer (Acute) Opioid dependence with withdrawal (Acute) Acute hyponatremia (Acute) Aspiration pneumonia (Acute) Sepsis (Acute) v v v v v v v v v Sending and/or Receiving Nurses: Please use comment section below to note any information pertinent to the patient hand-off not included above. Information / Comments: Patient reportedly on 4L oxymask with nasal trumpet in place in left nare. Report received from: LILIAN Hager
[2023-01-21 20:06] LABS: Bilirubin Negative (Negative); Blood Small (Negative); Clarity Clear (Clear); Glucose Negative (Negative); Ketones Negative (Negative); Leukocyte Esterase Negative (Negative); Nitrite Negative (Negative); Specific Gravity >= 1.030 (1.005-1.025); Urobilinogen 0.2 mg/dL (Up to 0.2); pH 5.5 (5-8)
[2023-01-21] MEDS: Lactated Ringers 1,000 ML 100 ML IV (20:09)
[2023-01-21 20:13] LABS: Bacteria Negative HPF (Negative); C & S Indicated? No; Crystals Negative HPF (Negative); Epithelial Cells Negative HPF (Negative); Mucus Negative (Negative); WBC Negative HPF (0-5)
--- NOTE | 2023-01-21 21:00 | DI.RAD_ITS ---
Exam(s) XR PORTABLE CHEST AP EXAM: XR PORTABLE CHEST AP CLINICAL HISTORY: hypoxemia TECHNIQUE: 2D digital imaging was performed of the chest. One image was obtained. An AP view was ob tained. COMPARISON: CR XR PORTABLE CHEST AP from 01/21/2023 CR,XR XR PORTABLE CHEST AP POST LINE from 01/21/2023 FINDINGS: MEDIASTINUM: Normal. HEART: Cardiomegaly. PULMONARY VASCULATURE: There is prominence of the pulmonary vasculature. LUNGS: There is poor inspiration with crowding of the pulmonary vasculature. No focal consolidating infiltrates are seen. PLEURAL SPACE: No pleural effusion or pneumothorax. BONE:Within normal limits for the patient's age. OTHER FINDINGS:Normal. IMPRESSION: 1. Examination limited by low lung volumes. 2. Cardiomegaly. 3. Pulmonary venous congestion. DATA REPOSITORY: RADIATION DOSE DELIVERED:
[2023-01-21] MEDS: Albuterol/Ipratropium 3 ML UPD VIAL UPD (21:45)
[2023-01-21 21:54] LABS: NT-proBNP 6369 pg/mL (<300)
[2023-01-21] MEDS: Furosemide 40 MG/4 ML VIAL IVP (22:02)
--- NOTE | 2023-01-21 22:03 | DI.VRAD_ITS ---
PROCEDURE INFORMATION: Exam: XR Chest Exam date and time: 01/21/2023 9:29 PM Age: 62 years old Clinical indication: Other: Hypoxemia TECHNIQUE: Imaging protocol: Radiologic exam of the chest. Views: 1 view. COMPARISON: CT CHEST/ABD/PEL WO 01/21/2023 2:57 PM FINDINGS: Lungs: Lung volumes are low with crowding of the pulmonary vasculature. Pulmonary vasculature appears moderately prominent. No ashtyn pulmonary consolidation. Pleural spaces: Unremarkable. No pleural effusion. No pneumothorax. Heart/Mediastinum: Unremarkable. No cardiomegaly. Bones/joints: Unremarkable. IMPRESSION: Mild hypoaeration changes with borderline congestive changes. Dictated and Authenticated by: Micheal Gupta MD. Ordering:.[facility] Angela Rosario MD
[2023-01-21 22:04] LABS: BE -3 mmol/L (-2-3); HCO3 25 mmol/L (22-26); pO2 70 mmHg (80-105); sO2 90 % (95-98); tCO2 25 mmol/L (23-27)
[2023-01-21] MEDS: Normal Saline Flush 10 ML SYR IVP (22:04)
[2023-01-21 22:08] LABS: Site Right Radial; pCO2 64 mmHg (35-45)
--- NOTE | 2023-01-21 22:42 | DI.RAD_ITS ---
Exam(s) XR PORTABLE CHEST AP POST LINE EXAM: XR PORTABLE CHEST AP POST LINE CLINICAL HISTORY: post intubation for confirmation of ETT placement TECHNIQUE: 2D digital imaging was performed of the chest. Two images were obtained. AP views were obtained. COMPARISON: CR XR PORTABLE CHEST AP POST LINE from 04/24/2020 CR,XR XR PORTABLE CHEST AP from 01/21/2023 FINDINGS: MEDIASTINUM: Normal. HEART: Upper limits of normal in size. PULMONARY VASCULATURE: Pulmonary venous congestion. LUNGS: No focal consolidations. PLEURAL SPACE: No pleural effusion or pneumothorax. BONE:Within normal limits for the patient's age. OTHER FINDINGS:The tip of the endotracheal tube is acute in good position 6 cm above the ramon. The endotracheal tube tip is in the stomach in good position. IMPRESSION: Both the endotracheal and enteric tubes are in good position. DATA REPOSITORY: RADIATION DOSE DELIVERED:
[2023-01-21] MEDS: Rocuronium 50 MG/5 ML SYR IVP (22:45)
[2023-01-21] MEDS: Propofol 200 MG/20 ML VIAL 100 MG IVP (22:45)
[2023-01-21] MEDS: Atropine 1 MG/10 ML SYRINGE IVP (22:45)
--- NOTE | 2023-01-21 22:50 | W.EVENT ---
Date of service: 01/21/23 Time of Service: 22:50 Event Note: Called to see patient regarding acute respiratory distress. Patient was having a lot of thick white mucus secretions and was tachypneic and having repeated bouts of hypoxemia. Patient be associated with apneic spells with desaturations down to the 70s. Then he would have a paroxysm of coughing and after clearing his secretions with bring his saturation back up into the mid to high 90s while on the high flow oxygen system 50 L 45%. Aerosol treatments given to the patient and subsequent ABG was obtained and was found to have both hypoxemic and hypercarbic respiratory failure with a pH of 7.197 PCO2 64 PO2 of 70. That point decision was made to intubate him. His who is currently estranged from him was called and notified of the impending intubation. Patient then was premedicated with atropine 1 mg given propofol 100 mg followed by rocuronium 75 mg. Using a #3 glide scope and #8 endotracheal tube patient was intubated with visualization of his cords endotracheal tube was passed to 20 cm and then pulled back to 26 cm. Equal air exchange was heard and both lungs. Chest x-ray is pending at this time. [id number] ultrasound showed good lung sliding on both sides with ventilation. Oxygen saturation 100% postintubation. Postintubation had some hypotension into the 70s requiring epinephrine 1 mg which brought his blood pressure up to 200 systolic. Blood pressure subsequently came down into the 150s but then drop back down into the 80s and 100 mcg of phenylephrine was given. CXR is pending at this time. Patient is already on Zosyn and Vancomycin which should adequately cover for CAP althoug I did add doxycycline for coverage of atypicals and began him on steroids for his COPD exacerbation. CXR was checked and ET in good placement just above the level of the aortic knob and NG tube appears to be in appropriate placement. Post intubation ABG was checkes and his pH is now 7.31 and pCO2 47, pO2 114 (on 40% FIO2, AC 18 bpm, TV 450, PEEP 5 cm). Time Spent with Patient Time spent in critical care(minutes): 60 Time Spent Included: Performing procedures not included in c.c time, Coordination of care, Chart review, Documenting critically ill care, Time at immediate bedside, Discussing critically ill care with other medical staff and Discussing Hx and/or treatment with family
[2023-01-21] MEDS: PROPOFOL 1,000 MG/100 ML BTL 31.878 MG IVPB (23:00)
[2023-01-21 23:05] LABS: *AMPHETAMINES SCREEN URINE Negative (Negative); *BARBITURATES SCREEN URINE Negative (Negative); *BENZODIAZEPINES SCREEN URINE Negative (Negative); Cannabinoids THC Negative (Negative); Cocaine Screen,Urine Positive (Negative); METHADONE URINE SCREEN Negative (Negative); OPIATES URINE SCREEN Negative (Negative)
[2023-01-21 23:06] LABS: Tricyclic Antidepressants Positive (Negative)
--- NOTE | 2023-01-21 23:23 | DI.VRAD_ITS ---
PROCEDURE INFORMATION: Exam: XR Chest Exam date and time: 01/21/2023 11:06 PM Age: 62 years old Clinical indication: Device placement; Ett placement (vent status); Patient HX: Post intubation. Confirm placement of ett and og TECHNIQUE: Imaging protocol: Radiologic exam of the chest. Views: 1 view. COMPARISON: CR XR PORTABLE CHEST AP 01/21/2023 9:29 PM FINDINGS: Tubes, catheters and devices: There has been interval placement of endotracheal tube with the tip in good position approximately 7 cm above the ramon. Esophagogastric tube in place with tip and side port in the proximal stomach. Lungs: Low lung volumes and moderate pulmonary vascular prominence persist. Pleural spaces: Unremarkable. No pleural effusion. No pneumothorax. Heart/Mediastinum: Unremarkable. No cardiomegaly. Bones/joints: Unremarkable. IMPRESSION: Adequate position of the endotracheal and esophagogastric tubes. Dictated and Authenticated by: Micheal Gupta MD. Ordering:[facility] Angela Rosario MD
[2023-01-21 23:53] LABS: BE -2 mmol/L (-2-3); HCO3 24 mmol/L (22-26); pCO2 48 mmHg (35-45); pH 7.31 (7.35-7.45); pO2 114 mmHg (80-105); sO2 98 % (95-98); tCO2 23 mmol/L (23-27)
[2023-01-21 23:56] LABS: FIO2 40 %; Site Right Radial
[2023-01-22] VITALS (177 sets, daily range): BP systolic 61–136; BP diastolic 47–123; PULSE 62–180; RESP 2–33; TEMP 36.6–37.6; O2SAT 89–100
[2023-01-22] MEDS: Albuterol 2.5 MG/3 ML INH SOLN VIAL UPD (00:22)
[2023-01-22] MEDS: methylPREDNISolone SUCC 125 MG VIAL IVP (00:41)
--- NOTE | 2023-01-22 01:00 | RT.EKG_ITS ---
APPROVED REPORT Exam: Resting ECG Reason for Exam: hypotension, sepsis Patient Location: I HR:82 bpm ECG Measurements Heart Rate 82 AXIS PA 220 P -13 QRSd 154 QRS 88 QT 390 T 13 QTc 456 Conclusion Sinus rhythm...normal P axis, V-rate 50- 99 Prolonged PA interval...PA >220, V-rate 50- 90 Nonspecific intraventricular conduction delay...QRSd >115mS, not LBBB/RBBB
[2023-01-22] MEDS: Norepinephrine in D5W 8 MG/250 ML BAG 18.75 MG IV (01:01)
[2023-01-22] MEDS: DOXYCYCLINE 100 MG in Normal Saline 100 ML IVPB ×3 (01:09→23:36)
[2023-01-22] MEDS: Normal Saline 500 ML 30 ML IV (01:21)
[2023-01-22] MEDS: PROPOFOL 1,000 MG/100 ML BTL 36.432 MG IVPB ×7 (01:24→22:38)
[2023-01-22] MEDS: Normal Saline Flush 10 ML SYR IVP ×2 (01:27→21:53)
[2023-01-22] MEDS: PIPERACILLIN/TAZO 4.5 GM in Normal Saline 100 ML IVPB ×4 (01:45→20:04)
[2023-01-22] MEDS: Albuterol/Ipratropium 3 ML UPD VIAL UPD ×6 (02:13→21:54)
[2023-01-22] MEDS: VANCOMYCIN 1,000 MG in Normal Saline 250 ML 166.6 MG IVPB (02:19)
[2023-01-22] MEDS: Water,Injection,Sterile 10 ML VIAL ×2 (02:21)
[2023-01-22 02:34] LABS: Lab Add On Test DONE
[2023-01-22 03:13] LABS: Troponin I 79 ng/L (<or=60)
--- NOTE | 2023-01-22 03:15 | RT.EKG_ITS ---
APPROVED REPORT Exam: Resting ECG Reason for Exam: Rhythm Change Patient Location: I HR:107 bpm ECG Measurements Heart Rate 107 AXIS KS 130 P -83 QRSd 142 QRS 72 QT 511 T -55 QTc 682 Conclusion Atrial flutter Right bundle branch block...QRSd>120, terminal axis(90,270) ST depr, consider ischemia, inferior leads...ST <-0.10mV, II III aVF
[2023-01-22] MEDS: MORPHine 2 MG/ML SYR IVP ×3 (03:24→05:29)
[2023-01-22] MEDS: methylPREDNISolone SUCC 125 MG VIAL 60 MG IVP ×3 (05:28→21:53)
[2023-01-22 05:57] LABS: HCT 26.6 % (40.0-50.0); HGB 8.4 g/dL (13.5-17.5); MCH 23.7 pg (27.0-33.0); MCHC 31.6 % (32.0-36.0); MCV 75 fL (80-95); MPV 7.2 fL (8.0-11.0); Platelet Count 277 10^3/uL (130-400); RBC 3.54 10^6/uL (4.36-5.78); RDW-SD 63.2 fL
[2023-01-22 05:58] LABS: BE (Venous) 0 mmol/L (-2-3); HCO3 (Venous) 26 mmol/L (23-28); O2 Sat (Venous) 92 %; TCO2 (Venous) 25 mmol/L (24-29); pCO2 (Venous) 44 mmHg (41-51); pH (Venous) 7.37 (7.31-7.41); pO2 (Venous) 65 mmHg
[2023-01-22 06:18] LABS: Anion Gap 8.8 mmol/L (3-11); BUN 28 mg/dL (7-18); C-Reactive Protein 11.73 mg/dL (0.0-0.3); CO2 25.2 mmol/L (21.0-32.0); CREATININE 0.9 mg/dL (0.70-1.30); Calcium 8.5 mg/dL (8.5-10.1); Chloride 99 mmol/L (98-107); Estimated GFR 95.97 (mL/min/1.73m2); Glucose 122 mg/dL (74-106); Magnesium 1.8 mg/dL (1.8-2.4); Potassium 3.7 mmol/L (3.5-5.1); Sodium 133 mmol/L (136-145)
[2023-01-22 06:25] LABS: Troponin I 179 ng/L (<or=60)
[2023-01-22 06:28] LABS: RDW 23.4 % (11.8-14.1)
--- NOTE | 2023-01-22 06:45 | RT.EKG_ITS ---
APPROVED REPORT Exam: Resting ECG Reason for Exam: rising troponin Patient Location: I HR:109 bpm ECG Measurements Heart Rate 109 AXIS ID 139 P -86 QRSd 133 QRS 56 QT 323 T -54 QTc 436 Conclusion Atrial flutter Right bundle branch block...QRSd>120, terminal axis
[2023-01-22] MEDS: Budesonide/Formoterol 160/4.5 6 GM 60 PUFF INH IH ×2 (07:52→20:04)
[2023-01-22] MEDS: Pantoprazole 40 MG VIAL IVP (08:56)
[2023-01-22 10:21] LABS: Troponin I 130 ng/L (<or=60)
--- NOTE | 2023-01-22 11:08 | INITIAL_ITS ---
Date of service: 01/22/23 Time of Service: 17:02 Care Management Initial Assmt Initial Assessment REASON FOR HOSPITALIZATION:: severe sepsis PREVIOUS FUNCTIONAL STATUS/SOCIAL/FAMILY SUPPORTS:: Darrell lives in [place] in a single family home. He and his have recently . Darrell is disabled and spends most of his time on a scooter or wheelchair. He has been approved for [facility] highest needs and is currently looking for caregivers. CURRENT FUNCTIONAL STATUS:: Darrell is intubated and sedated. His Jessica contacted CM today requesting and providing information. She is his healthcare agent and is on his HIPAA form so CM agreed to speak with her. She shared that Darrell has had problems with drugs for a long time that began when he was prescribed narcotics for knee and back surgeries. He has a corrections caseworker through [employer] (Sherry Gonzalez). Jessica shared that she moved out of the home they own together about 2-3 weeks ago because of the drugs. She does not know when or how Darrell became ill or who called 911 for him. Jessica also reported that she has Parkinson's Disease with early dementia. She is currently staying at the [facility] using a voucher from [employer]. She needs to move out by Friday. ADVANCE DIRECTIVES:: on file. Jessica [facility]. Has patient been provided with info about the portal/API?: Yes Did the patient sign up for the portal?: No CODE STATUS:: Full Code INSURANCE COVERAGE / FINANCIAL ISSUES:: Medicare skilled nursing Medicaid CURRENT HOME/COMMUNITY SERVICES/EQUIPMENT:: [facility] highest needs, wheelchair, scooter PRIMARY CARE PHYSICIAN:: Ivonne Diop POTENTIAL DISCHARGE NEEDS:: follow up with PCP and plan of care PATIENT/FAMILY EDUCATION NEEDS:: Review of discharge instructions, limitations, follow up plan, discuss Ask Me Three TRANSPORTATION:: to be determined by disposition PLAN:: Darrell's discharge plan is unclear at this time. He remains critically ill and intubated in the ICU. Darrell will likely have increased service needs when he is medically stable and ready for discharge. CM will follow and continue to assess for discharge planning needs. PFSH All Active Problems (Updated 01/22/23 @ 14:12 by Demetrio Metcalf MD) Acute respiratory failure with hypoxia and hypercapnia (Acute) Pulmonary edema (Acute) Encephalopathy (Acute) Cellulitis (Acute) Acute respiratory failure with hypoxia (Acute) Hyponatremia (Acute) Hyperkalemia (Acute) Aspiration pneumonia (Acute) Severe sepsis (Acute) Acute dehydration (Acute) Decubitus ulcer (Acute) Opioid dependence with withdrawal (Acute) Acute hyponatremia (Acute) Aspiration pneumonia (Acute) Sepsis (Acute) Fall (Acute) Dislocation of finger PIP joint (Acute) Impacted cerumen (Acute) Asymmetrical sensorineural hearing loss (Acute) Opioid overdose (Acute) Bradycardia (Acute) Falls (Acute) Weakness (Acute) Aspiration pneumonia (Acute) Epistaxis (Acute) Acute adrenal crisis (Acute) Acute hyperkalemia (Acute) Acute hyponatremia (Acute) Acute renal failure (Acute) Acute respiratory distress (Acute) Bradycardia (Acute) Sepsis (Acute) Burn injury (Acute) Chronic pain (Acute) No-show for appointment (Acute) COPD (chronic obstructive pulmonary disease) (Acute) Chronic low back pain (Acute) BPH with obstruction/lower urinary tract symptoms (Acute) Drug-induced constipation (Acute) Abdominal pain, lower (Acute) Change in stool habits (Acute) Medical History Palliative care patient Marijuana use Dermatofibroma of left lower leg History of cigarette smoking Knee pain, right Fatigue Rotator cuff syndrome of right shoulder Actinic keratosis Obesity (BMI 35.0-39.9 without comorbidity) Allergic rhinitis Anemia Autoimmune disease Shortness of breath Swallowing problem Peripheral edema Orthostasis Diplopia Severe muscle deconditioning Leukoaraiosis Shoulder pain, bilateral Screening for prostate cancer Urinary retention Sepsis Leukocytosis, unspecified Raynauds syndrome History of septic arthritis (~02/19/17) s/p incision and drainage right wrist Dr. Mccann Lumbar discitis Dehydration Hyponatremia Hypotension Syncope Obesity Hypertension Restless legs Psychogenic polydipsia Lactose intolerance Hyperlipidemia Marijuana use PTSD (post-traumatic stress disorder) ANGIE (obstructive sleep apnea) Sacroiliac joint dysfunction of right side Spondylosis of lumbar region without myelopathy or radiculopathy Surgical History History of arthroplasty of right knee History of revision of total replacement of right knee joint (06/11/17) s/p revision/replant R. TKA, on 06/11/[address] Ramírez History of removal of joint prosthesis of right knee due to infection [place]08[place]2016[place] [facility] [place] [place] s/p spacer exchange R. knee 02/18/2017 Dr. Ramírez; S/P lumbar fusion History of fusion of cervical spine (04/05/19) C5-C7 cervical discectomy and fusion, [place] Mark Spence[place] [facility] [place]union[place] Rotator Cuff Repair right Colonoscopy - [facility] 2010- nl. Unable to get into the cecum Social History Smoking/Tobacco Use Status: Current every day Tobacco Type: cigarettes Smoking packs per day: 1 Smoking cigarettes per day: 20.0 Smoking risk assessment performed?: Yes Alcohol Intake: former Drug use: Daily Substance use type: marijuana Details: on methadone from [facility] Housing: house Do you feel safe at home: Yes Do you feel safe in your relationship?: Yes
--- NOTE | 2023-01-22 11:40 | PHA.REVIEW2 ---
Pharmacy Admission Review Admission Clinical Review Admission Pharmacy Review: Encephalopathy (Acute) Cellulitis (Acute) Acute respiratory failure with hypoxia (Acute) Hyponatremia (Acute) Hyperkalemia (Acute) Aspiration pneumonia (Acute) Severe sepsis (Acute) Acute dehydration (Acute) Decubitus ulcer (Acute) Opioid dependence with withdrawal (Acute) Acute hyponatremia (Acute) Aspiration pneumonia (Acute) Sepsis (Acute) varenicline [From Chantix] Adverse Reaction (Intermediate, Unverified 01/08/23 11:27) Psychosis ziprasidone mesylate [From Geodon] Adverse Reaction (Intermediate, Unverified 01/08/23 11:27) Memory deficit duloxetine HCl [From Cymbalta] Adverse Reaction (Unknown, Unverified 01/08/23 11:27) topiramate [From Topamax] Adverse Reaction (Unknown, Unverified 01/08/23 11:27) hay fever Adverse Reaction (Mild, Uncoded 01/08/23 11:27) rhinitis Resuscitation Status Full Code Height 5 ft 6.14 in Weight 72.3 kg Comments Comments/Follow Ups: Patient currently intubated. Watch for orders for home meds once more stabilized and follow up with methadone (provider was contacted). Pharmacy Admission Review Renal Dosing Renal Dosing: BUN 28 mg/dL (7-18) H 01/22/23 05:45 Creatinine 0.9 mg/dL (0.70-1.30) 01/22/23 05:45 Medications needing adjustments: Reviewed (CrCl 77.3 mL/min) Anticoagulation Anticoagulation: Hgb 8.4 g/dL (13.5-17.5) L 01/22/23 05:45 Hct 26.6 % (40.0-50.0) L 01/22/23 05:45 Plt Count 277 10^3/uL (130-400) 01/22/23 05:45 INR 1.0 (0.9-1.1) 01/21/23 12:20 Creatinine 0.9 mg/dL (0.70-1.30) 01/22/23 05:45 DVT Prophylaxis: Reviewed Medications: Enoxaparin (40mg q24h) Opiate Usage Evaluate Pain Scale/Pains Meds: Reviewed (Morphine PRN) Scheduled Bowel Reg ordered if on Opiates?: No (docusate 100mg TID PRN) Relevant Labs Relevant Labs: Sodium 133 mmol/L (136-145) L 01/22/23 05:45 Potassium 3.7 mmol/L (3.5-5.1) 01/22/23 05:45 Chloride 99 mmol/L (98-107) 01/22/23 05:45 Magnesium 1.8 mg/dL (1.8-2.4) 01/22/23 05:45 C-Reactive Protein 11.73 mg/dL (0.0-0.3) H 01/22/23 05:45 Electrolytes, C-Reactive P, ESR: Reviewed (Na increased from 125 to 133) Cardiac Review Cardiac Review: Troponin I 130 ng/L (<or=60) H* 01/22/23 09:48 NT-Pro-B Natriuret Pep 6369 pg/mL (<300) H 01/21/23 21:24 BP, HR, EF%: Reviewed (BP 96/64, HR 117, elevated troponin ) QTc Review QTc: Reviewed (438 on 01/21/23) IV to PO Switch IV Medications: Reviewed (Patient currently intubated) Home Meds Home Med List reviewed: Reviewed Relevent Home Meds Not ordered & why?: Home meds not ordered: clonidine, furosemide, lisinopril, methylphenidate, methadone, mirtazapine, olanzapine, omeprazole (has order for pantoprazole), tamsulosin In regards to methadone: progress note mentioned suspected overdose / withdrawal due to methadone use. Tox screen was negative for methadone. Called [facility], they stated the patient was on take home but that ended 12/31 and he took his last dose on 01/06. They have not seen him since then. Reached out to provider to let them know. Current Meds Current Medication Order Review: Reviewed Pharmacy Antibiotic Review Relevant Labs: Relevant Labs 01/22/23 05:45 C-Reactive Protein 11.73 H Procalcitonin 1.0 Pharmacy Antibiotic Activity: Reviewed, no change Comments: Vancomcyin predicted AUC 560, trough 17.9. Vancomcyin level not currently ordered. Comments Comments/Follow Ups: Patient currently intubated. Watch for orders for home meds once more stabilized and follow up with methadone (provider was contacted).
[2023-01-22] MEDS: PROPOFOL 1,000 MG/100 ML BTL 31.878 MG IVPB (11:47)
--- NOTE | 2023-01-22 14:09 | W.PM.PROGNOT ---
Date of Service Date of service: 01/22/23 Time of Service: 14:10 Assessment and Plan Assessment and plan (1) Acute respiratory failure with hypoxia and hypercapnia: Status: Acute Assessment and plan: -Overnight patient had a rapid decline and required endotracheal intubation (please see Dr. Pierre's event report from 01/21/2023 at 22:50 for further details) -ABG pre-intubation showed a pH of 7.2, CO2 of 64, PO2 of 70 -Patient has been on tidal volume of 450, respiratory rate of 16, FiO2 21% and a PEEP of 5 with significant improvement in his CO2 on a.m. VBG as well as his oxygen saturation -Given patient's rapid decline, ongoing altered mental status, and significant increased work of breathing prior to intubation, he will remain intubated until the morning of 01/23/2023 when he will have an SBT -Patient has been on propofol, though he appears more agitated with increasing propofol his blood pressure is decreased -Start Precedex and wean off of propofol and norepinephrine as tolerated (2) Severe sepsis: Status: Acute Assessment and plan: - Patient meets criteria for severe sepsis on admission with a respiratory rate in the mid 20s, white blood cell count of 22, infectious/metabolic encephalopathy, and presumed infection being aspiration pneumonia, potential infected stage II decubitus ulcer -Was given 30 cc/kg fluid bolus in the emergency department -Given Vanco and Zosyn in the emergency department, will continue -Follow-up a.m. CBC shows improvement in WBCs (3) Aspiration pneumonia: Status: Acute Assessment and plan: - As seen on chest CT -Continue Vanco and Zosyn -Possibly occurred during period of opiate overdose/withdrawal -Follow-up blood cultures Qualifiers: Aspiration pneumonia type: unspecified Laterality: bilateral Lung location: lower lobe of lung Qualified Code(s): J69.0 - Pneumonitis due to inhalation of food and vomit (4) Pulmonary edema: Status: Acute Assessment and plan: -Likely cause of patient's rapid decline with worsening hypoxia and hypercapnic respiratory failure as noted above -He had significant urine output after IV Lasix -We will continue to monitor blood pressure, oxygen requirements and lung sounds give additional dose of IV Lasix needed (5) Decubitus ulcer: Status: Acute Assessment and plan: - As seen at ED on admission -Could be potential source of infection/cellulitis -Appreciate wound care assistance Qualifiers: Pressure injury location: sacral region Pressure injury stage: stage 2 Qualified Code(s): L89.152 - Pressure ulcer of sacral region, stage 2 (6) Hyponatremia: Status: Acute Assessment and plan: -Sodium was 121 in the emergency department -On 01/08/2023 sodium was 133 -However, cannot say if this is acute or subacute hyponatremia -Urine studies ordered, follow-up -However, given patient's presentation, this is likely hypovolemic hyponatremia -Patient is status post total of 2.3 L of normal saline in the emergency department -resolved as of AM 01/22 (7) Opioid dependence with withdrawal: Status: Acute Assessment and plan: - Given that the patient was tachypneic, had significant stool burden on CT, it appears that patient may have been heavily using his methadone and may have run out resulting in opiate withdrawal and resulting altered mental status and agitation -This theory is further bolstered by the fact that patient was given some IV morphine in the emergency department so that he could tolerate CT imaging and patient's agitation significantly improved -Will continue to of low-dose IV morphine for agitation and presumed opiate withdrawal (8) Hyperkalemia: Status: Acute Assessment and plan: Potassium 5.5 on admission in the ED -Was status post-30 cc/kg fluid resuscitation normal saline in the emergency department -resolved (9) Cellulitis: Status: Acute Assessment and plan: - Secondary source of infection given patient's multiple open excoriations, decubitus ulcer, and the fact that the patient was found laying in his own excrement -Treat as noted above (10) Encephalopathy: Status: Acute Assessment and plan: -Likely a combination of infectious due to sepsis aspiration pneumonia/cellulitis as noted above, potentially hyponatremia, as well as opiate withdrawal -See above- Subjective Subjective Interval history since last seen: Patient currently intubated and sedated, does not appear to be in any acute distress Exam Narrative Exam Narrative: Disheveled appearing gentleman laying in bed, intubated and sedated, does not appear to be in any acute distress heart regular rate rhythm, diminished breath sounds bilaterally, abdomen soft, nontender, mildly distended, multiple open excoriations over bilateral upper and lower extremities Objective Last Vital Signs Temp 99.7 F H 01/22/23 12:26 Pulse 118 H 01/22/23 14:03 Resp 21 01/22/23 14:04 BP 96/66 L 01/22/23 12:35 Pulse Ox 95 01/22/23 14:04 Laboratory Results - last 24 hr 01/21/23 01/21/23 01/21/23 14:35 15:07 18:15 WBC RBC Hgb Hct MCV MCH MCHC RDW Plt Count MPV ABG Sample Site ABG pH ABG pCO2 ABG pO2 ABG HCO3 ABG Total CO2 ABG O2 Saturation ABG Base Excess VBG pH VBG pCO2 VBG pO2 VBG HCO3 VBG Total CO2 VBG O2 Saturation VBG Base Excess VBG Lactate 0.7 0.5 L FiO2 Sodium 125 L Potassium 4.6 Chloride 94 L Carbon Dioxide 22.9 Anion Gap 8.1 BUN 32 H Creatinine 0.9 Est GFR (CKD-EPI 2020) 95.97 Glucose 127 H Calcium 8.3 L Magnesium Troponin I < 50 C-Reactive Protein NT-Pro-B Natriuret Pep Procalcitonin Urine Color Yellow Urine Clarity Clear Urine pH 5.5 Ur Specific [place] 1.020 Urine Protein Negative Urine Ketones Negative Urine Blood Negative Urine Nitrite Negative Urine Bilirubin Negative Urine Urobilinogen 0.2 Ur Leukocyte Esterase Negative Urine RBC Urine WBC Ur Epithelial Cells Urine Crystals Urine Bacteria Urine Mucus Ur Culture Indicated? Urine Glucose Negative Urine Opiates Screen Urine Methadone Screen Ur Barbiturates Screen Ur Tricyclics Screen Ur Amphetamines Screen U Benzodiazepines Scrn Urine Cocaine Screen Ur THC Screen Add-On Test Request 01/21/23 01/21/23 01/21/23 19:55 20:00 21:24 WBC RBC Hgb Hct MCV MCH MCHC RDW Plt Count MPV ABG Sample Site Right Radial ABG pH 7.20 L ABG pCO2 64 H* ABG pO2 70 L ABG HCO3 25 ABG Total CO2 25 ABG O2 Saturation 90 L ABG Base Excess -3 L VBG pH VBG pCO2 VBG pO2 VBG HCO3 VBG Total CO2 VBG O2 Saturation VBG Base Excess VBG Lactate FiO2 Sodium Potassium Chloride Carbon Dioxide Anion Gap BUN Creatinine Est GFR (CKD-EPI 2020) Glucose Calcium Magnesium Troponin I 79 H* C-Reactive Protein NT-Pro-B Natriuret Pep 6369 H Procalcitonin Urine Color Yellow Urine Clarity Clear Urine pH 5.5 Ur Specific [place] >= 1.030 H Urine Protein 30 H Urine Ketones Negative Urine Blood Small H Urine Nitrite Negative Urine Bilirubin Negative Urine Urobilinogen 0.2 Ur Leukocyte Esterase Negative Urine RBC 10-20 H Urine WBC Negative Ur Epithelial Cells Negative Urine Crystals Negative Urine Bacteria Negative Urine Mucus Negative Ur Culture Indicated? No Urine Glucose Negative Urine Opiates Screen Urine Methadone Screen Ur Barbiturates Screen Ur Tricyclics Screen Ur Amphetamines Screen U Benzodiazepines Scrn Urine Cocaine Screen Ur THC Screen Add-On Test Request 01/21/23 01/21/23 01/22/23 22:30 23:47 02:04 WBC RBC Hgb Hct MCV MCH MCHC RDW Plt Count MPV ABG Sample Site Right Radial ABG pH 7.31 L ABG pCO2 48 H ABG pO2 114 H ABG HCO3 24 ABG Total CO2 23 ABG O2 Saturation 98 ABG Base Excess -2 VBG pH VBG pCO2 VBG pO2 VBG HCO3 VBG Total CO2 VBG O2 Saturation VBG Base Excess VBG Lactate FiO2 40 Sodium Potassium Chloride Carbon Dioxide Anion Gap BUN Creatinine Est GFR (CKD-EPI 2020) Glucose Calcium Magnesium Troponin I C-Reactive Protein NT-Pro-B Natriuret Pep Procalcitonin Urine Color Urine Clarity Urine pH Ur Specific [place] Urine Protein Urine Ketones Urine Blood Urine Nitrite Urine Bilirubin Urine Urobilinogen Ur Leukocyte Esterase Urine RBC Urine WBC Ur Epithelial Cells Urine Crystals Urine Bacteria Urine Mucus Ur Culture Indicated? Urine Glucose Urine Opiates Screen Negative Urine Methadone Screen Negative Ur Barbiturates Screen Negative Ur Tricyclics Screen Positive A Ur Amphetamines Screen Negative U Benzodiazepines Scrn Negative Urine Cocaine Screen Positive A Ur THC Screen Negative Add-On Test Request DONE 01/22/23 01/22/23 05:45 09:48 WBC 13.30 H RBC 3.54 L Hgb 8.4 L Hct 26.6 L MCV 75 L MCH 23.7 L MCHC 31.6 L RDW 23.4 H Plt Count 277 MPV 7.2 L ABG Sample Site ABG pH ABG pCO2 ABG pO2 ABG HCO3 ABG Total CO2 ABG O2 Saturation ABG Base Excess VBG pH 7.37 VBG pCO2 44 VBG pO2 65 VBG HCO3 26 VBG Total CO2 25 VBG O2 Saturation 92 VBG Base Excess 0 VBG Lactate 1.0 FiO2 Sodium 133 L Potassium 3.7 Chloride 99 Carbon Dioxide 25.2 Anion Gap 8.8 BUN 28 H Creatinine 0.9 Est GFR (CKD-EPI 2021) 95.97 Glucose 122 H Calcium 8.5 Magnesium 1.8 Troponin I 179 H* 130 H* C-Reactive Protein 11.73 H NT-Pro-B Natriuret Pep Procalcitonin 1.0 Urine Color Urine Clarity Urine pH Ur Specific [place] Urine Protein Urine Ketones Urine Blood Urine Nitrite Urine Bilirubin Urine Urobilinogen Ur Leukocyte Esterase Urine RBC Urine WBC Ur Epithelial Cells Urine Crystals Urine Bacteria Urine Mucus Ur Culture Indicated? Urine Glucose Urine Opiates Screen Urine Methadone Screen Ur Barbiturates Screen Ur Tricyclics Screen Ur Amphetamines Screen U Benzodiazepines Scrn Urine Cocaine Screen Ur THC Screen Add-On Test Request Time Spent with Patient Time Spent with Patient: >50 minutes Time was spent: preparing to see the patient(eg.review tests), obtaining and/or reviewing separately otained hiistory, ordering medications,tests, procedures, referring, communicating with other health grounds caretaker, indepentently interpreting results, counseling the patient, care coordination and other (Greater than 60 minutes was spent with this critically ill patient requiring intubation overnight and ventilator management during the day as well as initiation of vasopressor support)
[2023-01-22] MEDS: VANCOMYCIN/WATER (PEG) 2 GM/400 ML BAG IV (14:10)
--- NOTE | 2023-01-22 14:11 | W.NUTRFU ---
Date of service: 01/22/23 Time of Service: 14:11 Nutrition Note NOTE: pt is 62yo male currently on mechanical ventilation with acute respiratory failure. Hx of drug, alcohol and tobacco use. Wt history shows ~12% wt loss in the last 11 months. Albumin low at 3.3. Unable to assess recent history of oral intake. Pt currently NPO while intubated. Recommend enteral feeding initiated if mechanically ventilated longer than 24 hours for optimal nutrition outcomes. Will monitor for diet advancement, intake and wt changes during admission Time Spent in Nutritional Counseling and Treatment: 0
[2023-01-22] MEDS: dexmedeTOMidine IN 0.9 % NACL 400 MCG/100 ML BTL IVPB (16:10)
[2023-01-22 18:58] LABS: Legionella Ag Detection Urine Negative (Negative)
[2023-01-22] MEDS: Enoxaparin 40 MG/0.4 ML SYR SC (20:04)
[2023-01-22] MEDS: dexmedeTOMidine IN 0.9 % NACL 400 MCG/100 ML BTL 14.46 MCG IVPB (22:47)
[2023-01-23] VITALS (74 sets, daily range): BP systolic 95–151; BP diastolic 65–104; PULSE 61–124; RESP 2–25; TEMP 36.3–37.2; O2SAT 89–100
[2023-01-23] MEDS: Normal Saline Flush 10 ML SYR IVP ×3 (00:54→20:00)
[2023-01-23] MEDS: MORPHine 2 MG/ML SYR IVP ×3 (00:55→05:01)
[2023-01-23 01:35] LABS: Vancomycin, Trough 25.2 ug/mL (10.0-20.0)
[2023-01-23] MEDS: PIPERACILLIN/TAZO 4.5 GM in Normal Saline 100 ML IVPB ×4 (01:48→19:29)
[2023-01-23] MEDS: PROPOFOL 1,000 MG/100 ML BTL 31.878 MG IVPB (02:02)
[2023-01-23] MEDS: Albuterol/Ipratropium 3 ML UPD VIAL UPD ×6 (02:32→21:39)
[2023-01-23] MEDS: dexmedeTOMidine IN 0.9 % NACL 400 MCG/100 ML BTL 18.075 MCG IVPB (04:37)
[2023-01-23] MEDS: methylPREDNISolone SUCC 125 MG VIAL 60 MG IVP (05:15)
[2023-01-23 05:36] LABS: BE (Venous) 3 mmol/L (-2-3); HCO3 (Venous) 27 mmol/L (23-28); O2 Sat (Venous) 95 %; TCO2 (Venous) 25 mmol/L (24-29); pCO2 (Venous) 39 mmHg (41-51); pH (Venous) 7.45 (7.31-7.41); pO2 (Venous) 75 mmHg
[2023-01-23 05:38] LABS: HGB 8.5 g/dL (13.5-17.5); MCH 23.6 pg (27.0-33.0); MCHC 31.5 % (32.0-36.0); MCV 75 fL (80-95); MPV 7.5 fL (8.0-11.0); Platelet Count 212 10^3/uL (130-400); RDW-SD 66.4 fL
[2023-01-23 05:49] LABS: Anion Gap 8.8 mmol/L (3-11); BUN 31 mg/dL (7-18); CO2 26.2 mmol/L (21.0-32.0); Calcium 8.8 mg/dL (8.5-10.1); Chloride 101 mmol/L (98-107); Estimated GFR 84.57 (mL/min/1.73m2); Glucose 148 mg/dL (74-106); Potassium 3.9 mmol/L (3.5-5.1); Sodium 136 mmol/L (136-145)
[2023-01-23] MEDS: LORazepam 2 MG/ML VIAL 1 MG IVP (05:49)
[2023-01-23] MEDS: PROPOFOL 1,000 MG/100 ML BTL 22.77 MG IVPB (06:09)
[2023-01-23 06:23] LABS: RDW 24.5 % (11.8-14.1)
--- NOTE | 2023-01-23 06:47 | W.PULMCC ---
General Date of Service Date of service: 01/23/23 Time of Service: 06:48 Reason for Admission to ICU: Sepsis, AMS Respiratory failure Assessment and Plan Assessment and plan (1) Acute respiratory failure with hypoxia and hypercapnia: Status: Acute (2) Pulmonary edema: Status: Acute (3) Hypotension: Status: Acute Qualifiers: Hypotension type: hypotension due to hypovolemia Qualified Code(s): I95.89 - Other hypotension; E86.1 - Hypovolemia (4) Encephalopathy: Status: Acute (5) Hyponatremia: Status: Acute (6) Aspiration into airway: Status: Acute (7) Constipation: Status: Acute (8) COPD (chronic obstructive pulmonary disease): Status: Acute Qualifiers: COPD type: emphysema Emphysema type: centrilobular Qualified Code(s): J43.2 - Centrilobular emphysema (9) Troponin level elevated: Status: Acute (10) Anemia: Assessment and plan: This is a 62 yo mechanically ventilated man who seems to have been intubated due to aspiration events due to overdose. He was labelled as sepsis, however I think his story is more consistent with an overdose with subsequent aspiration events in addition to support lab results and vital signs. I will D/C the vanc and doxy, but will keep the Zosyn for aspiration. On SBT this morning he is doing very well and so recommend extubation. He is on room air on the vent, so will simply extubate to RA/NC. He also has significant constipation on CT and has yest to have a BM. I do think it is of significant importance to facilitate a BM today. Recommendations Pulmonary: Acute hypoxic and hypercapnic respiratory failure - likely due to aspiration events - FiO2 at 21% this morning - SBT passed today - will plan for extubation to RA/NC COPD - not in exacerbation: D/C steroids - stop Symbicort - start home Spiriva - nebs prn Cardiac: Elevated troponin - POCUS ok this morning - has decreased - likely demand Hypotension - likely due to sedation - resolved Renal: Hyponatremia - resolved I&O: Intake & Output 01/20/23 01/21/23 01/22/23 01/23/23 23:59 23:59 23:59 23:59 Intake Total 1413.333 / 7841.585 7332.405 / 2415.405 457.362 / 457.362 Output Total 850 / 3150 8695 / 8695 470 / 470 Balance 563.333 / -1706.667 -6279.595 / -6279.595 -12.638 / -12.638 Weight 75.9 kg 72.3 kg 72.3 kg Daily Fluid Goal:: even GI Nutrition: Nutrition - currently NPO - recommend nurse bedside swallow and if no concerns for aspiration can start diet Constipation - recommend Miralax and docusate today - if not successful can try Mag citrate or an enema Infectious Disease: Aspiration - continue Zosyn for now - D/C doxy and van - MRSA nares - remove NG tube when ETT being removed Hematologic: Anemia - chronic and stable Neurologic: Encephalopathy - improved - likely due to overdose and aspiration Overdose - cocaine positive on tox - seems to now be resolved Endocrine: No acute concerns Lines: PIV Green ETT NGT Prophylaxis: Lovenox Pantoprazole Code Status: Resuscitation Status Full Code Subjective Critical and life-threatening events over the past 24 hours: This is a 62 yo admitted for sepsis and respiratory requiring mechanical intubation. He was labelled has having sepsis of a respiratory source, however there is no clear evidence of sepsis to me and rather I feel as though his picture is more consistent with an overdose with aspiration. I also suspect his AMS with respiratory event that lead to intubation was another aspiration event in response to an overdose. He is responsive this morning while off propofol and is following commands. Exam Narrative Exam Narrative: Gen: NAD, normal respiratory effort on the ventilator HENT: PERRL Chest: No respiratory distress, normal appearance of chest, clear to auscultation bilaterally, no crackles or wheezes, normal inspiratory effort Heart: tachycardic rate rate and rhythym, no murmurs, rubs or gallops Abdomen: Non-distended, soft, non tender Extremities: right leg stump Neuro: non focal, able to follow commands Psych: cooperative Most Recent VS/Results Last Vital Signs Temp 37.1 C 01/23/23 06:10 Pulse 112 H 01/23/23 06:10 Resp 15 01/23/23 06:10 BP 105/70 01/23/23 06:10 Pulse Ox 95 01/23/23 05:18 Laboratory Results - last 24 hr 01/22/23 01/23/23 01/23/23 09:48 01:01 05:30 WBC 8.30 RBC 3.60 L Hgb 8.5 L Hct 27.0 L MCV 75 L MCH 23.6 L MCHC 31.5 L RDW 24.5 H Plt Count 212 MPV 7.5 L VBG pH 7.45 H VBG pCO2 39 L VBG pO2 75 VBG HCO3 27 VBG Total CO2 25 VBG O2 Saturation 95 VBG Base Excess 3 Sodium 136 Potassium 3.9 Chloride 101 Carbon Dioxide 26.2 Anion Gap 8.8 BUN 31 H Creatinine 1.0 Est GFR (CKD-EPI 2020) 84.57 Glucose 148 H Calcium 8.8 Troponin I 130 H* Vancomycin Trough 25.2 H* Review of Systems Unobtainable due to endotracheal tube Time spent with patient Time spent in Critical Care: 65 Time spent in Critical care included: Performing procedures not included in c.c time, Coordination of care, Chart review, Documenting critically ill care, Time at immediate bedside and Discussing critically ill care with other medical staff Pocus Exam Limited Cardiac Exam DATE OF EXAM: 01/23/23 TIME OF EXAM: 07:00 PROVIDER THAT PERFORMED THE STUDY: Deborah BUTLER A REPEAT EXAM DURING THIS ENCOUNTER: no REASON FOR EXAM: Hypotension and Hypoxia VISUALIZED STRUCTURES: four chambers, aortic valve, Interventricular septum and IVC VIEW OBTAINED: Subxiphoid PERTINENT FINDINGS/IMPRESSION: Plethoric IVC Exam complete Limited Thoracic Lung Exam DATE OF EXAM: 01/23/23 TIME OF EXAM: 07:00 PROVIDER THAT PERFORMED THE STUDY: Deborah BUTLER A REPEAT EXAM DURING THIS ENCOUNTER: No REASON FOR EXAM: Pneumonia VISUALIZED STRUCTURES: right anterior and left anterior PERTINENT FINDINGS/IMPRESSION: B-lines/left side Exam complete Multi-Disciplinary Checklist Lines/Tubes CENTRAL LINE: no ARTERIAL LINE: no GREEN: yes, Green Day#: 3 ENDOTRACHEAL TUBE: yes, Endotracheal Tube Day#: 3 Sedation: yes, Sedation Vacation: yes Head of Bed@30 degrees: yes Spontaneous Breathing Trial: yes ICU Maintenance GLUCOSE 140-180mg/dL: yes NUTRITION AT GOAL: no, Reason/Intervention: will start diet after extubation when safe PRESSURE ULCER: yes, Right leg stump RESTRAINTS: yes, Reviewed Necessity: Yes ANTIBIOTICS(if yes, consider Stewardship): Yes Social Issues FAMILY UPDATED: no, Reason/Intervention: defer to hospitalist PT/OT: no, Reason/Intervention: not currently appropriate GOALS/DISPOSITION/FORENSIC SERGEANT: yes CODE STATUS: Full Prophylaxis DVT PROPHYLAXIS: yes GI PROPHYLAXIS: yes, Indication: mechanical ventilation
[2023-01-23] MEDS: Tiotropium Bromide-Respimat 10 PUFF INH 2 PUFF IH (08:25)
[2023-01-23] MEDS: Pantoprazole 40 MG VIAL IVP (09:40)
--- NOTE | 2023-01-23 09:41 | PDOC.CMPRO ---
Date of service: 01/23/23 Time of Service: 09:42 Care Management Progress Note Progress Note Text Progress Note Text: S/O:Darrell was successfully extubated this morning. He is much improved clinically. His blood pressure, respiratory rate and oxygenation are WNL however he remains tachycardic. Darrell was lying in bed when CM met with him.a agreeable to conversation and was able to answer questions. He asked CM to tell Jessica, his , that he is sorry and that he loves her. He was also trying to reach his friend Micheal and was successful in locating his phone number. Per provider, he may be medically ready for discharge as soon as tomorrow. A: Darrell is a 62 year old man admitted on 01/21/23 with sepsis P:Darrell was extubated this morning and is doing well. Per provider, he may be medically ready for discharge as early as tomorrow. He will follow up with his community providers and plan of care and transport with a friend. CM will follow and continue to assess for discharge planning needs.
--- NOTE | 2023-01-23 11:19 | PGE_ITS ---
Date of Service Date of service: 01/23/23 Time of Service: 11:20 Assessment and Plan Assessment and plan (1) Acute respiratory failure with hypoxia and hypercapnia: Status: Acute Assessment and plan: -Overnight 01/21- patient had a rapid decline and required endotracheal intubation (please see Dr. Pierre's event report from 01/21/2023 at 22:50 for further details) -ABG pre-intubation showed a pH of 7.2, CO2 of 64, PO2 of 70 -Patient has been on tidal volume of 450, respiratory rate of 16, FiO2 21% and a PEEP of 5 with significant improvement in his CO2 on a.m. VBG as well as his oxygen saturation -Given patient's rapid decline, ongoing altered mental status, and significant increased work of breathing prior to intubation, he will remain intubated until the morning of 01/23/2023 when he will have an SBT -Patient has been on propofol, though he appears more agitated with increasing propofol his blood pressure is decreased -Start Precedex and wean off of propofol and norepinephrine as tolerated -Patient had successful SBT in the morning of 01/23/2021. Has since been extubated and is currently saturating well on room air (2) Severe sepsis: Status: Acute Assessment and plan: - Patient meets criteria for severe sepsis on admission with a respiratory rate in the mid 20s, white blood cell count of 22, infectious/metabolic encephalopathy, and presumed infection being aspiration pneumonia, potential infected stage II decubitus ulcer -Was given 30 cc/kg fluid bolus in the emergency department -Given Vanco and Zosyn in the emergency department, will continue -Follow-up a.m. CBC shows improvement in WBCs (3) Aspiration pneumonia: Status: Acute Assessment and plan: - As seen on chest CT -Continue Vanco and Zosyn -Possibly occurred during period of opiate overdose/withdrawal -Follow-up blood cultures Qualifiers: Aspiration pneumonia type: unspecified Laterality: bilateral Lung location: lower lobe of lung Qualified Code(s): J69.0 - Pneumonitis due to inhalation of food and vomit (4) Pulmonary edema: Status: Acute Assessment and plan: -Likely cause of patient's rapid decline with worsening hypoxia and hypercapnic respiratory failure as noted above -He had significant urine output after IV Lasix -Blood pressure has been stable and pulmonary edema seems to is resolved, no further doses of Lasix at this time (5) Decubitus ulcer: Status: Acute Assessment and plan: - As seen at ED on admission -Could be potential source of infection/cellulitis -Appreciate wound care assistance Qualifiers: Pressure injury location: sacral region Pressure injury stage: stage 2 Qualified Code(s): L89.152 - Pressure ulcer of sacral region, stage 2 (6) Hyponatremia: Status: Acute Assessment and plan: -Sodium was 121 in the emergency department -On 01/08/2023 sodium was 133 -However, cannot say if this is acute or subacute hyponatremia -Urine studies ordered, follow-up -However, given patient's presentation, this is likely hypovolemic hyponatremia -Patient is status post total of 2.3 L of normal saline in the emergency department -resolved as of AM 01/22 (7) Opioid dependence with withdrawal: Status: Acute Assessment and plan: - Given that the patient was tachypneic, had significant stool burden on CT, it appears that patient may have been heavily using his methadone and may have run out resulting in opiate withdrawal and resulting altered mental status and agitation -This theory is further bolstered by the fact that patient was given some IV morphine in the emergency department so that he could tolerate CT imaging and patient's agitation significantly improved -Patient's mental status appears to be back at baseline after being extubated -We will continue to monitor (8) Hyperkalemia: Status: Acute Assessment and plan: Potassium 5.5 on admission in the ED -Was status post-30 cc/kg fluid resuscitation normal saline in the emergency department -resolved (9) Cellulitis: Status: Acute Assessment and plan: - Secondary source of infection given patient's multiple open excoriations, decubitus ulcer, and the fact that the patient was found laying in his own excrement -Treat as noted above (10) Encephalopathy: Status: Acute Assessment and plan: -Likely a combination of infectious due to sepsis aspiration pneumonia/cellulitis as noted above, potentially hyponatremia, as well as opiate withdrawal -See above- Subjective Subjective Interval history since last seen: Patient seen after being extubated. He was oriented to person and appears to be oriented to place though is difficult to tell as he states that it started started after extubation. Exam Narrative Exam Narrative: Disheveled appearing gentleman sitting up in the edge of the bed, does not appear to be in any acute distress, heart regular rate rhythm, diminished breath sounds bilaterally but improved as compared to previous data, abdomen soft, nontender, mildly distended, multiple open excoriations over bilateral upper and lower extremities Objective Last Vital Signs Temp 98.8 F 01/23/23 06:10 Pulse 107 H 01/23/23 11:00 Resp 22 01/23/23 11:00 BP 138/95 H 01/23/23 09:31 Pulse Ox 98 01/23/23 11:01 Laboratory Results - last 24 hr 01/21/23 01/23/23 01/23/23 21:25 01:01 05:30 WBC 8.30 RBC 3.60 L Hgb 8.5 L Hct 27.0 L MCV 75 L MCH 23.6 L MCHC 31.5 L RDW 24.5 H Plt Count 212 MPV 7.5 L VBG pH 7.45 H VBG pCO2 39 L VBG pO2 75 VBG HCO3 27 VBG Total CO2 25 VBG O2 Saturation 95 VBG Base Excess 3 Sodium 136 Potassium 3.9 Chloride 101 Carbon Dioxide 26.2 Anion Gap 8.8 BUN 31 H Creatinine 1.0 Est GFR (CKD-EPI 2020) 84.57 Glucose 148 H Calcium 8.8 Vancomycin Trough 25.2 H* Urine Legionella Ag Negative Time Spent with Patient Time Spent with Patient: >50 minutes (60 minutes of critical care time spent coordinating with critical care regarding patient being extubated) Time was spent: preparing to see the patient(eg.review tests), obtaining and/or reviewing separately otained hiistory, ordering medications,tests, procedures, referring, communicating with other health customer care associate, indepentently interpreting results, counseling the patient and care coordination
[2023-01-23] MEDS: dexmedeTOMidine IN 0.9 % NACL 400 MCG/100 ML BTL 10.845 MCG IVPB ×2 (11:34→19:59)
[2023-01-23] MEDS: Normal Saline 500 ML IV (15:02)
[2023-01-23 17:14] LABS: MRSA PCR Negative (Negative)
[2023-01-23] MEDS: Enoxaparin 40 MG/0.4 ML SYR SC (19:29)
[2023-01-23] MEDS: Polyethylene Glycol 3350 17 GM PACKET PO (19:35)
[2023-01-23] MEDS: Docusate Sodium 100 MG CAP PO (19:36)
[2023-01-24] VITALS (40 sets, daily range): BP systolic 128–183; BP diastolic 79–129; PULSE 74–99; RESP 2–23; TEMP 36.5–37.2; O2SAT 85–100
--- NOTE | 2023-01-24 | DI.CT_ITS ---
Exam(s) CT LOWER EXTREMITY RT W EXAM: CT LOWER EXTREMITY RT W CLINICAL HISTORY: s/p AKA, ? abscess at stump. TECHNIQUE: Imaging Protocol: Axial computed tomography images with coronal and sagittal reformatted images were created and reviewed. CONTRAST MATERIAL: Intravenous: Omnipaque 350. Contrast Volume: 100 ML COMPARISON: CR,XR XR FEMUR RT from 03/03/2022 CR,XR XR KNEE RT 3V AP,LAT,JAGDEEP from 03/03/2022 FINDINGS: Bones: The patient is status post above the knee amputation. There is an air in fluid collection at the distal aspect of the stump which appears to communicate with the skin surface (series 8, image 6 8). There is enhancement of the wall of the air-fluid collection best appreciated posteriorly (serie s 3, images 184 through 195). The into the bone is exposed to the air-fluid collection. Osteomyelit is should be considered. Periosteal reaction is seen around the distal femoral stump. Findings rela nimesh to the patient's prior knee prosthesis are seen in the distal right femur. Soft Tissues: There is a Gonzalez catheter in place. There is a large amount of stool in the rectum anselmo picious for impaction. There is mild fatty atrophy of the musculature of the right thigh. There is a 2.1 x 1.1 cm peripherally enhancing fluid collection in the anterior thigh (series 3, image 160). This is suspicious for an abscess. There is edema seen in the soft tissues of the lower extremity. IMPRESSION: 1. Status post right [id number] amputation. 2. Air-fluid collection seen in the distal stump tracking superiorly in the anterior thigh consistent for an abscess. There does appear to be a communication through the skin at the distal aspect of th e stump. 3. The distal aspect of the bony stump is in communication with the air-fluid collection raising the concern for osteomyelitis. 4. Findings were discussed with Dr. Metcalf at 3:40 p.m. on 01/24/2023. RADIATION DOSE DELIVERED: Total DLP Total DLP DATA REPOSITORY: All CT scans at this facility are submitted to the National Radiology Data Registry (NRDR) Dose Index Registry (DIR) with the [employer] (A[employer]). RADIATION OPTIMIZATION: All CT scans at this facility use at least one of these dose optimization te chniques: automated exposure control; mA and/or kV adjustment per patient size (includes targeted exa ms where dose is matched to clinical indication); or iterative reconstruction.
[2023-01-24] MEDS: PIPERACILLIN/TAZO 4.5 GM in Normal Saline 100 ML IVPB ×4 (01:23→20:25)
[2023-01-24] MEDS: Albuterol/Ipratropium 3 ML UPD VIAL UPD ×4 (01:47→22:00)
[2023-01-24] MEDS: MORPHine 2 MG/ML SYR IVP (04:45)
[2023-01-24] MEDS: dexmedeTOMidine IN 0.9 % NACL 400 MCG/100 ML BTL 10.845 MCG IVPB (05:10)
[2023-01-24 05:47] LABS: HCT 28.4 % (40.0-50.0); MCH 24.2 pg (27.0-33.0); MCHC 31.7 % (32.0-36.0); MCV 76 fL (80-95); MPV 7.6 fL (8.0-11.0); Platelet Count 258 10^3/uL (130-400); RBC 3.72 10^6/uL (4.36-5.78); RDW-SD 67.3 fL; WBC 9.35 10^3/uL (4.4-10.8)
[2023-01-24 06:07] LABS: Anion Gap 6.6 mmol/L (3-11); BUN 23 mg/dL (7-18); CO2 27.4 mmol/L (21.0-32.0); CREATININE 0.7 mg/dL (0.70-1.30); Calcium 8.3 mg/dL (8.5-10.1); Chloride 98 mmol/L (98-107); Estimated GFR 103.53 (mL/min/1.73m2); Glucose 120 mg/dL (74-106); Potassium 3.9 mmol/L (3.5-5.1); Sodium 132 mmol/L (136-145)
[2023-01-24 06:22] LABS: RDW 24.4 % (11.8-14.1)
[2023-01-24] MEDS: Tiotropium Bromide-Respimat 10 PUFF INH 2 PUFF IH (08:58)
--- NOTE | 2023-01-24 09:01 | RESPIRATORY ---
Spoke with patient about ANGIE diagnosis and he advised he previously had sleep study and a machine but was unable to tolerate the mask so he returned the machine.
[2023-01-24] MEDS: Normal Saline Flush 10 ML SYR IVP ×3 (09:37→20:47)
[2023-01-24] MEDS: Omnipaque 350 MG/ML 500 ML BTL-Imaging package IJ (09:38)
[2023-01-24] MEDS: Normal Saline - Diluent 50 ML VIAL IJ (09:40)
[2023-01-24] MEDS: Furosemide 20 MG TAB PO (10:00)
[2023-01-24] MEDS: Lisinopril 20 MG TAB 40 MG PO (10:00)
[2023-01-24] MEDS: Pantoprazole 40 MG VIAL IVP (10:00)
--- NOTE | 2023-01-24 10:12 | CMPROGNOTE_ITS ---
Date of service: 01/24/23 Time of Service: 10:12 Care Management Progress Note Progress Note Text Progress Note Text: S/O:Darrell was sitting up in a chair visiting with his , daughter and a friend. They had requested to meet with ALIN to discuss some of their social issues and concerns. Darrell informed CM that he has a drug problem with crack cocaine and that he wants help. CM offered to contact the [employer] to meet with him to discuss possible drug rehab. [facility] and Perla Pollack came to see him. She provided written material and phone numbers for Darrell to use if he chooses to pursue care or has additional questions or concerns. There was also discussion about Darrell going to a SNF for physical rehab to improve his ambulation, strength and balance. He does have Medicare and snf Medicaid as payer sources. Darrell stated that he was in agreement with the plan. At this time Darrell has an infection in the stump from his AKA. A CT scan was done which revealed the presence of an abscess and possible osteomyelitis. As Darrell has had extensive surgeries at [facility] on that leg, the provider is contacting [facility] to pursue transfer. It is likely he will need additional surgery. A: Darrell is a 62 year old man admitted on 01/21/23 with sepsis P:Darrell has a right AKA and has been found to have an abscess and possible osteomyelitis in his stump. Efforts are underway to transfer him to [facility] . Many of the surgeries on his leg have been performed at [facility] and they have the specialists there for the complicated care and procedures that will likely be needed.
--- NOTE | 2023-01-24 11:30 | PGE_ITS ---
Date of Service Date of service: 01/24/23 Time of Service: 11:30 Assessment and Plan Assessment and plan (1) Acute respiratory failure with hypoxia and hypercapnia: Status: Acute Assessment and plan: -Overnight 01/21- patient had a rapid decline and required endotracheal intubation (please see Dr. Pierre's event report from 01/21/2023 at 22:50 for further details) -ABG pre-intubation showed a pH of 7.2, CO2 of 64, PO2 of 70 -Patient has been on tidal volume of 450, respiratory rate of 16, FiO2 21% and a PEEP of 5 with significant improvement in his CO2 on a.m. VBG as well as his oxygen saturation -Given patient's rapid decline, ongoing altered mental status, and significant increased work of breathing prior to intubation, he will remain intubated until the morning of 01/23/2023 when he will have an SBT -Patient has been on propofol, though he appears more agitated with increasing propofol his blood pressure is decreased -Start Precedex and wean off of propofol and norepinephrine as tolerated -Patient had successful SBT in the morning of 01/23/2021. Has since been extubated and is currently saturating well on room air (2) Severe sepsis: Status: Acute Assessment and plan: - Patient meets criteria for severe sepsis on admission with a respiratory rate in the mid 20s, white blood cell count of 22, infectious/metabolic encephalopathy, and presumed infection being aspiration pneumonia, potential infected stage II decubitus ulcer -Was given 30 cc/kg fluid bolus in the emergency department -Given Vanco and Zosyn in the emergency department, will continue -Follow-up a.m. CBC shows improvement in WBCs (3) Aspiration pneumonia: Status: Acute Assessment and plan: - As seen on chest CT -Continue Vanco and Zosyn -Possibly occurred during period of opiate overdose/withdrawal -Follow-up blood cultures Qualifiers: Aspiration pneumonia type: unspecified Laterality: bilateral Lung location: lower lobe of lung Qualified Code(s): J69.0 - Pneumonitis due to inhalation of food and vomit (4) Pulmonary edema: Status: Acute Assessment and plan: -Likely cause of patient's rapid decline with worsening hypoxia and hypercapnic respiratory failure as noted above -He had significant urine output after IV Lasix -Blood pressure has been stable and pulmonary edema seems to is resolved, no further doses of Lasix at this time (5) Decubitus ulcer: Status: Acute Assessment and plan: - As seen at ED on admission -Could be potential source of infection/cellulitis -Appreciate wound care assistance Qualifiers: Pressure injury location: sacral region Pressure injury stage: stage 2 Qualified Code(s): L89.152 - Pressure ulcer of sacral region, stage 2 (6) Hyponatremia: Status: Acute Assessment and plan: -Sodium was 121 in the emergency department -On 01/08/2023 sodium was 133 -However, cannot say if this is acute or subacute hyponatremia -Urine studies ordered, follow-up -However, given patient's presentation, this is likely hypovolemic hyponatremia -Patient is status post total of 2.3 L of normal saline in the emergency department -resolved as of AM 01/22 (7) Opioid dependence with withdrawal: Status: Acute Assessment and plan: - Given that the patient was tachypneic, had significant stool burden on CT, it appears that patient may have been heavily using his methadone and may have run out resulting in opiate withdrawal and resulting altered mental status and agitation -This theory is further bolstered by the fact that patient was given some IV morphine in the emergency department so that he could tolerate CT imaging and patient's agitation significantly improved -Patient's mental status appears to be back at baseline after being extubated -We will continue to monitor (8) Hyperkalemia: Status: Acute Assessment and plan: Potassium 5.5 on admission in the ED -Was status post-30 cc/kg fluid resuscitation normal saline in the emergency department -resolved (9) Cellulitis: Status: Acute Assessment and plan: - Secondary source of infection given patient's multiple open excoriations, decubitus ulcer, and the fact that the patient was found laying in his own excrement -Treat as noted above -Patient to have small roughly three-quarter centimeter area openly draining serosanguineous fluid with intermittent purulent fluid coming from his distal right AKA site -CT with and without of right lower extremity order, patient will likely require surgical consultation (10) Encephalopathy: Status: Acute Assessment and plan: -Likely a combination of infectious due to sepsis aspiration pneumonia/cellulitis as noted above, potentially hyponatremia, as well as opiate withdrawal -See above- Subjective Subjective Interval history since last seen: Patient states that he is feeling better today but is concerned about the drainage from his right AKA stump. Otherwise he has no other complaints or concerns at this time. Exam Narrative Exam Narrative: Disheveled appearing gentleman sitting up in the edge of the bed, does not appear to be in any acute distress, heart regular rate rhythm, diminished breath sounds bilaterally but improved as compared to previous data, abdomen soft, nontender, mildly distended, multiple open excoriations over bilateral upper and lower extremities, distal right AKA stump with open wound roughly 3/4 of a centimeter and diameter draining serosanguineous fluid with intermittent purulent fluid Objective Last Vital Signs Temp 98.6 F 01/24/23 08:34 Pulse 97 H 01/24/23 10:31 Resp 23 01/24/23 10:31 BP 144/97 H 01/24/23 10:31 Pulse Ox 99 01/24/23 10:01 Laboratory Results - last 24 hr 01/23/23 01/24/23 15:14 05:39 WBC 9.35 RBC 3.72 L Hgb 9.0 L Hct 28.4 L MCV 76 L MCH 24.2 L MCHC 31.7 L RDW 24.4 H Plt Count 258 MPV 7.6 L Sodium 132 L Potassium 3.9 Chloride 98 Carbon Dioxide 27.4 Anion Gap 6.6 BUN 23 H Creatinine 0.7 Est GFR (CKD-EPI 2020) 103.53 Glucose 120 H Calcium 8.3 L MRSA (TEM-PCR) Negative Time Spent with Patient Time Spent with Patient: >50 minutes Time was spent: preparing to see the patient(eg.review tests), obtaining and/or reviewing separately otained hiistory, ordering medications,tests, procedures, referring, communicating with other health customer care specialist, indepentently interpreting results, counseling the patient and care coordination
[2023-01-24 15:44] LABS: Streptococcus Pneumoniae Ag, U Negative (Negative)
--- NOTE | 2023-01-24 16:24 | PT.INIE ---
PT Notes Visit Reasons: Severe Sepsis Physical Therapy Inpatient Initial Evaluation Date: 01/25/2023 Referring Doctor: Demetrio Metcalf MD PT Orders: PT CONSULT: Eval/Treat Precautions: Fall. Standard. Activity as tolerated. AKA positioning precautions: Keep residual limb flat. Do not put pillow under residual limb. Keep thighs close together. Patient Profile/Admitting Diagnosis: Patient is a 62-year-old male patient with past medical history significant for multiple right TKA revision and a right transfemoral amputation admitted for management of acute respiratory failure with hypoxia and hypercapnia, severe sepsis, aspiration pneumonia, pulmonary edema, decubitus, hyponatremia, opioid dependence with withdrawal, hyperkalemia, cellulitis, and encephalopathy. PMHX: All Active Problems (Updated 01/21/23 @ 18:19 by Demetrio Metcalf MD) Encephalopathy (Acute) Cellulitis (Acute) Acute respiratory failure with hypoxia (Acute) Hyponatremia (Acute) Hyperkalemia (Acute) Aspiration pneumonia (Acute) Severe sepsis (Acute) Acute dehydration (Acute) Decubitus ulcer (Acute) Opioid dependence with withdrawal (Acute) Acute hyponatremia (Acute) Aspiration pneumonia (Acute) Sepsis (Acute) Fall (Acute) Dislocation of finger PIP joint (Acute) Impacted cerumen (Acute) Asymmetrical sensorineural hearing loss (Acute) Opioid overdose (Acute) Bradycardia (Acute) Falls (Acute) Weakness (Acute) Aspiration pneumonia (Acute) Epistaxis (Acute) Acute adrenal crisis (Acute) Acute hyperkalemia (Acute) Acute hyponatremia (Acute) Acute renal failure (Acute) Acute respiratory distress (Acute) Bradycardia (Acute) Sepsis (Acute) Burn injury (Acute) Chronic pain (Acute) No-show for appointment (Acute) COPD (chronic obstructive pulmonary disease) (Acute) Chronic low back pain (Acute) BPH with obstruction/lower urinary tract symptoms (Acute) Drug-induced constipation (Acute) Abdominal pain, lower (Acute) Change in stool habits (Acute) Medical History Palliative care patient Marijuana use Dermatofibroma of left lower leg History of cigarette smoking Knee pain, right Fatigue Rotator cuff syndrome of right shoulder Actinic keratosis Obesity (BMI 35.0-39.9 without comorbidity) Allergic rhinitis Anemia Autoimmune disease Shortness of breath Swallowing problem Peripheral edema Orthostasis Diplopia Severe muscle deconditioning Leukoaraiosis Shoulder pain, bilateral Screening for prostate cancer Urinary retention Sepsis Leukocytosis, unspecified Raynauds syndrome History of septic arthritis (~02/19/17) s/p incision and drainage right wrist Dr. Mccann Lumbar discitis Dehydration Hyponatremia Hypotension Syncope Obesity Hypertension Restless legs Psychogenic polydipsia Lactose intolerance Hyperlipidemia Marijuana use PTSD (post-traumatic stress disorder) ANGIE (obstructive sleep apnea) Sacroiliac joint dysfunction of right side Spondylosis of lumbar region without myelopathy or radiculopathy Surgical History History of arthroplasty of right knee History of revision of total replacement of right knee joint (06/11/17) s/p revision/replant R. TKA, on 06/11/[address] Ramírez History of removal of joint prosthesis of right knee due to infection 12/08/2016, Dr. Oakes [place] [facility] [place]; s/p spacer exchange R. knee 02/18/2017 Dr. Ramírez; S/P lumbar fusion History of fusion of cervical spine (04/05/19) C5-C7 cervical discectomy and fusion, Dr. Mark Spence; [facility] [place] bunionectomy Rotator Cuff Repair right Colonoscopy - [facility] 2010- nl. Unable to get into the cecum Social History/Home Situation: Lives alone in a residence. Uses a motorized wheelchair at home. and daughter although no longer live with patient, are involved with care. Equipment Owned/DME: FWW, motorized wheelchair Subjective: Per and daughter, patient has had major life skills issues and decision-making impairment related to chronic drug addiction. Both and daughter are hopeful that patient can go to a drug rehab facility to hopefully allow the patient to slowly get his life back. They also are hoping for nursing home facility placement to address his ongoing mobility issues. Patient was agreeable to assessment and to transferring from chair to bed for this session. Patient reported diminished ability to feel his left leg and foot. Objective: General Observation: Seated on bedside chair. Telemetry monitoring in place. IV through R UE. Pediatric diaper covering the R residual AKA to adequately contain drainage. Gonzalez catheter in place. Several scabbed areas noted in B UE/LE-notable on the dorsum of the second toe on the L. Mental Status: Alert and oriented as to person, place and purpose. Able to pay attention, focus, and respond appropriately. Pain: 6/10 in the R residual AKA limb Vital Signs: Closely monitored via tele; no oxygen supplementation via NC ROM: Right Upper Extremity: Shoulder Flexion lacks the last 50% of active AROM. Shoulder abduction lacks the last 50% of active AROM. Elbow flexion WFL. Wrist flexion WFL. Functional opening and closing of hand WFL. Left Upper Extremity: Shoulder Flexion lacks the last 50% of active AROM. Shoulder abduction lacks the last 50% of active AROM. Elbow flexion WFL. Wrist flexion WFL. Functional opening and closing of hand WFL. Right Lower Extremity: Hip flexion WFL. Hip abduction WFL. Hip extension less than 10 degrees beyond neutral.. Left Lower Extremity: Hip flexion WFL. Hip abduction WFL. Knee flexion WFL. Ankle dorsiflexion WFL. Ankle plantarflexion WFL. Strength: Right Upper Extremity: Shoulder flexors 3-/5. Shoulder abductors 3-/5. Elbow flexors 4-/5. Elbow extensors 4-/5. Childhood Development Teacher strong. Left Upper Extremity: Shoulder flexors 3-/5. Shoulder abductors 3-/5. Elbow flexors 4-/5. Elbow extensors 4-/5. Childhood Development Teacher strong. Right Lower Extremity: Hip flexors 3+/5. Hip abductors 3+/5. Hip extensors 2-/5 Left Lower Extremity: Hip flexors 4-/5. Hip abductors 4-/5. Knee flexors 4-/5. Knee extensors 4-/5. Ankle dorsiflexors 4-/5. Ankle plantarflexors 4-/5. Bed Mobility/Transfers: Moderate verbal cueing provided for hand placement, scooting forward/backward while minimizing shear on bottm area, posture, and safe L foot placement provided: Rolling with minimal assist Sit to supine minimal assist Sit to stand contact guard assist Stand to sit contact guard assist Reclining chair to bed contact guard assist. Nurse Miracle changed dressing over sacral/gluteal area prior to getting into bed. Patient was also assisted with quartertrun to R to off-load area at risk in sacrum. Gait: Able to gently take small step with the L LE using FWW about 5x to transfer from chair to bed with moderate cues provided for maximizing weight bearing on B UE, straightening trunk to minimze shoft of COG forward, effective sidestepping, and AD propulsion. Patient became visibly fatigued after task and was short of breath. Balance: Static Sitting: Good Dynamic Sitting: Fair Static Standing: Fair with FWW Dynamic Standing: Poor Special Tests: Mobility Limitations Standardized Measure [facility] AM-PAC 6 clicks Basic Mobility Inpatient Short Form: Raw Score: 18 CMS Score: 47% deficit Informed Consent/Education: Patient was instructed in purpose of PT consult and plan of care. Agreeable to proceed with established PT POC to achieve personal goals. ASSESSMENT: Patient requires the assistance of 1 person to safely transfer and and cover very short distances using FWW. R residual limb with osteomyelitis per most recent imaging, ensure that positioning precautions above are observed at all times. No resistance exercises to the R residual limb for now. Awaiting possible tertiary level facility transfer vs. drug rehab facility transfer per CM Gabrielle. In the meantime, PT treatment to focus on preventing R hip flexion contracture and improving maintaining joint flexibility in the R hip. Patient presents with clinical signs and symptoms consistent with current/admitting diagnoses that have resulted to mobility limitations, gait instability, generalized weakness, and overall ADL decline as demonstrated by the following impairment level findings: 1. Decreased strength to b UE/LE major muscle groups 2. Impaired sitting/standing balance 3. Impaired activity tolerance 4. Limitation of joint range of motion in B shoulders and R hip extension 5. Shortness of breath 6. Minimal welling in L LE Impairments are contributing to the following functional limitations: 1. Decline in bed mobility skills 2. Decline in transfer skills 3. Difficulty with ambulation without assistive device and physical assistance 4. Increased completion time for mobility ADL performance 5. Increased risk for falls 6. Difficulty with managing steps alone safely Patient is assessed as a 93478 high complexity based on the following: History: 62-year-old male with past medical history as indicated above Examination: Demonstrable impairment in strength, balance, and mobility level with underlying impairments and functional limitations as exhibited above as well as deficit score of 47% utilizing the [facility] Mobility Inpatient Short Form Presentation: Evolving Decision Makin high complexity Goals: Goals X1 week 1. Supine-Sit independent 2. Sit-Supine independent 3. Sit-Stand independent 4. Stand-Sit independent with FWW 5. Bed-Chair independent with FWW 6. Chair-Bed independent with FWW 7. Independent gait on level surface with use of FWW for at least 15 feet without report of pain nor dyspnea 8. Good static and dynamic standing balance/tolerance Plan of Care/Treatment Plan: 1-2x/day, 7 days/week x 1 week. Plan of care has been reviewed with the RECLAMATION FURNACE OPERATOR providing the service under Physical Therapy direction. Initiate Physical Therapy intervention for pain management as needed, strengthening, bed mobility, transfers, gait, stairs, balance training, and use of assistive device. THERA EX: Gluteal sets x 10 Hip AROM x 10 with emphasis on hip extension in sidelying x 10 Modified bridging using L LE x 5 for 2 sets Chest expansion exercises supine/seated Chair push ups using arm ressts Strengthening ex to L LE using 2 lb AW if tolerated DISCHARGE RECOMMENDATIONS: [] Home with no services [] [] Home with services [specify] [] Home with outpatient PT [] [X] SNF for continued rehabilitation. Patient will benefit from nursing home facility placement for continued skilled physical therapy services in order to progress mobility level, strength, and balance in preparation for a safe discharge to home. [] [facility] [employer] [facility] [] [] SNF versus LTC based on ability to participate and progress [] TREATMENT CODE/TIME: 36084 x 25 minutes for 1 unit beginning at 16:24 PM. Thank you for the opportunity to participate in the care of this patient. Kristyn Min PT, DPT, CLT [facility] [place], [place]
[2023-01-24 19:46] LABS: ESR 19 mm/hr (0-20)
[2023-01-24] MEDS: Enoxaparin 40 MG/0.4 ML SYR SC (20:23)
[2023-01-24] MEDS: Docusate Sodium 100 MG CAP PO (20:24)
[2023-01-25] VITALS (16 sets, daily range): BP systolic 135–177; BP diastolic 87–124; PULSE 70–103; RESP 2–20; TEMP 36.6–37.2; O2SAT 92–100
[2023-01-25] MEDS: Acetaminophen 325 MG TAB PO (00:35)
[2023-01-25] MEDS: Albuterol/Ipratropium 3 ML UPD VIAL UPD ×4 (02:33→13:18)
[2023-01-25] MEDS: PIPERACILLIN/TAZO 4.5 GM in Normal Saline 100 ML IVPB ×3 (02:45→14:13)
[2023-01-25 05:27] LABS: HGB 9.9 g/dL (13.5-17.5); MCHC 31.9 % (32.0-36.0); MCV 75 fL (80-95); MPV 7.3 fL (8.0-11.0); Platelet Count 284 10^3/uL (130-400); RBC 4.13 10^6/uL (4.36-5.78); RDW-SD 64.6 fL; WBC 8.98 10^3/uL (4.4-10.8)
[2023-01-25 05:42] LABS: BUN 16 mg/dL (7-18); CREATININE 0.6 mg/dL (0.70-1.30); Calcium 8.2 mg/dL (8.5-10.1); Chloride 98 mmol/L (98-107); Estimated GFR 108.47 (mL/min/1.73m2); Glucose 122 mg/dL (74-106); Potassium 3.7 mmol/L (3.5-5.1); Sodium 132 mmol/L (136-145)
[2023-01-25 05:57] LABS: RDW 23.9 % (11.8-14.1)
[2023-01-25] MEDS: MORPHine 2 MG/ML SYR IVP ×2 (05:59→14:14)
[2023-01-25] MEDS: Tiotropium Bromide-Respimat 10 PUFF INH 2 PUFF IH (09:51)
[2023-01-25] MEDS: Furosemide 20 MG TAB PO (10:01)
[2023-01-25] MEDS: Pantoprazole 40 MG VIAL IVP (10:01)
[2023-01-25] MEDS: Lisinopril 20 MG TAB 40 MG PO (10:01)
[2023-01-25] MEDS: Normal Saline Flush 10 ML SYR IVP (10:02)
--- NOTE | 2023-01-25 11:08 | W.ORTHOCONSU ---
Date of service: 01/25/23 Time of Service: 10:20 History of Present Illness Narrative: I was called in consultation for Darrell and his right leg. He was admitted for altered mental status and has been improving. He has an above-knee amputation performed at [facility] which is noted to have some swelling that eventually began draining. CT scan was performed which was obvious concern for abscess. I reviewed his chart in the [facility] system and summarized the findings below. : Revision TKA for instability from original knee performed by Dr. Melton in 2009. This then apparently developed an MSSA infection. This is seemingly was treated with antibiotics from what I can tell. 08/2014: Chronic wound which is unable to be primary close and thus was closed with a gastrocnemius flap. 10/2016: Spinal procedures performed previously which then developed MSSA bacteremia. He was admitted for this management when he developed onset of swelling and pain about the right knee. This was followed conservatively and then in November 2016 explantation was performed. 05/2017: Reimplantation of the right knee replacement with suppressive Keflex for life. 03/2022: Right total knee revision with I&D, debridement and implant retention along with arthrotomy for a septic left ankle. 04/2022: Wound breakdown of both the right knee and the left ankle. The left ankle was growing Enterobacter and the right knee was growing MRSA, a change from previous MSSA diagnoses. He has had continued drainage. 06/2022: Explantation of the revision knee replacement with a spacer cultures grew 2 different species of Staph aureus as well as strep. Femoral canal cultures grew Genevieve. Repeat aspiration in July grew Genevieve. 08/2022: Limited wound healing seen about the right knee and the left ankle. Given these findings it was advocated that he proceed with above-knee amputation for source control of the infection. 09/03/2022: Admission for right above-knee amputation. There is purulence noted throughout the entirety of the knee and tracking into the femoral canal. An above-knee amputation was performed. He has significant pain control issues. Acute pain service was involved with him since the beginning and on a daily basis. He also had multiple consults from the hospitalist team, wound care, and psychiatry. He was eventually able to be discharged on September 10. 10/01/2022 returned to [facility] with obvious dehiscence of his knee amputation site with gross purulence and drainage. He underwent repeat irrigation debridement with antibiotic beads and wound VAC placement. He was found to have MSSA in the canal at this time. 10/03/2022: Revision amputation performed with a 10 cm bone cut. Antibiotic beads were placed. 10/07/2022: Revision I&D with antibiotic beads and antibiotic nail in the femoral canal. 10/12/2022: Removal of antibiotic beads in the antibiotic jamie. Primary closure performed. He was then discharged 1 week later with IV ceftriaxone with PICC line. His cultures from the previous revision amputation procedures grew MSSA, E. coli, and Proteus. 11/07/2022: Follow-up with orthopedics showed what appeared to be a well-healed incision. There is still notable swelling. He was going to go for a stump drafter electrical at [place]. Follow-up in 4 to 6 weeks for which he no showed. 11/19/2022: Discontinuation of PICC line and IV ceftriaxone. Currently, Darrell reports some pain about the right leg. There has been a persistent amount of light drainage, purulent nature. Overall he feels better than he did earlier. He has been stable in the ICU. He is still receiving broad-spectrum antibiotics. Consults Consult date: 01/24/23 Requesting physician: Demetrio Metcalf Consult Reason Right AKA stump infection Assessment and Plan Assessment and plan (1) Subacute osteomyelitis, right femur: Status: Acute Assessment and plan: This is a terribly complex problem. This is a very involved patient with a significant infectious disease history. He has had 5 procedures for the above-knee amputation on the right side including revision of the femoral bone cut and multiple beads of various antibiotic content. He has been managed by infectious disease yet still continues to have refractory infection about the right thigh. Given the air seen within the right thigh this represents an abscess and does likely need to be debrided. However, this has been debrided for previous times now with a very similar result. There is little bone left about the femur to have a functional stump. Further proximal amputation may cause significant difficulties even with just sitting. Given the complexity of this case and the challenges presented to orthopedics at [facility] requiring multiple service involvement such as wound care, vascular access, hospitalists, psychiatry, infectious disease, this would be best served in a tertiary referral situation. He is not currently septic however, this needs to be addressed urgently to prevent progression to a septic situation. We have significant limitations in ability to test and treat fungal infections which she has a history of and may be responsible for the ongoing issues. Additionally his pain requirements with any previous surgery were quite significant requiring an acute pain service direct intervention for his healthcare, something that is not present here at [facility]. I would recommend consultation with [facility], his initial facility who is familiar with this case and has the available services to best take care of him. If there was any acute decompensation and local control was required, I be happy to irrigate and debride this abscess and fluid collection from the right thigh. However, I still would feel this requires more intensive intervention and planning with a combine approach of infectious disease and surgery. (2) Abscess of right thigh: Status: Acute Assessment and plan: Abscess likely within the rectus femoris not directly adjacent to the end of the stump. There is rim enhancement within the muscle itself. (3) Non-healing wound of amputation stump: Status: Acute Review of Systems All systems reviewed & are unremarkable except as noted in HPI and below PFSH All Active Problems Non-healing wound of amputation stump (Acute) Abscess of right thigh (Acute) Subacute osteomyelitis, right femur (Acute) Constipation (Acute) Hypotension (Acute) Troponin level elevated (Acute) Aspiration into airway (Acute) Acute respiratory failure with hypoxia and hypercapnia (Acute) Pulmonary edema (Acute) Encephalopathy (Acute) Cellulitis (Acute) Acute respiratory failure with hypoxia (Acute) Hyponatremia (Acute) Hyperkalemia (Acute) Aspiration pneumonia (Acute) Severe sepsis (Acute) Acute dehydration (Acute) Decubitus ulcer (Acute) Opioid dependence with withdrawal (Acute) Acute hyponatremia (Acute) Aspiration pneumonia (Acute) Sepsis (Acute) Fall (Acute) Dislocation of finger PIP joint (Acute) Impacted cerumen (Acute) Asymmetrical sensorineural hearing loss (Acute) Opioid overdose (Acute) Bradycardia (Acute) Falls (Acute) Weakness (Acute) Aspiration pneumonia (Acute) Epistaxis (Acute) Acute adrenal crisis (Acute) Acute hyperkalemia (Acute) Acute hyponatremia (Acute) Acute renal failure (Acute) Acute respiratory distress (Acute) Bradycardia (Acute) Sepsis (Acute) Burn injury (Acute) Chronic pain (Acute) No-show for appointment (Acute) COPD (chronic obstructive pulmonary disease) (Acute) Chronic low back pain (Acute) BPH with obstruction/lower urinary tract symptoms (Acute) Drug-induced constipation (Acute) Abdominal pain, lower (Acute) Change in stool habits (Acute) Medical History Palliative care patient Marijuana use Dermatofibroma of left lower leg History of cigarette smoking Knee pain, right Fatigue Rotator cuff syndrome of right shoulder Actinic keratosis Obesity (BMI 35.0-39.9 without comorbidity) Allergic rhinitis Anemia Autoimmune disease Shortness of breath Swallowing problem Peripheral edema Orthostasis Diplopia Severe muscle deconditioning Leukoaraiosis Shoulder pain, bilateral Screening for prostate cancer Urinary retention Sepsis Leukocytosis, unspecified Raynauds syndrome History of septic arthritis (~02/19/17) s/p incision and drainage right wrist Dr. Mccann Lumbar discitis Dehydration Syncope Obesity Hypertension Restless legs Psychogenic polydipsia Lactose intolerance Hyperlipidemia Marijuana use PTSD (post-traumatic stress disorder) ANGIE (obstructive sleep apnea) Sacroiliac joint dysfunction of right side Spondylosis of lumbar region without myelopathy or radiculopathy Surgical History History of arthroplasty of right knee History of revision of total replacement of right knee joint (06/11/17) s/p revision/replant R. TKA, on 06/11/[address] Ramírez History of removal of joint prosthesis of right knee due to infection 12/08/2016, Dr. Oakes @ [facility] [place]; s/p spacer exchange R. knee 02/18/2017 Dr. Ramírez; S/P lumbar fusion History of fusion of cervical spine (04/05/19) C5-C7 cervical discectomy and fusion, Dr. Mark Spence; [facility] [place] bunionectomy Rotator Cuff Repair right Colonoscopy - [facility] 2010- nl. Unable to get into the cecum Social History Smoking/Tobacco Use Status: Current every day Tobacco Type: cigarettes Smoking packs per day: 1 Smoking cigarettes per day: 20.0 Smoking risk assessment performed?: Yes Alcohol Intake: former Drug use: Daily Substance use type: marijuana Details: on methadone from [facility] Housing: house Do you feel safe at home: Yes Do you feel safe in your relationship?: Yes Exam Narrative Exam Narrative: Sitting up in hospital bed. No acute distress. Frail and slightly disheveled. Alert and oriented x3. Evaluation of the right leg shows an fairly proximal AKA stump. There is a well-healed incision line over the middle of the distal end. However, there is a small defect seen about 2 cm posterior to the incision line with draining purulent material. There is tenderness palpation throughout. The thigh is compressible without crepitus. There is pain with palpation. The edge of the femur is quite prominent at the skin edge. Results Last Vital Signs Temp 36.5 C 01/24/23 16:16 Pulse 92 H 01/24/23 16:13 Resp 23 01/24/23 10:31 BP 166/102 H 01/24/23 16:13 Pulse Ox 94 01/24/23 16:11 Labs 01/25/23 05:18 01/25/23 05:18 Labs: Laboratory Results - last 24 hr 01/21/23 01/23/23 01/24/23 21:25 15:14 05:39 WBC 9.35 RBC 3.72 L Hgb 9.0 L Hct 28.4 L MCV 76 L MCH 24.2 L MCHC 31.7 L RDW 24.4 H Plt Count 258 MPV 7.6 L Sodium 132 L Potassium 3.9 Chloride 98 Carbon Dioxide 27.4 Anion Gap 6.6 BUN 23 H Creatinine 0.7 Est GFR (CKD-EPI 2020) 103.53 Glucose 120 H Calcium 8.3 L MRSA (TEM-PCR) Negative Ur Strep pneumoniae Ag Negative Imaging Imaging Studies: CT scan of the right hip and leg was reviewed. This shows an air-fluid level surrounding the entire distal end of the femoral stump. This is present both anteriorly, posteriorly, medially and laterally. It extends 2 to 3 cm proximal to the end of the leg and goes adjacent to the skin surface suggesting open communication. This air-fluid level also abuts the distal femur with reactive bone seen present in the distal femur. Also appears to be some change to the canal of the femur. Additionally there appears to be at least 1 collection seen in the anterior soft tissues, likely within the rectus femoris proximal to the stump site.
--- NOTE | 2023-01-25 12:45 | PTTR_ITS ---
Date of service: 01/25/23 Time of Service: 12:02 PT Notes Visit Reasons: Severe Sepsis Inpatient Physical Therapy Treatment Note [facility] Date: 01/25/23 PRECAUTIONS: Fall, standard, activity as tolerated. AKA positioning precautions in place. SUBJECTIVE: Patient reports that he was originally injured in the 1970's when he was 18, and he has spent his entire life up to this point fighting to save his right leg, and he finally had it amputated in August of this year. Feels as though he lost the fight. OBJECTIVE: Sitting up in recliner, agreeable to therapy. Gonzalez in place. Pediatric diaper in place to catch drainage from wound. ? PAIN: Reports of residual limb: it hurts but it's not agonizing. Also reports pain in bilateral shoulders, states that both shoulders need to be replaced. VITALS: monitored by nursing staff. Therapeutic Activities ([id number]): Direct one-on-one instruction in dynamic activities to improve functional performance. ? BED MOBILITY/TRANSFERS? Rolling L/R: verbal cues Supine-sit: SBA? Sit-supine: SBA ? Sit-stand: SBA? Stand-sit: SBA ? Bed-Chair: CGA, stand pivot with no device, controlled and safe descent. ? Chair-bed: CGA, stand pivot with no device, controlled and safe descent. Provided skilled cues and instruction on performance and technique throughout. ? Therapeutic Exercises ([id number]): Direct one-on-one instruction in therapeutic exercises to develop strength, endurance, range of motion and flexibility. ? Exercises: * chair pushups x3. Patient reports needing bilateral shoulders replaced, this exercise is extremely painful for him. * Glute sets: patient reports doing these independently. * modified single leg bridge: 2x5. Patient maintains level pelvis, no verbal cues needed. * Seated chest expansion exercises: 2x5 diaphragmatic breath with shoulder horizontal ab/adduction. * sidelying hip AROM with emphasis on hip extension x10 ? Provided skilled instruction in proper exercise performance Provided skilled manual cues to facilitate proper muscle recruitment and/or form. ASSESSMENT:? Patient tolerates therapy well, end of session asks that's it? PLAN: Bring patient to the gym tomorrow. Continue global strengthening per plan of care until patient is medically cleared for discharge. TREATMENT CODE/TIME: 35 minutes beginning at 12:02
--- NOTE | 2023-01-25 16:47 | DSE_ITS ---
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 including multiple revision surgeries at [facility] -Wound began to drain purulent discharge early in the morning of 01/24/2023 which was cultured -CT showed her fluid collection at distal stump tracking superiorly into the anterior thigh consistent for an abscess there is to be communication to the skin of the distal aspect of the stump with the distal aspect of the bony stump in communication with the air-fluid collection raising concern for osteomyelitis -Attempt to obtain MRI was unsuccessful, as MRI services were available over the weekend (2) Abscess of right thigh: Status: Acute (3) Non-healing wound of amputation stump: Status: Acute (4) Acute respiratory failure with hypoxia and hypercapnia: Status: Acute Asessment and Plan: -Overnight 01/21- patient had a rapid decline and required endotracheal intubation (please see Dr. Pierre's event report from 01/21/2023 at 22:50 for further details) -ABG pre-intubation showed a pH of 7.2, CO2 of 64, PO2 of 70 -Patient has been on tidal volume of 450, respiratory rate of 16, FiO2 21% and a PEEP of 5 with significant improvement in his CO2 on a.m. VBG as well as his oxygen saturation -Given patient's rapid decline, ongoing altered mental status, and significant increased work of breathing prior to intubation, he will remain intubated until the morning of 01/23/2023 when he will have an SBT -Patient has been on propofol, though he appears more agitated with increasing propofol his blood pressure is decreased -Start Precedex and wean off of propofol and norepinephrine as tolerated -Patient had successful SBT in the morning of 01/23/2021. Has since been extubated and is currently saturating well on room air (5) Aspiration into airway: Status: Acute Asessment and Plan: - Patient meets criteria for severe sepsis on admission with a respiratory rate in the mid 20s, white blood cell count of 22, infectious/metabolic encephalopathy, and presumed infection being aspiration pneumonia, potential infected stage II decubitus ulcer -Was given 30 cc/kg fluid bolus in the emergency department -Given Vanco and Zosyn in the emergency department, rec continuing (6) Pulmonary edema: Status: Acute Asessment and Plan: -Likely cause of patient's rapid decline with worsening hypoxia and hypercapnic respiratory failure as noted above -He had significant urine output after IV Lasix -Blood pressure has been stable and pulmonary edema seems to is resolved, no further doses of Lasix at this time (7) Opioid dependence with withdrawal: Status: Acute Asessment and Plan: - Given that the patient was tachypneic, had significant stool burden on CT, it appears that patient may have been heavily using his methadone and may have run out resulting in opiate withdrawal and resulting altered mental status and agitation -This theory is further bolstered by the fact that patient was given some IV morphine in the emergency department so that he could tolerate CT imaging and patient's agitation significantly improved -Patient's mental status appears to be back at baseline after being extubated (8) Encephalopathy: Status: Acute Asessment and Plan: - Secondary to opioid use and withdrawal as noted above Discharge Plan Disposition Patient Disposition: Transfer-Acute Inpatient Care Specific Acute In Facility: [facility] Condition: Good Discharge Details Reason For Visit: Severe Sepsis Admit Date/Time: 01/21/23 16:59 Admit Provider: Demetrio Metcalf Attending Provider: Demetrio Metcalf Primary Care Provider: Ivonne Diop Hospital Course Hospital Course: Patient initially presented with what appeared to be a toxic encephalopathy resulted in acute hypoxic respiratory failure and intubation. Patient was intubated for roughly 24 hours and was extubated and eventually transition to r oom air without any difficulty. However, patient developed draining wound from his right BKA stump that showed an air-filled abscess acute acute and with the distal portion of his femur. Ultimately, it was determined that further management and surgery would be best at [facility] who accepted patient for transfer. Home Meds and New Rx's Prescriptions: No Action cyanocobalamin (vitamin B-12) 1,000 mcg capsule 1,000 mcg PO DAILY multivitamin with minerals Capsule 1 cap PO DAILY naloxone [Narcan] 4 MG spray,non-aerosol 4 mg NS ONCE MDD 1 PRNQty: 1 lisinopril 20 MG tablet 40 mg PO DAILY mirtazapine 45 MG tablet 30 mg PO HS acetaminophen 500 MG tablet 1,000 mg PO TID tamsulosin [Flomax] 0.4 MG capsule 0.8 mg PO DAILY triamcinolone acetonide 0.5 % Cream 1 applic TOPICAL BID methadone 10 mg Tablet 110 mg PO DAILY AM Rx Instructions: pt states he takes 110 mg in the am and 50mg in the evening hydroxyzine HCl 25 mg Tablet 25 mg PO BID fluticasone propionate 50 mcg/actuation [place],Suspension 2 spray INTRANASAL DAILY venlafaxine 75 mg Tablet Extended Release 24hr 150 mg PO QDAY cannabidiol 100 mg/mL Solution 2 - 3 mg PO DAILY PRN diclofenac potassium 50 mg tablet 50 mg PO TID Patient Comments: TAKE ONE TABLET BY MOUTH THREE TIMES A DAY albuterol sulfate [Ventolin HFA] 90 mcg/actuation HFA aerosol inhaler 2 puff INHALATION Q6H PRN Patient Comments: INHALE TWO PUFFS BY MOUTH EVERY 6 HOURS NEEDED aspirin 81 mg tablet,delayed release (DR/EC) 81 mg PO DAILY Patient Comments: TAKE 1 TABLET BY MOUTH DAILY cyclobenzaprine 10 mg tablet 10 mg PO TID nortriptyline 25 mg capsule 25 mg PO HS furosemide 20 mg tablet 20 mg PO DAILY sennosides-docusate sodium [Senna with Docusate Sodium] 1 EACH tablet 8.6 tab PO QHS PRN tiotropium bromide [Spiriva with HandiHaler] 18 mcg Capsule, W/Inhalation Device 1 cap INHALATION DAILY levomefolate calcium [L-Methylfolate] 15 mg Tablet 15 mg PO DAILY olanzapine 10 mg tablet 20 mg PO QHS Patient Comments: TAKE ONE TABLET BY MOUTH TWICE A DAY TAKE WITH 20MG TABLET methadone 10 mg tablet 50 mg PO QPM Rx Instructions: 110 mg am, 50 mg pm ibuprofen 800 mg Tablet 800 mg PO TID clonidine HCl 0.2 mg tablet 0.2 mg PO QHS methylphenidate HCl 20 mg tablet 20 mg PO TID Patient Comments: TAKE 1 TABLET BY MOUTH THREE TIMES A DAY EFFECTIVE 01/09/22 omeprazole 20 mg Tablet,Delayed Release (Dr/Ec) 20 mg PO DAILY fluconazole 200 mg tablet 400 mg PO DAILY Discharge Instructions Activity:: Activity as Tolerated Equipment/Supplies:: No Equipment Needed Diet:: As Tolerated Discharge Orders Discharge Orders: Discharge Order (Routine); Ordered 01/25/23 Ordered By: Demetrio Metcalf DS: Summary Time Spent with Patient providing and/or coordinating discharge services: Greater than 30 minutes Status at Discharge Functional status at discharge: wheelchair bound Overall status at discharge: patient is back to baseline Mental Status: mental status grossly normal Speech and Movement: speech and movement normal Mood: congruent mood Affect: normal affect Exam Narrative Exam Narrative: Disheveled appearing gentleman sitting up in the edge of the bed, does not appear to be in any acute distress, heart regular rate rhythm, diminished breath sounds bilaterally but improved as compared to previous data, abdomen soft, nontender, mildly distended, multiple open excoriations over bilateral upper and lower extremities, distal right AKA stump with open wound roughly 3/4 of a centimeter and diameter draining serosanguineous fluid with intermittent purulent fluid Psych Mental Status: mental status grossly normal Speech and Movement: speech and movement normal Mood: congruent mood Affect: normal affect DS: Data Vitals/I&O Vitals and I&O: Vital Signs Temperature 97.9 F 01/25/23 12:53 Temperature Source Temporal Artery Scan 01/25/23 12:53 Pulse 86 01/25/23 12:50 Pulse Rhythm Irregular 01/25/23 01:07 Pulse 99 H 01/24/23 10:31 Respiratory Rate 20 01/25/23 12:53 Respiratory Effort Normal, Non-Labored 01/25/23 08:05 Respiratory Depth Normal 01/25/23 08:05 Respiratory Pattern Normal 01/25/23 08:05 Blood Pressure 177/124 H 01/25/23 12:50 Blood Pressure Mean 142 01/25/23 12:50 Blood Pressure Position Supine 01/24/23 08:34 Pulse Oximetry 92 01/25/23 12:53 Respiratory End-tidal CO2 38 01/23/23 07:36 Oxygen Delivery Method Room Air 01/25/23 13:18 Oxygen Flow Rate 0 01/25/23 13:18 Fraction of Inspired Oxygen (FIO2) 21 01/23/23 07:36 Pain Level 0 01/25/23 12:53 Comment regular dark blue cuff left arm 01/24/23 20:31 Intake & Output 01/24/23 01/25/23 01/25/23 17:59 05:59 17:59 Intake Total 2196.995 / 2196.995 2029 / 4226.995 2009 Output Total 3400 / 3400 1775 / 5175 3725 / 3725 Balance -1203.005 / -1203.005 255 / -948.005 -1715 / -1715 Weight 159 lb 9.835 oz Intake: IV 246.995 / 246.995 110 / 356.995 300 / 300 Oral 1950 / 1950 1920 / 3870 1710 / 1710 Output: Urine 3400 / 3400 1775 / 5175 3725 / 3725 Other: Urine Color Yellow Pale Pale Yellow Urine Appearance Cloudy Clear Clear Comment slightly cloudy urine Stool Occult Blood Negative Stool Size Large Stool Characteristics Soft Formed Data Completed and Pending Labs on day of discharge: Labs from last 24 hours 01/25/23 01/24/23 05:18 19:38 WBC 8.98 RBC 4.13 L Hgb 9.9 L Hct 31.0 L MCV 75 L MCH 24.0 L MCHC 31.9 L RDW 23.9 H Plt Count 284 MPV 7.3 L ESR 19 Sodium 132 L Potassium 3.7 Chloride 98 Carbon Dioxide 29.0 Anion Gap 5.0 BUN 16 Creatinine 0.6 L Est GFR (CKD-EPI 2020) 108.47 Glucose 122 H Calcium 8.2 L Preliminary micro results at discharge 01/21/23 12:20 Blood Culture - Preliminary Blood NO GROWTH 96 HOURS 01/21/23 12:28 Blood Culture - Preliminary Blood NO GROWTH 96 HOURS 01/23/23 21:13 Wound Culture - Preliminary Leg - Right Gram Negative Fidel Normal [place] PFSH All Active Problems Non-healing wound of amputation stump (Acute) Abscess of right thigh (Acute) Subacute osteomyelitis, right femur (Acute) Constipation (Acute) Hypotension (Acute) Troponin level elevated (Acute) Aspiration into airway (Acute) Acute respiratory failure with hypoxia and hypercapnia (Acute) Pulmonary edema (Acute) Encephalopathy (Acute) Cellulitis (Acute) Acute respiratory failure with hypoxia (Acute) Hyponatremia (Acute) Hyperkalemia (Acute) Aspiration pneumonia (Acute) Severe sepsis (Acute) Acute dehydration (Acute) Decubitus ulcer (Acute) Opioid dependence with withdrawal (Acute) Acute hyponatremia (Acute) Aspiration pneumonia (Acute) Sepsis (Acute) Fall (Acute) Dislocation of finger PIP joint (Acute) Impacted cerumen (Acute) Asymmetrical sensorineural hearing loss (Acute) Opioid overdose (Acute) Bradycardia (Acute) Falls (Acute) Weakness (Acute) Aspiration pneumonia (Acute) Epistaxis (Acute) Acute adrenal crisis (Acute) Acute hyperkalemia (Acute) Acute hyponatremia (Acute) Acute renal failure (Acute) Acute respiratory distress (Acute) Bradycardia (Acute) Sepsis (Acute) Burn injury (Acute) Chronic pain (Acute) No-show for appointment (Acute) COPD (chronic obstructive pulmonary disease) (Acute) Chronic low back pain (Acute) BPH with obstruction/lower urinary tract symptoms (Acute) Drug-induced constipation (Acute) Abdominal pain, lower (Acute) Change in stool habits (Acute) Medical History Palliative care patient Marijuana use Dermatofibroma of left lower leg History of cigarette smoking Knee pain, right Fatigue Rotator cuff syndrome of right shoulder Actinic keratosis Obesity (BMI 35.0-39.9 without comorbidity) Allergic rhinitis Anemia Autoimmune disease Shortness of breath Swallowing problem Peripheral edema Orthostasis Diplopia Severe muscle deconditioning Leukoaraiosis Shoulder pain, bilateral Screening for prostate cancer Urinary retention Sepsis Leukocytosis, unspecified Raynauds syndrome History of septic arthritis (~02/19/17) s/p incision and drainage right wrist Dr. Mccann Lumbar discitis Dehydration Syncope Obesity Hypertension Restless legs Psychogenic polydipsia Lactose intolerance Hyperlipidemia Marijuana use PTSD (post-traumatic stress disorder) ANGIE (obstructive sleep apnea) Sacroiliac joint dysfunction of right side Spondylosis of lumbar region without myelopathy or radiculopathy Surgical History History of arthroplasty of right knee History of revision of total replacement of right knee joint (06/11/17) s/p revision/replant R. TKA, on 06/11/[address] Ramírez History of removal of joint prosthesis of right knee due to infection 12/08/2016, Dr. Oakes @ [facility]; s/p spacer exchange R. knee 02/18/2017 Dr. Ramírez; S/P lumbar fusion History of fusion of cervical spine (04/05/19) C5-C7 cervical discectomy and fusion, Dr. Mark Spence; [facility] bunionectomy Rotator Cuff Repair right Colonoscopy - [facility] 2010- nl. Unable to get into the cecum Social History Smoking/Tobacco Use Status: Current every day Tobacco Type: cigarettes Smoking packs per day: 1 Smoking cigarettes per day: 20.0 Smoking risk assessment performed?: Yes Alcohol Intake: former Drug use: Daily Substance use type: marijuana Details: on methadone from [facility] Housing: house Do you feel safe at home: Yes Do you feel safe in your relationship?: Yes Time Spent with Patient Time Spent with Patient: <45 minutes Time was spent: preparing to see the patient(eg.review tests), obtaining and/or reviewing separately otained hiistory, referring, communicating with other health hearing healthcare practitioner, indepentently interpreting results, counseling the patient and care coordination
[2023-01-25 20:33] LABS: Mycoplasma Pneumoniae PCR Negative (Negative)
== END 2023-01-25 17:20 | disposition short-term general hospital (02) | DRG 871 ==
LOC: ER 17:27 → ICU 18:23
PROVIDERS: Internal Medicine; Student in an Organized Health Care Education/Training Program; Admitting Provider Family Medicine; Emergency Provider Emergency Medicine Emergency Medical Services; PCP Family Medicine; Visit Provider Family Medicine
DX: A41.9 Sepsis, unspecified organism (principal); G93.41 Metabolic encephalopathy; J69.0 Pneumonitis due to inhalation of food and vomit; J96.01 Acute respiratory failure with hypoxia; J96.02 Acute respiratory failure with hypercapnia; E87.1 Hypo-osmolality and hyponatremia; F11.23 Opioid dependence with withdrawal; L03.312 Cellulitis of back [any part except buttock and flank]; M60.003 Infective myositis, unspecified right leg; N13.8 Other obstructive and reflux uropathy; T87.43 Infection of amputation stump, right lower extremity; M86.251 Subacute osteomyelitis, right femur; R65.20 Severe sepsis without septic shock; E87.6 Hypokalemia; I95.89 Other hypotension; K59.00 Constipation, unspecified; J43.2 Centrilobular emphysema; D64.9 Anemia, unspecified; E86.1 Hypovolemia; R74.8 Abnormal levels of other serum enzymes; Z78.1 Physical restraint status; F12.90 Cannabis use, unspecified, uncomplicated; L89.152 Pressure ulcer of sacral region, stage 2; F17.210 Nicotine dependence, cigarettes, uncomplicated; T40.3X1A Poisoning by methadone, accidental (unintentional), initial encounter; N40.1 Benign prostatic hyperplasia with lower urinary tract symptoms; G89.29 Other chronic pain; M54.50 Low back pain, unspecified; T81.89XA Other complications of procedures, not elsewhere classified, initial encounter
CPT/HCPCS: 31500; 00123; 36415; 51702; 71045; 71250; 76604; 76705; 76775; 80048; 80053; 80307; 82805; 84145; 85027; 85652; 87040; 87077; 87449; 87635; 87641; 93005; 93308; 94640; 96365; 96366; 96368; 96375; 96376; 97110; 97162; 97530; 99223; 99291; J1650; 36600; 70450; 73701; 74176; 80202; 81003; 81015; 82140; 83605; 83735; 83880; 84484; 85025; 85610; 86140; 87070; 87186; 87205; 87581; 87899; 93010; 93306; 94002; 94003; 94664; 94760; 99233; 99239; J1940; J2060; J2270; J2543; J2704; J2930; J7613; J7620

== ENCOUNTER → 2023-01-23 08:26 | Outpatient (BNVA) | payer MEDICARE, MEDICAID, SELFPAY | PROVIDERS: PCP Family Medicine; Referring Provider Family Medicine; Visit Provider Student in an Organized Health Care Education/Training Program ==